=== PATIENT | female | born 1955 | race Caucasian/White ===

== ENCOUNTER 2016-09-30 20:17 | Inpatient (IN) | payer OTHER, MEDICARE ==
[~2016-09-30] VITALS: Ht 160 cm; Wt 59.0 kg
[~2016-09-30 20:17] MED LIST: ACEPHEN650 M1 PR; ACETAMINOPHEN325 M2 PO; ADVAIR 250-501 EACH INH; ADVAIR DISKUS 21 DSK INH; ADVAIR DISKUS1 DS1 INH; ALBUTEROL2.5 MG/3 M INH/SOL; ALPRAZOLAM1 M2 PO; APIX5T PO; AZITHROMYCIN500 M3 PO; BACTRIM DS TAB1 EACH PO; BISACODYL10 M1 RC; CALCIUM 600600 M1 PO; CIPRO500 M1 PO; CLONAZEPAM0.5 MG PO; CYCLOBENZAPRINE10 M2 PO; DELTASONE20 MG PO; DEXILANT60 MG; DEXILANT60 MG PO; ELIQUIS5 M1 PO; FLEET ENEMA133 ML RC; FUROSEMIDE20 M1 PO; FUROSEMIDE40 MG PO; IPRAT-ALBUT 0.5-3 ML; IPRAT-ALBUT 0.5-3 ML INH; KEPPRA500 M1 PO; LASIX 100M100 MG/10 IV; LEVETIRACETAM500 MG PO; LISINOPRIL20 M1 PO; LISINOPRIL40 M1 PO; LOPRESSOR 25MG25 MG PO; LOPRESSOR50 M1 PO; LORAZEPAM1 M1 PO; LYRICA75 M1 PO; MEDROL DOSEPAK1 PAC PO; MEGACE ES625 MG/5 M PO; MEGESTROL PO; METOPROLOL TART50 M1 PO; MILK OF MA400 MG/52 PO; NICODERM C21 MG/24 H TOP; NICOTINE PATCH1 EAC2 TOP; NORVASC5 M1 PO; NOVOLIN R100 UNIT/1 SC; NOVOLOG100 UNIT/2; NYSTATIN100000 UNI PO; ONDANSETRON8 M1 PO; OXYCODONE HCL E40 MG PO; OXYCODONE HCL15 M1 PO; OXYCODONE HCL15 MG PO; OXYCODONE HCL5 M1 PO; OXYCODONE HYDRO15 MG PO; OXYCONTIN (MONO40 MG PO; OXYCONTIN30 M1 PO; PREDNISONE 10MG10 M1 PO; PREDNISONE 20MG20 MG PO; PREDNISONE10 M2 PO; PREDNISONE10 MG PO; PREDNISONE20 M1 PO; PREDNISONE5 MG PO; REGLAN10 M1 PO; SOLU MEDRO IV; SPIRIVA18 MCG PO; SYMBICORT 160/41 PUF INH; SYMBICORT 16010.2 GM INH; TEGRETOL200 M1 PO; VENTOLIN HFA18 GM INH; VITAMIN D31000 UNI2 PO; ZITHROMAX Z-PA250 M1 PO; ZOFRAN ODT8 M1 PO; ZOFRAN ODT8 MG SL; ZOLMITRIPTAN5 MG PO; ZOMIG5 MG PO; [UNRECOGNIZED DRUG - OTHER] PO
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
--- NOTE | 2016-09-30 20:48 | NUR ---
LABS SENT (BLUE,SST,LAV,GREGG, BC #1)
[2016-09-30 20:58] LABS: ABSOLUTE BASOPHIL COUNT 0 /CUMM (0.0-0.2); ABSOLUTE EOSINOPHIL COUNT 0 /CUMM (0.0-0.7); ABSOLUTE GRANULOCYTE CT 4.9 /CUMM (1.4-6.5); ABSOLUTE LYMPH COUNT 1.8 /CUMM (1.2-3.4); ABSOLUTE MONOCYTE COUNT 0.4 /CUMM (0.10-0.60); BASOPHIL % 0.4 % (0.0-2.0); EOSINOPHIL % 0.3 % (0-5); GRANULOCYTE % 68.8 % (42.2-75.2); HEMATOCRIT 30.3 % (37-47); MEAN CORPUSCULAR HGB CONC 31.3 G/DL (33.0-37.0); MEAN CORPUSCULAR VOLUME 79.8 FL (81.0-99.0); MEAN PLATELET VOLUME 6.4 FL (7.4-10.4); PLATELET COUNT 324 /CUMM (130-400); RBC DISTRIBUTION WIDTH 16.7 % (11.5-14.5); WHITE BLOOD CELL COUNT 7.1 /CUMM (4.8-10.8)
--- NOTE | 2016-09-30 21:16 | NUR ---
PT BIBA FOR WORSENING SOB, AMS AND ATTEMPTING TO CUT THROAT WITH KNIFE. ON EMS ARRIVAL, PT HYPOXIC AT 78% AND EMS WITNESSED PT ATTEMPTING TO CUT THROAT WITH KNIFE DUE TO CONFUSION. EMS WAS ABLE TO REMOVE KNIFE AND PT ARRIVES TO ED WITH SUPERFICIAL CUT TO L SIDE OF NECK, BLEEDING CONTROLLED, ALEX TO BEDSIDE TO EVAL IMMEDIATELY UPON ARRIVAL. PT ALERT TO PERSON AND PLACE BUT REFUSING TO ANSWER ANY OTHER QUESTIONS, BREATHING LABORED AT APPROX 26/MIN, ARRIVES RECEIVING 2ND NEB FROM EMS, SATS ON ARRIVAL APPROX 98%, PT WEARS 02 AT HOME AT 2-2.5LPM CHRONICALLY. PT REPORTING SHE HAS BEEN FEELING UNWELL FOR PAST SEVERAL WEEKS AND BEGAN TO FEEL SIG WORSE YESTERDAY AND TODAY. REPORTING INCREASING DIFF BREATHING, PRODUCTIVE COUGH WITH WIHTE/YELLOW SPUTUM AND LOW GRADE FEVER.
--- NOTE | 2016-09-30 21:45 | RADIOLOGY REPORT ---
EXAMINATION: XR PORTABLE CHEST CLINICAL INFORMATION: Dyspnea and hypoxia. COMPARISON: Chest radiograph 06/29/2016. TECHNIQUE: Portable AP view of the chest was obtained. FINDINGS: A cerclage wire surrounding the spinous processes at the cervicothoracic junction is redemonstrated. Cardiac leads overly the chest. The position of the subcutaneous electrodes that traverse the chest are unremarkable. There is a central hilar vascular engorgement. No focal consolidative disease. No pleural effusion or pneumothorax. The cardiac silhouette and upper mediastinal contours are unremarkable. There is chronic erosion of the right distal clavicle which may represent chronic changes related to old trauma. IMPRESSION: There is hilar vascular engorgement. No evidence of overt airspace disease.
--- NOTE | 2016-09-30 21:54 | NUR ---
EMS LINENS REMOVED FROM UNDERNEATH PT, LARGE BRUISE NOTED TO R POSTERIOR RIBS AND SMALLER BRUISE NOTED ABOVE WELL. PT REPORTING SHE HAS BEEN FALLING FREQUENTLY.
--- NOTE | 2016-09-30 22:11 | NUR ---
PT'S NECK WOUND CLEANED AND DRESSED, NO ADDTL BLEEDING, BACITRACIN AND ABD GAUZE APPLIED. PT CONTINUES TO REST.
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
--- NOTE | 2016-09-30 22:59 | NUR ---
PT BED ASSIGNMENT 235-2
--- NOTE | 2016-09-30 23:26 | NUR ---
REPORT GIVEN TO RN BY AG GALEAS PT TO HAVE CTA PRIOR TO TRANSPORT TO FLOOR
--- NOTE | 2016-09-30 23:34 | NUR ---
PT TO CT VIA STRETCHER WITH SITTER
--- NOTE | 2016-09-30 23:54 | Admission Certification ---
Admission Certification Certification Statement - As attending physician, I certify that at the time of - admission, based on clinical presentation, severity of - symptoms, need for further diagnostic testing and - therapeutic interventions, and risk of adverse outcomes - without in-hospital treatment, in my clinical assessment, - this patient requires an acute hospital stay for a minimum - of two nights or longer. I have also considered psychsocial - factors such as support system, advanced age, financial - issues, cognitive issues, and failed out-patient treatments, - past re-admission history, safety of patient, and lack of - compliance as applicable. Specific rationale supporting this admission is: Acute on chronic hypoxic and hypercarbic respiratory failure, COPD exacerbation.
[2016-10-01] VITALS (7 sets, daily range): BP systolic 110–136; BP diastolic 60–70
--- NOTE | 2016-10-01 00:29 | CT SCAN REPORT ---
EXAMINATION: CT CHEST WITHOUT CONTRAST CLINICAL INFORMATION: Cough. Hypoxic. COMPARISON: Chest x-ray 09/30/2016. CT of chest 09/25/2015 TECHNIQUE: Multidetector volumetric CT imaging of the chest was done. Axial MIP volume rendering provided. Sagittal and coronal reformatted images were obtained. DLP: 193.85 mGy-cm FINDINGS: There is breathing motion which limits study. LUNGS: There is centrilobular emphysema of the lungs. No large acute infiltrate. There are lung opacities bilaterally. Left lun. There is a ovoid opacity in the medial region of left upper lobe measuring 1.2 x 0.7 x 1.6 cm, axial image 9 (3), coronal image 46. This has enlarged since the CAT scan 09/25/2015. This previously measured 1 x 0.6 cm. 2. A similar-appearing nodule measuring 1.3 x 0.8 x 0.8 cm in the superior segment of left lower lobe posteriorly axial image 20 (3), coronal image 69. This was smaller and more groundglass in density on the CAT scan of 09/25/2015. This lesion is therefore progressed. 3. Patchy alveolar opacity subpleural lung anterior lingula axial image 35 (3). This is new since prior CAT scan. Right lun. Linear scarring/subsegmental atelectasis at the posterior costophrenic angle the right lung, axial image 52 (3). This is new since CAT scan of 2016. 2. In the right lung there is a vague area of reticular opacity in the right upper lobe mid posterior lung image 21 (3). This is similar to the CAT scan of 09/25/2015. MEDIASTINUM: No bulky lymphadenopathy. Small shotty lymph nodes in the mediastinum. Largest lymph node at the ryanne in the pretracheal retrovascular space with short axis diameter of 7 mm. PLEURA: There is no pleural effusion. No pleural mass or thickening. AXILLA: No lymphadenopathy. UPPER ABDOMEN: Status post cholecystectomy. OSSEOUS STRUCTURES: S-shaped scoliosis of the spine with multilevel endplate spurs. IMPRESSION: 1. Centrilobular emphysematous changes of lung 2. There are bilateral focal lung opacities. There is been interval progression of the lung opacity at the left upper lobe at the apex and also progression of a previously seen density in the superior segment of left lower lobe. Neoplasm not excluded. Consider interventional consult for consideration of percutaneous biopsy.
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
[2016-10-01 08:13] LABS: ABSOLUTE BASOPHIL COUNT 0 /CUMM (0.0-0.2); ABSOLUTE EOSINOPHIL COUNT 0 /CUMM (0.0-0.7); ABSOLUTE GRANULOCYTE CT 2.3 /CUMM (1.4-6.5); ABSOLUTE LYMPH COUNT 0.5 /CUMM (1.2-3.4); ABSOLUTE MONOCYTE COUNT 0 /CUMM (0.10-0.60); BASOPHIL % 0.4 % (0.0-2.0)
[2016-10-01 08:27] LABS: EOSINOPHIL % 0 % (0-5); GRANULOCYTE % 81.1 % (42.2-75.2); HEMATOCRIT 26.5 % (37-47); MEAN CORPUSCULAR HGB 25.3 PG (27.0-31.0); MEAN CORPUSCULAR HGB CONC 32.2 G/DL (33.0-37.0); MEAN CORPUSCULAR VOLUME 78.6 FL (81.0-99.0); MEAN PLATELET VOLUME 6.8 FL (7.4-10.4); PLATELET COUNT 260 /CUMM (130-400); RBC DISTRIBUTION WIDTH 16.2 % (11.5-14.5); RED BLOOD CELL CT 3.37 /CUMM (4.20-5.40)
[2016-10-01 08:35] LABS: WHITE BLOOD CELL COUNT 2.9 /CUMM (4.8-10.8)
--- NOTE | 2016-10-01 10:26 | NUR ---
0812- PT AWOKE FROM SLEEP AND WANTED XANAX DUE TO ANXIETY. PT STATES HER ANXIETY IS SEVERE AND SHE WANTS XANAX NOW. MD WAS PAGED BUT SHE STATED SHE WAS LEAVING NOW IF XANAX NOT GIVEN IMMEDIATELY. PT BEGAN PULLING ON IV AND LEFT ROOM STATING SHE WAS LEAVING. SITTER AND THIS RN FOLLOWED PT. ORDER NUMBER 7 CALLED. ORDER 7 CHANGED TO ORDER 10. DR ARGUELLO CAME TO ELEVATOR ENTRANCE TO SPEAK TO PT. SECURITY WALKED PT BACK TO ROOM. ORDER PLACED BY DR ARGUELLO FOR XANAX 1 MG. PSYCH CONSULT IN PLACE. SAFETY MAINTAINED.
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
--- NOTE | 2016-10-01 19:40 | Event Note ---
See Addendum Event Note Event Note: 1/4 of +GPCs per Dr. Fang
[2016-10-02] VITALS (7 sets, daily range): BP systolic 122–150; BP diastolic 58–74
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
[2016-10-02 08:08] LABS: ABSOLUTE BASOPHIL COUNT 0 /CUMM (0.0-0.2); ABSOLUTE EOSINOPHIL COUNT 0 /CUMM (0.0-0.7); ABSOLUTE MONOCYTE COUNT 0.5 /CUMM (0.10-0.60); BASOPHIL % 0 % (0.0-2.0)
[2016-10-02 08:25] LABS: ABSOLUTE LYMPH COUNT 0.7 /CUMM (1.2-3.4); EOSINOPHIL % 0 % (0-5); GRANULOCYTE % 87.2 % (42.2-75.2); HEMATOCRIT 26.7 % (37-47); MEAN CORPUSCULAR HGB CONC 31.8 G/DL (33.0-37.0); MEAN CORPUSCULAR VOLUME 78.7 FL (81.0-99.0); MEAN PLATELET VOLUME 6.9 FL (7.4-10.4); PLATELET COUNT 298 /CUMM (130-400); RBC DISTRIBUTION WIDTH 16.4 % (11.5-14.5)
[2016-10-02 09:30] LABS: WHITE BLOOD CELL COUNT 9.1 /CUMM (4.8-10.8)
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
--- NOTE | 2016-10-02 20:40 | NUR ---
DR. ROMEO SPOKE TO PT TODAY ABOUT THROAT. PT FELT LIKE SHE WAS HAVING DIFFICULTY WITH HER THROAT. NO RESPIRATORY DISTRESS NOTED AT THIS TIME. PT REMAINS WHEEZY AND ON NEBULIZERS. SAID HE REMEMBERS PT HAD A REACTION, A RASH OR WAS ITCHY WHEN ON ATIVAN. PO BENADRYL WAS GIVEN WITH IV ATIVAN. A ONE TIME ORDER WAS PLACED BY DR ROMEO IN CASE PT DEVELOP ALLERGIC REACTION. PT WAS RESTARTED BACK ON HER PAINS MEDS
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
[2016-10-03] VITALS (7 sets, daily range): BP systolic 125–170; BP diastolic 70–88
--- NOTE | 2016-10-03 05:56 | NUR ---
10/03/16 MST REPORTED TO THIS VERTICAL BORER PATIENT BP 170/88. THIS RN RE-TOOK BP MANUALLY AND WAS 164/82. PATIENT DENIES CHEST PAIN, HEADACHE OR DISCOMFORT. NO DISTRESS WAS NOTED. MD PAOLA Wolfe WAS NOTIFIED AND STATED NO FURTHER ACTION WAS NECESSARY. PATIENT HAS HX OF HTN AND IS CURRENTLY TAKING SCHEDULED BP MEDS.
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
[2016-10-03 07:50] LABS: ABSOLUTE BASOPHIL COUNT 0 /CUMM (0.0-0.2); ABSOLUTE EOSINOPHIL COUNT 0 /CUMM (0.0-0.7); ABSOLUTE GRANULOCYTE CT 7.4 /CUMM (1.4-6.5); ABSOLUTE LYMPH COUNT 0.7 /CUMM (1.2-3.4); ABSOLUTE MONOCYTE COUNT 0.3 /CUMM (0.10-0.60); BASOPHIL % 0 % (0.0-2.0); EOSINOPHIL % 0.1 % (0-5); GRANULOCYTE % 87.9 % (42.2-75.2); HEMATOCRIT 25.5 % (37-47); MEAN CORPUSCULAR HGB 25.3 PG (27.0-31.0); MEAN CORPUSCULAR VOLUME 78.9 FL (81.0-99.0); MEAN PLATELET VOLUME 6.5 FL (7.4-10.4); PLATELET COUNT 280 /CUMM (130-400); RBC DISTRIBUTION WIDTH 16.4 % (11.5-14.5); RED BLOOD CELL CT 3.24 /CUMM (4.20-5.40)
[2016-10-03 09:00] LABS: WHITE BLOOD CELL COUNT 8.4 /CUMM (4.8-10.8)
[2016-10-03] MEDS ORDERED: XANAX1 M1 PO (10:57)
[2016-10-03] MEDS ORDERED: ROZEREM8 M1 PO ×2 (11:09→18:17)
--- NOTE | 2016-10-03 11:14 | Patient Discharge Instructions ---
Discharge Instructions General Discharge Information Special Instructions: Continue to take your Ativan taper as directed by psychiatry services. Continue your Prednisone taper as directed, resume your previous home dose when done. Continue with psychiatry inpatient recommendations. Follow up with your primary care provider and Dr. Cates after discharge. Acute Coronary Syndrome Inclusion Criteria At DC or during hospital stay patient has or had the following: ACS DIAGNOSIS No Discharge Core Measures Meds if any: Prescribed or Continued at Discharge Meds if any: NOT Prescribed or Continued at Discharge Congestive Heart Failure Inclusion Criteria At DC or during hospital stay patient has or had the following: CHF DIAGNOSIS No Discharge Core Measures Meds if any: Prescribed or Continued at Discharge Meds if any: NOT Prescribed or Continued at Discharge Cerebrovascular accident Inclusion Criteria At DC or during hospital stay patient has or had the following: CVA/TIA Diagnosis No Discharge Core Measures Meds if any: Prescribed or Continued at Discharge Meds if any: NOT Prescribed or Continued at Discharge Venous thromboembolism Inclusion Criteria VTE Diagnosis No VTE Type NONE VTE Confirmed by (Test) NONE Discharge Core Measures - Per Current guidelines, there needs to be overlap - treatment for the first 5 days of Warfarin therapy. - If discharged on Warfarin prior to 5 days of - overlap therapy, the patient will need to be - assessed for post discharge needs including - *Post discharge parental anticoagulation - *Warfarin and/or parental anticoagulation education - *Follow up date to check INR post discharge At least 5 days overlap therapy as Inpatient No Meds if any: Prescribed or Continued at Discharge Note: Overlap Therapy is Warfarin and Anticoagulant Meds if any: NOT Prescribed or Continued at Discharge
--- NOTE | 2016-10-03 11:32 | Incdntl Nt Psy ---
Incidental Note Notation: Patient approved for inpatient psychiatric admission by [facility]ona. Authorization #: [id number] Covered for 5 days through 10/07/16. Review date on 10/07/16.
[2016-10-03] MEDS ORDERED: PREDNISONE10 M2 PO ×2 (11:35→18:15)
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
--- NOTE | 2016-10-03 11:59 | Incdntl Nt Psy ---
Incidental Note Notation: This commercial loan underwriter met with client briefly at 11:15am. Attempted to complete diagnostic assessment for admission to [facility] but client was not cooperative with interview. She refused to speak to this commercial loan underwriter. She appeared to be in some distress and was requesting prn anxiety medication. Medication plan reviewed with Dr. Ubaldo Adan. Please see the note under [facility] account number for further information.
[2016-10-03] MEDS ORDERED: LORAZEPAM1 M1 PO (14:00)
--- NOTE | 2016-10-03 15:49 | PN- Pulmonary ---
Subjective HPI/Critical Care Issues: pt seen and examined has a sitter requesting anixiolytics appears comfortable feels respiratory status is improved Objective Current Medications: Current Medications Sig/Halie Start time Last Medication Dose Route Stop Time Status Admin Albuterol Sulfate 3 ML EVERY 4 HRS/AWAKE 10/01 1201 AC 10/03 INH 1305 Albuterol Sulfate 2 PUF Q4-6 PRN PRN 09/30 2245 AC INH Apixaban 5 MG BID 10/01 1000 AC 10/03 PO 0951 Budesonide/ 2 PUF BID 09/30 2243 AC 10/03 Formoterol Fumarate INH 0952 Diphenhydramine HCl 25 MG ONCE ONE 10/02 1630 DC 10/02 PO 10/02 1631 1635 Diphenhydramine HCl 50 MG Q6P PRN 10/02 1630 AC IV Furosemide 20 MG DAILY 10/01 1000 AC 10/03 PO 0951 Guaifenesin 600 MG Q12 09/30 2248 AC 10/03 PO 0952 Levetiracetam 500 MG BID 09/30 2244 AC 10/03 PO 0951 Lisinopril 20 MG DAILY 10/01 1000 AC 10/03 PO 0951 Lorazepam 1.5 MG Q6 10/03 1200 DC 10/03 PO 10/04 0601 1022 Lorazepam 2 MG Q6 10/03 1200 AC PO Lorazepam 2 MG Q6 10/01 1200 DC 10/03 PO 0512 Lorazepam 0 Q1P PRN 10/01 1200 AC 10/03 IV 1201 Melatonin 3 MG AT BEDTIME 10/01 2200 AC 10/02 PO 2113 Methylprednisolone 40 MG Q12 10/01 2200 DC 10/02 IV 10/03 0000 2113 Metoprolol Tartrate 25 MG BID 09/30 2245 AC 10/03 PO 0951 Nicotine 14 MG DAILY 10/01 1000 AC 10/03 TOP 0952 Oxycodone HCl 10 MG Q6P PRN 10/02 1315 AC PO Oxycodone HCl 30 MG Q12 10/02 1309 AC 10/03 PO 0950 Patient Medication 1 ED .STK-MED ONE 10/03 1400 DC Teaching ED 10/03 1401 Prednisone 60 MG DAILY 10/03 1000 AC 10/03 PO 0951 Prochlorperazine 10 MG Q6P PRN 09/30 2245 AC IV Ramelteon 8 MG QPM 10/02 2199 AC 10/02 PO 2113 Tiotropium [place] 1 PUF DAILY 10/01 1000 AC 10/03 INH 0952 Vital Signs & I&O Last 24 Hrs of Vitals and I&O: Vital Signs Date Time Temp Pulse Resp B/P Pulse O2 O2 Flow FiO2 Ox Delivery Rate 10/03 1429 98.2 112 20 125/70 98 10/03 1300 98.4 82 18 138/84 10/03 1116 98.2 80 20 130/80 96 10/03 0951 132/74 10/03 0855 97 Nasal 2.0L Cannula 10/03 0800 96 Nasal 2.0L Cannula 10/03 0706 98.1 76 20 132/74 94 Nasal 2.0L Cannula 10/03 0400 98.2 71 20 164/82 10/03 0245 98.2 71 20 164/82 97 Nasal 2.0L Cannula 10/03 0221 97.8 72 20 170/88 99 Nasal 2.0L Cannula 10/03 0000 98 Nasal 2.0L Cannula 10/02 2230 98.1 91 20 150/74 97 Nasal Cannula 10/02 1645 98 Nasal 2.0L Cannula Intake & Output 10/03 1600 10/03 0800 10/03 0000 Intake Total 600 500 Output Total 375 Balance 225 500 Intake, IV 0 Intake, Oral 600 500 Number 0 Bowel Movements Output, Urine 375 Exam Other Physical Findings: General - awake and alert HEENT - left cut on neck Cardiovascular - S1, S2 Lungs - rhonchi/wheezing bilaterally Abdomen - soft, bowel sounds positive, no tenderness Extremities - trace edema Results Last 24 Hrs of Lab Results: Laboratory Tests 10/03/16 0700: CBC w Diff NO MAN DIFF REQ, RBC 3.24 L, MCV 78.9 L, MCH 25.3 L, RDW 16.4 H, MPV 6.5 L, Gran % 87.9 H, Lymphocytes % 7.9 L, Monocytes % 4.1, Eosinophils % 0.1, Basophils % 0 L, Absolute Granulocytes 7.4 H, Absolute Lymphocytes 0.7 L , Absolute Monocytes 0.3, Absolute Eosinophils 0, Absolute Basophils 0, PUBS MCHC 32.0 L Impression/Plan Impression/Plan Impression/Plan: Impression * Severe oxygen and prednisone dependent COPD * COPD exacerbation/acute hypoxemic respiratory failure * chronic hypercarbic respiratory failure * pulmonary nodules enlarging * pulmonary embolism on Eliquis, (09/2015) * Systolic CHF * spinal stenosis and chronic pain, hx neurostimulator placement. * sacral fracture * tobacco dependence * suicidal ideations, with a possible suicidal attempt Plan * prednisone 60x2, 50x2, 40x2, 30x2, reduce to 20 and will re-evaluate * trc/nebs/inhalers * continue eliquis * anxiolysis * psychiatry follow up DVT prophylaxis at all times (on eliquis)
[2016-10-03] MEDS ORDERED: VITAMIN D1000 UNIT PO (18:19)
[2016-10-03] MEDS ORDERED: OXYCODONE HCL5 M1 PO (18:22)
[2016-10-03] MEDS ORDERED: KEPPRA500 M1 PO (18:24)
[2016-10-03] MEDS ORDERED: METOPROLOL TART25 M1 PO (18:25)
== END 2016-10-03 16:26 | DRG 190 ==
LOC: ENRESERVTM → ENRESERVDT → ERH 20:17 → ERHI 21:56 → 2NA 21:56
PROVIDERS: Internal Medicine Hematology & Oncology; Internal Medicine Interventional Cardiology; Pediatrics; Student in an Organized Health Care Education/Training Program; ADMIT Student in an Organized Health Care Education/Training Program
DX: J44.1 Chronic obstructive pulmonary disease with (acute) exacerbation (principal); J96.22 Acute and chronic respiratory failure with hypercapnia; J96.21 Acute and chronic respiratory failure with hypoxia; E87.2 Acidosis; I50.32 Chronic diastolic (congestive) heart failure; F13.20 Sedative, hypnotic or anxiolytic dependence, uncomplicated; R56.9 Unspecified convulsions; I10 Essential (primary) hypertension; Z86.711 Personal history of pulmonary embolism; Z79.01 Long term (current) use of anticoagulants; T14.91 Suicide attempt; F41.9 Anxiety disorder, unspecified; G89.29 Other chronic pain; S11.91XA Laceration without foreign body of unspecified part of neck, initial encounter; X78.1XXA Intentional self-harm by knife, initial encounter; Y92.009 Unspecified place in unspecified non-institutional (private) residence as the place of occurrence of the external cause; F17.200 Nicotine dependence, unspecified, uncomplicated; I48.91 Unspecified atrial fibrillation
CPT/HCPCS: 2NASP; 80307; 81001; 82436; 87040; 87147; 93005; 93010; 94799; 96374; 96375; 99233; J0456; J0780; J1200; J2920; J2930; J3370; J3490; J7040; J7060

== ENCOUNTER 2016-10-03 10:21 | Inpatient (IN) | payer OTHER, MEDICARE ==
[~2016-10-03] VITALS: Ht 157.5 cm; Wt 55.3 kg
[2016-10-03] MEDS ORDERED: XANAX1 M1 PO (10:57)
[2016-10-03] MEDS ORDERED: ROZEREM8 M1 PO ×2 (11:09→18:17)
[2016-10-03] MEDS ORDERED: PREDNISONE10 M2 PO ×2 (11:35→18:15)
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
[2016-10-03] MEDS ORDERED: LORAZEPAM1 M1 PO (14:00)
--- NOTE | 2016-10-03 17:35 | NUR ---
Patient admitted to [facility] from the floors. Patient tearful during assessment. Patient speech slow and disorganized, however coherent. Patient has a 1:1 sitter for safety. Patient ambulates with the assistance of a walker r/t unsteady gait. Patient on 2L of O2 via nasal cannula for COPD exacerbation. Patient is alert and orient to person, place, time and situation. Patient has nicotine patch on right arm. Patient has no visible signs of LE edema. Patient has extensive medical history and surgeries. Patient currently reports pain 6/10 with 10 being the worse. Patient reports indenpendence with ADL's and requests more pillows to increase head height when sleeping. Looking forward to assisting Rima with mental health.
[2016-10-03] MEDS ORDERED: VITAMIN D1000 UNIT PO (18:19)
[2016-10-03] MEDS ORDERED: OXYCODONE HCL5 M1 PO (18:22)
[2016-10-03] MEDS ORDERED: KEPPRA500 M1 PO (18:24)
[2016-10-03] MEDS ORDERED: METOPROLOL TART25 M1 PO (18:25)
[2016-10-03 19:17] VITALS: BP 123/63
[2016-10-03 22:03] VITALS: BP 136/62
[2016-10-04] VITALS (7 sets, daily range): BP systolic 139–144; BP diastolic 70–87
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
--- NOTE | 2016-10-04 06:19 | NUR ---
PATIENT SLEPT WITH NO ISSUES; O2 VIA NASAL CANNULA RUNNING A 2LITERS/MINUTE; RESPIRATORY STATUS WNL.
--- NOTE | 2016-10-04 12:13 | NUR ---
Rima spent most of the am in her bed. Able to come out for her meds and v/s. Denies any SH/HI/SI. Remains on a 1:1 for her safety. In the afternoon she was more visible on the unit and a lsighlty brighter affect. Respiratory completed her inital eval and prescribed treatments. No issues with her safety.
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
--- NOTE | 2016-10-04 21:09 | NUR ---
PT IS CALM, COOPERATIVE WITH STAFF AND PEERS, AND COMPLIANT WITH UNIT RULES. PT IS IN PT ROOM FOR GREAT LENGTHS OF TIME, SLEEPING, APPEARING LETHRGIC AT TIMES WHILE APPEARING IN MILIEU. WHILE IN MILIEU PT WILL INTERACT TO SOME EXTENT WITH PEERS. MOOD IS STABLE, AFFECT IS EUTHYMIC, COMMUNICATION IS ORGANIZED AND NORMAL IN ALL RSPECTS, AND APPETITE IS NORMAL. PT DENIES SI AT TIMES.
[2016-10-05] VITALS (8 sets, daily range): BP systolic 134–154; BP diastolic 75–84
--- NOTE | 2016-10-05 11:33 | NUR ---
Patient is A&O X 3, compliant with medication and group therapies. Patient report poor night sleep which she relates to anxiety diorder, c/o of difficulty breathing but saturating at 100% at 2 L NC. Pt could be reclusive in her room mostly on bed rest, labile/tearful at times, adjusting well with her walker for ambulation. Denies thought of self-harm and to someone else. Vital sign is stable, mood is labile with Euthymic affect.
--- NOTE | 2016-10-05 20:32 | NUR ---
PT IS CALM. COOPERATIVE WITH STAFF AND PEERS, AND COMPLIANT WITH UNIT RULES. PT IS LETHARGIC, SLEEPING FOR THE MAJORITY OF THE EVENING IN PT ROOM. MOOD IS STABLE, AFFECT IS EUTHYMIC TO FULL RNAGE, COMMUNICATION IS ORGANIZED AND NORMAL IN ALL RESPECTS, AND APPETITE IS NORMAL. PT DENIES SI AT THIS TIME.
--- NOTE | 2016-10-05 21:25 | CP SOUTH PROGRESS NOTE PSYCH ---
Psych (Inpt) Progress Note Progress Note Include the following elements, when applicable: Involvement in the active treatment of the patient with behavioral observations of the patient and the patient's response to the treatment. Review of the ongoing treatment process in the context of the treatment plan. Indication of how multi-disciplinary staff members are carrying out the treatment plan. Plans for future interventions and recommendations for revision of the treatment plan. Liaison with other physicians/providers. Progress Note: PSYCHIATRIST NOTE, 10/05/2016: I discussed this patient's progress thus far, current mental status with nursing staff and met with her again myself in individual session today. Patient is tolerating limitation of benzodiazepine dose (and switchover from Xanax to Ativan) thus far but still requesting more benzos. "for sleep." Patient claimed that after she took the low dose Remeron (7.5mg) HS "my stomach hurt all night!" She has been diagnosed with a UTI and is being started on anti-biotic therapy this evening; however, when I tried to convince her that the infection in her bladder was much more likely the cause of her abdomenal discomfort last evening/night, she still insisted it was the Remeron; I told patient that it was her decision whether or not she took the Remeron but that it is very unlikely it was the cause of her distress overnight. Patient is utilizing the PRN Neurontin with some benefit and will try it for sleep as well as mild anxiety (instead of benzos. which are more likely to negatively affect her breathing effort through respiratory muscle relaxation). Otherwise, patient is positive in affect, able to smile, denying significant depression, identifying her major difficulties ( other than her breathing) being with her anxiety and sleep. Dr. Fang has started patient on a course of tapering prednisone, beginning with 50mg today and tomorrow, 10/06/2016; hopefully this will ease her respiratory distress and related anxiety/apprehension and possibly help her with more restful sleep.
[2016-10-06] VITALS (7 sets, daily range): BP systolic 115–143; BP diastolic 66–79
--- NOTE | 2016-10-06 14:01 | NUR ---
PT HAS BEEN QUIET AND WITHDRAWN. PT SPENDS LESS TIME IN HER ROOM AND HAS MADE A GOAL TO GO TO GROUPS. INTERACTS WITH STAFF, IS ASSERTIVE ABOUT HER NEEDS AND IS VOCAL ABOUT CHANGES IN EMOTIONAL AND PHYSICAL SYMTPOMS.
--- NOTE | 2016-10-06 14:06 | NUR ---
PT DENIES SI AT THIS TIME.
--- NOTE | 2016-10-06 15:29 | CP SOUTH PROGRESS NOTE PSYCH ---
Psych (Inpt) Progress Note Progress Note Include the following elements, when applicable: Involvement in the active treatment of the patient with behavioral observations of the patient and the patient's response to the treatment. Review of the ongoing treatment process in the context of the treatment plan. Indication of how multi-disciplinary staff members are carrying out the treatment plan. Plans for future interventions and recommendations for revision of the treatment plan. Liaison with other physicians/providers. Progress Note: PSYCHIATRIST NOTE, 10/06/2016: I discussed this patient's presentation, progress thus far, current mental status, treatment and discharge planning with staff team today in the daily morning ITTM. Patient is now on her second day of prednisone, 50mg, and due to be reduced to 40mg/day tomorrow, 10/07/2016. She was started on Septra DS, i BID last evening for diagnosed UTI. She did take the low dose Remeron last night after al, experienced no abdomenal discomfort and somewhat better, though still discontinuous, sleep. We spoke again about the benefits of limiting the amount of benzodiazepine drug she uses, the paradox of feeling more anxious when breathing is more difficult/labored, but the negative effects of taking a muscle relaxant such as a benzodiazepine at these times; I will continue attempts at better educating patient with regard to the risks/dangers of chronic use of benzodiazepines given her compromised respiratory function. I will try reducing dose of Ativan at HS tonight from 1.5mg to 1mg (for a daily total of just 1.5mg) . I will also add Neurontin (300mg) at bedtime, in addition to Remeron (7.5mg). We are planning to meet with patient and her tomorrow in a couple's session.
--- NOTE | 2016-10-06 17:14 | SOCIAL WORKER PROG NOTE PSYCH ---
Social Work Progress Note Progress Note Rima's is available for a family meeting tomorrow at 1pm.
--- NOTE | 2016-10-06 17:25 | SOCIAL WORKER PROG NOTE PSYCH ---
Social Work Progress Note Progress Note Met with Rimajessenia, BARREL COOPER request today. Rima ambulates with a walker , and has an oxygen tank. She stated she has "mixed emotions today." She was just visiting with her , and stated she feels as though she has not been a good , has not been caring for her , he has been caring for her mostly. Her was very loving towards her and they seemed to have a loving interactions. She stated how guilty she feels for not taking good care of herself - physically - "I kept smoking." She also, stated she has not been a good mother. Pointed ou to her she seems very depressed, having alot of negative , punishing thougths. She was trearful in session. She denied having SI/HI, no psychosis. She reports being severely depressed since she was 16yrs old. She rates her depression 0/10(worst):8 and anxiety 0/10:4. She stated she did not sleep well last night, was up alot, her appetite was good today, and attended groups. She thinks she is more depressed this afternoon than she was in the morning. She spoke about how her oxygen tank at home isn't as good as the one in the hospital...she said "I had 80% oxygen at home (but I couldn't breathe), that is why she tried to cut a hole in my throat so I could breathe."
--- NOTE | 2016-10-06 20:50 | NUR ---
PT IS CALM, COOPERATIVE WITH STAFF AND PEERS, AND COMPLIANT WITH UNIT RULES. PT IS OFTEN IN [place], INTERACTING WELL WITH OTHERS. MOOD IS STABLE, AFFECT IS FULL RANGE, COMMUNICATION IS ORGANIZED AND APPEARS NORMAL IN ALL RESPECTS, AND APPETITE IS NORMAL. PT DENIES AT THIS TIME.
[2016-10-07] VITALS (7 sets, daily range): BP systolic 122–151; BP diastolic 62–90
--- NOTE | 2016-10-07 12:13 | SOCIAL WORKER PROG NOTE PSYCH ---
Social Work Progress Note Progress Note Rima shared that she had a rough night last night. She said she "threw a fit" because she wasn't understanding why the oxygen level was lowered and she didn't feel staff was explaining things to her. She feels badly about yelling. Dr. Patino and I met with Rima and her this afternoon. Rima stated she didn't sleep last night. She talked again about her behavior last night and described herself as "impulsive" becuase she was demanding to leave. She brought up a few examples of ways in which she felt upset with nursing staff. One staff inparticular she doesn't feel has treated her nicely. As she described the incident's she was very tearful. She talked about wanting to follow rules here and wanting to be a good patient. She doesn't want people to think she is not. She had some difficulty in the beginning of the meeting with feeling like her throat was closing. She felt like she was going to passout. After turning off some lights and putting on a fan, she was able to calm down and work through it. She becomes very panicked. Dr. Patino will be adding some Lexapro to help reduce her anxiety and panic. She does not feel that the Neurontin is helpful and thinks that it increases her depression. Talked about other techniques to help calm her mind such as meditation, imagery, grounding techniques. She will need help to work on practicing those things versus relying on meds for everything. Brought up how therapy with meds is the best combination and that we will have to have some type of therapy set up for when she discharges. Rima has alot of negative assumptions and she is quick to feel things won't work. She could use help in reframing her negative thoughts. Left clinical for ankush [phone]. Authorized for 2 additional days with review on 10/09.
--- NOTE | 2016-10-07 14:22 | CP SOUTH PROGRESS NOTE PSYCH ---
Psych (Inpt) Progress Note Progress Note Include the following elements, when applicable: Involvement in the active treatment of the patient with behavioral observations of the patient and the patient's response to the treatment. Review of the ongoing treatment process in the context of the treatment plan. Indication of how multi-disciplinary staff members are carrying out the treatment plan. Plans for future interventions and recommendations for revision of the treatment plan. Liaison with other physicians/providers. Progress Note: PSYCHIATRIST NOTE (COUPLE'S MEETING), 10/07/2016: I discussed this patient's slow progress to date, current mental and physical status, treatment and discharge planning with staff team today in the daily morning ITTM. Last night patient got very upset over the setting on her supplemental oxygen, yelling/screaming, briefly demanding to be discharged that night; today patient apologized for having "acted out" (as she put it) so badly. Haylie Solorio LCSW, and I met together with patient and latter's , Ed, in a couple's session. We discussed the adverse effects upon her breathing and mood brought on by her dependence on benzodiazepines (on Xanax SCHEDULING SPECIALIST; now on Ativan and tapering off slowly); her spouse understood this though patient continued to cling to use of benzos. for her "panic attacks;" we discussed a better long-term treatment for panic disorder/panic attacks, SSRI anti-depressants; after description of possible risks versus hoped for benefits and potential side effects of such treatment patient (and her spouse) agreed to her starting a low dose of Lexapro (5mg/day) while she is still here in hospital. Patient's was very appropriately supportive and concerned for her welfare, safety and health going forward; he was in favor of her attending IOP. (For additional important details of today's couple's meeting, see Ms. Solorio's progress note of this date.)
--- NOTE | 2016-10-07 14:31 | NUR ---
PT IS COMPLIANT AND COOPERATIVE WITH UNIT RULES. PT IS OUT IN THE COMMUNITY INTERACTING WELL WITH STAFF AND PEERS. PT IS ACTIVE IN GROUPS. PT WAS LOOKING FORWARD TO A FAMILY MEETING THIS AFTERNOON. PT MOOD IS STABLE WTIH A CONSTRICTED AFFECT. PT IS TEARFUL AT TIMES. PT DENIES SI THOGUTHS.
--- NOTE | 2016-10-07 14:43 | SOCIAL WORKER TX PLAN PSYCH ---
Treatment Plan - Please Document: - Evidence that there is ongoing collaboration between - the patient and the interdisciplinary team, - including the patient's active participation and - responsibility for engaging in the treatment regimen, - and that the treatment plan is individualized and - relevant to the patient's conditions. - Treatment plan should reflect documentation indicating - that all active therapeutic efforts are included. Strengths/Capabilities: Family support Physical Limitations (Interventions): COPD, anxiety Patient Identified Trmt Goals: "Help with my breathing and anxiety" Discharge Plan: IOP and return home Problem/Goals #1 Problem #1: anxiety Goal (Short Term): patient will explore medications to help stabilize anxiety/ panic symptoms Goal (Senior Living): patient will identify 2 coping skills to use to reduce anxiety. Interventions: patient will be offered medication management with the psychiatrist, groups on symptom management, coping skills, goals group, relaxation skills, accupuncuture. concrete worker will discuss meditative practices and coping skills to reduce anxiety. Customer Development Manager will hold family meeting and help coordinate aftercare. DSM5/PS Stressors/Medical Prob Diagnosis' (DSM 5, Stressors, Medical): Major Depressive Disorder recurrent severe with anxious distress (F33.2) Rule out: CHRISTI Benzodiazepine use disorder, prescribed Opiate use disorder, prescribed Unspecified eating disorder (by historical report) Current GAF: 21 Treatment Team - Responsibilities of members of the treatment team include: - Medication Management- MD or DOCTOR OF NURSE ANESTHESIA - Medication Administration and Monitoring- Nurse - Group Therapy- Occupational Therapist - 1:1 Therapy,Disch Planning,family involvement-Customer Development Manager
[2016-10-08] VITALS (9 sets, daily range): BP systolic 115–148; BP diastolic 69–78
--- NOTE | 2016-10-08 05:36 | NUR ---
AT 0015, PATIENT WAS INCONTINENT. AT 0045 PT ASKED FOR AND RECEIVED ATARAX 25 FOR ANXIETY AND SLEEPLESSS WITH MINIMAL EFFECT. AT 0145, PT HAD A CIWAS OF 8 AND SHE WAS GIVEN 1MG ATIVAN 1 PRN.
--- NOTE | 2016-10-08 12:04 | NUR ---
PT IS CALM, COOPERATIVE AND PLEASANT, NO ISSUES OR COMPLAINTS REPORTED OR OBSERVED, SOCIAL WITH PEERS AND STAFF, MOOD STABLE WITH FULL RANGE AFFECT, RESPIRATORY ON UNIT FOR SCHEDULED NEB TX, NO DISTRESS NOTED, APPROPRIATE OVERALL.
--- NOTE | 2016-10-08 16:20 | SOCIAL WORKER PROG NOTE PSYCH ---
Social Work Progress Note Progress Note Rima had several medical questions at the beginning of our meeting. She is concerned about going home with her respitory infection due to illness in the family. She also stated that crackling was heard in her lung today, which made her nervous about decreasing the treatment. She asked about seeing Dr. Casper (Sp?). I told her that I didn't know the answer to that right now, but would talk to the team. She is also adamant that she will require the oxygen that she is getting here, stating it is different from the one she has at home and she is hoping she will be able to get it. She reports that she had a terrible night sleep. She was awake most of the night in pain. Complaints of abdominal pain and back pain. She said she couldn't get comfortable. She reports her anxiety to be a 7 (1-10, 10 being worst). She reports 2 panic attacks today. I keep encouraging her to practice coping skills throughout the day when she is not panicking. We talked for awhile about her impulsivity and being able to work on thinking through/ making rational decisions versus reacting emotionally. She would love to attend [facility] at [place] as an aftercare plan. Her only concern is transportation. She is going to talk to family and see if something can be worked out to help her get to [facility].
--- NOTE | 2016-10-08 16:44 | CP SOUTH PROGRESS NOTE PSYCH ---
Psych (Inpt) Progress Note Progress Note Include the following elements, when applicable: Involvement in the active treatment of the patient with behavioral observations of the patient and the patient's response to the treatment. Review of the ongoing treatment process in the context of the treatment plan. Indication of how multi-disciplinary staff members are carrying out the treatment plan. Plans for future interventions and recommendations for revision of the treatment plan. Liaison with other physicians/providers. Progress Note: PSYCHIATRIST NOTE, 10/08/2016: I discussed this patient's slow progress to date, current mental status, treatment and discharge planning with staff team today in the daily morning ITTM and also met with her again myself in individual session. Patient continues to express multiple somatic complaints/symptoms which are difficut to sort out; I am goinng to request consultations with curriculum advisory teacher (Dr. Cates) as well as Infectious Diseases (Dr. Rai); hopefully, they can help us sort out what is purely physical from what is mostly emotionally driven in patient's recent and current behavior. I am attempting to limit patient's use of/reliance on benzodiazepines for the sake of her respiratory function and mood; this itself has likely contributed to her increase in somatization and c/o having "panic attacks;" dose of Lexapro (5mg/day) has just been given for the first time today and is not related to any of patient's somatization up to today.
--- NOTE | 2016-10-08 21:55 | NUR ---
PT IS VISIBLE ON UNIT, VERY SOCIAL WITH PEERS AND STAFF. PLEASANT AND COOPERATIVE. PT ATTENDED WRAP UP MEETING AND PARTICIPATED. NO COMPLAINTS OR SI REPORTED. PT HAS A STABLE MOOD AND FULL RANGE AFFECT.
[2016-10-09] VITALS (8 sets, daily range): BP systolic 121–141; BP diastolic 58–81
--- NOTE | 2016-10-09 05:50 | NUR ---
PATIENT SLEPT MOST OF NIGHT BUT WAS UP TO BATHROOM A COUPLE OF TIMES, AND RECEIVED PRN OXYCONTIN FOR PAIN AND REGLAN FOR NAUSEA AT 0540; RESPIRATORY STATUS WNL.
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
--- NOTE | 2016-10-09 12:19 | NUR ---
DR. FRANCO WAS DOWN ON THE UNIT MEETING WITH THE PT AROUND 1100AM, NO FURTHER ORDERS. DR. KAHN ALSO MET WITH THE PT AROUND 1200PM AND PER MED RN WILL BE TAPERING PREDNISONE. PT IS ANXIOUS AT TIMES TODAY HOWEVER VERBALLY REDIRECTED AND COMFORT PROVIDED WITH PRNS AND MET WITH + EFFECT, PT VERBALIZED APPRECIATION FOR CARE AND SMILES, ENGAGES AND APPROPRIATE WITH STAFF OVERALL AND PEERS.
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
--- NOTE | 2016-10-09 15:17 | SOCIAL WORKER PROG NOTE PSYCH ---
Social Work Progress Note Progress Note Rima continues to present as anxious with panic symptoms. During our meeting today she said she was feeling tension in her neck and felt like her throat was closing. Continue to discuss meditative techniques and distraction as coping skills. She hasn't found much to be effective. She has had periods of incontinence during the day and evening. She said that this has been going on for 3 months. She said she will need to follow up with a urologist when she leaves. Continues to deny any depression and SI. But states that she will need to have the same oxygen she has here when she returns home, or else she won't be able to breathe and that's what caused her to want to cut her throat. She said that Dr. Cates was supposed to look into that for her. I asked if she talked to family about transportation to [facility]? She said she forgot and would talk about it later today.
--- NOTE | 2016-10-09 16:35 | CP SOUTH PROGRESS NOTE PSYCH ---
Psych (Inpt) Progress Note Progress Note Include the following elements, when applicable: Involvement in the active treatment of the patient with behavioral observations of the patient and the patient's response to the treatment. Review of the ongoing treatment process in the context of the treatment plan. Indication of how multi-disciplinary staff members are carrying out the treatment plan. Plans for future interventions and recommendations for revision of the treatment plan. Liaison with other physicians/providers. Progress Note: PSYCHIATRIST NOTE, 10/09/2016: I discussed this patient's progress to date, current mental status, treatment and discharge planning with staff team today in the daily morning ITTM. I spoke in person with infectious diseases pre sales technical consultant, Sebas Rai M.D., who had re-evaluated patient's need for anti-biotic therapy for E. coli bacteremia; despite the fact that patient has experienced pain on urination and in flank and abdomenal areas, foul-smelling urine, urinary incontinence, plus greater than 100,000 colonies of E. coli per ml of urine, Dr. Rai told me that patient does not actually have a UTI and does not require anti-biotic therapy; he has in fact discontinued patient's Septra (which had been started by Halina Zuniga M.D.) Dr. Rai suggested that patient might be seen by a neurologist and we will consider arranging for consultation after discharge. Also, patient was seen today by her neuroscience director na, Ray Cates M.D., who thinks patient is currently doing much better in terms of her respiratory function and has continued the prednisone taper; he will follow up with patient in his office after discharge. Dr. Cates told me he thinks the type of oxygen tank patient is using currently in hospital may not be covered by Medicare; patient told me she has "two different insurances" and will be looking into whether she (or she and her relatives) could afford the difference in cost between the oxygen she has been using at home and the one she is utilizing in hospital. Patient told me she was very happy to have been seen by the above consultants today and much reassured; she appears less anxious despite ongoing slow taper of Ativan (down to 1mg at HS only); we discussed adding low regular doses of Vistaril to the PRN's of same to help with anxiety and sleep induction without reducing her respiratory effort/capability. Patient has started on the low dose Lexapro (5mg/day) to treat her chronic pain anxiety symptoms and is experiencing no side effects to date. I have also started her on a very low dose of Haldol (0.25mg HS) to help reduce her apprehension during the night.
--- NOTE | 2016-10-09 21:37 | NUR ---
PT IS VISIBLE ON UNIT, SOCIAL WITH PEERS AND STAFF. AT TIMES PT WILL ISOLATE IN ROOM BUT IS ACTIVE IN GROUPS AND COOPERATIVE WITH STAFF. VERY PLEASANT AND COOPERATIVE. NO COMPLAINTS OR SI REPORTED. PT HAS A STABLE MOOD AND FULL RANGE AFFECT.
[2016-10-10] VITALS (7 sets, daily range): BP systolic 123–143; BP diastolic 65–88
--- NOTE | 2016-10-10 04:44 | NUR ---
S LEPT WELL OVERNIGHT. O2/2L NC IN USE WITH NO DISTRESS NOTED.
--- NOTE | 2016-10-10 11:21 | SOCIAL WORKER PROG NOTE PSYCH ---
Social Work Progress Note Progress Note Mr. Gottlieb called me today to discuss IOP. He asked is she is able to go 2x's a week? I told him that wasn't possible due to the rules of the program. He thinks that three times a week may be too tiring for her. I said they could always try it and if it's too much they can discuss it with IOP and maybe be referred to outpatient. He said he would discuss it with his and let me know. I told him that typically we schedule intake for the day of discharge. Rima has been in bed all day. Around 3:30pm I asked Rima to come and meet with Dr. Patino and I. She asked what for? I told her it was our daily check in with her to see how she was doing. She asked if we had been doing that? I said yes, I see her daily. She stated she didn't feel like getting up. I asked what was going on? She said she was upset over the UTI that she has and that she has been urinating on herself throughout the day. She is frustrated that nothing is happening to help with that. She feels down today. She refused to get up. I asked if she felt talking to the doctor would be helpful? She said no. Her mood seemed quite irritable.
--- NOTE | 2016-10-10 12:31 | PN- Pulmonary ---
Subjective HPI/Critical Care Issues: pt seen and examined doing much better comfortable feels better Objective Current Medications: Current Medications Sig/Halie Start time Last Medication Dose Route Stop Time Status Admin Acetaminophen 650 MG Q4H PRN 10/03 1845 AC 10/03 PO 1921 Albuterol Sulfate 3 ML TID 10/04 1034 AC 10/09 INH 2220 Albuterol Sulfate 2 PUF Q4-6 PRN PRN 10/03 1845 AC 10/09 INH 1218 Apixaban 5 MG BID 10/03 2200 AC 10/10 PO 0847 Budesonide/ 2 PUF BID 10/03 2200 AC 10/10 Formoterol Fumarate INH 1226 Bupropion HCl 100 MG 10/10 0800 CAN PO Cholecalciferol 1,000 IU DAILY 10/04 1000 AC 10/10 PO 0847 Escitalopram Oxalate 5 MG 10/09 1530 AC 10/10 PO 0848 Furosemide 20 MG DAILY 10/04 1000 AC 10/10 PO 0848 Haloperidol 0.25 MG 10/09 2200 AC 10/09 PO 2155 Haloperidol 0.25 MG Q4H PRN 10/03 1930 AC PO Hydrocortisone See Dose DAILY 10/09 1200 AC 10/10 Insts (1) EXT 1229 Hydroxyzine HCl 25 MG 0800,1400,0 10/09 2200 AC 10/10 PO 0848 Hydroxyzine HCl 25 MG Q4H PRN 10/07 1415 AC 10/09 PO 1549 Levetiracetam 500 MG BID 10/03 2200 AC 10/10 PO 0847 Lisinopril 20 MG DAILY 10/04 1000 AC 10/10 PO 0847 Lorazepam 1 MG 10/08 2200 AC 10/09 PO 2155 Lorazepam 0.5 MG Q4H PRN 10/08 1930 AC PO 10/10 1914 Lorazepam 1 MG Q4H PRN 10/08 1930 AC PO Lorazepam 0.5 MG Q8P PRN 10/07 1415 AC 10/09 PO 10/11 195 0828 Magnesium Hydroxide 30 ML DAILY PRN 10/03 1845 AC PO Melatonin 5 MG AT BEDTIME 10/08 2200 AC 10/09 PO 2156 Metoclopramide HCl 10 MG DAILY NEEDED PRN 10/03 1845 AC 10/09 PO 0540 Metoprolol Tartrate 25 MG BID 10/03 2200 AC 10/10 PO 0848 Mirtazapine 7.5 MG AT BEDTIME 10/04 2200 AC 10/09 PO 2156 Oxycodone HCl 30 MG Q8P PRN 10/04 0015 AC 10/09 PO 0539 Oxycodone HCl 10 MG Q6P PRN 10/03 1845 AC 10/10 PO 1015 Prednisone 10 MG DAILY 10/11 1000 AC PO Prednisone 30 MG DAILY 10/09 1000 DC 10/10 PO 10/10 1001 1015 Sumatriptan Succinate 25 MG DAILY NEEDED PRN 10/04 0015 AC PO Tiotropium [place] 1 PUF DAILY 10/04 1000 AC 10/10 INH 1229 Dose Instructions: (1)Hydrocortisone: APPLY A THIN LAYER TO THE AFFECTED AREA Vital Signs & I&O Last 24 Hrs of Vitals and I&O: Vital Signs Date Time Temp Pulse Resp B/P Pulse O2 O2 Flow FiO2 Ox Delivery Rate 10/10 1225 73 126/65 10/10 0848 99.0 78 99 133/88 10/10 0847 99.0 78 99 133/88 10/10 0804 78 133/88 10/10 0759 99.0 78 133/88 100 10/09 2220 99 Nasal 2.0L Cannula 10/09 2156 78 138/72 10/09 1941 98.6 78 99 138/72 10/09 1934 98.0 78 99 138/72 10/09 1558 79 130/63 10/09 1555 79 130/63 97 10/09 1253 76 141/81 Exam Other Physical Findings: General - awake and alert HEENT - left cut on neck Cardiovascular - S1, S2 Lungs - rhonchi/wheezing bilaterally much improved Abdomen - soft, bowel sounds positive, no tenderness Extremities - no further edema Impression/Plan Impression/Plan Impression/Plan: Impression Impression * Severe oxygen and prednisone dependent COPD IMPROVED * COPD exacerbation/acute hypoxemic respiratory failure * chronic hypercarbic respiratory failure * pulmonary nodules enlarging * pulmonary embolism on Eliquis, (09/2015) * Systolic CHF * spinal stenosis and chronic pain, hx neurostimulator placement. * sacral fracture * tobacco dependence * suicidal ideations, with a possible suicidal attempt Plan - prednisone 10mg daily without a taper until seen in office - continue spiriva once daily - symbicort 2 puffs BID with rinsing of the mouth - TRC/Nebs - Eliquis - patient prefers liquid oxygen and is willing to consider paying for this out of pocket, would recommend case management to inquire regarding cost - discussed with case management
--- NOTE | 2016-10-10 13:55 | NUR ---
PT HAS BEEN IN BED ALL MORNING. PT HAS WET HERSELF MULTIPLE TIMES AND REQUIRED ASSISTANCE IN CLEANING HERSELF UP AFTERWARD. PT IS CURRENTLY STILL IN BED AND IS NOT GOING TO GROUPS AND DID NOT EAT LUNCH. PT REPORTS THAT SHE BELIEVES SHE HAS "A UTI AND THE DOCTOR WON'T PRESCRIBE ME AN ANTIBIOTIC". RN NOTIFIED. VS ARE STABLE AND PT DENIES ANY SI/HI TO THIS MHW.
--- NOTE | 2016-10-10 16:02 | CP SOUTH PROGRESS NOTE PSYCH ---
Psych (Inpt) Progress Note Progress Note Include the following elements, when applicable: Involvement in the active treatment of the patient with behavioral observations of the patient and the patient's response to the treatment. Review of the ongoing treatment process in the context of the treatment plan. Indication of how multi-disciplinary staff members are carrying out the treatment plan. Plans for future interventions and recommendations for revision of the treatment plan. Liaison with other physicians/providers. Progress Note: PSYCHIATRIST NOTE, 10/10/2016: I discussed this patient's slow progress to date, current mental status, treatment and discharge planning with staff team today in the [facility]. I spoke with patient's binding dyer, Dr. Ray Cates, [id number] again this morning; he reiterated how well patient is doing from the respiratory [id number] though she does not appreciate this herself; he has lowered prednisone dose to 10mg/day and plans to maintain patient on that dose following discharge, during aftercare with him. He also brought up once again his opinion that there is no substantial difference between the supplemental low flow oxygen patient has been receiving at home STAFF OCCUPATIONAL THERAPIST and what she is being given/treated with in-hospital and does not believe that any minor difference if there were any would be worth the additional [id number] expense to patient and her spouse/family. During our meeting today patient was rather more downcast and depressed in mood and did not have any clear explanation for this other than that she wanted to go home "on the same oxygen I am being given here now." Patient's breathing did not appear in any way compromised; we spoke again about the vital importance of her refraining from ANY smoking at ANY level upon her return home; she expressed her complete agreement with my recommendation in this regard; patient continues to assert "I have had only two cigarettes a month ago and don't plan to smoke again ;" she was offered nicotine patch and nicotine gum but refuses to utilize either /both. Patient reports sleep not quite as good last night as the one before but still much better than two nights ago. She is tolerating the low dose Lexapro ( 5mg) daily well to date; this has been started primarily to reduce panic anxiety /attacks and secondarily possibly improve mood. Patient continues on very low dose Haldol (0.25mg HS) but has not accepted/utilized any PRN's of same to date. We would very much like to see patient follow up in the [facility].
--- NOTE | 2016-10-10 21:53 | NUR ---
Pt is in bed during change of shift affect is in full range. compliant and cooperative with the staff pt uses a walker and o2 in 2L. Pt vital signs are stable. Pt appetite is good will continue to monitor the pt overnight.
[2016-10-11] VITALS (8 sets, daily range): BP systolic 105–131; BP diastolic 57–78
--- NOTE | 2016-10-11 05:45 | NUR ---
NASAL 02/2LNC . NO RESP DISTRESS, SLEPT WELL
--- NOTE | 2016-10-11 10:26 | NUR ---
Dr. Fox's office contacted re: urology consulted placed and per the answering service Dr. Mcdonald/Dr. Mitchell's office is on-call for this weekend, therefore they were contacted at 1026am for consult .
--- NOTE | 2016-10-11 11:13 | NUR ---
UROLOGIST DR. MONTOYA ON THE UNIT @ ABOUT 1100AM AND MET WITH PT AND AWAITING FURTHER ORDERS.
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
--- NOTE | 2016-10-11 13:08 | CP SOUTH PROGRESS NOTE PSYCH ---
Psych (Inpt) Progress Note Progress Note Include the following elements, when applicable: Involvement in the active treatment of the patient with behavioral observations of the patient and the patient's response to the treatment. Review of the ongoing treatment process in the context of the treatment plan. Indication of how multi-disciplinary staff members are carrying out the treatment plan. Plans for future interventions and recommendations for revision of the treatment plan. Liaison with other physicians/providers. Progress Note: Pt notes that feeling better overall. She was seen by urology today and told that would be started on new abx. She is hopeful that UTI sx will improve. As to mood, feels that new medications started at have been very helpful. Denies SI or HI. Intermittently anxious at time, though taking atarax with good effect. Current Medications Sig/Halie Start time Last Medication Dose Route Stop Time Status Admin Acetaminophen 650 MG Q4H PRN 10/03 1845 AC 10/11 PO 1215 Albuterol Sulfate 3 ML TID 10/04 1034 AC 10/11 INH 1227 Albuterol Sulfate 2 PUF Q4-6 PRN PRN 10/03 1845 AC 10/09 INH 1218 Apixaban 5 MG BID 10/03 2200 AC 10/11 PO 0827 Budesonide/ 2 PUF BID 10/03 2200 AC 10/11 Formoterol Fumarate INH 0829 Cholecalciferol 1,000 IU DAILY 10/04 1000 AC 10/11 PO 0830 Escitalopram Oxalate 5 MG 0810/09 1530 AC 10/11 PO 0827 Furosemide 20 MG DAILY 10/04 1000 AC 10/11 PO 0828 Gentamicin Sulfate 120 MG 1300,0100 10/11 1300 AC IM Gentamicin Sulfate 120 MG Q12 10/11 1118 DC Dextrose/Water 100 ML IV Haloperidol 0.25 MG 10/09 2200 AC 10/10 PO 2209 Haloperidol 0.25 MG Q4H PRN 10/03 1930 AC PO Hydrocortisone See Dose DAILY 10/09 1200 AC 10/11 Insts (1) EXT 0827 Hydroxyzine HCl 25 MG 0800,1400,0 10/09 2200 AC 10/11 PO 1254 Hydroxyzine HCl 25 MG Q4H PRN 10/07 1415 AC 10/11 PO 0007 Levetiracetam 500 MG BID 10/03 2200 AC 10/11 PO 0828 Lisinopril 20 MG DAILY 10/04 1000 AC 10/11 PO 0829 Lorazepam 1 MG 2200 10/080 AC 10/10 PO 2207 Lorazepam 0.5 MG Q4H PRN 10/08 1930 DC PO 10/10 191 Lorazepam 1 MG Q4H PRN 10/08 1930 AC PO Lorazepam 0.5 MG Q8P PRN 10/07 1415 AC 10/11 PO 10/11 1958 1105 Magnesium Hydroxide 30 ML DAILY PRN 10/03 184 AC PO Melatonin 5 MG AT BEDTIME 10/08 220 AC 10/10 PO 220 Metoclopramide HCl 10 MG DAILY NEEDED PRN 10/03 184 AC 10/09 PO 0540 Metoprolol Tartrate 25 MG BID 10/03 2199 AC 10/11 PO 0828 Mirtazapine 7.5 MG AT BEDTIME 10/040 AC 10/10 PO 2206 Nitrofurantoin 50 MG Q6 10/10 1800 AC 10/11 PO 1215 Oxycodone HCl 30 MG Q8P PRN 10/10 2000 AC 10/11 PO 0834 Oxycodone HCl 30 MG Q8P PRN 10/04 0015 DC 10/09 PO 10/10 1958 0539 Oxycodone HCl 10 MG Q6P PRN 10/03 1845 DC 10/10 PO 1015 Prednisone 10 MG DAILY 10/11 1000 AC 10/11 PO 0828 Sumatriptan Succinate 25 MG DAILY NEEDED PRN 10/04 0015 AC PO Tiotropium [place] 1 PUF DAILY 10/04 1000 AC 10/11 INH 0829 Dose Instructions: (1)Hydrocortisone: APPLY A THIN LAYER TO THE AFFECTED AREA Vital Signs Date Time Temp Pulse Resp B/P Pulse O2 O2 Flow FiO2 Ox Delivery Rate 10/11 1244 96 Nasal 2.0L Cannula 10/11 1219 80 105/62 97 10/11 1218 80 105/62 10/11 1011 97 Nasal 2.0L Cannula 10/11 0829 98.5 80 99 131/78 / 0828 98.5 80 99 131/78 10/11 0809 98.5 80 131/78 10/11 0805 98.5 80 131/78 98 10/10 2204 83 123/67 10/10 1954 99.0 83 123/67 10/10 1954 99.0 83 10/10 1600 82 143/77 10/10 1553 88 143 97 MSE Appears much older than stated age. Cooperative behavior, good, appropriate eye contact. Nl speech rate and prosody. No psychomotor retardation or agitation. Mood fine Affect euthymic, full range, appropriate, non-liable. Linear and goal directed thought process. Denies SI or HI. Does not appear to be responding to internal stimuli. Denies AVHs, paranoia, or delusions. I/J: fair A/P: Pt with MDD now improved and complex medical hx now with UTI. - Seen by urology today, eduin LINDSEY, will monitor closely for s/s worsening infection - Continue current medication regimen
--- NOTE | 2016-10-11 14:22 | NUR ---
MADE HER BED PERFECTLY TODAY. OUT IN COMMUNITY GOING TO GROUP, INTERACTING WITH PEERS. BECAME A LITTLE ANXIOUS OVER PERCEPTION THAT HER O2 HAD RUN OUT. IT MAY BE SHE HAD KINKED THE TUBE OR SOMETHING. SHOWED HER THAT HER TANK WAS STILL WORKING AND SHE CALMED DOWN. DENIEED THOUGHTS OF SELF HARM WHEN ASKED.
--- NOTE | 2016-10-11 21:31 | NUR ---
PT IS STABLE WITH BRIGHT, FULL RANGE OF AFFECT. OUT IN THE COMMUNITY AND INTERACTING WITH PEERS/STAFF MEMBERS. PT ATTENDED WRAP UP GROUP AND STATED THAT SHE MAD HER GOAL FOR THE DAY TO GO TO GROUPS AND BE PRESENT IN THE COMMUNITY. VS ARE STABLE AND DENIES ANY SI/HI TO THIS MHW.
[2016-10-12] VITALS (8 sets, daily range): BP systolic 113–142; BP diastolic 70–77
--- NOTE | 2016-10-12 06:17 | NUR ---
PT APPEARED TO SLEEP WELL. IM ANTIBIOTIC GIVEN AT 0100. PT REFUSED HS .025 HALDOL. PT RECEIVED PRN ATIVAN ON EVENINGS.
--- NOTE | 2016-10-12 12:57 | CP SOUTH PROGRESS NOTE PSYCH ---
Psych (Inpt) Progress Note Progress Note Include the following elements, when applicable: Involvement in the active treatment of the patient with behavioral observations of the patient and the patient's response to the treatment. Review of the ongoing treatment process in the context of the treatment plan. Indication of how multi-disciplinary staff members are carrying out the treatment plan. Plans for future interventions and recommendations for revision of the treatment plan. Liaison with other physicians/providers. Progress Note: Pt notes that she is feeling much better. She is less incontinent and feeling less full in the abdomen since abx started. Notes poor sleep with difficulty falling asleep. Intermittently anxious at times as well. Denies SI or HI. Current Medications Sig/Halie Start time Last Medication Dose Route Stop Time Status Admin Acetaminophen 650 MG Q4H PRN 10/03 1845 AC 10/11 PO 1215 Albuterol Sulfate 3 ML TID 10/04 1034 AC 10/12 INH 1005 Albuterol Sulfate 2 PUF Q4-6 PRN PRN 10/03 1845 AC 10/09 INH 1218 Apixaban 5 MG BID 10/03 2200 AC 10/12 PO 0753 Budesonide/ 2 PUF BID 10/03 2200 AC 10/12 Formoterol Fumarate INH 0756 Cholecalciferol 1,000 IU DAILY 10/04 1000 AC 10/12 PO 0754 Escitalopram Oxalate 5 MG AT BEDTIME 10/13 2200 AC PO Escitalopram Oxalate 5 MG 0810/09 1530 DC 10/12 PO 0753 Furosemide 20 MG DAILY 10/04 1000 AC 10/12 PO 0753 Gentamicin Sulfate 120 MG 1300,0100 10/11 1300 AC 10/12 IM 0118 Haloperidol 0.25 MG 10/09 2200 AC 10/10 PO 2209 Haloperidol 0.25 MG Q4H PRN 10/03 1930 AC PO Hydrocortisone See Dose DAILY 10/09 1200 AC 10/12 Insts (1) EXT 0757 Hydroxyzine HCl 25 MG 0800,1400,0 10/09 2200 AC 10/12 PO 0753 Hydroxyzine HCl 25 MG Q4H PRN 10/07 1415 AC 10/11 PO 1701 Levetiracetam 500 MG BID 10/03 2200 AC 10/12 PO 0753 Lisinopril 20 MG DAILY 10/04 1000 AC 10/12 PO 0754 Lorazepam 0.5 MG 10/11 AC 10/11 PO 10/12 Lorazepam 1 MG 10/08 DC 10/10 PO 220 Lorazepam 1 MG Q4H PRN 10/08 193 AC PO Lorazepam 0.5 MG Q8P PRN 10/07 1415 DC 10/11 PO 10/11 1958 194 Magnesium Hydroxide 30 ML DAILY PRN 10/03 184 AC PO Melatonin 9 MG AT BEDTIME 10/12 2199 AC PO Melatonin 5 MG AT BEDTIME 10/08 220 DC 10/11 PO 2125 Metoclopramide HCl 10 MG DAILY NEEDED PRN 10/03 184 AC 10/09 PO 0540 Metoprolol Tartrate 25 MG BID 10/03 2199 AC 10/12 PO 0753 Mirtazapine 7.5 MG AT BEDTIME 10/04 2199 AC 10/11 PO 2125 Nitrofurantoin 50 MG Q6 10/10 1800 DC 10/11 PO 1215 Oxycodone HCl 10 MG Q6P PRN 10/11 1445 DC PO Oxycodone HCl 10 MG Q6P PRN 10/11 1445 AC PO Oxycodone HCl 30 MG Q8P PRN 10/10 2000 AC 10/12 PO 1224 Prednisone 10 MG DAILY 10/11 1000 AC 10/12 PO 0753 Sumatriptan Succinate 25 MG DAILY NEEDED PRN 10/04 0015 AC PO Tiotropium [place] 1 PUF DAILY 10/04 1000 AC 10/12 INH 0756 Dose Instructions: (1)Hydrocortisone: APPLY A THIN LAYER TO THE AFFECTED AREA Vital Signs Date Time Temp Pulse Resp B/P Pulse O2 O2 Flow FiO2 Ox Delivery Rate 10/12 1226 80 127/76 10/12 1225 80 127/76 97 10/12 1004 98 Nasal 2.0L Cannula 10/12 075 99.0 77 142/77 / 0754 82 126/68 10/12 0754 99.0 77 142/77 98 / 075 82 126/68 10/12 2123 98.1 82 99 126/68 10/11 2025 98 Nasal 2.0L Cannula 10/11 1957 82 126/68 10/11 1956 98.1 82 126/68 10/11 1610 87 117/57 10/11 1600 85 117/57 97 MSE Appears much older than stated age. Cooperative behavior, good, appropriate eye contact. Nl speech rate and prosody. No psychomotor retardation or agitation. Mood OK Affect euthymic though slightly sad, slightly flat as well. full range , appropriate, non-liable. Linear and goal directed thought process. Denies SI or HI. Does not appear to be responding to internal stimuli. Denies AVHs, paranoia, or delusions. I/J: fair A/P: Pt with MDD now improved and complex medical hx now with UTI. - Seen by urology shawn LINDSEY started on 10/24, will monitor closely for s/s worsening infection - Melatonin increased for sleep - Continue current medication regimen
--- NOTE | 2016-10-12 22:20 | NUR ---
PT IS ISOLATIVE AND WITHDRAWN TODAY-- SPENDING MOST OF EVENING SHIFT SLEEPING IN PT ROOM. OOB FOR VS, DINNER, MEDICATIONS. PT IS STABLE AND BRIGHT. WHEN OUT IN THE COMMUNITY SHE DOES INTERACT APPROPRIATELY WITH OTHERS. VS ARE STABLE AND DENIES ANY SI/HI TO THIS MHW.
--- NOTE | 2016-10-13 07:31 | NUR ---
PATIENT AWAKE MOST OF THE NIGHT, PRN MEDICATIONS NOT EFFECTIVE, PATIENT ASKED ABOUT ATIVAN ADMINISTRATION.
[2016-10-13 07:36] VITALS: BP 142/77
[2016-10-13 07:38] VITALS: BP 142/77
[2016-10-13 07:50] VITALS: BP 142/77
--- NOTE | 2016-10-13 10:54 | PN- Pulmonary ---
Subjective HPI/Critical Care Issues: pt seen and examined doing well laying flat without o2 comfortable she is upset that she is not home yet she is stable from the respiratory perspective no edema, no cough Objective Current Medications: Current Medications Sig/Halie Start time Last Medication Dose Route Stop Time Status Admin Acetaminophen 650 MG Q4H PRN 10/03 1845 AC 10/11 PO 1215 Albuterol Sulfate 3 ML TID 10/04 1034 AC 10/13 INH 0835 Albuterol Sulfate 2 PUF Q4-6 PRN PRN 10/03 1845 AC 10/12 INH 2213 Apixaban 5 MG BID 10/03 2200 AC 10/13 PO 0745 Budesonide/ 2 PUF BID 10/03 2200 AC 10/13 Formoterol Fumarate INH 1001 Cholecalciferol 1,000 IU DAILY 10/04 1000 AC 10/13 PO 0746 Escitalopram Oxalate 5 MG AT BEDTIME 10/13 2200 AC PO Escitalopram Oxalate 5 MG 0800 10/09 1530 DC 10/12 PO 0753 Furosemide 20 MG DAILY 10/04 1000 AC 10/13 PO 0745 Gentamicin Sulfate 120 MG 1300,0100 10/11 1300 AC 10/13 IM 0041 Haloperidol 0.25 MG 10/090 AC 10/10 PO 2209 Haloperidol 0.25 MG Q4H PRN 10/03 1930 AC PO Hydrocortisone See Dose DAILY 10/09 1200 AC 10/13 Insts (1) EXT 1001 Hydroxyzine HCl 25 MG 0800,1400,0 10/09 2200 AC 10/13 PO 0745 Hydroxyzine HCl 25 MG Q4H PRN 10/07 1415 AC 10/13 PO 0551 Levetiracetam 500 MG BID 10/03 2200 AC 10/13 PO 0745 Lisinopril 20 MG DAILY 10/04 1000 AC 10/13 PO 0746 Lorazepam 0.5 MG .STK-MED ONE 10/12 2209 DC PO 10/12 221 Lorazepam 0.5 MG 10/11 DC 10/12 PO 10/12 2200 221 Lorazepam 1 MG Q4H PRN 10/08 1930 AC PO Magnesium Hydroxide 30 ML DAILY PRN 10/03 1845 AC PO Melatonin 9 MG AT BEDTIME 10/120 AC 10/12 PO 2217 Melatonin 5 MG AT BEDTIME 10/08 220 DC 10/11 PO 2125 Metoclopramide HCl 10 MG DAILY NEEDED PRN 10/03 1845 AC 10/09 PO 0540 Metoprolol Tartrate 25 MG BID 10/03 2199 AC 10/13 PO 0746 Mirtazapine 7.5 MG AT BEDTIME 10/04 2199 AC 10/12 PO 2218 Oxycodone HCl 10 MG Q6P PRN 10/12 2030 AC 10/12 PO 2025 Oxycodone HCl 10 MG Q6P PRN 10/11 1445 DC PO Oxycodone HCl 30 MG Q8P PRN 10/10 2000 AC 10/13 PO 0550 Prednisone 10 MG DAILY 10/11 1000 AC 10/13 PO 0746 Sumatriptan Succinate 25 MG DAILY NEEDED PRN 10/04 0015 AC PO Tiotropium [place] 1 PUF DAILY 10/04 1000 AC 10/13 INH 1001 Dose Instructions: (1)Hydrocortisone: APPLY A THIN LAYER TO THE AFFECTED AREA Vital Signs & I&O Last 24 Hrs of Vitals and I&O: Vital Signs Date Time Temp Pulse Resp B/P Pulse O2 O2 Flow FiO2 Ox Delivery Rate 10/13 0835 99 Nasal 2.0L Cannula 10/13 0750 98.3 81 142/77 04/03 0746 98.3 81 99 142/77 04/ 0746 98.3 81 99 142/77 04/03 0738 98.3 81 142/77 04/03 0736 98.3 81 142/77 / 0033 98 Nasal 2.0L Cannula 10/12 2216 80 113/70 10/12 2016 80 113/70 10/13 2007 80 113/70 10/12 1603 81 123/74 95 10/12 1602 91 123/74 10/12 1226 80 127/76 04 1225 80 127/76 97 Exam Other Physical Findings: General - awake and alert HEENT - left cut on neck Cardiovascular - S1, S2 Lungs - rhonchi/wheezing bilaterally much improved Abdomen - soft, bowel sounds positive, no tenderness Extremities - no further edema Impression/Plan Impression/Plan Impression/Plan: Impression Impression * Severe oxygen and prednisone dependent COPD IMPROVED * COPD exacerbation/acute hypoxemic respiratory failure * chronic hypercarbic respiratory failure * pulmonary nodules enlarging * pulmonary embolism on Eliquis, (09/2015) * Systolic CHF * spinal stenosis and chronic pain, hx neurostimulator placement. * sacral fracture * tobacco dependence * suicidal ideations, with a possible suicidal attempt Plan - prednisone 10mg daily without a taper until seen in office - continue spiriva once daily - symbicort 2 puffs BID with rinsing of the mouth - TRC/Nebs - Eliquis - patient prefers liquid oxygen and is willing to consider paying for this out of pocket, would recommend case management to inquire regarding cost - discussed with case management patient stable for dc from pulmonary perspective
--- NOTE | 2016-10-13 11:47 | SOCIAL WORKER PROG NOTE PSYCH ---
Social Work Progress Note Progress Note Spoke with Rima who was laying in bed looking upset. Asked what was bothering her? She said she wanted to get out of here. I told her that we were planning her discharge for today. She sounded relieved. She was tearful, stating she was anxious about the oxygen at home. She doesn't feel that her oxygen at home works. It sounds like she'll have to make some calls once at home with her around this issue to see what insurance will cover. She also said family could help pay for any out of pocket costs. Talked to her about going to [facility]. She was concerned about the frequency and if she would be too tired. I encouraged her to give a try and see how it works out, because [facility] could always help her with a referral to outpatient if it's too much for her. She said ok. I called [facility] and initially scheduled her intake for tomorrow at 12:45. I called her after and informed him that we are planning discharge for today and told him about the intake for tomorrow. He was not happy with the 12:45 appt. and wanted it changed to a later date. He asked if she could start next week? I explained that it is a step down from the hospital and that we like people to start soon after leaving. Mr. Gottlieb requested to speak with the [facility] directly to set up the intake. I gave him the phone number. I later confirmed her appt. was scheduled for at 2pm. I informed Rima of the appt. and told her that her will come at 3:30p to come and get her.
[2016-10-13 12:23] VITALS: BP 103/61
[2016-10-13 12:43] VITALS: BP 103/61
--- NOTE | 2016-10-13 14:08 | NUR ---
PT IS COMPLIANT AND COOPERATIVE. MOOD IS STABLE WITH A FULL RANGE OF AFFECT. PT BECAME SLIGHTLY AGITATED EARLIER DURING SHIFT REGARDING WANTING DIFFERENT MEDICATION. PT BECAME TEARFUL AND WAS VERBALLY DE-ESCALTED. PT DENIES SI AT THIS TIME, C/O CHRONIC PAIN. PT IS AMBULTING WELL WITH ASSISTANCE FROM WALKER. PT IS WITHDRAWN IN ROOM AT TIMES- IS INTERACTING WITH PEERS AND STAFF WHILE PRESENT ON UNIT. PT IS ATTENDING SOME GROUPS. VITALS ARE STABLE, APPETITE IS GOOD.
[2016-10-13] MEDS ORDERED: HYDROXYZINE HCL25 M2 PO (14:22)
--- NOTE | 2016-10-13 16:07 | CP SOUTH PROGRESS NOTE PSYCH ---
Psych (Inpt) Progress Note Progress Note Include the following elements, when applicable: Involvement in the active treatment of the patient with behavioral observations of the patient and the patient's response to the treatment. Review of the ongoing treatment process in the context of the treatment plan. Indication of how multi-disciplinary staff members are carrying out the treatment plan. Plans for future interventions and recommendations for revision of the treatment plan. Liaison with other physicians/providers. Progress Note: PSYCHIATRIST NOTE (COUPLE'S MEETING/DISCHARGE), 10/13/2016: I discussed this patient's slow progress to date, current mental status, treatment and discharge plans with staff team today in the daily morning ITTM and also met again with the patient and her Ed in a couple's session prior to discharging her to intake at [facility] on 10/16/2016 at 2pm; her spouse will be driving her there. We spoke at length about the risks/benefits ratio of any return to the use of benzodiazepines at any level on her part; patient and are well aware of the respiratory depressant/ respiratory muscle relaxing effect of all benzos. and the risk this represents to patient's already impaired breathing; spouse is supportive of patient staying off benzodiazepines now that she is off regular dosing with them. I had spoken with patient's surg rn, Dr. Cates, again today; he will be following up with patient, for the present maintaining her on daily low dose steroid therapy (prednisone, 10mg daily); his impression is that currently her respiratory function/status is much improved; he will be following her closely in his outpatient office. We have encouraged patient to not utilize PRN oxycodone/ oxycodone CR and knows that these drugs are addictive. Patient is now less anxious, generally calm, especially in the presence of her , able to smile, almost euthymic, future-oriented, coherent; there is no evidence of suicidal or homicidal ideation, plans, intent or impulses and patient is well aware of her safety plan should she ever come to believe herself at risk for self-harm. Patient denies any side effects on current low dose Lexapro/Remeron trials; she understands that the SSRI dose may need upward adjustment and could take up to 2 months to become fully effective in reducing/controlling her panic anxiety/depressive symptoms. Patient asserts benefit from the low dose Vistaril in reducing anxiety and promoting sleep and wishes to continue taking it at home. She did not like the low dose Haldol (0.25mg), does not believe it helpful with anxiety/thinking or sleep and does not wish to continue taking it. Patient's spouse is pleased with her improvement, mentally and physically and very happy to have her returning home with him today. I have called into [facility], [facility], [place], [place] on date of discharge: Lexapro, 5mg: i tab daily in AM (5mg/day); #14 with no refill (for panic anxiety and depression) Remeron, 7.5mg: i tab nightly at HS (7.5mg/night); #14 with no refill (for sleep, reduce anxiety) Vistaril, 25mg: i tab up to 3x/day PRN anxiety/DFA (max. 75mg daily); #42 with no refill patient may also take melatonin up to 9mg HS OTC upon return home, as she found it helpful for sleep induction patient was also offered nicotine patch/gum OTC but declined, asserting again that she had smoked "only two cigarettes two months ago," had no intention of ever smoking in future and refused all smoking cessation aids; however, she was given an appointment card for the [place] [facility] scheduled on 10/15/2016 and 10/29/2016 at 4pm, facilitated by Alexus Bernal LCSW patient was given a prescription for Macrobid (by hospitalists) to complete antibiotic course begun during this admission with I.M. gentamycin (120mg), per urologist, Dr. Arredondo patient is also has supplies at home to take: albuterol sulfate, 3ml inhaled 3x/day (promote better breathing) budesonide/formotero, ii puffs inhaled 2x/day (promote breathing) tiotropium bromide, i puff daily inhaled (for breathing) levetiratcetam, 500mg 2x/day (seizure control) prednisone, 10mg daily (to promote respiration) apixaban (Eliquis), 5mg 2x/day (blood thinner/anti-embolic) lisinopril, 20mg daily (anti-hypertensive) metoprolol, 25mg 2x/day (anti-hypertensive) furosemide, 20mg daily (diuretic) cholecalciferol, 1,000 units daily (for Calcium balance) metoclopramide, 10mg daily (for gastric reflux)
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
[2016-10-13] MEDS ORDERED: LEXAPRO5 M1 PO (16:08)
[2016-10-13] MEDS ORDERED: REMERON15 M2 PO (16:09)
[2016-10-13] MEDS ORDERED: MELATONIN3 M4 PO (16:12)
== END 2016-10-13 16:56 | DRG 880 ==
LOC: CANRESERV → ENRESERVDT → ENRESERVTM → CP SOUTH 10:21
PROVIDERS: ADMIT Psychiatry & Neurology Addiction Medicine
DX: F41.0 Panic disorder [episodic paroxysmal anxiety] (principal); I10 Essential (primary) hypertension; N39.0 Urinary tract infection, site not specified; F32.9 Major depressive disorder, single episode, unspecified; F13.10 Sedative, hypnotic or anxiolytic abuse, uncomplicated; J44.9 Chronic obstructive pulmonary disease, unspecified; Z87.891 Personal history of nicotine dependence
CPT/HCPCS: 36415; 81001; 81003; 82436; 87086; J1580; J3490; J7512

== ENCOUNTER 2017-07-04 15:22 | Inpatient (IN) | payer OTHER, MEDICARE ==
[~2017-07-04] VITALS: Ht 160 cm; Wt 70.8 kg
[~2017-07-04 15:22] MED LIST changes: +AZITHROMYCIN250 M1 PO; +DILTIAZEM ER120 M2 PO; +DOXYCYCLINE HY100 M2 PO; +FERROUS SULFAT325 M2 PO; +FUROSEMIDE40 M1 PO; +GUAIFENESIN ER600 MG PO; +HYDROXYZINE HCL25 M2 PO; +IPRATROPIU0.2 MG/1 M INH/SOL; +LASIX40 M1 PO; +LEXAPRO5 M1 PO; +MELATONIN3 M4 PO; +MEROPENEM1 G1 IV; +METOCLOPRAMIDE H5 MG PO; +METOPROLOL TART25 M1 PO; +MOXIFLOXACIN H400 M2 PO; +ONDANSETRON HCL8 MG PO; +OXYCODONE HCL5 M2 PO; +OXYCONTIN10 M1 PO; +PANTOPRAZOLE SO40 M1 PO; +PRINIVIL20 M1 PO; +REMERON15 M2 PO; +ROZEREM8 M1 PO; +VITAMIN D1000 UNIT PO; +XANAX0.25 M1 PO; +XANAX1 M1 PO; +ZOMIG5 M2 PO
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
--- NOTE | 2017-07-04 15:44 | CT SCAN REPORT ---
EXAMINATION: CT HEAD WITHOUT CONTRAST CLINICAL INFORMATION: Facial droop. Weakness. COMPARISON: CT head 04/20/2017 TECHNIQUE: Contiguous axial imaging was performed from the skull base to vertex without intravenous administration of contrast. DLP: 625.97 mGy-cm FINDINGS: There is no evidence of acute intracranial hemorrhage or territorial infarction. Chronic lacunar infarct versus prominent perivascular space at the left external capsule unchanged since prior study. No abnormal mass effect or midline shift is seen. Carrillo to white matter differentiation is well preserved. No extra-axial fluid collections are identified. The ventricles are normal in size. There is no abnormal attenuation within the brain parenchyma. The osseous structures and soft tissues are normal. Subcutaneous implanted electrode of the occiput. The mastoid air cells and visualized portions of the paranasal sinuses are well aerated. IMPRESSION: No acute intracranial pathology.
[2017-07-04] MEDS ORDERED: METOCLOPRAMIDE H5 MG PO (16:25)
[2017-07-04] MEDS ORDERED: FUROSEMIDE40 M1 PO (16:26)
[2017-07-04] MEDS ORDERED: PANTOPRAZOLE SO40 M1 PO (16:27)
[2017-07-04] MEDS ORDERED: OXYCODONE HCL5 M1 PO (16:28)
[2017-07-04] MEDS ORDERED: OXYCONTIN10 M1 PO (16:28)
[2017-07-04 16:29] LABS: ABSOLUTE BASOPHIL COUNT 0 /CUMM (0.0-0.2); ABSOLUTE EOSINOPHIL COUNT 0 /CUMM (0.0-0.7); ABSOLUTE GRANULOCYTE CT 5.9 /CUMM (1.4-6.5); ABSOLUTE LYMPH COUNT 1.6 /CUMM (1.2-3.4); ABSOLUTE MONOCYTE COUNT 0.4 /CUMM (0.10-0.60); BASOPHIL % 0.3 % (0.0-2.0); EOSINOPHIL % 0 % (0-5); GRANULOCYTE % 74.5 % (42.2-75.2); HEMATOCRIT 24.3 % (37-47); MEAN CORPUSCULAR HGB 28.8 PG (27.0-31.0); MEAN CORPUSCULAR VOLUME 87.3 FL (81.0-99.0); MEAN PLATELET VOLUME 6.9 FL (7.4-10.4); PLATELET COUNT 216 /CUMM (130-400); RBC DISTRIBUTION WIDTH 20.4 % (11.5-14.5); RED BLOOD CELL CT 2.78 /CUMM (4.20-5.40); WHITE BLOOD CELL COUNT 7.9 /CUMM (4.8-10.8)
[2017-07-04] MEDS ORDERED: PREDNISONE20 M1 PO (16:29)
[2017-07-04] MEDS ORDERED: TUMS ULTRA ST1177 MG PO (16:36)
[2017-07-04 16:38] LABS: PT 16.6 SEC (9.4-12.5); PTT 26 SEC (25-37)
--- NOTE | 2017-07-04 17:14 | RADIOLOGY REPORT ---
EXAMINATION: XR PORTABLE CHEST CLINICAL INFORMATION: Altered mental status. Seizure. Evaluate for pneumonia. COMPARISON: 06/01/2017 TECHNIQUE: Portable frontal view of the chest was obtained. FINDINGS: There is been marked interval improvement compared 06/01/2017. There is mild residual patchy opacity in the left upper lobe in the region of prior extensive consolidation. Also, the consolidation of the left lower lobe appears resolved. No pneumothorax or pleural effusion. Cardiac silhouette is normal in size. Atherosclerotic aorta. Dextroscoliosis of the thoracic spine. Surgical absence of distal right clavicle (i.e., Ronda procedure). The occipital stimulator wires overlie the chest. IMPRESSION: 1. No evidence of recurrent pneumonia. 2. The left lower lobe consolidation has resolved, and the left upper lobe consolidation has nearly completely resolved compared to 06/01/2017.
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
[2017-07-04 22:30] VITALS: BP 120/60
--- NOTE | 2017-07-05 05:40 | Admission Certification ---
Admission Certification Certification Statement - As attending physician, I certify that at the time of - admission, based on clinical presentation, severity of - symptoms, need for further diagnostic testing and - therapeutic interventions, and risk of adverse outcomes - without in-hospital treatment, in my clinical assessment, - this patient requires an acute hospital stay for a minimum - of two nights or longer. I have also considered psychsocial - factors such as support system, advanced age, financial - issues, cognitive issues, and failed out-patient treatments, - past re-admission history, safety of patient, and lack of - compliance as applicable. Specific rationale supporting this admission is: Seizure-like activity
[2017-07-05 06:39] VITALS: BP 122/70
[2017-07-05 08:00] LABS: ABSOLUTE BASOPHIL COUNT 0 /CUMM (0.0-0.2); ABSOLUTE EOSINOPHIL COUNT 0 /CUMM (0.0-0.7); ABSOLUTE GRANULOCYTE CT 4.6 /CUMM (1.4-6.5); ABSOLUTE LYMPH COUNT 1.4 /CUMM (1.2-3.4); ABSOLUTE MONOCYTE COUNT 0.3 /CUMM (0.10-0.60); BASOPHIL % 0.3 % (0.0-2.0); EOSINOPHIL % 0.2 % (0-5); GRANULOCYTE % 72.2 % (42.2-75.2); HEMATOCRIT 23.4 % (37-47); MEAN CORPUSCULAR HGB 29.6 PG (27.0-31.0); MEAN CORPUSCULAR HGB CONC 33.9 G/DL (33.0-37.0); MEAN CORPUSCULAR VOLUME 87.5 FL (81.0-99.0); MEAN PLATELET VOLUME 6.7 FL (7.4-10.4); PLATELET COUNT 200 /CUMM (130-400); RBC DISTRIBUTION WIDTH 20.4 % (11.5-14.5); RED BLOOD CELL CT 2.67 /CUMM (4.20-5.40); WHITE BLOOD CELL COUNT 6.4 /CUMM (4.8-10.8)
--- NOTE | 2017-07-05 09:13 | PN- Housestaff ---
Jyoti Guadalupe 07/05/17 0913: Subjective Follow-up For: TIA vs seizure Subjective: Patient was seen and examined. Unable to provide much history. Very lethargic with mild aphasia. Review of Systems Constitutional: Reports: no symptoms. Objective Last 24 Hrs of Vital Signs/I&O Vital Signs Date Time Temp Pulse Resp B/P B/P Pulse O2 O2 Flow FiO2 Mean Ox Delivery Rate 07/05 1434 98.6 90 20 100/62 99 Nasal 1.5L Cannula 07/05 0948 85 122/70 07/05 0900 Nasal 2.0L Cannula 07/05 0818 Nasal 2.0L Cannula 07/05 0808 100 Nasal 2.0L Cannula 07/05 0639 98.2 85 18 122/70 98 Nasal 2.0L Cannula 07/04 2230 Nasal 2.0L Cannula 07/04 223 98.3 79 10 120/60 99 Nasal 2.0L Cannula 07/04 1933 97.5 64 16 122/53 98 Nasal 2.0L Cannula 07/04 1850 97.9 84 16 105/64 98 Nasal 2.0L Cannula 07/04 1734 97.8 94 16 104/62 99 Nasal 2.0L Cannula Intake & Output 07/05 1600 07/05 0800 07/05 0000 Intake Total 150 1000 Output Total 600 700 900 Balance -600 -550 100 Intake, IV 150 1000 Intake, Oral 0 Output, Urine 600 700 900 Patient 156 lb Weight Weight Estimated Measurement Method Physical Exam General Appearance: lethargic, no acute distress, oriented to time and place HEENT: Atraumatic, PERRLA, EOMI Neck: Supple Lymphatic: Cervical nl Cardiovascular: Regular Rate, Normal S1, Normal S2, No Murmurs, Gallops, Rubs Lungs: Clear to Auscultation, Normal Air Movement Abdomen: Normal Bowel Sounds, Soft Neurological: decreased strength in all extremities. Extremities: No Clubbing, No Cyanosis, No Edema, Normal Pulses, No Tenderness/ Swelling Vascular: Normal Pulses, Pulses Symmetrical Current Medications: Current Medications Sig/Halie Start time Last Medication Dose Route Stop Time Status Admin Albuterol Sulfate 3 ML EVERY 4 HRS/AWAKE 07/05 08 AC 07/05 INH 2002 Albuterol Sulfate 2 PUF Q4-6 PRN PRN 07/04 2245 AC 07/05 INH 1001 Alprazolam 0.5 MG TIDPRN PRN 07/04 2245 AC 07/05 PO 07/11 2244 1530 Apixaban 5 MG BID 07/05 0100 AC 07/05 PO 0949 Aspirin 81 MG ONCE ONE 07/04 2300 DC 07/05 PO 07/04 2301 1529 Atorvastatin Calcium 80 MG 1700 07/05 1700 AC 07/05 PO 1532 Budesonide/ 2 PUF BID 07/04 2243 AC 07/05 Formoterol Fumarate INH 1001 Calcium Carbonate 500 MG DAILY 07/05 1000 AC 07/05 PO 0950 Dextrose/Sodium 1,000 ML Q13H 07/05 0945 DC 07/05 Chloride IV 07/05 2244 0950 Ferrous Sulfate 325 MG DAILY 07/05 1000 AC 07/05 PO 0948 Guaifenesin 600 MG Q12 07/05 1000 AC 07/05 PO 0948 Ipratropium [place] 2.5 ML EVERY 4 HRS/AWAKE 07/05 0815 AC 07/05 INH 2003 Levetiracetam 750 MG BID 07/05 2200 AC PO Levetiracetam 500 MG BID 07/05 1000 DC 07/05 PO 0948 Metoprolol Tartrate 50 MG BID 07/05 1000 AC 07/05 PO 0948 Nitrofurantoin 50 MG Q6 07/05 2359 UNVr PO Omeprazole 40 MG DAILY AC 07/05 0700 AC 07/05 PO 0949 Ondansetron HCl 4 MG Q6P PRN 07/04 2245 AC IV Oxycodone HCl 15 MG TID 07/05 1000 AC 07/05 PO 1529 Oxycodone HCl 7.5 MG Q4H PRN 07/05 0600 AC PO Prednisone 20 MG DAILY 07/05 1000 AC 07/05 PO 0948 Sodium Chloride 1,000 ML Q13H 07/04 2130 DC 07/05 IV 0134 Trimethoprim/ 1 TAB BID 07/05 2200 CAN Sulfamethoxazole PO Last 24 Hrs of Lab/Randall Results Last 24 Hrs of Labs/Mics: Laboratory Tests 07/05/17 0610: Anion Gap 7, Estimated GFR 50 L, BUN/Creatinine Ratio 51.8 H, Triglycerides 230 H, Cholesterol 226 H, LDL Cholesterol, Calc 122, HDL Cholesterol 58, Cholesterol/HDL Ratio 3.9, CBC w Diff NO MAN DIFF REQ, RBC 2.67 L, MCV 87.5, MCH 29.6, RDW 20.4 H, MPV 6.7 L, Gran % 72.2, Lymphocytes % 22.2, Monocytes % 5.1, Eosinophils % 0.2, Basophils % 0.3, Absolute Granulocytes 4.6, Absolute Lymphocytes 1.4, Absolute Monocytes 0.3, Absolute Eosinophils 0, Absolute Basophils 0, PUBS MCHC 33.9, Retic Count 3.75 H 07/05/17 0030: Troponin I < 0.01 Assessment/Plan Assessment: 62-year-old female with past medical history significant for seizures, hypertension, spinal stenosis having a neurostimulator in place, PE on Eliquis presented to the hospital with slurred speech and left-sided weakness with a concern for TIA versus Sergio's palsy. Problem list/plan: #TIA/stroke versus Sergio's palsy: * CT negative * Seizure precautions, neuro checks * Swallow evaluation done today, they recommend regular solids with nectar thickened liquid which is patient's baseline * Neurology consult appreciated: Keppra increased to 750 twice a day, consider performing MRI at centers such as [facility] where they can sign off lumbar stimulators, Consider repeat 24-hour EEG as outpatient. #UTI: * Culture positive for gram-negative rods * Unable to assess symptoms given patient medical condition * Will treat with nitrofurantoin as she grew organisms sensitive to this antibiotic in past #AK I: * Improving * continue with IV hydration * Continue to hold lisinopril #Low H&H: * Monitor H&H * Hemoccult * Transfuse if necessary #chronic back pain secondary to spinal stenosis * Continue with current meds #DVT prophylaxis: Being addressed by apixaban #Please confirm patient's medications with her . #Consider psych evaluation. #Patient is full code. Problem List: 1. ELLA (acute kidney injury) 2. Seizure Pain Ratin Pain Location: NA Pain Goal: Remain pain free Pain Plan: NA Tomorrow's Labs & Rationales: CBC to monitor H&H BEP to monitor electrolytes Jhonatan Mcdonald MD 07/05/171948: Attending MD Review Statement Attending Statement Attending Statement: examined this patient, discuss w/resident/PA/REPORTING DEVELOPER, agreed w/resident/PA/REPORTING DEVELOPER, reviewed EMR data (avail), amended to note Attending Assessment/Plan: The patient was seen early this morning and was able to speak, however c/o weakness. Appreciate Neurology and ST consults. OK to advance diet asper ST. Increased Depakote as per Neuro (done). Will need PT/OT consults as well and follow. 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 Need to clarify allergy and may need ID input pending final culture. No fever or urinary symptoms.
[2017-07-05 14:34] VITALS: BP 100/62
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
--- NOTE | 2017-07-05 19:36 | RADIOLOGY REPORT ---
EXAMINATION: XR PORTABLE CHEST CLINICAL INFORMATION: Concern for pneumonia. COMPARISON: Chest radiograph 07/04/2017, 06/01/2017. TECHNIQUE: Portable frontal view of the chest was obtained. FINDINGS: Minimal left basilar airspace opacity which is nonspecific. The lungs are otherwise clear and have markedly improved since chest Dated 06/01/2017. No pleural effusion. Cardiomediastinal silhouette and pulmonary vasculature are within normal limits. Stable surgical absence of the distal right clavicle and occipital stimulator wire overlying the chest. Mild right convex scoliosis of the thoracic spine. IMPRESSION: Minimal left basilar airspace opacity which favors atelectasis over infection.
[2017-07-05 21:30] VITALS: BP 104/64
--- NOTE | 2017-07-06 05:07 | Event Note ---
Event Note Event Note: Situation At 5 Am nursing called that patient is having seizure like acitivity Background 62-year-old female with past medical history significant for seizures, hypertension, spinal stenosis having a neurostimulator in place, PE on Eliquis presented to the hospital with slurred speech and left-sided weakness with a concern for TIA versus Sergio's palsy. During admission patient was being managed for UTI, ELLA. Patient had seizure like activities during previous admission. A and plan: Patient had mild clonic like activities in the all 4 limbs. Vital signs including saturation, BP and DC were unremakable with no change to baseline. Patient was observed at the bedside and activities subsided by itself in 2-3 minutes. No significant change in neurologic exam was observed. Upon review with resident no lab/imaging work up were indicated, yet morning team was informed about the event and regarding following up with specialist regarding the work up.
[2017-07-06 06:00] VITALS: BP 152/90
[2017-07-06 08:01] LABS: ABSOLUTE BASOPHIL COUNT 0 /CUMM (0.0-0.2); ABSOLUTE EOSINOPHIL COUNT 0 /CUMM (0.0-0.7); ABSOLUTE GRANULOCYTE CT 4.2 /CUMM (1.4-6.5); ABSOLUTE LYMPH COUNT 1.6 /CUMM (1.2-3.4); ABSOLUTE MONOCYTE COUNT 0.4 /CUMM (0.10-0.60); BASOPHIL % 0.3 % (0.0-2.0); EOSINOPHIL % 0.4 % (0-5); GRANULOCYTE % 66.9 % (42.2-75.2); HEMATOCRIT 23.1 % (37-47); MEAN CORPUSCULAR HGB 29.4 PG (27.0-31.0); MEAN CORPUSCULAR HGB CONC 33.2 G/DL (33.0-37.0); MEAN CORPUSCULAR VOLUME 88.7 FL (81.0-99.0); MEAN PLATELET VOLUME 6.7 FL (7.4-10.4); PLATELET COUNT 213 /CUMM (130-400); RBC DISTRIBUTION WIDTH 20.5 % (11.5-14.5); RED BLOOD CELL CT 2.61 /CUMM (4.20-5.40); WHITE BLOOD CELL COUNT 6.4 /CUMM (4.8-10.8)
--- NOTE | 2017-07-06 09:01 | PN- Housestaff ---
See Addendum Subjective Follow-up For: TIA vs seizure Subjective: I have seen and examined the patient. The patient was lying comfortably in the bed. She complains of left-sided weakness. Reports shortness of breath which is improved her breathing treatments. Patient states that she wants to know the results of her tests. Patient continues to have decreased strength in lower extremities reflexes are present bilaterally. Sensations intact and cranial nerve examination within normal limits. Complains of pain in left lower extremity and pain/burning on urination. Review of Systems Constitutional: Reports: see HPI. Objective Last 24 Hrs of Vital Signs/I&O Vital Signs Date Time Temp Pulse Resp B/P B/P Pulse O2 O2 Flow FiO2 Mean Ox Delivery Rate 07/06 0823 98 Nasal 2.0L Cannula 07/06 0600 97.6 88 22 152/90 96 Nasal 2.0L Cannula 07/06 0000 Nasal 2.0L Cannula 07/05 2136 107 120/70 07/05 2130 99.4 104 18 104/64 98 07/05 2006 96 Nasal 2.0L Cannula 07/05 1434 98.6 90 20 100/62 99 Nasal 1.5L Cannula 07/05 0948 85 122/70 Intake & Output 07/06 1600 07/06 0800 07/06 0000 Intake Total 240 120 Output Total 200 550 Balance 40 -430 Intake, Oral 240 120 Output, Urine 200 550 Physical Exam General Appearance: Alert, Oriented X3, Cooperative Neurological: Normal Speech, Cranial Nerves 3-12 NL, Reflexes 2+, decreased strength lower extremities, upper extremities 4/5 Extremities: No Clubbing, No Cyanosis Assessment/Plan Assessment: 62-year-old female with past medical history significant for seizures, hypertension, spinal stenosis having a neurostimulator in place, PE on Eliquis presented to the hospital with slurred speech and left-sided weakness with a concern for TIA versus Sergio's palsy. Problem list/plan: #TIA/stroke versus Sergio's palsy: * CT negative * Seizure precautions, neuro checks * Swallow evaluation done yesterday, they recommend regular solids with nectar thickened liquid which is patient's baseline * Neurology consult appreciated: Keppra increased to 750 twice a day * Consider performing MRI at centers such as [place] where they can sign off lumbar stimulators, * Consider repeat 24-hour EEG as outpatient. #UTI: Afebrile without a white count * Culture positive for gram-negative rods * Culture growing Escherichia coli resistant to Bactrim, Augmentin, cefazolin and Cipro, sensitive to ceftriaxone, gentamicin and nitrofurantoin * Of note patient has severe ceftriaxone allergy. Patient was started on nitrofurantoin yesterday we are going to continue every 6h #ELLA: * Improving 1.0 Cr * Continue with IV hydration * We are going to restart her lisinopril today #Low H&H: * Monitor H&H 7.02/01 * Patient states that she is transfused regularly to maintain hemoglobin above 8 * Today will transfuse 1 unit of blood. * Guaiac all stools * Cardiology consult with Dr. mendes tomorrow #chronic back pain secondary to spinal stenosis * Continue with current meds #DVT prophylaxis: Being addressed by apixaban #Please confirm patient's medications with her . #Consider psych evaluation. #Patient is full code. Problem List: 1. Weakness Pain Ratin Pain Location: left leg Pain Goal: Pain 4 or less Pain Plan: prn Tomorrow's Labs & Rationales: cbc bep
--- NOTE | 2017-07-06 11:34 | PN- Neurology ---
Subjective Subjective: No further seizures noted. Patient claims she still has trouble speaking although the nurses that before I came she was speaking fine. Also complains of severe left leg pain and is crying when I touch her leg. Per the nurse who has had this patient before and prior admissions she at times seemed to fake seizures and definitely has a degree of somatization to her condition. Review of Systems: when I touch her leg. Objective Vital Signs and I&Os Vital Signs Date Time Temp Pulse Resp B/P B/P Pulse O2 O2 Flow FiO2 Mean Ox Delivery Rate 07/06 1026 88 152/90 07/06 0823 98 Nasal 2.0L Cannula 07/06 0600 97.6 88 22 152/90 96 Nasal 2.0L Cannula 07/06 0000 Nasal 2.0L Cannula 07/05 2136 107 120/70 07/050 99.4 104 18 104/64 98 07/05 2006 96 Nasal 2.0L Cannula 07/05 1434 98.6 90 20 100/62 99 Nasal 1.5L Cannula Intake & Output 07/06 1600 07/06 0800 07/06 0000 07/05 1600 07/05 0800 07/05 0000 Intake Total 240 710 211 4499 Output Total 200 550 600 700 900 Balance 40 -430 -600 -550 100 Intake, IV 150 1000 Intake, Oral 240 120 0 Output, Urine 200 550 600 700 900 Patient 156 lb Weight Weight Estimated Measurement Method Physical Exam: Alert hypophonic. Oriented to time place. Extra ocular movements intact and face symmetric. Weak in all 4 limbs. Tenderness in the left lower leg elicited by touch. Current Medications: Current Medications Sig/Halie Start time Last Medication Dose Route Stop Time Status Admin Albuterol Sulfate 3 ML EVERY 4 HRS/AWAKE 07/05 0815 AC 07/06 INH 0821 Albuterol Sulfate 2 PUF Q4-6 PRN PRN 07/04 2245 AC 07/05 INH 1002 Alprazolam 0.5 MG TIDPRN PRN 07/04 2245 AC 07/06 PO 07/11 2244 1103 Apixaban 5 MG BID 07/05 0100 AC 07/06 PO 1025 Aspirin 81 MG .STK-MED ONE 07/05 1523 DC PO 07/05 1524 Atorvastatin Calcium 80 MG 1700 07/05 1700 AC 07/05 PO 1532 Budesonide/ 2 PUF BID 07/04 2243 AC 07/06 Formoterol Fumarate INH 1030 Calcium Carbonate 500 MG DAILY 07/05 1000 AC 07/06 PO 1025 Dextrose/Sodium 1,000 ML Q13H 07/05 0945 DC 07/05 Chloride IV 07/05 224 0950 Ferrous Sulfate 325 MG DAILY 07/05 1000 AC 07/06 PO 1025 Guaifenesin 600 MG Q12 07/05 1000 AC 07/06 PO 1025 Ipratropium [place] 2.5 ML EVERY 4 HRS/AWAKE 07/05 0815 AC 07/06 INH 0821 Levetiracetam 750 MG BID 07/05 2200 AC 07/06 PO 1025 Levetiracetam 500 MG BID 07/05 1000 DC 07/05 PO 0948 Lisinopril 40 MG DAILY 07/06 1027 AC PO Metoprolol Tartrate 50 MG BID 07/05 1000 AC 07/06 PO 1026 Nitrofurantoin 50 MG Q6 07/05 2359 AC 07/06 PO 0601 Omeprazole 40 MG DAILY AC 07/05 0700 AC 07/06 PO 0601 Ondansetron HCl 4 MG Q6P PRN 07/04 2245 AC IV Oxycodone HCl 15 MG TID 07/05 1000 AC 07/06 PO 1027 Oxycodone HCl 7.5 MG Q4H PRN 07/05 0600 AC 07/06 PO 0158 Prednisone 20 MG DAILY 07/05 1000 AC 07/06 PO 1025 Trimethoprim/ 1 TAB BID 07/05 2200 CAN Sulfamethoxazole PO Results Last 24 Hours of Lab Results: Laboratory Tests 07/06 0600 Chemistry Sodium (137 - 145 mmol/L) 145 Potassium (3.5 - 5.1 mmol/L) 4.4 Chloride (98 - 107 mmol/L) 108 H Carbon Dioxide (22 - 30 mmol/L) 27 Anion Gap (5 - 16) 10 BUN (7 - 17 mg/dL) 29 H Creatinine (0.5 - 1.0 mg/dL) 1.0 Estimated GFR (>60 ml/min) 56 L BUN/Creatinine Ratio (7 - 25 %) 29.0 H Hematology CBC w Diff NO MAN DIFF REQ WBC (4.8 - 10.8 /CUMM) 6.4 RBC (4.20 - 5.40 /CUMM) 2.61 L Hgb (12.0 - 16.0 G/DL) 7.7 L Hct (37 - 47 %) 23.1 L MCV (81.0 - 99.0 FL) 88.7 MCH (27.0 - 31.0 PG) 29.4 RDW (11.5 - 14.5 %) 20.5 H Plt Count (130 - 400 /CUMM) 213 MPV (7.4 - 10.4 FL) 6.7 L Gran % (42.2 - 75.2 %) 66.9 Lymphocytes % (20.5 - 51.1 %) 25.4 Monocytes % (1.7 - 9.3 %) 7.0 Eosinophils % (0 - 5 %) 0.4 Basophils % (0.0 - 2.0 %) 0.3 Absolute Granulocytes (1.4 - 6.5 /CUMM) 4.2 Absolute Lymphocytes (1.2 - 3.4 /CUMM) 1.6 Absolute Monocytes (0.10 - 0.60 /CUMM) 0.4 Absolute Eosinophils (0.0 - 0.7 /CUMM) 0 Absolute Basophils (0.0 - 0.2 /CUMM) 0 PUBS MCHC (33.0 - 37.0 G/DL) 33.2 Assessment/Plan Assessment: Unclear presentation most likely related to seizure however pseudoseizure cannot be ruled out completely. Unclear if she truly aphasic. Plan: 1. Repeat noncontrast head CT today 2. Complete x-rays of the ankle to rule out fracture. 3. EEG tomorrow [facility]
[2017-07-06 14:57] VITALS: BP 140/62
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
--- NOTE | 2017-07-06 16:43 | RADIOLOGY REPORT ---
EXAMINATION: XR ANKLE, LEFT XR FOOT, LEFT CLINICAL INFORMATION: Left-sided ankle pain. Concern for fracture. COMPARISON: None TECHNIQUE: AP, lateral, and mortise views of the left ankle. Additionally, AP, oblique, lateral radius of the left foot were also provided. FINDINGS: LEFT ANKLE: Moderate soft tissue swelling about the ankle. Evaluation of the lateral radiograph is somewhat limited due to patient positioning. No evidence of malalignment. Talocrural joint spacing appears maintained.. LEFT FOOT: No fracture or malalignment. No significant arthrosis. Joint spacing is preserved. IMPRESSION: Moderate soft tissue swelling about the ankle. No acute osseous findings of the left ankle or left foot.
--- NOTE | 2017-07-06 16:58 | CT SCAN REPORT ---
EXAMINATION: CT HEAD WITHOUT CONTRAST CLINICAL INFORMATION: Seizure/pseudoseizure with left-sided weakness. COMPARISON: CT head 07/04/2017. TECHNIQUE: Contiguous axial imaging was performed from the skull base to vertex without intravenous administration of contrast. DLP: 626.69 mGy-cm FINDINGS: No evidence of acute intracranial pathology. Stable remote-appearing left lacunar infarction versus prominent perivascular space. Artifact from posterior subcutaneous electrodes of the occiput partially limits evaluation of the occipital lobes. There is no evidence of acute intracranial hemorrhage or territorial infarction. No abnormal mass effect or midline shift is seen. [place] to white matter differentiation is well preserved. No extra-axial fluid collections are identified. The ventricles are normal in size. There is no abnormal attenuation within the brain parenchyma. The osseous structures and soft tissues are normal. Minimal nonobstructive mucosal thickening of the right sphenoid sinus and a small mucous retention cyst in the left sphenoid sinus. IMPRESSION: No acute intracranial pathology.
[2017-07-06 22:44] VITALS: BP 158/92
[2017-07-07 07:41] VITALS: BP 148/90
[2017-07-07 07:44] LABS: ABSOLUTE BASOPHIL COUNT 0 /CUMM (0.0-0.2); ABSOLUTE EOSINOPHIL COUNT 0 /CUMM (0.0-0.7); ABSOLUTE GRANULOCYTE CT 5.3 /CUMM (1.4-6.5); ABSOLUTE LYMPH COUNT 1.7 /CUMM (1.2-3.4); ABSOLUTE MONOCYTE COUNT 0.6 /CUMM (0.10-0.60); BASOPHIL % 0.4 % (0.0-2.0); EOSINOPHIL % 0.2 % (0-5); GRANULOCYTE % 69.6 % (42.2-75.2); HEMATOCRIT 27.4 % (37-47); MEAN CORPUSCULAR HGB 30.2 PG (27.0-31.0); MEAN CORPUSCULAR HGB CONC 33.9 G/DL (33.0-37.0); MEAN CORPUSCULAR VOLUME 89.1 FL (81.0-99.0); MEAN PLATELET VOLUME 6.8 FL (7.4-10.4); PLATELET COUNT 193 /CUMM (130-400); RBC DISTRIBUTION WIDTH 18.3 % (11.5-14.5); RED BLOOD CELL CT 3.08 /CUMM (4.20-5.40); WHITE BLOOD CELL COUNT 7.6 /CUMM (4.8-10.8)
--- NOTE | 2017-07-07 08:58 | PN- Housestaff ---
Jaimie Maddox MD 07/07/17 0857: Subjective Follow-up For: TIA vs seizure vs pseudoseizure Complaints: no complaints Subjective: patient seen and examinded. patient complains of less left sided weakness but notes that its still there. she denies any sob. no pain on urination anymore. patient still complains of pain in left lower extremity. Review of Systems Constitutional: Reports: weakness. Musculoskeletal: Reports: muscle pain (leg pain). Neurological/Psychological: Reports: no symptoms. Objective Last 24 Hrs of Vital Signs/I&O nsr Physical Exam General Appearance: Alert, Oriented X3, Cooperative Skin: No Rashes, No Breakdown HEENT: Atraumatic, PERRLA Cardiovascular: Regular Rate, Normal S1, Normal S2, No Murmurs, Gallops, Rubs Lungs: Clear to Auscultation Abdomen: Normal Bowel Sounds, Soft, No Tenderness Neurological: Normal Speech, Normal Tone, Sensation Intact, Cranial Nerves 3-12 NL, Reflexes 2+, decreased strength in lower extremities. Extremities: No Clubbing, No Cyanosis, No Edema Assessment/Plan Assessment: Assessment 62-year-old female with past medical history significant for seizures, hypertension, spinal stenosis with a neurostimulator in place, PE on Eliquis presented to the hospital with slurred speech and left-sided weakness with a concern for TIA versus Sergio's palsy vs pseudoseizure (psychological). CT head was found to be negative. Patient is less weak today. She is continued on Keppra 750mg bid. Problem list/plan: #TIA/stroke versus Sergio's palsy vs pseudoseizure: * Continue increased dose of Keppra * Seizure precautions, neuro checks * Neurology suspects true seizure. Follow up EEG today. * Continue patient on regular solids with nectar thickened liquids. * MRI not able to be done as patient has a neurostimulator not compatible with our MRI. * Dr. Dixon was consulted regarding possbility of pseudoseizure. Patient has prior admission to [facility] in early 2017 for depression. He recommends holding off any psychiatric medicatoins as patient and report poor response in the past. If pseudoseizures are present, there is no specific psychiatric treatment except for supportive psychotherapy to address conflict. #UTI: * Culture positive for gram-negative rods * No symptoms * Will treat with nitrofurantoin as she grew organisms sensitive to this antibiotic in past. #ELLA: * Improving * continue with IV hydration * Continue to hold lisinopril #Low H&H: * Monitor H&H * Hemoccult * Transfuse if necessary #chronic back pain secondary to spinal stenosis * Continue with current meds #left sided lower leg pain * xry ankle and foot show moderate soft tissue swelling about the ankle with no acute osseous findings. * pain control #DVT prophylaxis: Being addressed by apixaban #Please confirm patient's medications with her . #Consider psych evaluation. #Patient is full code. Problem List: 1. Seizure 2. ELLA (acute kidney injury) Pain Ratin Pain Location: left leg Pain Goal: Pain 4 or less Pain Plan: prn Tomorrow's Labs & Rationales: patient to be discharged Hu Mccartney MD 07/07/17 9779: Attending MD Review Statement Attending Statement Attending MD Statement: examined this patient, discuss w/resident/PA/DATA ANALYTICS DEVELOPER, agreed w/resident/PA/DATA ANALYTICS DEVELOPER, reviewed EMR data (avail) Attending Assessment/Plan: No further signs of seizure activity. Pain is well controlled. Patient is refusing EEG and any further imaging for TIA workup. Low suspicion for TIA/CVA at this time. Patient will be discharged on increased Keppra dose, ASA, and statin, and will follow up as outpatient.
[2017-07-07 14:00] VITALS: BP 104/62
[2017-07-07] MEDS ORDERED: MACRODANTIN50 M1 PO (14:12)
[2017-07-07] MEDS ORDERED: KEPPRA500 M1 PO (14:12)
--- NOTE | 2017-07-07 14:15 | Patient Discharge Instructions ---
Discharge Instructions General Discharge Information You were seen/treated for: TIA SEIZURES ELLA LOWER UTI ACUTE ANEMIA You had these procedures: NONE Special Instructions: PLEASE F/U PCP IN ONE WEEK AFTER DISCHARGE. PLEASE F/U SHUTTLE PREPARATION SUPERVISOR IN ONE WEEK AFTER DISCHARGE. PLEASE F/U NEUROLOGIST IN ONE WEEK AFTER DISCHARGE. Diet Continue normal diet: Yes Activity Full Activity/No Limits: Yes Acute Coronary Syndrome Inclusion Criteria At DC or during hospital stay patient has or had the following: ACS DIAGNOSIS No Discharge Core Measures Meds if any: Prescribed or Continued at Discharge Meds if any: NOT Prescribed or Continued at Discharge Congestive Heart Failure Inclusion Criteria At DC or during hospital stay patient has or had the following: CHF DIAGNOSIS No Discharge Core Measures Meds if any: Prescribed or Continued at Discharge Meds if any: NOT Prescribed or Continued at Discharge Cerebrovascular accident Inclusion Criteria At DC or during hospital stay patient has or had the following: CVA/TIA Diagnosis Yes Discharge Core Measures Meds if any: Prescribed or Continued at Discharge Meds if any: NOT Prescribed or Continued at Discharge Venous thromboembolism Inclusion Criteria VTE Diagnosis No VTE Type NONE VTE Confirmed by (Test) NONE Discharge Core Measures - Per Current guidelines, there needs to be overlap - treatment for the first 5 days of Warfarin therapy. - If discharged on Warfarin prior to 5 days of - overlap therapy, the patient will need to be - assessed for post discharge needs including - *Post discharge parental anticoagulation - *Warfarin and/or parental anticoagulation education - *Follow up date to check INR post discharge At least 5 days overlap therapy as Inpatient Yes Meds if any: Prescribed or Continued at Discharge Note: Overlap Therapy is Warfarin and Anticoagulant Meds if any: NOT Prescribed or Continued at Discharge
--- NOTE | 2017-07-07 15:48 | Discharge Summary ---
Visit Information Visit Dates Admission Date: 07/04/17 Discharge Date: 07/07/17 Hospital Course Course Attending Physician: Arthur Cook MD Primary Care Physician: Narinder MCKEON,Cristian Antoine Hospital Course: Ms Gottlieb is a 62-year-old female with past medical history significant for seizures, hypertension, anemia, copd, diastolic chf, htn, spinal stenosis with a neurostimulator in place, PE on Eliquis who presented to the hospital with slurred speech and left-sided weakness with a concern for TIA versus Sergio's palsy vs pseudoseizure (psychological). She has a psychiatric history including an admission to [facility]. On intake patient was found to have left sided weakness. She also had left sided leg pain. Patient was found in the ER to be biting her tongue and had tremulousness and spasticity/hyperreflexia of the legs. She was given Ativan. She was later found to be more communicative, was following commands. She noted at that time that she had dysuria and a productive cough. Patient failed bedside swallow eval. Patient was evaluated and treated for the following: #TIA/stroke versus Sergio's palsy vs pseudoseizure: patient was found to have left sided weakness. Reported symptoms and clinical evaluation supported seizure especially as patient has a history of seizure disorder. * Patient was started on ASA and statin * Prolactin level was normal * We did a repeat swallow eval which she did pass. * CT head negative for hemorrhagic stroke * We increased patient's dose of Keppra to 750mg bid * Seizure precautions, neuro checks * PT/OT cleared patient for discharge. * Neurology suspects true seizure. We attempted EEG but patient refused further workeup. * Continue patient on regular solids with nectar thickened liquids. This was recommended on discharge. * MRI not able to be done as patient has a neurostimulator not compatible with our MRI. * Dr. Dixon was consulted regarding possbility of pseudoseizure. Patient has prior admission to [facility] in early 2017 for depression. He recommends holding off any psychiatric medicatoins as patient and report poor response in the past. If pseudoseizures are present, there is no specific psychiatric treatment except for supportive psychotherapy to address conflict. #UTI: * Culture positive for gram-negative rods and UA with LE and bacteria * Patient reported dysuria on intake and then denied symptoms * Treated with nitrofurantoin as she grew organisms sensitive to this antibiotic in past. #ELLA: patient had poor oral intake and nausea. BUN/CR was 87/2. Evidence of prerenal vs ATN. * continue with IV hydration - gave NS at 75m/hr * Held lisinopril and lasix #Low H&H: Her H&H dropped from 10.4/31 to 8/24. They received a call from PCP saying she needs transfusion. We provided 1 unit of transfusion * IRON AND TIBC NORMAL with retic count high. MCV normal. Likely bleeding. * Patient found to be guaic positive. Will follow up with PCP who is evaluating and treating her for anemia. #chronic back pain secondary to spinal stenosis * We gave oxycontin 15mg bid, oxycodone 7.5mg q4prn #left sided lower leg pain * xry ankle and foot show moderate soft tissue swelling about the ankle with no acute osseous findings. * pain control We continued patient on her eliquis for PE which covered for DVT. Allergies: Coded Allergies: ceftriaxone (Severe, ANAPHYLAXIS 06/29/16) morphine (Severe, TONGUE SWELLING 10/26/16) patient had a significantly positive urine toxicology morphine level at time of presentation to the E.D. 09/30/2016 (was admitted to medical floor from E.D.) Disposition Summary Disposition Principal Diagnosis: seizure Additional Diagnosis: ella uti asymptomatic Discharge Disposition: home or self care Discharge Instructions General Discharge Information Code Status: Full Code Patient's Diet: regular Patient's Activity: as tolerated Follow-Up Instructions/Appts: PLEASE F/U PCP IN ONE WEEK AFTER DISCHARGE. PLEASE F/U CASUAL SHOE INSPECTOR IN ONE WEEK AFTER DISCHARGE. PLEASE F/U NEUROLOGIST IN ONE WEEK AFTER DISCHARGE. Medications at Discharge Discharge Medications: Stop taking the following medications: Levetiracetam (Keppra) 500 MG TABLET ORAL TWICE DAILY Continue taking these medications: Tiotropium [place] (Spiriva) 18 MCG CAP.W.DEV 1 Capsule ORAL DAILY Comments: NOT GIVEN IN HOSPITAL Apixaban (Eliquis) 5 MG TABLET 1 Tablet ORAL TWICE DAILY Comments: NOT GIVEN IN HOSPITAL Ipratropium/Albuterol Sulfate (Iprat-Albut 0.5-3(2.5) MG/3 Ml) 0.5 MG-3 MG (2.5 MG BASE)/3 ML AMPUL.NEB 1 PUFF Inhale through mouth EVERY SIX HOURS as needed for breathing Comments: not given in hospital Albuterol Sulfate (Ventolin Hfa) 90 MCG HFA.AER.AD 2 Puff Inhale through mouth EVERY 4-6 HOURS NEEDED as needed for breathing Comments: NOT GIVEN IN HOSPITAL Cholecalciferol (Vitamin D3) (Vitamin D) 1,000 UNIT TABLET 1 Tablet ORAL DAILY Comments: NOT GIVEN Metoprolol Tartrate (Metoprolol Tartrate) 25 MG TABLET 2 Tablet ORAL TWICE DAILY Comments: Last Taken: 07/07/17 Time: 0945 AM Zolmitriptan (Zomig) 5 MG TABLET 1 Tablet ORAL As Directed as needed for WATTS Qty = 30 Comments: NOT GIVEN IN HOSPITAL Ondansetron HCl (Ondansetron HCl) 8 MG TABLET 1 Tablet ORAL as needed for N/V Qty = 30 Comments: NOT GIVEN IN HOSPITAL Diltiazem Cd (Diltiazem ER) 120 MG CAP.ER.DEG 120 Milligram ORAL DAILY Qty = 30 Comments: NOT GIVEN IN HOSPITAL Ferrous Sulfate (Ferrous Sulfate) 325 MG (65 MG IRON) TABLET.DR 1 Tablet ORAL DAILY Qty = 30 Comments: Last Taken: 07/07/17 Time: 0945 AM Alprazolam (Xanax) 0.25 MG TABLET 2 Tablet ORAL THREE TIMES A DAY NEEDED as needed for ANXIETY Qty = 14 Comments: Last Taken: 07/07/17 Time: 1000 AM Lisinopril (Prinivil) 20 MG TABLET 2 Tablet ORAL DAILY Comments: Last Taken: 07/07/17 Time: 0945 AM Budesonide/Formoterol Fumarate (Symbicort 160-4.5 Mcg Inhaler) 160 MCG-4.5 MCG/ ACTUATION HFA.AER.AD 2 PUFF Inhale through mouth TWICE DAILY Comments: LAST TAKEN: 07/07/17 @ 0945 AM Guaifenesin (Guaifenesin ER) 600 MG TAB.ER.12H 600 Milligram ORAL EVERY 12 HOURS Qty = 30 Comments: Last Taken: 07/07/17 Time: 0945 AM Metoclopramide HCl (Metoclopramide HCl) 5 MG TABLET 1 Tablet ORAL 3 TIMES DAILY BEFORE MEALS Qty = 42 Comments: NOT GIVEN IN HOSPITAL Furosemide (Furosemide) 40 MG TABLET 1 Tablet ORAL As Directed Qty = 14 Comments: NOT GIVEN IN HOSPITAL Pantoprazole Sodium (Pantoprazole Sodium) 40 MG TABLET.DR 1 Tablet ORAL DAILY Comments: NOT GIVEN IN HOSPITAL Oxycodone HCl (Oxycontin) 10 MG TAB.ER.12H 1 Tablet ORAL THREE TIMES DAILY as needed for PAIN Comments: Last Taken: 07/07/17 Time: 0945 AM Oxycodone HCl (Oxycodone HCl) 5 MG TABLET 7.5 Milligram ORAL Q4H as needed for PAIN Comments: Last Taken: 07/07/17 Time: 1:00 PM Prednisone (Prednisone) 20 MG TABLET 1 Tablet ORAL DAILY Comments: Last Taken: 07/07/17 Time: 0945 AM Calcium Carbonate (Tums Ultra Strength) (Unknown Strength) TAB.CHEW Unknown Dose ORAL As Directed as needed for GI Comments: Last Taken: 07/07/17 Time: 0945 AM Start taking the following new medications: Levetiracetam (Keppra) 500 MG TABLET 750 Milligram ORAL TWICE DAILY Qty = 60 No Refills Comments: Last Taken: 07/07/17 Time: 0945 AM Copies To: Narinder MCKEON,Cristian Antoine Attending Review Statement Documenting Attending: Arthur Cook MD Other Findings: I was not involved in care of this patient during hospital course other than the day of admission. This summary is assigned to me by mistake.
== END 2017-07-07 16:07 | disposition home health service (06) | DRG 683 ==
LOC: ERH 15:22 → 1NO 18:50 → ERHI 18:50 → ENRESERV 20:07 → ENTRNSPT 21:35 → EDTRNSPTSTS 21:38 → 1NO 21:49 → CMPTRNSPT 21:58 → ENPENDDIS 07-07 14:43 → ENTRNSPT 07-07 16:00 → 1NO 07-07 16:07 → CMPTRNSPT 07-07 16:20
PROVIDERS: Emergency Medicine; Internal Medicine; Student in an Organized Health Care Education/Training Program
PROC: 30233N1 Transfusion of Nonautologous Red Blood Cells into Peripheral Vein, Percutaneous Approach (ICD-10-PCS; principal; 2017-07-06)
DX: N17.9 Acute kidney failure, unspecified (principal); J96.12 Chronic respiratory failure with hypercapnia; I27.29 Other secondary pulmonary hypertension; I11.0 Hypertensive heart disease with heart failure; F11.20 Opioid dependence, uncomplicated; G81.94 Hemiplegia, unspecified affecting left nondominant side; G83.84 Todd's paralysis (postepileptic); I50.42 Chronic combined systolic (congestive) and diastolic (congestive) heart failure; N39.0 Urinary tract infection, site not specified; R56.9 Unspecified convulsions; I44.7 Left bundle-branch block, unspecified; Z99.81 Dependence on supplemental oxygen; Z79.01 Long term (current) use of anticoagulants; J44.9 Chronic obstructive pulmonary disease, unspecified; G89.29 Other chronic pain; I25.2 Old myocardial infarction; Z86.711 Personal history of pulmonary embolism; F41.9 Anxiety disorder, unspecified; F32.9 Major depressive disorder, single episode, unspecified; G47.00 Insomnia, unspecified; M54.9 Dorsalgia, unspecified; M48.00 Spinal stenosis, site unspecified; R47.81 Slurred speech; R53.1 Weakness; E04.1 Nontoxic single thyroid nodule; D64.9 Anemia, unspecified; M25.572 Pain in left ankle and joints of left foot; Z87.820 Personal history of traumatic brain injury; Z87.891 Personal history of nicotine dependence; F19.10 Other psychoactive substance abuse, uncomplicated; E86.0 Dehydration
CPT/HCPCS: 1NP; 36415; 73610-LT; 73630-LT; 80307; 81001; 82436; 86920; 87086; 93005; 93010; 97116-GO; 97161-GP; 97530-GO; G0480; J3490; J7042; P9016

== ENCOUNTER 2017-07-14 01:35 | Emergency (ER) | payer OTHER, MEDICARE ==
[~2017-07-14 01:35] MED LIST changes: +MACRODANTIN50 M1 PO; +TUMS ULTRA ST1177 MG PO
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
[2017-07-14 04:13] LABS: ABSOLUTE BASOPHIL COUNT 0 /CUMM (0.0-0.2); ABSOLUTE EOSINOPHIL COUNT 0 /CUMM (0.0-0.7); ABSOLUTE GRANULOCYTE CT 8.3 /CUMM (1.4-6.5); ABSOLUTE LYMPH COUNT 0.4 /CUMM (1.2-3.4); ABSOLUTE MONOCYTE COUNT 0.1 /CUMM (0.10-0.60); BASOPHIL % 0.2 % (0.0-2.0); EOSINOPHIL % 0 % (0-5); GRANULOCYTE % 93.5 % (42.2-75.2); HEMATOCRIT 26.7 % (37-47); MEAN CORPUSCULAR HGB 29.4 PG (27.0-31.0); MEAN CORPUSCULAR HGB CONC 32.8 G/DL (33.0-37.0); MEAN CORPUSCULAR VOLUME 89.8 FL (81.0-99.0); MEAN PLATELET VOLUME 6.8 FL (7.4-10.4); PLATELET COUNT 185 /CUMM (130-400); RBC DISTRIBUTION WIDTH 17.8 % (11.5-14.5); RED BLOOD CELL CT 2.98 /CUMM (4.20-5.40); WHITE BLOOD CELL COUNT 8.8 /CUMM (4.8-10.8)
--- NOTE | 2017-07-14 04:40 | CT SCAN REPORT ---
EXAMINATION: CT HEAD WITHOUT CONTRAST CLINICAL INFORMATION: Altered mental status. History of cerebrovascular accident. COMPARISON: CT head dated 07/06/2017. TECHNIQUE: Contiguous axial imaging was performed from the skull base to vertex without intravenous administration of contrast. DLP: 634 mGy-cm FINDINGS: There is no evidence of acute intracranial hemorrhage. No abnormal mass effect or midline shift is seen. Redemonstrated chronic lacunar infarct in the right caudate head. A focus of hypoattenuation the left sublenticular region likely reflects a prominent perivascular space. No extra-axial fluid collections are identified. The ventricles are normal in size. There is no abnormal attenuation within the brain parenchyma. A implanted biomedical equipment support specialist is redemonstrated in the posterior occipital soft tissues, with a lead tracking inferiorly into the soft tissues of the posterior neck. The mastoid air cells and visualized portions of the paranasal sinuses are well aerated. IMPRESSION: No acute intracranial pathology. Redemonstrated chronic lacunar infarct in the right caudate head.
--- NOTE | 2017-07-14 04:42 | RADIOLOGY REPORT ---
EXAMINATION: XR PORTABLE CHEST CLINICAL INFORMATION: Dyspnea, chest pain. COMPARISON: Chest radiograph dated 07/05/2017. TECHNIQUE: Portable frontal view of the chest was obtained. FINDINGS: Cerclage wire projects over the cervicothoracic junction. A wire once again is noted which projects in a craniocaudal orientation over the right paramidline thorax. No focal consolidation or pleural effusion. Cardiac mediastinal silhouette is stable. No pneumothorax. No acute osseous abnormalities. IMPRESSION: No focal consolidative airspace process or effusion.
[2017-07-14 07:11] VITALS: BP 148/80
[2017-07-14] MEDS ORDERED: DELTASONE20 MG PO (07:29)
== END 2017-07-14 07:30 ==
LOC: ERH 01:35
PROVIDERS: Emergency Medicine
DX: J44.1 Chronic obstructive pulmonary disease with (acute) exacerbation (principal); I10 Essential (primary) hypertension; I50.9 Heart failure, unspecified
CPT/HCPCS: 1263; 1288; 1387; 71045; 93005; 93010; 94799; 99291; J2930

== ENCOUNTER 2017-08-16 04:09 | Inpatient (IN) | payer OTHER, MEDICARE ==
[~2017-08-16] VITALS: Ht 162.6 cm; Wt 68.0 kg
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
[2017-08-16 05:00] LABS: ABSOLUTE BASOPHIL COUNT 0 /CUMM (0.0-0.2); ABSOLUTE EOSINOPHIL COUNT 0 /CUMM (0.0-0.7); ABSOLUTE GRANULOCYTE CT 11.3 /CUMM (1.4-6.5); ABSOLUTE LYMPH COUNT 1.8 /CUMM (1.2-3.4); ABSOLUTE MONOCYTE COUNT 0.2 /CUMM (0.10-0.60); BASOPHIL % 0.2 % (0.0-2.0); EOSINOPHIL % 0.2 % (0-5); GRANULOCYTE % 84.8 % (42.2-75.2); HEMATOCRIT 29.4 % (37-47); MEAN CORPUSCULAR HGB 30.6 PG (27.0-31.0); MEAN CORPUSCULAR VOLUME 95.6 FL (81.0-99.0); MEAN PLATELET VOLUME 6.5 FL (7.4-10.4); PLATELET COUNT 269 /CUMM (130-400); RBC DISTRIBUTION WIDTH 17.3 % (11.5-14.5); RED BLOOD CELL CT 3.07 /CUMM (4.20-5.40); WHITE BLOOD CELL COUNT 13.4 /CUMM (4.8-10.8)
[2017-08-16 05:05] LABS: PT 18.6 SEC (9.4-12.5); PTT 27 SEC (25-37)
--- NOTE | 2017-08-16 05:39 | RADIOLOGY REPORT ---
EXAMINATION: XR PORTABLE CHEST CLINICAL INFORMATION: Altered mental status COMPARISON: Chest x-ray July 14, 2017 TECHNIQUE: Portable frontal view of the chest was obtained. 5:10 AM FINDINGS: There is patchy hazy airspace opacity both lung bases with mild central hilar vascular congestion. There is peribronchial cuffing central hilar areas as well. No pleural effusion. Cardiomediastinal contours normal. Heart size normal. There are vascular wall calcifications of aorta. Cerclage wire over lower cervical spine. Overlies the medial upper right chest again unchanged since prior study. IMPRESSION: Patchy bibasilar airspace disease with mild central hilar vascular congestion peribronchial cuffing. Cardiogenic versus infectious etiology. Follow-up chest x-ray will be helpful.
--- NOTE | 2017-08-16 06:58 | CT SCAN REPORT ---
EXAMINATION: CT CHEST WITHOUT CONTRAST CLINICAL INFORMATION: Respiratory depression COMPARISON: Chest x-ray August 16, 2017 TECHNIQUE: Multidetector volumetric CT imaging of the chest was done. Axial MIP volume rendering provided. Sagittal and coronal reformatted images were obtained. DLP: 375.77 mGy-cm FINDINGS: LUNGS: There is patchy alveolar and interstitial opacities primarily the dependent lung but involving all lobes. The dependent upper and lower lobes are most affected somewhat confluent opacities in these regions. The nondependent lung is more patchy. Severity involvement is similar to the right and left lung. Though a cardiogenic etiology is not excluded a multifocal infectious process would be favored. Clinically correlate. MEDIASTINUM: There are small shotty lymph nodes in the mediastinum. Largest measuring about 1 cm in short axis diameter at the level the ryanne at the pretracheal retrovascular space. These may be reactive. PLEURA: There is no pleural effusion. No pleural mass or thickening. AXILLA: No lymphadenopathy. UPPER ABDOMEN: Visualized portions of liver and spleen are unremarkable. Degenerative glands are normal. Partially visualized kidneys and pancreas unremarkable. Patient has had prior cholecystectomy. Neural stimulator probe in the subcutaneous tissue at the left lower chest about the level the diaphragm posteriorly. OSSEOUS STRUCTURES: Unremarkable. IMPRESSION: Patchy bilateral airspace disease mostly affecting the dependent lung.
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
--- NOTE | 2017-08-16 17:34 | Admission Certification ---
Admission Certification Certification Statement - As attending physician, I certify that at the time of - admission, based on clinical presentation, severity of - symptoms, need for further diagnostic testing and - therapeutic interventions, and risk of adverse outcomes - without in-hospital treatment, in my clinical assessment, - this patient requires an acute hospital stay for a minimum - of two nights or longer. I have also considered psychsocial - factors such as support system, advanced age, financial - issues, cognitive issues, and failed out-patient treatments, - past re-admission history, safety of patient, and lack of - compliance as applicable. Specific rationale supporting this admission is: Patient requires hospitalization for management of her acute on chronic hypoxic respiratory failure presumed to be secondary to pneumonia
[2017-08-16 19:23] VITALS: BP 126/68
[2017-08-17 07:15] VITALS: BP 116/64
--- NOTE | 2017-08-17 07:58 | PN- Housestaff ---
Shaun Hilton 08/17/17 0758: Subjective Follow-up For: lactic acidosis most likely due to sepsis due to pneumonia Acute hypercapnic respiratory failure 2/2 PNA and COPD exacerbation hx of CHF History of hypertension History of seizures History of PE on eliquis history of anxiety Chronic pain on narcotics Pleuritic CP ELLA Subjective: Patient reports she feels sick and mild pleuritic chest discomfort. She also reports 1 episode of diarrhea overnight after she was given a suppository Review of Systems Constitutional: Reports: see HPI. Objective Last 24 Hrs of Vital Signs/I&O Vital Signs Date Time Temp Pulse Resp B/P B/P Pulse O2 O2 Flow FiO2 Mean Ox Delivery Rate 08/17 0813 96 Nasal 2.0L Cannula 08/17 0715 98.1 80 20 116/64 100 Nasal 4.0L Cannula 08/17 0307 96 Nasal 2.0L Cannula 08/16 2219 Nasal 2.0L Cannula 08/16 1923 98.1 80 20 126/68 96 Nasal Cannula 08/16 1910 Nasal 2.5L Cannula / 1840 96.7 70 18 105/61 98 Nasal 2.5L Cannula 08/16 1630 97.6 79 18 103/59 100 Nasal 3.0L Cannula 08/16 1451 98.0 83 20 114/62 02/04 1402 98.0 83 20 114/62 100 Nasal 3.0L Cannula 08/16 1249 98.0 90 20 111/59 97 Nasal 4.0L Cannula 08/16 0950 97.9 96 20 118/58 94 Nasal 4.0L Cannula Intake & Output 08/17 1600 / 0800 02 0000 Intake Total 500 Output Total 400 850 Balance -400 -350 Intake, IV 300 Intake, Oral 200 Output, Urine 400 850 Patient 150 lb Weight Weight Reported by Patient Measurement Method Physical Exam General Appearance: Alert, Oriented X3, Cooperative, No Acute Distress Cardiovascular: Regular Rate, Normal S1, Normal S2 Lungs: BL wheezing Abdomen: Normal Bowel Sounds, Soft, No Tenderness Extremities: 1+ BLE pitting edema Current Medications: Current Medications Sig/Halie Start time Last Medication Dose Route Stop Time Status Admin Acetaminophen 0 .STK-MED ONE 08/16 1153 DC PO Acetaminophen 650 MG Q6P PRN 08/16 0945 AC 08/16 PO 2144 Albuterol Sulfate 3 ML EVERY 4 HRS/AWAKE 08/17 0800 AC 08/17 INH 0757 Alprazolam 0.25 MG DAILY PRN 08/16 1345 AC PO 08/23 1344 Apixaban 5 MG BID 08/16 1000 AC 08/16 PO 2144 Budesonide/ 2 PUF BID 08/16 1205 AC 08/16 Formoterol Fumarate INH 2145 Diltiazem HCl 60 MG DAILY 08/17 1800 DC PO Diltiazem HCl 60 MG DAILY 08/16 1433 AC 08/16 PO 1451 Guaifenesin 600 MG Q12 08/16 1000 AC / PO 2144 Levetiracetam 750 MG BID 08/16 1000 AC 08/16 PO 2144 Meropenem 1 GM Q8H 08/17 1500 AC IV Methylprednisolone 40 MG Q12 08/17 1000 AC IV Methylprednisolone 0 .STK-MED ONE 08/16 1034 DC .ROUTE Methylprednisolone 125 MG ONCE ONE 08/16 1000 DC /04 IV 08/16 1001 1039 Omeprazole 0 .STK-MED ONE 08/16 1450 DC PO Omeprazole 40 MG DAILY AC 08/16 1445 AC 08/17 PO 0622 Sodium Chloride 1,000 ML BOLUS ONE 08/16 0945 DC 08/16 IV 08/16 1044 1039 Sodium Chloride 1,000 ML Q13H 08/16 0930 AC 08/17 IV 0400 Tiotropium [place] 1 PUF DAILY 08/16 1315 AC 08/16 INH 1342 Last 24 Hrs of Lab/Randall Results Last 24 Hrs of Labs/Mics: Laboratory Tests 08/17/17 0755: Sodium Pending, Potassium Pending, Chloride Pending, Carbon Dioxide Pending, Anion Gap Pending, BUN Pending, Creatinine Pending, BUN/Creatinine Ratio Pending , CBC w Diff Pending, WBC Pending, RBC Pending, Hgb Pending, Hct Pending, MCV Pending, MCH Pending, MCHC Pending, RDW Pending, Plt Count Pending, MPV Pending 08/16/17 1825: pH 7.49 H, pCO2 49 H, pO2 78 L, HCO3 36 H, ABG O2 Sat (Measured) 94.0 L, Carboxyhemoglobin 0.2 L, O2 Concentration % 2.5L, O2 Delivery Method N/C, Phlebotomy Draw Site LEFT RADIAL 08/16/17 1615: pH 7.50 H, pCO2 47 H, pO2 92, HCO3 36 H, ABG O2 Sat (Measured) 96.0, Carboxyhemoglobin 0.6 L, O2 Concentration % 3L, O2 Delivery Method N/C, Phlebotomy Draw Site RIGHT RADIAL 08/16/17 1433: Lactic Acid 1.3 08/16/17 1047: Lactic Acid 2.4 H, Troponin I 0.02 Microbiology 08/16 1154 STOOL: Clostridium difficile Toxin A & B - COLB 08/16 1050 NASOPHARYN: Influenza Virus A & B Rapid Smear - COMP 08/16 945 LOWER RESP: Respiratory Culture - COLB 08/16 945 LOWER RESP: Gram Stain - COLB 08/16 945 BLOOD: Blood Culture - CAN Cancelled: SPECIMEN NOT RECEIVED IN LABORATORY Lines/Diet/Fluids Fu[place] Still Needed? Yes Assessment/Plan Assessment: 62-year-old lady with past medical history of seizures, hypertension, anemia, COPD on 2 L, diastolic CHF, history of multiple pneumonias treated with meropenem due to allergy to ceftriaxone, spinal stenosis with neural stimulators came to the hospital with chief complaint of lethargy, feeling weak productive cough and fever for couple of days Problem list: lactic acidosis most likely due to sepsis due to pneumonia Acute hypercapnic respiratory failure 2/2 PNA and COPD exacerbation hx of CHF History of hypertension History of seizures History of PE on eliquis history of anxiety Chronic pain on narcotics Pleuritic CP ELLA Plan: Continue TRC/oxygenation PRN Continue Meropenem due to cephalosporin/PCN allergy Continue Eliquis for hx of PE Continue IV Methyprednisolone 40 mg q 12 Continue home meds: Keppra, Cardizem, Alprazolam Hold Metoprolol due to hypotension Discontinue NS IVF LA wnl Monitor and replete potassium, give 40 meq now Follow up pancultures Problem List: 1. Acute exacerbation of chronic obstructive pulmonary disease (COPD) 2. ELLA (acute kidney injury) 3. Hypokalemia Pain Ratin Pain Location: NA Pain Goal: Remain pain free Pain Plan: NA Tomorrow's Labs & Rationales: CBC, BEP Hu Mccartney MD 08/17/17 1321: Attending MD Review Statement Attending Statement Attending MD Statement: examined this patient, discuss w/resident/PA/PATROLLER, agreed w/resident/PA/PATROLLER, reviewed EMR data (avail) Attending Assessment/Plan: Patient is sleepy and comfortable today. She answers questions appropriately and has no complaints. Remains afebrile, WBC improved, cultures negative. Plan - Continue on general medicine - Continue Solumedrol - Favor discontinuing Meropenem, but will defer to ID given that they have been consulted - Follow cultures - Continue home medications - Avoid sedatives - DVT PPx
[2017-08-17 10:45] LABS: ABSOLUTE BASOPHIL COUNT 0 /CUMM (0.0-0.2); ABSOLUTE EOSINOPHIL COUNT 0 /CUMM (0.0-0.7); ABSOLUTE GRANULOCYTE CT 7.4 /CUMM (1.4-6.5); ABSOLUTE LYMPH COUNT 0.4 /CUMM (1.2-3.4); ABSOLUTE MONOCYTE COUNT 0.1 /CUMM (0.10-0.60); BASOPHIL % 0 % (0.0-2.0); MEAN PLATELET VOLUME 6.4 FL (7.4-10.4)
[2017-08-17 10:54] LABS: EOSINOPHIL % 0.1 % (0-5); GRANULOCYTE % 92.5 % (42.2-75.2); MEAN CORPUSCULAR HGB 30.5 PG (27.0-31.0); MEAN CORPUSCULAR HGB CONC 32.9 G/DL (33.0-37.0); MEAN CORPUSCULAR VOLUME 92.9 FL (81.0-99.0); PLATELET COUNT 230 /CUMM (130-400); RBC DISTRIBUTION WIDTH 16.1 % (11.5-14.5)
[2017-08-17 10:58] LABS: HEMATOCRIT 23.3 % (37-47)
--- NOTE | 2017-08-17 11:03 | PN- Pulmonary ---
Subjective HPI/Critical Care Issues: Patient seen and examined this morning. Her breathing has been stable and there are no overnight events. Objective Current Medications: Current Medications Sig/Halie Start time Last Medication Dose Route Stop Time Status Admin Acetaminophen 0 .STK-MED ONE 08/16 1153 DC PO Acetaminophen 650 MG Q6P PRN 08/16 0945 AC 08/16 PO 2144 Albuterol Sulfate 3 ML EVERY 4 HRS/AWAKE 08/17 0800 AC 08/17 INH 0757 Alprazolam 0.25 MG DAILY PRN 08/16 1345 AC PO 08/23 1344 Apixaban 5 MG BID 08/16 1000 AC 08/17 PO 0943 Budesonide/ 2 PUF BID 08/16 1205 AC 08/17 Formoterol Fumarate INH 0945 Diltiazem HCl 60 MG DAILY 08/17 1800 DC PO Diltiazem HCl 60 MG DAILY 08/16 1433 AC 08/17 PO 0943 Guaifenesin 600 MG Q12 08/16 1000 AC 08/17 PO 0943 Levetiracetam 750 MG BID 08/16 1000 AC 08/17 PO 0943 Meropenem 1 GM Q8H 08/17 1500 AC IV Methylprednisolone 40 MG Q12 08/17 1000 AC 08/17 IV 0944 Omeprazole 0 .STK-MED ONE 08/16 1450 DC PO Omeprazole 40 MG DAILY AC 08/16 1445 AC 08/17 PO 0622 Potassium Chloride 40 MEQ ONCE ONE 08/17 1000 DC 02/05 PO 08/17 1001 1043 Sodium Chloride 1,000 ML Q13H 08/16 0930 DC / IV 0400 Tiotropium [place] 1 PUF DAILY 08/16 1315 AC 08/17 INH 0944 Vital Signs & I&O Last 24 Hrs of Vitals and I&O: Vital Signs Date Time Temp Pulse Resp B/P B/P Pulse O2 O2 Flow FiO2 Mean Ox Delivery Rate 08/17 0943 98.1 80 20 116/64 08/17 0813 96 Nasal 2.0L Cannula 08/17 0715 98.1 80 20 116/64 100 Nasal 4.0L Cannula 08/17 0307 96 Nasal 2.0L Cannula 08/17 0000 96 Nasal 2.0L Cannula 08/16 2219 Nasal 2.0L Cannula 08/16 1922 98.1 80 20 126/68 96 Nasal Cannula 08/16 1910 Nasal 2.5L Cannula 08/16 1840 96.7 70 18 105/61 98 Nasal 2.5L Cannula 08/16 1630 97.6 79 18 103/59 100 Nasal 3.0L Cannula 08/16 1451 98.0 83 20 114/62 02/ 1402 98.0 83 20 114/62 100 Nasal 3.0L Cannula 08/16 1249 98.0 90 20 111/59 97 Nasal 4.0L Cannula Intake & Output 08/17 1600 08/17 0800 02 0000 Intake Total 550 500 Output Total 400 850 Balance 150 -350 Intake, IV 500 300 Intake, Oral 50 200 Number 1 Bowel Movements Output, Urine 400 850 Patient 150 lb Weight Weight Reported by Patient Measurement Method Exam Other Physical Findings: General - awake and alert HEENT - left cut on neck Cardiovascular - S1, S2 Lungs - rhonchi/wheezing bilaterally Abdomen - soft, bowel sounds positive, no tenderness Extremities - trace edema Results Last 24 Hrs of Lab Results: Laboratory Tests 08/17/17 1010: WBC Pending, RBC Pending, Hgb Pending, Hct Pending, MCV Pending, MCH Pending, MCHC Pending, RDW Pending, Plt Count Pending, MPV Pending, Gran % Pending, Lymphocytes % Pending, Monocytes % Pending, Eosinophils % Pending, Basophils % Pending, Absolute Granulocytes Pending, Absolute Lymphocytes Pending, Absolute Monocytes Pending, Absolute Eosinophils Pending, Absolute Basophils Pending 08/17/17 0755: Anion Gap 10, Estimated GFR > 60, BUN/Creatinine Ratio 32.9 H 08/16/17 1825: pH 7.49 H, pCO2 49 H, pO2 78 L, HCO3 36 H, ABG O2 Sat (Measured) 94.0 L, Carboxyhemoglobin 0.2 L, O2 Concentration % 2.5L, O2 Delivery Method N/C, Phlebotomy Draw Site LEFT RADIAL 08/16/17 1615: pH 7.50 H, pCO2 47 H, pO2 92, HCO3 36 H, ABG O2 Sat (Measured) 96.0, Carboxyhemoglobin 0.6 L, O2 Concentration % 3L, O2 Delivery Method N/C, Phlebotomy Draw Site RIGHT RADIAL 08/16/17 1433: Lactic Acid 1.3 Impression/Plan Impression/Plan Impression/Plan: Impression 62-year-old woman. Impression * Severe oxygen and prednisone dependent COPD * COPD exacerbation/acute hypoxemic respiratory failure * pneumonia - hx of various organisms including E.Coli sensitive to Meropenem * chronic hypercarbic respiratory failure * pulmonary nodules * pulmonary embolism on Eliquis, (09/2015) * CHF * spinal stenosis and chronic pain, hx neurostimulator placement. * sacral fracture history * tobacco dependence * psychiatric history Plan - continue Meropenem - f/u all cultures including sputum culture - solumedrol 40mg iv q12h, if doing well will consider to reduce tomorrow to prednisone 60mg - continue spiriva once daily - symbicort 2 puffs BID with rinsing of the mouth - TRC/Nebs - Eliquis continue to discuss code status - its fluctuant - currently she is full code
[2017-08-17 15:09] VITALS: BP 130/70
[2017-08-17 22:30] VITALS: BP 130/60
[2017-08-18 06:15] VITALS: BP 140/80
--- NOTE | 2017-08-18 06:19 | Event Note ---
Event Note Event Note: S: MD called for SOB and code status change B: Pt admitted for copd and pneumonia A/R: Pt states that she ate food this afternoon without her teeth and has been vomiting. States she feels anxious and has SOB from this. Her vomit appears to have partially digested food. Stat CXR portable was ordered in concerns for aspiration pna. The patient told the nursing staff that she did not want any heroic measures. I went and talked to the patient. She was aox3. She stated that she did not want chest compressions. I then asked her about intubation to which she said yes. I then explained to her that chest compressions are usually done with intubation in emergency situations. She then stated that she no longer wanted intubation. I asked her 2x more times to confirm about her code status for which she stated she did not want compressions or intubations. The patient wanted Dr. Cates to come to talk to her about morphine and a painless . I texted Dr. Cates regarding her wanting to change her code status to DNR/DNI and her wanting morphine. He suggested to alert her , get a cxr (which was already done as stated above), meropnem (which patient is already on). Dr. Cates stated that psych should see the patient and that the patient's needs to be involved in these situations. I informed Dr. Cates that I would keep the patient full code until the talks with the patient and for psychiatry to see her before changing the code status as her depression is probably playing a role in her decision
--- NOTE | 2017-08-18 06:31 | RADIOLOGY REPORT ---
EXAMINATION: XR PORTABLE CHEST CLINICAL INFORMATION: Shortness of breath. Aspiration. COMPARISON: Chest x-ray August 16, 2017 TECHNIQUE: Portable frontal view of the chest was obtained. 6:00 AM FINDINGS: Persistent patchy bilateral airspace disease with mild central pulmonary vascular congestion and peribronchial cuffing similar to prior chest x-ray. Cerclage wire over the lower cervical spine. IMPRESSION: Persistent bilateral airspace disease with mild central pulmonary vascular congestion.
--- NOTE | 2017-08-18 08:17 | PN- Housestaff ---
Keenan MCKEON,[facility] 08/18/17 0817: Subjective Follow-up For: Pneumonia, COPD exacerbation, Subjective: Patient seen and examined. Resting comfortably in the bed. Patient developed nausea and had several episode of vomiting. Also complaining of pain and burning with urination. Continues to report shortness of breath unchanged from baseline. States that she will feel better with morphine. Considering changing her CODE STATUS to DNR/DNI. Will discuss with today Review of Systems Constitutional: Reports: see HPI. Objective Last 24 Hrs of Vital Signs/I&O Vital Signs Date Time Temp Pulse Resp B/P B/P Pulse O2 O2 Flow FiO2 Mean Ox Delivery Rate 08/18 0615 98.4 83 20 140/80 96 Nasal 2.0L Cannula 08/18 0414 Nasal 2.0L Cannula 08/17 2230 98.1 91 19 130/60 97 Nasal Cannula 08/17 1626 97 Nasal 2.0L Cannula 08/17 1600 Nasal 2.0L Cannula 08/17 1509 98.4 102 18 130/70 95 Intake & Output 08/18 1600 08/18 0800 08/18 0000 Intake Total 100 350 Output Total 375 500 Balance -275 -150 Intake, IV 0 Intake, Oral 100 350 Number 1 1 Bowel Movements Output, Urine 375 500 Physical Exam General Appearance: Alert, Oriented X3, Cooperative, No Acute Distress HEENT: Atraumatic Neck: No JVD Cardiovascular: Normal S1, Normal S2 Lungs: decreased breath sounds no wheezing Abdomen: Normal Bowel Sounds, mildly distended, lower abd tenderness Neurological: Normal Speech Current Medications: Current Medications Sig/Halie Start time Last Medication Dose Route Stop Time Status Admin Acetaminophen 650 MG .STK-MED ONE 08/17 2348 DC PO 08/17 2349 Acetaminophen 650 MG .STK-MED ONE 08/17 1550 DC PO 08/17 1551 Acetaminophen 650 MG Q6P PRN 08/16 0945 AC 08/17 PO 2351 Albuterol Sulfate 3 ML EVERY 4 HRS/AWAKE 08/18 1200 AC INH Albuterol Sulfate 3 ML Q2 08/18 0800 DC 08/18 INH 0934 Albuterol Sulfate 3 ML EVERY 4 HRS/AWAKE 08/17 0800 DC 08/18 INH 0405 Alprazolam 0.25 MG DAILY PRN 08/16 1345 AC 08/18 PO 08/23 1344 0848 Apixaban 5 MG BID 08/16 1000 AC 08/17 PO 2050 Budesonide/ 2 PUF BID 08/16 1205 AC 08/17 Formoterol Fumarate INH 205 Dextrose/Sodium 1,000 ML Q20H 08/18 1000 AC 08/18 Chloride IV 1114 Diltiazem HCl 60 MG DAILY 08/16 1433 AC 08/17 PO 0943 Diphenhydramine HCl 25 MG ONCE ONE 08/17 2029 DC 08/17 IV 08/17 2030 215 Guaifenesin 600 MG Q12 08/16 1000 AC 08/17 PO 205 Levetiracetam 750 MG BID 08/16 1000 AC 08/18 PO 1133 Meropenem 1 GM Q8H 08/17 1500 AC 08/18 IV 0627 Methylprednisolone 40 MG Q12 08/17 1000 AC 08/18 IV 0626 Omeprazole 40 MG DAILY AC 08/16 1445 AC 08/17 PO 0622 Tiotropium [place] 1 PUF DAILY 08/16 1315 AC 08/17 INH 0944 Trimethobenzamide HCl 200 MG TID PRN 08/17 1715 AC 08/18 IM 0415 Last 24 Hrs of Lab/Randall Results Last 24 Hrs of Labs/Mics: Laboratory Tests 08/18/17 0805: Anion Gap 10, Estimated GFR > 60, BUN/Creatinine Ratio 26.3 H, CBC w Diff NO MAN DIFF REQ, RBC 2.58 L, MCV 93.2, MCH 30.3, MCHC 32.5 L, RDW 15.8 H, MPV 6.5 L, Gran % 94.7 H, Lymphocytes % 2.6 L, Monocytes % 2.1, Eosinophils % 0, Basophils % 0.6, Absolute Granulocytes 8.6 H, Absolute Lymphocytes 0.2 L, Absolute Monocytes 0.2, Absolute Eosinophils 0, Absolute Basophils 0.1 Microbiology 08/18 918 URINE ROUT: Urine Culture - COLB 08/18 629 STOOL: Clostridium difficile Toxin A & B - RECD 08/17 1608 URINE ROUT: Urine Culture - CAN Cancelled: Cancelled via OE: F/C RENEWED NOT PLACED. Assessment/Plan Assessment: 62-year-old lady with past medical history of seizures, hypertension, anemia, COPD on 2 L, diastolic CHF, history of multiple pneumonias treated with meropenem due to allergy to ceftriaxone, spinal stenosis with neural stimulators came to the hospital with chief complaint of lethargy, feeling weak productive cough and fever for couple of days She is being treated and evaluated for following conditions. #Sepsis secondary to pneumonia (hx of various organisms including E.Coli sensitive to Meropenem) -Monitor fever and WBC curve -Continue Meropenem, consider ID consult -Continue TRC/oxygenation PRN -Follow up panculture -Patient had multiple episodes of vomiting yesterday CXR to rule out aspiration currently does not show any new consolidation, will follow up with repeat chest x-ray if patient becomes febrile, WBC count or increased o2 requirements -NPO for now, pending swallow eval #Acute hypercapnic respiratory failure 2/2 PNA and COPD exacerbation Patient has history of Severe oxygen and prednisone dependent COPD -Solumedrol 40mg iv once daily, patient currently nothing by mouth we will transition to oral prednisone with nausea and vomiting subsides -Continue spiriva once daily -Symbicort 2 puffs BID with rinsing of the mouth #Lactic acidosis most likely due to sepsis due to pneumonia-resolved #History of PE on eliquis -Continue Eliquis #Gastritis Complaing of nausea, vomiting and diarrhea. -NPO pending swallow evaluation and improvement in symptoms -Tigan for nausea QTC 495 -F/U C. difficile #Suspected UTI Complaing of pain and burning on micturition -F/U UA nad urine culture -Follow off antibiotics for now. Patient is afebrile on steroids without white count #Hypokalemia K 3.4 K 3.7, repleted yesterday -Continue to monitor BEP and replete accordingly -Potassium supplementation today #Continue home meds: Keppra, Cardizem, Alprazolam -Consider restarting Metoprolol, initially held because of hypotension. Problem List: 1. PNEUMONIA 2. Acute exacerbation of chronic obstructive pulmonary disease (COPD) Pain Ratin Pain Location: diffuse Pain Goal: Pain 4 or less Pain Plan: prn Tomorrow's Labs & Rationales: as ordered Hu Mccartney MD 08/18/17 1206: Attending MD Review Statement Attending Statement Attending Statement: examined this patient, discuss w/resident/PA/SOAPSTONER, agreed w/resident/PA/SOAPSTONER, reviewed EMR data (avail) Attending Assessment/Plan: Patient is sleepy and comfortable today. She answers questions appropriately and has no complaints. Remains afebrile, WBC improved, cultures negative. Plan - Continue on general medicine - Continue Solumedrol - Favor discontinuing Meropenem, but will defer to ID given that they have been consulted - Follow cultures - Continue home medications - Avoid sedatives - DVT PPx - Family discussion later on today regarding patient wishing to be DNR/DNI
[2017-08-18 08:47] LABS: ABSOLUTE BASOPHIL COUNT 0.1 /CUMM (0.0-0.2); ABSOLUTE EOSINOPHIL COUNT 0 /CUMM (0.0-0.7); ABSOLUTE GRANULOCYTE CT 8.6 /CUMM (1.4-6.5); ABSOLUTE LYMPH COUNT 0.2 /CUMM (1.2-3.4); ABSOLUTE MONOCYTE COUNT 0.2 /CUMM (0.10-0.60); BASOPHIL % 0.6 % (0.0-2.0); EOSINOPHIL % 0 % (0-5); MEAN CORPUSCULAR HGB 30.3 PG (27.0-31.0); MEAN CORPUSCULAR HGB CONC 32.5 G/DL (33.0-37.0); MEAN CORPUSCULAR VOLUME 93.2 FL (81.0-99.0); MEAN PLATELET VOLUME 6.5 FL (7.4-10.4); PLATELET COUNT 255 /CUMM (130-400); RBC DISTRIBUTION WIDTH 15.8 % (11.5-14.5); RED BLOOD CELL CT 2.58 /CUMM (4.20-5.40)
[2017-08-18 09:28] LABS: GRANULOCYTE % 94.7 % (42.2-75.2)
--- NOTE | 2017-08-18 13:22 | PN- Pulmonary ---
Subjective HPI/Critical Care Issues: Patient seen and examined this morning. She has wishes to become DNR however she would like to discuss this with her . Objective Current Medications: Current Medications Sig/Halie Start time Last Medication Dose Route Stop Time Status Admin Acetaminophen 650 MG .STK-MED ONE 08/17 2348 DC PO 08/17 2349 Acetaminophen 650 MG .STK-MED ONE 08/17 1550 DC PO 08/17 1551 Acetaminophen 650 MG Q6P PRN 08/16 0945 AC 08/17 PO 2351 Albuterol Sulfate 3 ML EVERY 4 HRS/AWAKE 08/18 1200 AC INH Albuterol Sulfate 3 ML Q2 08/18 0800 DC 08/18 INH 0934 Albuterol Sulfate 3 ML EVERY 4 HRS/AWAKE 08/17 0800 DC 08/18 INH 0405 Alprazolam 0.25 MG DAILY PRN 08/16 1345 AC 08/18 PO 08/23 1344 0848 Apixaban 5 MG BID / 1000 AC 08/17 PO 2051 Budesonide/ 2 PUF BID 08/16 1205 AC 08/17 Formoterol Fumarate INH 2053 Dextrose/Sodium 1,000 ML Q20H 08/18 1000 AC 08/18 Chloride IV 1114 Diltiazem HCl 60 MG DAILY 08/16 1433 AC 08/17 PO 0943 Diphenhydramine HCl 25 MG ONCE ONE 08/17 2030 DC 08/17 IV 08/17 2031 2157 Guaifenesin 600 MG Q12 08/16 1000 AC / PO 2051 Levetiracetam 750 MG BID / 1000 AC 08/18 PO 1133 Meropenem 1 GM Q8H 08/17 1500 AC 08/18 IV 0627 Methylprednisolone 40 MG Q12 / 1000 AC / IV 0626 Omeprazole 40 MG DAILY AC 08/16 1445 AC 08/17 PO 0622 Tiotropium [place] 1 PUF DAILY 08/16 1315 AC 08/17 INH 0944 Trimethobenzamide HCl 200 MG TID PRN 08/17 1715 AC 08/18 IM 0415 Vital Signs & I&O Last 24 Hrs of Vitals and I&O: Vital Signs Date Time Temp Pulse Resp B/P B/P Pulse O2 O2 Flow FiO2 Mean Ox Delivery Rate 08/18 614 98.4 83 20 140/80 96 Nasal 2.0L Cannula 08/18 0414 Nasal 2.0L Cannula 08/18 0000 97 Nasal 2.0L Cannula 08/17 2230 98.1 91 19 130/60 97 Nasal Cannula 08/17 1626 97 Nasal 2.0L Cannula 08/17 1600 Nasal 2.0L Cannula 08/17 1509 98.4 102 18 130/70 95 Intake & Output 08/18 1600 08/18 0800 02 0000 Intake Total 100 350 Output Total 375 500 Balance -275 -150 Intake, IV 0 Intake, Oral 100 350 Number 2 1 Bowel Movements Output, Urine 375 500 Exam Other Physical Findings: General - awake and alert HEENT - left cut on neck Cardiovascular - S1, S2 Lungs - rhonchi/wheezing bilaterally Abdomen - soft, bowel sounds positive, no tenderness Extremities - trace edema Results Last 24 Hrs of Lab Results: Laboratory Tests 08/18/17 1127: Urine Color Pending, Urine Clarity Pending, Urine pH Pending, Ur Specific [place] Pending, Urine Protein Pending, Urine Ketones Pending, Urine Nitrite Pending, Urine Bilirubin Pending, Urine Urobilinogen Pending, Ur Leukocyte Esterase Pending, Ur Microscopic Pending, Urine Hemoglobin Pending, Urine Glucose Pending 08/18/17 0805: Anion Gap 10, Estimated GFR > 60, BUN/Creatinine Ratio 26.3 H, CBC w Diff NO MAN DIFF REQ, RBC 2.58 L, MCV 93.2, MCH 30.3, MCHC 32.5 L, RDW 15.8 H, MPV 6.5 L, Gran % 94.7 H, Lymphocytes % 2.6 L, Monocytes % 2.1, Eosinophils % 0, Basophils % 0.6, Absolute Granulocytes 8.6 H, Absolute Lymphocytes 0.2 L, Absolute Monocytes 0.2, Absolute Eosinophils 0, Absolute Basophils 0.1 Impression/Plan Impression/Plan Impression/Plan: Impression 62-year-old woman. Impression * Severe oxygen and prednisone dependent COPD * COPD exacerbation/acute hypoxemic respiratory failure * pneumonia - hx of various organisms including E.Coli sensitive to Meropenem * chronic hypercarbic respiratory failure * pulmonary nodules * pulmonary embolism on Eliquis, (09/2015) * CHF * spinal stenosis and chronic pain, hx neurostimulator placement. * sacral fracture history * tobacco dependence * psychiatric history Plan - continue Meropenem - f/u all cultures including sputum culture - dc solumedrol, begin prednisone 60mgx2, 50x2, 40x2, 30x2, 20x2, 10x2 - continue spiriva once daily - symbicort 2 puffs BID with rinsing of the mouth - TRC/Nebs - Yasmine pt wishes to become DNR/DNI she however wants to discuss this with her if this is a wish she wants to pursue I would highly support that decision
[2017-08-18 14:32] VITALS: BP 130/70
[2017-08-18 14:59] VITALS: BP 130/82
[2017-08-18 22:13] VITALS: BP 156/98
[2017-08-19 00:30] VITALS: BP 140/90
--- NOTE | 2017-08-19 04:35 | Event Note ---
Event Note Event Note: S: MD called for SOB B: Pt admitted for Pna, COPD A/R: Patient received 1 albuterol treatement by respiratory but continued to have SOB. Pt was sleeping comfortably but then medical team was paged as patient continued to be wheezy on exam and have SOB. Patient tachy to 130s IV solumdrol 40 x1 was given. We review the xray which revealed increased pulmonary congestion and possible R lung pleural effusion. 20mg IV lasix was given and she urinated 800cc. Patient then slept comfotably but then had SOB and worsening tachy to 150HR. Overnight attending was made aware. She suggested EKG, trops, ABG, repeat cxr. Repeat cxr showed improved vascular congestion. ABG revealed continued alkalosis. EKG revealed tachycardia with LBBB seen on prior ekg. Trops were elevated .28. Patient was transfferred to tele.
--- NOTE | 2017-08-19 05:54 | Event Note ---
Event Note Event Note: S: Patient was transferred to telemetry from general medicine for increased work of breathing and sinus tachycardia, was informed by nursing the patient was very anxious, tachypnic, with a heart rate in the 150s to 160s. B: Patient was admitted for sepsis secondary to pneumonia and COPD exacerbation. She also has acute hypercapnic respiratory failure. She missed a dose of Cardizem ER yesterday due to nausea and vomiting. AR: Patient was seen and examined at bedside mild respiratory distress appears anxious. Vital signs HR 150-160s, RR 32, BP 142/90, saturating 94% on 2 L O2 nasal Patient is responding appropriately to commands and cranial nerves normal as tested. On exam she is tachypneic, wheezing and has a prolonged inspiratory phase. Tachycardic to the 150s. Today's dose of PO cardizem was given along with PO ativan. her HR continued to trend up into the 170s. 5 mg of IV cardizem was pused x2 and 1 mg IV ativan. Stat trop was done and was elevated at 0.28, ekg showed sinus tachy with old LBBB. weight caller safemaker, Dr. Barger was called by the resident and he recommended starting a cardizem drip. The noctournist, Dr. Cook was made aware and agreed with the above plan. Pt also expressed desire to change her code status to DNR/DNI. I discussed the ramifications of this decision and she agreed to allow me to call the to consult with him. Ed, her said to not change the code and he would be in to discuss this matter at about noon today. He was also updated about the situation. Will continue to monitor. Will sign out to AM team.
--- NOTE | 2017-08-19 05:57 | RADIOLOGY REPORT ---
EXAMINATION: XR PORTABLE CHEST CLINICAL INFORMATION: Worsening shortness of breath. COMPARISON: Chest x-ray August 18, 2017 TECHNIQUE: Portable frontal view of the chest was obtained. 5:25 AM FINDINGS: The mild central hilar pulmonary vascular prominence of interstitial opacities have improved since the exam of August 18, 2017. No large pleural effusion. IMPRESSION: Improving aeration of lungs with diminishing airspace opacities and decreasing pulmonary vascular congestion.
[2017-08-19 06:28] LABS: ABSOLUTE BASOPHIL COUNT 0 /CUMM (0.0-0.2); ABSOLUTE EOSINOPHIL COUNT 0 /CUMM (0.0-0.7); ABSOLUTE GRANULOCYTE CT 10.9 /CUMM (1.4-6.5); ABSOLUTE LYMPH COUNT 0.3 /CUMM (1.2-3.4); ABSOLUTE MONOCYTE COUNT 0.6 /CUMM (0.10-0.60); BASOPHIL % 0 % (0.0-2.0); EOSINOPHIL % 0 % (0-5); HEMATOCRIT 28.8 % (37-47); MEAN CORPUSCULAR HGB 30.3 PG (27.0-31.0); MEAN CORPUSCULAR HGB CONC 32.6 G/DL (33.0-37.0); MEAN CORPUSCULAR VOLUME 92.9 FL (81.0-99.0); MEAN PLATELET VOLUME 6.5 FL (7.4-10.4); PLATELET COUNT 378 /CUMM (130-400); RBC DISTRIBUTION WIDTH 16.1 % (11.5-14.5); RED BLOOD CELL CT 3.11 /CUMM (4.20-5.40); WHITE BLOOD CELL COUNT 11.7 /CUMM (4.8-10.8)
[2017-08-19 06:50] LABS: GRANULOCYTE % 92.6 % (42.2-75.2)
[2017-08-19 07:08] VITALS: BP 142/92
--- NOTE | 2017-08-19 07:42 | PN- Housestaff ---
Ana MCKEON,Joyce 08/19/17 0741: Subjective Follow-up For: CAP,COPD EXACERBATION Complaints: no complaints Tele-Events Since Last Visit: SINUS TACHY HR 140 Subjective: Patient was seen and examined at bedside today. She is sitting with head elevated on 2 L of nasal oxygen. She is very anxious. She is tachypneic. She requested ice chips. She says she has some bone stuck in her throat. She denies chest pain or chest pressure, palpitation, nausea, vomiting. Review of Systems Constitutional: Reports: no symptoms. Cardiovascular: Reports: no symptoms. Respiratory: Reports: no symptoms. Gastrointestinal: Reports: no symptoms. Genitourinary: Reports: no symptoms. Musculoskeletal: Reports: no symptoms. Skin: Reports: no symptoms. Objective Last 24 Hrs of Vital Signs/I&O Vital Signs Date Time Temp Pulse Resp B/P B/P Pulse O2 O2 Flow FiO2 Mean Ox Delivery Rate 08/19 1059 134/84 08/19 0856 96 Nasal 2.5L Cannula 08/19 0758 155 136/88 08/19 0755 99 Nasal 2.0L Cannula 08/19 0708 98.6 151 32 142/92 95 Nasal 2.0L Cannula 08/19 0652 158 164/98 08/19 0641 178 142/90 08/19 0614 158 142/90 08/19 0030 135 24 140/90 97 Nasal 2.0L Cannula 08/19 0020 94 Nasal 2.0L Cannula 08/19 0000 Nasal 2.0L Cannula 08/18 2213 98.9 102 20 156/98 100 08/18 2029 95 Nasal 2.0L Cannula 08/18 1600 Nasal 2.0L Cannula 08/18 1459 99.9 92 20 130/82 96 Intake & Output 08/19 1600 08/19 0800 08/19 0000 Intake Total 320 540 Output Total 850 540 Balance -530 0 Intake, IV 200 400 Intake, Oral 120 140 Number 2 3 Bowel Movements Output, 0 Emesis Output, Urine 850 540 Physical Exam General Appearance: Alert, Oriented X3, Cooperative, No Acute Distress Skin: No Breakdown Skin Temp/Moisture Exam: Warm/Dry Cardiovascular: Regular Rate, Normal S1, Normal S2, TACHYCARDIA Lungs: RHONCHI,DYSPNEIC AND TACHYPNEIC Abdomen: Soft, No Tenderness, No Hepatospenomegaly Neurological: Normal Speech, Strength at 5/5 X4 Ext, Normal Tone, Sensation Intact Extremities: No Edema Vascular: Normal Pulses, Pulses Symmetrical Current Medications: Current Medications Sig/Halie Start time Last Medication Dose Route Stop Time Status Admin Acetaminophen 650 MG .STK-MED ONE 08/180 DC PO 08/18 212 Acetaminophen 650 MG .STK-MED ONE 08/18 1355 DC PO 08/18 1356 Acetaminophen 650 MG Q6P PRN 08/16 0945 AC 08/18 PO 2127 Albuterol Sulfate 3 ML EVERY 4 HRS/AWAKE 08/18 1200 AC 08/19 INH 0748 Alprazolam 0.5 MG ONCE ONE 08/19 0315 DC 08/19 PO 08/19 0316 0315 Alprazolam 0.25 MG DAILY PRN 08/16 1345 AC / PO 08/23 1344 1810 Apixaban 5 MG BID / 1000 AC 08/19 PO 1058 Budesonide/ 2 PUF BID 08/16 1205 AC 08/19 Formoterol Fumarate INH 1059 Dextrose/Sodium 1,000 ML Q20H 08/18 1000 DC 08/18 Chloride IV 1114 Diltiazem HCl 125 MG Q12H 08/19 1900 AC Sodium Chloride 100 ML IV Diltiazem HCl 5 MG ONCE ONE 08/19 07 DC 08/19 IV PUSH 08/19 0701 0652 Diltiazem HCl 125 MG Q24H 08/19 0700 AC / Sodium Chloride 100 ML IV 08/19 2259 0712 Diltiazem HCl 5 MG ONCE ONE 08/19 0645 DC 08/19 IV PUSH 08/19 0646 0641 Diltiazem HCl 5 MG ONCE ONE 08/19 0600 CAN IV PUSH 08/19 0601 Diltiazem HCl 60 MG DAILY / 1433 AC 08/19 PO 0614 Furosemide 20 MG ONCE ONE 08/19 0615 DC 08/19 IV 08/19 0616 0612 Furosemide 40 MG ONCE ONE 08/19 0115 DC / IV 08/19 0116 0200 Guaifenesin 600 MG Q12 / 1000 AC 08/19 PO 1057 Levetiracetam 750 MG BID / 1000 AC 08/19 PO 1058 Lorazepam 1 MG ONCE ONE 08/19 07 DC 08/19 IV 08/19 0701 0652 Lorazepam 0.5 MG ONE ONE 08/19 0615 DC 08/19 PO 08/19 0616 0613 Meropenem 1 GM Q8H 08/17 1500 AC 08/19 IV 0612 Methylprednisolone 40 MG ONCE ONE 08/19 0100 DC 08/19 IV 08/19 0101 0100 Methylprednisolone 40 MG Q12 08/17 1000 DC 08/18 IV 08/19 0600 2127 Metoprolol Tartrate 50 MG BID 08/19 1000 AC 08/19 PO 1059 Metoprolol Tartrate 5 MG ONCE ONE 08/19 0645 CAN IV 08/19 0646 Omeprazole 40 MG DAILY AC 08/16 1445 AC 08/19 PO 1057 Potassium Chloride 40 MEQ ONCE ONE 08/18 1415 DC 08/18 PO 08/18 1416 1637 Prednisone 10 MG DAILY 08/29 1000 AC PO 08/30 1001 Prednisone 20 MG DAILY 08/27 1000 AC PO 08/28 1001 Prednisone 30 MG DAILY 08/25 1000 AC PO 08/26 1001 Prednisone 40 MG DAILY 08/23 1000 AC PO 08/24 1001 Prednisone 50 MG DAILY 08/21 1000 AC PO 08/22 1001 Prednisone 60 MG DAILY 08/19 1000 AC 08/19 PO 08/20 1001 1057 Tiotropium [place] 1 PUF DAILY 08/16 1315 AC 08/19 INH 1057 Trimethobenzamide HCl 200 MG TID PRN 08/17 1715 AC 08/18 IM 1835 Zolpidem Tartrate 5 MG AT BEDTIME 08/18 2200 AC 08/18 PO 2127 Last 24 Hrs of Lab/Randall Results Last 24 Hrs of Labs/Mics: Laboratory Tests 08/19/17 0545: Troponin I Cancelled 08/19/17 0545: Anion Gap 13, Estimated GFR > 60, BUN/Creatinine Ratio 23.3, Troponin I 0.28 *H, CBC w Diff NO MAN DIFF REQ, RBC 3.11 L, MCV 92.9, MCH 30.3, MCHC 32.6 L, RDW 16.1 H, MPV 6.5 L, Gran % 92.6 H, Lymphocytes % 2.5 L, Monocytes % 4.9, Eosinophils % 0, Basophils % 0, Absolute Granulocytes 10.9 H, Absolute Lymphocytes 0.3 L, Absolute Monocytes 0.6, Absolute Eosinophils 0, Absolute Basophils 0 08/19/17 0500: pH 7.49 H, pCO2 32 L, pO2 76 L, HCO3 24, ABG O2 Sat (Measured) 94.0 L, P-50 (Temp Corrected) N, Carboxyhemoglobin 0.8 L, O2 Concentration % 2L, Temperature 98.9, O2 Delivery Method N/C, Phlebotomy Draw Site RIGHT RADIAL Microbiology 08/18 1403 LOWER RESP: Respiratory Culture - COLB 08/18 1403 LOWER RESP: Gram Stain - COLB Assessment/Plan Assessment: 62-year-old lady with past medical history of seizures, hypertension, anemia, COPD on 2 L, diastolic CHF, history of multiple pneumonias treated with meropenem due to allergy to ceftriaxone, spinal stenosis with neural stimulators came to the hospital with chief complaint of lethargy, feeling weak productive cough and fever for couple of days She is being treated and evaluated for following conditions. #Sepsis secondary to pneumonia (hx of various organisms including E.Coli sensitive to Meropenem) -Monitor fever and WBC curve. Seen by marine service operator who suggested to continue meropenem. -consider ID consult -Continue TRC/oxygenation PRN -Follow up panculture -Patient had multiple episodes of vomiting yesterday CXR to rule out aspiration currently does not show any new consolidation. Overnight patient self-induced vomiting and didn't take her medication Cardizem. She became tachycardic R date and got very anxious and was transferred to telemetry for monitoring. She is on Cardizem drip 10 mg. Heart rate is 1:30-150. We have restarted her home medication metoprolol. We will slowly wean off Cardizem and put her on long acting Cardizem. #Acute hypercapnic respiratory failure 2/2 PNA and COPD exacerbation Patient has history of Severe oxygen and prednisone dependent COPD -Patient is on tapering dose of prednisone. -Continue spiriva once daily -Symbicort 2 puffs BID with rinsing of the mouth #Lactic acidosis most likely due to sepsis due to pneumonia-resolved #History of PE on eliquis -Continue Eliquis #Gastritis -Patient is on heart healthy diet [pure]. She was followed by a swallow eval yesterday who suggested a modified. Swallow to advance her diet. We will do a barium swallow eval tomorrow -Tigan for nausea QTC 495 -F/U C. difficile #Suspected UTI -She has dysuria yesterday. Complaing of pain and burning on micturition -F/U UA nad urine culture - Patient is afebrile on steroids without white count #Hypokalemia Old. Potassium 4.2. -Continue to monitor BEP and replete accordingly -Potassium supplementation today #Continue home meds: Keppra, Cardizem, Alprazolam Patient has wished to change the CODE STATUS from full code to DNR/DNI. She wants to 100 as mentioned in the goals of care. We will get a psychiatric consult to know her capacity. Goals of care will be discussed along with the medical team today. Plan-We will get a portable chest x-ray. Problem List: 1. Acute exacerbation of chronic obstructive pulmonary disease (COPD) 2. COPD exacerbation 3. PNEUMONIA Pain Ratin Pain Location: NONE Pain Goal: Remain pain free Pain Plan: TYLENOL Tomorrow's Labs & Rationales: CBC,BEP Javad MCKEON,Isaias 08/19/17 1357: Attending MD Review Statement Attending Statement Attending MD Statement: examined this patient, discuss w/resident/PA/IMMIGRATION CASE WORKER, agreed w/resident/PA/IMMIGRATION CASE WORKER, reviewed EMR data (avail), discussed with nursing, discussed with case mgmt, amended to note Attending Assessment/Plan: Patient seen and examined earlier this morning. At that time she was lying in bed, complaining of shortness of breath with minimal exertion. She denies any chest discomfort. She had been transferred down from the general medical service to the telemetry unit overnight after developing rapid ventricular response. Apparently just prior to that she had a choking episode with her meal. Patient reports difficulty swallowing. She reports a sensation of food being stuck in her throat. She was afebrile hemodynamically stable. On examination this morning she had fair entry bilaterally with mild expiratory rhonchi. She had no jugular venous distention. Abdomen was soft and nontender. She has trace peripheral edema bilaterally. Later on in the day she became tachycardic with heart rate went as high as 150s. She received metoprolol earlier on today. She became more tachycardic she received a push of Cardizem in addition to the Cardizem drip that was infusing. Despite this she remained tachycardic. She was visibly labored with her breathing and was thus transferred to the intensive care unit for further monitoring. Problems: 1. Atrial fibrillation with rapid ventricular response. 2. Chronic hypoxic respiratory failure. 3. Advanced COPD with exacerbation. 4. Dysphasia 5. Anxiety disorder. Plan: -Patient has been transferred to the intensive care unit for further monitoring. -Continue bronchodilator therapy. Continue systemic steroid therapy. May need to transition back to IV steroids if she is unable to safely take oral medications. -Continue Cardizem infusion. Titrate to achieve heart rate less than 110 systolic. -Continue anxiolytic medications PRN. -Patient had stated repeatedly that she does not want to be intubated however she wants her involved in the decision-making process. has stated that he wants her to remain a full code.
[2017-08-19 07:58] VITALS: BP 136/88
--- NOTE | 2017-08-19 10:54 | PN- Pulmonary ---
Subjective HPI/Critical Care Issues: Patient seen and examined this morning. She has been transferred from [facility] to telemetry given tachycardia. Dyspnea along with tachycardia. Objective Current Medications: Current Medications Sig/Halie Start time Last Medication Dose Route Stop Time Status Admin Acetaminophen 650 MG .STK-MED ONE 08/18 2120 DC PO 08/18 2121 Acetaminophen 650 MG .STK-MED ONE 08/18 1355 DC PO 08/18 1356 Acetaminophen 650 MG Q6P PRN 08/16 0945 AC 08/18 PO 2127 Albuterol Sulfate 3 ML EVERY 4 HRS/AWAKE / 1200 AC 08/19 INH 0748 Alprazolam 0.5 MG ONCE ONE 08/19 0315 DC 08/19 PO 08/19 0316 0315 Alprazolam 0.25 MG DAILY PRN 08/16 1345 AC / PO 08/23 1344 1810 Apixaban 5 MG BID / 1000 AC / PO 2126 Budesonide/ 2 PUF BID 08/16 1205 AC 08/18 Formoterol Fumarate INH 2129 Dextrose/Sodium 1,000 ML Q20H 08/18 1000 DC 08/18 Chloride IV 1114 Diltiazem HCl 125 MG Q12H 08/19 1900 AC Sodium Chloride 100 ML IV Diltiazem HCl 5 MG ONCE ONE 08/19 07 DC 08/19 IV PUSH 08/19 0701 0652 Diltiazem HCl 125 MG Q24H 08/19 0700 AC / Sodium Chloride 100 ML IV 08/19 2259 0712 Diltiazem HCl 5 MG ONCE ONE 08/19 0645 DC 08/19 IV PUSH 08/19 0646 0641 Diltiazem HCl 5 MG ONCE ONE 08/19 0600 CAN IV PUSH 08/19 0601 Diltiazem HCl 60 MG DAILY / 1433 AC 08/19 PO 0614 Furosemide 20 MG ONCE ONE 08/19 0615 DC 08/19 IV 08/19 0616 0612 Furosemide 40 MG ONCE ONE 08/19 0115 DC 08/19 IV 08/19 0116 0200 Guaifenesin 600 MG Q12 / 1000 AC 02/06 PO 2126 Levetiracetam 750 MG BID / 1000 AC 08/18 PO 2127 Lorazepam 1 MG ONCE ONE 08/19 0700 DC 08/19 IV 08/19 0701 0652 Lorazepam 0.5 MG ONE ONE 08/19 0615 DC 08/19 PO 08/19 0616 0613 Meropenem 1 GM Q8H 08/17 1500 AC 08/19 IV 0612 Methylprednisolone 40 MG ONCE ONE 08/19 0100 DC 08/19 IV 08/19 0101 0100 Methylprednisolone 40 MG Q12 08/17 1000 DC 08/18 IV 08/19 0600 2127 Metoprolol Tartrate 50 MG BID 08/19 1000 AC PO Metoprolol Tartrate 5 MG ONCE ONE 08/19 0645 CAN IV 08/19 0646 Omeprazole 40 MG DAILY AC 08/16 1445 AC 08/17 PO 0622 Potassium Chloride 40 MEQ ONCE ONE 08/18 1415 DC 08/18 PO 08/18 1416 1637 Prednisone 10 MG DAILY 08/29 1000 AC PO 08/30 1001 Prednisone 20 MG DAILY 08/27 1000 AC PO 08/28 1001 Prednisone 30 MG DAILY 08/25 1000 AC PO 08/26 1001 Prednisone 40 MG DAILY 08/23 1000 AC PO 08/24 1001 Prednisone 50 MG DAILY 08/21 1000 AC PO 08/22 1001 Prednisone 60 MG DAILY 08/19 1000 AC PO 08/20 1001 Tiotropium [place] 1 PUF DAILY 08/16 1315 AC 08/17 INH 0944 Trimethobenzamide HCl 200 MG TID PRN 08/17 1715 AC 08/18 IM 1835 Zolpidem Tartrate 5 MG AT BEDTIME 08/18 2200 AC 08/18 PO 2127 Vital Signs & I&O Last 24 Hrs of Vitals and I&O: Vital Signs Date Time Temp Pulse Resp B/P B/P Pulse O2 O2 Flow FiO2 Mean Ox Delivery Rate 08/19 0856 96 Nasal 2.5L Cannula 08/19 0758 155 136/88 08/19 0755 99 Nasal 2.0L Cannula 08/19 0708 98.6 151 32 142/92 95 Nasal 2.0L Cannula 08/19 0652 158 164/98 08/19 0641 178 142/90 08/19 0614 158 142/90 08/19 0030 135 24 140/90 97 Nasal 2.0L Cannula 08/19 0020 94 Nasal 2.0L Cannula 08/19 0000 Nasal 2.0L Cannula 08/18 2212 98.9 102 20 156/98 100 08/18 2028 95 Nasal 2.0L Cannula 08/18 1599 Nasal 2.0L Cannula 08/18 1459 99.9 92 20 130/82 96 Intake & Output 08/19 1600 08/19 0800 08/19 0000 Intake Total 320 540 Output Total 850 540 Balance -530 0 Intake, IV 200 400 Intake, Oral 120 140 Number 2 3 Bowel Movements Output, 0 Emesis Output, Urine 850 540 Exam Other Physical Findings: General - somewhat lethargic HEENT - left cut on neck Cardiovascular - S1, S2, tachycardic Lungs - rhonchi/wheezing bilaterally Abdomen - soft, bowel sounds positive, no tenderness Extremities - trace edema Results Last 24 Hrs of Lab Results: Laboratory Tests 08/19/17 0545: Troponin I Cancelled 08/19/17 0545: Anion Gap 13, Estimated GFR > 60, BUN/Creatinine Ratio 23.3, Troponin I 0.28 *H, CBC w Diff NO MAN DIFF REQ, RBC 3.11 L, MCV 92.9, MCH 30.3, MCHC 32.6 L, RDW 16.1 H, MPV 6.5 L, Gran % 92.6 H, Lymphocytes % 2.5 L, Monocytes % 4.9, Eosinophils % 0, Basophils % 0, Absolute Granulocytes 10.9 H, Absolute Lymphocytes 0.3 L, Absolute Monocytes 0.6, Absolute Eosinophils 0, Absolute Basophils 0 08/19/17 0500: pH 7.49 H, pCO2 32 L, pO2 76 L, HCO3 24, ABG O2 Sat (Measured) 94.0 L, P-50 (Temp Corrected) N, Carboxyhemoglobin 0.8 L, O2 Concentration % 2L, Temperature 98.9, O2 Delivery Method N/C, Phlebotomy Draw Site RIGHT RADIAL 08/18/17 1127: Urine Color YEL, Urine Clarity CLEAR, Urine pH 7.5, Ur Specific [place] 1.020, Urine Protein 30 H, Urine Ketones 40 H, Urine Nitrite NEG, Urine Bilirubin NEG , Urine Urobilinogen 0.2, Ur Leukocyte Esterase NEG, Ur Microscopic SEDIMENT EXAMINED, Urine RBC 1-3, Urine WBC RARE, Ur Epithelial Cells RARE, Urine Bacteria RARE H, Granular Casts RARE H, Urine Hemoglobin TRACE-INTACT, Urine Glucose NEG Impression/Plan Impression/Plan Impression/Plan: Impression 62-year-old woman. Impression * Severe oxygen and prednisone dependent COPD * COPD exacerbation/acute hypoxemic respiratory failure * pneumonia - hx of various organisms including E.Coli sensitive to Meropenem * chronic hypercarbic respiratory failure * pulmonary nodules * pulmonary embolism on Eliquis, (09/2015) * CHF * spinal stenosis and chronic pain, hx neurostimulator placement. * sacral fracture history * tobacco dependence * psychiatric history * tachycardia Plan - continue Meropenem - cardiology evaluation - prednisone taper as ordered - continue spiriva once daily - symbicort 2 puffs BID with rinsing of the mouth - TRC/Nebs - Eliquis pt wishes to become DNR/DNI she however wants to discuss this with her if this is a wish she wants to pursue I would highly support that decision
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
--- NOTE | 2017-08-19 13:46 | Transfer of Care Summary ---
Hospital Course Course Hospital Course: 62-year-old lady with past medical history of seizures, hypertension, anemia, COPD on 2 L, diastolic CHF, history of multiple pneumonias treated with meropenem due to allergy to ceftriaxone, spinal stenosis with neural stimulators , when necessary eliquis came to the hospital with chief complaint of lethargy, feeling weak productive cough and fever for couple of days. Patient reports lethargic during the interview however she reported she had couple of episodes of fever, cough, couple of days and couple of episodes of loose stool and bloody 40 yesterday before coming to the hospital without any significant abdominal pain. Patient also reports of chest pain while coughing without any severe headache, blurry vision sweating. she also reports of chills. Soft RS is limited due to patient's drowsiness. Vital signs in ED were notable for blood pressure 91/60 which increased to 118 or 58 after 2 L of normal saline bolus, No fever in ED, good O2 saturation on 2 L Notable labs in ED CL 87,HCO3 43,creatinine 1.6, lactic acid 4.2 to be stranded down to 2.4, mag 3, BNP 3100, troponin 0.02, wbc 13.4. Bandemia 29%, Urine clear, am cortisol 7.[address] : Patchy bilateral airspace disease mostly affecting the dependent lung. cxr: Patchy bibasilar airspace disease with mild central hilar vascular congestion peribronchial cuffing. Cardiogenic versus infectious etiology. Follow-up chest x-ray will be helpful. EKG showed Sinus tach 101, LBBB, nonspecific ST-T changes in precordial leads Patient admitted to general medicine in view of sepsis and acute hypoxic respiratory failure secondary due to pneumonia/COPD exacerbation. Complications: none Assessment/Plan: 62-year-old lady with past medical history of seizures, hypertension, anemia, COPD on 2 L, diastolic CHF, history of multiple pneumonias treated with meropenem due to allergy to ceftriaxone, spinal stenosis with neural stimulators , pulmonary embolism on anticoagulation with eliquis came to the hospital with chief complaint of lethargy, feeling weak productive cough and fever admitted to general med floor acute hypoxic respiratory failure secondary to pneumonia/COPD exacerbation. Patient chest x-ray and CAT scan showed bilateral airspace disease. Patient was being treated with meropenem and steroids. On 08/19/2017 4.30 am -patient complained of shortness of breath. Patient had dinner last night and since then she feels that something was choking down in her throat. She tried to self induce vomiting and missed her Cardizem dose overnight. At baseline she is very anxious and takes Xanax at home. Due to the missed dose of Cardizem and her anxiety she was tachycardic during the same time with a heart rate of 150-180. Patient was seen by the overnight team who gave her 40 Solu-Medrol and 20 of IV Lasix. She had a heart rate of 150. Stat EKG, trops, ABG, repeat cxr was taken. She was transferred to telemetry for continuous monitoring and heart rate control. Cardizem push 5 mg IV was given twice. Her heart rate was still at 150 -180s. Eventually patient was started on IV Cardizem drip and Ativan 1 mg IV was given for anxiety. Patient Cardizem drip was initiated at 5 mg and increased further to 12.5 mg. She was seen by nitroglycerin nitrator operator batch Dr. Kyle Barger who suggested to give 5 mg IV Cardizem push whenever the drip rate was increased. She continued having respiratory distress secondary to the pneumonia/pulmonary vascular congestion despite on IV Cardizem and Lasix. Hence for close monitoring she is being transferred to critical care unit per Cardiology. Goals of care-yesterday patient expressed her wish to Dr. Cates and wanted of code status to be changed to DNR/DNI. However patient's is actively involved in her care And feels that, this decision of is secondary due to depression. Psychiatry was called in to evaluate her capacity. Patient was seen by psychiatry who felt that she doesn't have capacity to make medical decisions. Henceforth her will be the next person to take medical decision for her. Our team had a discussion with the who wanted her to be a full code. However if there is any change in her status please discuss goals of care with the .
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
--- NOTE | 2017-08-19 15:35 | Event Note ---
Event Note Event Note: She was moved to the ICU for worsening respiratory status- increasing distress, and also had tachycardia upto HR 120-130s. Etiology of respiratory distress was throught to be multifactorial- tachycardia, decreased CO, pulmonary edema, and pneumonia. She was placed on BiPAP, and plan was to monitor the pt closely. Abnormal result - elevated cardiac enzyme was called in. Discussed the abnormal result with Dr. Barger-cardiac enzyme trop I - 0.28--> 1.03, with no new EKG changes ( consistent t wave changes in lateral leads, and LBBB ). She is currently on anti-coagulation. She was more comfortable, when I assessed her. O2 sats > 95%. Plan to repeat the cxr, and ABG once she is on BiPAP for atleast an hour and assess the respiratory status. Plan to intubate, if she has increased work of breathing, or hypoxia. Relayed the information our colleagues of our [facility] team.
[2017-08-19 16:00] VITALS: BP 98/68
--- NOTE | 2017-08-19 21:10 | Event Note ---
Event Note Event Note: Situation: Patient was expressing her wish to be made DNR/DNI earlier today and then she was seen by psychiatry later today and found not have capacity to make CODE STATUS decisions. Background: Patient is being treated for acute hypercapnic respiratory failure 2 /2 PNA and COPD exacerbation. She also has a history of seizures, hypertension, anemia, COPD on 2 L, diastolic CHF, history of multiple pneumonias treated with meropenem due to allergy to ceftriaxone, spinal stenosis with neural stimulators Assessment: I discussed with patient's Zachariah Gottlieb over the phone explaining the implications of patient's current code status including intubation and cardiac resuscitation and the option or changing code status to DNR/DNI. After discussions, patient's 's decision was to keep the patient as Full code. Recommendation: Patient will remain Full Code Status as per Zachariah Gottlieb wishes.
[2017-08-19 23:00] VITALS: BP 110/70
[2017-08-20 06:05] LABS: ABSOLUTE BASOPHIL COUNT 0 /CUMM (0.0-0.2); ABSOLUTE EOSINOPHIL COUNT 0 /CUMM (0.0-0.7); ABSOLUTE GRANULOCYTE CT 4.8 /CUMM (1.4-6.5); ABSOLUTE LYMPH COUNT 0.5 /CUMM (1.2-3.4); ABSOLUTE MONOCYTE COUNT 0.2 /CUMM (0.10-0.60); BASOPHIL % 0 % (0.0-2.0); EOSINOPHIL % 0 % (0-5); GRANULOCYTE % 86.9 % (42.2-75.2); HEMATOCRIT 25.8 % (37-47); MEAN CORPUSCULAR HGB CONC 32.3 G/DL (33.0-37.0); MEAN CORPUSCULAR VOLUME 92.8 FL (81.0-99.0); MEAN PLATELET VOLUME 6.6 FL (7.4-10.4); PLATELET COUNT 224 /CUMM (130-400); RBC DISTRIBUTION WIDTH 16.2 % (11.5-14.5); RED BLOOD CELL CT 2.78 /CUMM (4.20-5.40)
[2017-08-20 06:42] LABS: WHITE BLOOD CELL COUNT 5.5 /CUMM (4.8-10.8)
[2017-08-20 08:00] VITALS: BP 128/80
--- NOTE | 2017-08-20 08:53 | PN- Resident CRCU ---
[facility]KEON[facility] 0852: Subjective HPI/CRCU Issues: Respiratiory Distress 24 Hour Events: No acute events overnight. Patient has been done well in the past 24 hours. She is off the BiPAP and now on NC. Objective Vital Signs & I&O Last 8 Hrs of Vitals and I&O: Intake & Output 08/20 1600 Intake Total 804 Output Total 175 Balance 629 Intake, IV 84 Intake, Oral 720 Number 0 Bowel Movements Output, Urine 175 Exam General Appearance: alert, awake, anxious, mild distress Head: atraumatic, normal appearance Respiratory: chest non-tender, rhonchi, wheezing Cardiovascular: regular rate/rhythm Gastrointestinal: soft, non-tender Extremities: no edema Cranial Nerves: normal hearing, normal speech Skin: intact Skin Temp/Moisture Exam: Warm/Dry Sepsis Skin Exam (color): Normal for Ethnicity Current Medications: Current Medications Sig/Halie Start time Last Medication Dose Route Stop Time Status Admin Acetaminophen 650 MG Q6P PRN 08/16 0945 AC 08/19 PO 1235 Albuterol Sulfate 3 ML EVERY 4 HRS/AWAKE 08/18 1200 AC 08/20 INH 1240 Alprazolam 0.25 MG DAILY PRN 08/16 1345 AC 08/19 PO 08/23 1344 1241 Apixaban 5 MG BID 08/16 1000 AC 08/20 PO 0908 Budesonide/ 2 PUF BID 08/16 1205 AC 08/20 Formoterol Fumarate INH 0908 Diltiazem HCl 125 MG Q12H 08/19 1900 AC 08/20 Sodium Chloride 100 ML IV 0613 Diltiazem HCl 125 MG Q24H 08/19 0700 DC 08/19 Sodium Chloride 100 ML IV 08/19 2259 0712 Diltiazem HCl 60 MG DAILY 08/16 1433 DC 08/19 PO 0614 Furosemide 20 MG ONCE ONE 08/20 1315 DC 08/20 IV 08/20 1316 1445 Guaifenesin 600 MG Q12 08/16 1000 AC 08/20 PO 0908 Levetiracetam 750 MG BID 08/19 2200 AC 08/20 PO 0908 Meropenem 1 GM Q8H / 1500 AC 08/20 IV 1445 Methylprednisolone 40 MG Q12 08/20 2200 AC IV Methylprednisolone 40 MG Q8 08/19 2200 DC IV Methylprednisolone 40 MG Q8 08/19 1439 DC 08/19 IV 1456 Metoclopramide HCl 10 MG ONCE ONE 08/20 0800 DC IV 08/20 0801 Omeprazole 40 MG DAILY AC 08/16 1445 AC 08/20 PO 0613 Tiotropium [place] 1 PUF DAILY 08/16 1315 AC 08/20 INH 0908 Trimethobenzamide HCl 200 MG TID PRN 08/17 1715 AC 08/18 IM 1835 Zolpidem Tartrate 5 MG AT BEDTIME 08/18 2200 AC 08/19 PO 2155 Impression/Plan Impression/Problem List Impression: 62-year-old lady with past medical history of seizures, hypertension, anemia, COPD on 2 L, diastolic CHF, history of multiple pneumonias treated with meropenem due to allergy to ceftriaxone, spinal stenosis with neural stimulators came to the hospital with chief complaint of lethargy, feeling weak productive cough and fever for couple of days. She was initially on telemetry but was transferred to ICU for further monitoring of respiratory distress. Assessment: 1. Pneumonia 2. Chronic Hypoxic Respiratory Failure 3. Tachycardia 4. COPD Exacerbation 5. History of Chronic PE on Eliquis 6. Chronic Left Bundle Branch Block 7. Lactic Acidosis - resolved 8. History of CHF Plan: * Continue Meropenem. She has a history of adverse reactions to cephalosporins * Continue oxygen supplementation to maintain target O2 sats >92% * On Solu-Medrol 40mg q12. Will taper as tolerated * Symbicort 2 puffs * TRC/nebs as needed * Continue IV Cardizem for rate control. Currently at 7.5ml/hr. Will need to be transitioned to oral Cardizem. * One time dose of IV Lasix 20mg given. * Stable to be downgraded to telemetry * Blood cultures have showed no growth so far. * Continue Eliquis for chronic PE * Continue home meds: Keppra, Alprazolam * Diet:heart healthy diet [pure]. Will have an MBS tomorrow. * DVT Prophylaxis: Eliquis * Code: Full Code Problem List: 1. Chest pain Pain Ratin Tomorrow's Labs & Rationales: CBC, BEP Plan DVT/Prophylaxis: pharmacological Ray Cates MD 08/20/17 1129: Attending MD Review Statement Attending Sign Off Attending Cosign Statement: I have: examined this patient, reviewed avalbl EMR data, personally reviewd images, discussd w/resident/PA/OFFICE MACHINE SERVICE SUPERVISOR, discussed mgmt plan w/jillian, discussed mgmt plan w/CM, discussed mgmt plan w/pt, agreed w/resident/PA/OFFICE MACHINE SERVICE SUPERVISOR, amended to note. Other Findings: Impression 62-year-old woman. * Severe oxygen and prednisone dependent COPD * COPD exacerbation/acute hypoxemic respiratory failure * pneumonia - hx of various organisms including E.Coli sensitive to Meropenem * chronic hypercarbic respiratory failure * pulmonary nodules * pulmonary embolism on Eliquis, (09/2015) * CHF * spinal stenosis and chronic pain, hx neurostimulator placement. * sacral fracture history * tobacco dependence * psychiatric history * tachycardia - a.fib Plan - continue Meropenem - cardiology evaluation appreciated, rate control - change solumedrol to 40mg iv q12h - continue spiriva once daily - symbicort 2 puffs BID with rinsing of the mouth - TRC/Nebs - Eliquis TTS 35 min Full code * tachycardia - a.fib Plan - continue Meropenem - cardiology evaluation appreciated, rate control - change solumedrol to 40mg iv q12h - continue spiriva once daily - symbicort 2 puffs BID with rinsing of the mouth - TRC/Nebs - Eliquis TTS 35 min Full code
--- NOTE | 2017-08-20 09:53 | PN- Cardiology ---
Subjective Subjective: The patient is more alert this morning. She indicates that she feels better. She still has wheezing. Her heart rate has improved. She appears to be in sinus rhythm with PACs on the monitor. She still has chronic left bundle-branch block pattern. Her echocardiogram appears to show decreased left ventricular systolic function compared to previous, possibly due to Takotsubo cardiomyopathy. Her troponins did increase to a peak of 1.15 which is compatible with this. She is still on IV Cardizem now at 7.5 mg per hour. Beta blockers have been discontinued because of the wheezing. Objective Vital Signs and I&Os Vital Signs Date Time Temp Pulse Resp B/P B/P Pulse O2 O2 Flow FiO2 Mean Ox Delivery Rate 08/20 837 99 Nasal 2.0L Cannula 08/20 799 99 Nasal 2.0L Cannula 08/20 799 97.7 82 20 128/80 99 Nasal 2.0L Cannula 08/20 0400 99 BIPAP 30% 08/20 0301 74 99 08/20 0038 75 98 08/20 0000 98 BIPAP 30% 08/19 2300 96.6 74 22 110/70 98 BIPAP 30% 08/19 2241 78 98 08/19 2014 98 Nasal 2.0L Cannula 08/19 2000 98 BIPAP 30% 08/19 1938 80 98 08/19 1658 88 99 08/19 1650 99 BIPAP 30% 08/19 1600 99 BIPAP 30% 08/19 1600 98.1 92 28 98/68 99 BIPAP 30% 08/19 1407 107 95 08/19 1059 134/84 Intake & Output 08/20 1600 08/20 0808/20 0000 08/19 1600 08/19 0808/19 0000 Intake Total 322 415 320 540 Output Total 230 180 900 850 540 Balance 92 235 -900 -530 0 Intake, IV 82 55 200 400 Intake, Oral 240 360 120 140 Number 0 0 2 3 Bowel Movements Output, 0 Emesis Output, Urine 230 180 900 850 540 Patient 150 lb Weight Physical Exam: She is coughing but in no great distress. HEENT exam is normal Chest reveals moderate expiratory wheezing and some rhonchi Heart reveals regular rhythm with extrasystoles and no murmurs Extremities no edema Current Medications: Current Medications Sig/Halie Start time Last Medication Dose Route Stop Time Status Admin Acetaminophen 650 MG .STK-MED ONE 08/19 1235 DC PO 08/19 1236 Acetaminophen 650 MG Q6P PRN 08/16 0945 AC 08/19 PO 1235 Albuterol Sulfate 3 ML EVERY 4 HRS/AWAKE 08/18 1200 AC 08/20 INH 0836 Alprazolam 0.25 MG DAILY PRN 08/16 1345 AC 08/19 PO 08/23 1344 1241 Apixaban 5 MG BID 08/16 1000 AC 08/20 PO 0908 Budesonide/ 2 PUF BID 08/16 1205 AC 08/20 Formoterol Fumarate INH 0908 Diltiazem HCl 125 MG Q12H 08/19 1900 AC 08/20 Sodium Chloride 100 ML IV 0613 Diltiazem HCl 125 MG Q24H 08/19 0700 DC 08/19 Sodium Chloride 100 ML IV 08/19 2259 0712 Diltiazem HCl 60 MG DAILY 08/16 1433 DC 08/19 PO 0614 Guaifenesin 600 MG Q12 08/16 1000 AC 08/20 PO 0908 Levetiracetam 750 MG BID 08/19 2200 AC 08/20 PO 0908 Levetiracetam 750 MG BID 08/16 1000 DC 08/19 PO 1058 Meropenem 1 GM Q8H 08/17 1500 AC 08/20 IV 0613 Methylprednisolone 40 MG Q8 08/19 2200 AC IV Methylprednisolone 40 MG Q8 08/19 1439 DC 08/19 IV 1456 Metoclopramide HCl 10 MG ONCE ONE 08/20 0800 DC IV 08/20 0801 Metoprolol Tartrate 50 MG BID 08/19 1000 DC 08/19 PO 1059 Omeprazole 40 MG DAILY AC 08/16 1445 AC 08/20 PO 0613 Prednisone 10 MG DAILY 08/29 1000 CAN PO 08/30 1001 Prednisone 20 MG DAILY 08/27 1000 CAN PO 08/28 1001 Prednisone 30 MG DAILY 08/25 1000 CAN PO 08/26 1001 Prednisone 40 MG DAILY 08/23 1000 CAN PO 08/24 1001 Prednisone 50 MG DAILY 08/21 1000 CAN PO 08/22 1001 Prednisone 60 MG DAILY 08/19 1000 DC 08/19 PO 08/20 1001 1057 Tiotropium [place] 1 PUF DAILY 08/16 1315 AC 08/20 INH 0908 Trimethobenzamide HCl 200 MG TID PRN 08/17 1715 AC 08/18 IM 1835 Zolpidem Tartrate 5 MG AT BEDTIME 08/18 2199 AC 08/19 PO 2155 Results Last 48 Hrs of Labs/Mics: Laboratory Tests 08/20/17 0545: Anion Gap 11, Estimated GFR > 60, Glucose 131 H, Calcium 9.1, Phosphorus 3.4, Magnesium 2.3, Total Bilirubin 0.2, AST 1201 H, ALT 897 H, Troponin I 0.59 *H, Albumin 3.1 L, CBC w Diff NO MAN DIFF REQ, RBC 2.78 L, MCV 92.8, MCH 30.0, MCHC 32.3 L, RDW 16.2 H, MPV 6.6 L, Gran % 86.9 H, Lymphocytes % 8.8 L, Monocytes % 4.3, Eosinophils % 0, Basophils % 0, Absolute Granulocytes 4.8, Absolute Lymphocytes 0.5 L, Absolute Monocytes 0.2, Absolute Eosinophils 0, Absolute Basophils 0 08/19/17 2122: Troponin I 1.15 *H 08/19/17 1320: Troponin I 1.03 *H 08/19/17 0545: Troponin I Cancelled 08/19/17 0545: Anion Gap 13, Estimated GFR > 60, BUN/Creatinine Ratio 23.3, Troponin I 0.28 *H, Vitamin B12 > 1000 H, TSH 0.069 L, Free T4 1.56, CBC w Diff NO MAN DIFF REQ, RBC 3.11 L, MCV 92.9, MCH 30.3, MCHC 32.6 L, RDW 16.1 H, MPV 6.5 L, Gran % 92.6 H, Lymphocytes % 2.5 L, Monocytes % 4.9, Eosinophils % 0, Basophils % 0, Absolute Granulocytes 10.9 H, Absolute Lymphocytes 0.3 L, Absolute Monocytes 0.6, Absolute Eosinophils 0, Absolute Basophils 0, RPR Titer/FTA NONREACTIVE 08/19/17 0500: pH 7.49 H, pCO2 32 L, pO2 76 L, HCO3 24, ABG O2 Sat (Measured) 94.0 L, P-50 (Temp Corrected) N, Carboxyhemoglobin 0.8 L, O2 Concentration % 2L, Temperature 98.9, O2 Delivery Method N/C, Phlebotomy Draw Site RIGHT RADIAL 08/18/17 1127: Urine Color YEL, Urine Clarity CLEAR, Urine pH 7.5, Ur Specific [place] 1.020, Urine Protein 30 H, Urine Ketones 40 H, Urine Nitrite NEG, Urine Bilirubin NEG , Urine Urobilinogen 0.2, Ur Leukocyte Esterase NEG, Ur Microscopic SEDIMENT EXAMINED, Urine RBC 1-3, Urine WBC RARE, Ur Epithelial Cells RARE, Urine Bacteria RARE H, Granular Casts RARE H, Urine Hemoglobin TRACE-INTACT, Urine Glucose NEG Assessment/Plan Assessment/Plan The patient is clinically improved but still has significant wheezing. Her chest x-ray is pending. Her echocardiogram appears to show significantly reduced LV systolic function which may be consistent with Takotsubo cardiomyopathy with mildly elevated troponin with a peak of 1.15. She has acute systolic CHF due to reduced EF. I recommend continuing her with IV diuretic therapy. I will review her chest x- ray when it is done. I recommend serial EKGs although it is not likely to show significant changes with chronic left bundle branch block pattern. Takotsubo cardiomyopathy tends to improve over time but the course can be variable. We will have to watch her closely for clearing of congestive heart failure and pulmonary findings. Continue telemetry? Yes
--- NOTE | 2017-08-20 12:32 | RADIOLOGY REPORT ---
EXAMINATION: XR PORTABLE CHEST CLINICAL INFORMATION: Worsening shortness of breath. COMPARISON: 08/19/2017 TECHNIQUE: Portable frontal view of the chest was obtained. FINDINGS: Worsening infrahilar bilateral basilar consolidations, predominantly on the left in the retrocardiac space. Central pulmonary vasculature remains prominent. Possible trace left pleural effusion. No pneumothorax bilaterally. Heart size is normal. Atherosclerosis thoracic aorta. No acute osseous abnormality. Distal tapering of the right clavicle is unchanged. Cerclage wire projects over the lower neck. The patient's chin obscures the superiormost aspect of the apices. EKG leads project over the chest. IMPRESSION: Interval increase in the bibasilar lung opacities, left greater than right, with possible trace left pleural effusion. Central pulmonary vascular prominence remains.
--- NOTE | 2017-08-20 12:47 | ECHOCARDIOGRAM REPORT ---
CHASE ABREU Age: 62 : 1955 Gender: F Exam Date: 08/19/2017 16:21 Exam Location: [facility] Ht (in): 64 Wt (lb): 150 BSA: 1.77 BP: 99 / 72 Ordering Physician: Mich Simpson MD Referring Physician: Kyle Barger MD Chief, SoC Technologist: Tina Fox [facility] Room Number: 108 Indications: ARRHYTHMIAS Rhythm: Sinus Technical Quality: Good FINDINGS Left Ventricle The left ventricle is borderline dilated in the midportion. Wall thickness is normal. There is moderate global hypokinesis of the left ventricle with akinetic distal septum and apex. There is also paradoxical motion of the interventricular septum. The very proximal the very proximal LV farrell contract fairly well. Estimated ejection fraction is moderately to markedly reduced at 25-30%. The pattern is somewhat atypical but could represent a Takotsubo cardiomyopathy. "pseudonormal" filling pattern of the left ventricle for age (stage 2 diastolic dysfunction). Right Ventricle The right ventricle is normal in size and function. Right Atrium The right atrium is normal in size. Left Atrium The left atrium is normal in size. The interatrial septum is intact. Mitral Valve Mild thickening/calcification of the mitral valve leaflets. Mild-to- moderate mitral regurgitation. Aortic Valve Focal thickening of the aortic valve cusps. No aortic stenosis. Trace aortic regurgitation. Tricuspid Valve Structurally normal tricuspid valve. Moderate tricuspid regurgitation. Right ventricular systolic pressure estimated to be elevated at 45-50 mmHg. Pulmonic Valve Structurally normal pulmonic valve. Trace pulmonic regurgitation. Pericardium Normal pericardium without effusion. No pleural effusion. Great Vessels Normal aortic root dimension. The aortic arch and great vessels are not well seen.. CONCLUSIONS The left ventricle is borderline dilated in the midportion. Wall thickness is normal. There is moderate global hypokinesis of the left ventricle with akinetic distal septum and apex. There is also paradoxical motion of the interventricular septum. The very proximal the very proximal LV farrell contract fairly well. Estimated ejection fraction is moderately to markedly reduced at 25-30%. The pattern is somewhat atypical but could represent a Takotsubo cardiomyopathy. The left atrium is normal in size. Mild thickening/calcification of the mitral valve leaflets. [id number] mitral regurgitation. Focal thickening of the aortic valve cusps. No aortic stenosis. Trace aortic regurgitation. Moderate tricuspid regurgitation. Right ventricular systolic pressure estimated to be elevated at 45- 50 mmHg. The aortic arch and great vessels are not well seen. "pseudonormal" filling pattern of the left ventricle for age (stage 2 diastolic dysfunction). Kyle Barger M.D. (Electronically Signed) Final Date: 20 August 2017 12:47 MEASUREMENTS (Male / Female) Normal Values 2D ECHO LV Diastolic Diameter PLAX 4.3 cm 4.2 - 5.9 / 3.9 - 5.3 cm LV Systolic Diameter PLAX 3.4 cm 2.1 - 4.0 cm LV Fractional Shortening PLAX 20.9 % 25 - 46 % LV Ejection Fraction 2D Teich 42.9 % IVS Diastolic Thickness 1.0 cm LVPW Diastolic Thickness 1.0 cm LV Relative Wall Thickness 0.5 RV Internal Dim ED PLAX 2.4 cm 1.9 - 3.8 cm LVOT Diameter 1.9 cm Aortic Root Diameter 2.6 cm LA Systolic Diameter LX 3.3 cm 3.0 - 4.0 / 2.7 - 3.8 cm LA Volume 30.0 cm 18 - 58 / 22 - 52 cm Ascending Aorta Diameter 2.6 cm DOPPLER AV Peak Velocity 93.4 cm/s AV Peak Gradient 3.5 mmHg AV Mean Velocity 70.9 cm/s AV Mean Gradient 2.0 mmHg AV Velocity Time Integral 15.6 cm LVOT Peak Velocity 51.5 cm/s LVOT Peak Gradient 1.1 mmHg LVOT Mean Velocity 35.5 cm/s LVOT Mean Gradient 1.0 mmHg LVOT Velocity Time Integral 7.7 cm LVOT Stroke Volume 21.8 cm AV Area Cont Eq vti 1.4 cm AV Area Cont Eq pk 1.6 cm MV Peak Velocity 123.0 cm/s MV Peak Gradient 6.1 mmHg MV Mean Velocity 68.9 cm/s MV Mean Gradient 2.0 mmHg Mitral E Point Velocity 83.9 cm/s Mitral A Point Velocity 77.0 cm/s Mitral E to A Ratio 1.1 MV PHT Velocity 131.0 cm/s MV Deceleration [place] 1014.0 cm/s MV Pressure Half Time 38.8 ms MV Area PHT 5.7 cm MV Deceleration Time 158.0 ms TR Peak Velocity 316.0 cm/s TR Peak Gradient 39.9 mmHg Right Atrial Pressure 10.0 mmHg Pulmonary Artery Systolic Pressu 49.9 mmHg Right Ventricular Systolic Press 49.9 mmHg PV Peak Velocity 85.5 cm/s PV Peak Gradient 2.9 mmHg PV Mean Velocity 56.1 cm/s PV Mean Gradient 1.0 mmHg PV Velocity Time Integral 12.6 cm LV E' Lateral Velocity 5.5 cm/s Mitral E to LV E' Lateral Ratio 15.2 LV E' Septal Velocity 13.9 cm/s Mitral E to LV E' Septal Ratio 6.0
[2017-08-20 15:59] VITALS: BP 110/50
[2017-08-21 06:30] VITALS: BP 148/78
--- NOTE | 2017-08-21 07:08 | PN- Housestaff ---
Ana MCKEON,Joyce 08/21/17 0707: Subjective Follow-up For: Pneumonia, COPD exacerbation Complaints: no complaints Tele-Events Since Last Visit: Sinus rhythm heart rate 100-110 Subjective: Patient was seen and examined at bedside. Patient was sitting in her bed with head end elevated on 2 L of oxygen. No acute distress. No overnight events. She feels that she might have something stuck in her throat which might be due to" metoprolol/prednisone". She denies chest pain, chest pressure, shortness of breath, palpitation, anxiety. Review of Systems Constitutional: Reports: no symptoms. Cardiovascular: Reports: no symptoms. Respiratory: Reports: no symptoms. Gastrointestinal: Reports: no symptoms. Genitourinary: Reports: no symptoms. Musculoskeletal: Reports: no symptoms. Skin: Reports: no symptoms. Objective Last 24 Hrs of Vital Signs/I&O Vital Signs Date Time Temp Pulse Resp B/P B/P Pulse O2 O2 Flow FiO2 Mean Ox Delivery Rate 08/21 851 94 Nasal 2.0L Cannula 08/21 822 99 Nasal 2.0L Cannula 08/21 0630 99.8 81 18 148/78 97 08/21 0000 95 Nasal 2.0L Cannula 08/20 2330 98.8 99 20 97 08/20 1722 98.6 08/20 1650 98 Nasal 2.0L Cannula 08/20 1623 99.9 08/20 1600 99 Nasal 2.0L Cannula 08/20 1559 99.9 112 21 110/50 99 Intake & Output 08/21 1600 08/21 0800 08/21 0000 Intake Total 260 260 Output Total 425 750 Balance -165 -490 Intake, IV 60 60 Intake, Oral 200 200 Number 1 Bowel Movements Output, Urine 425 750 Physical Exam General Appearance: Alert, Oriented X3, Cooperative, No Acute Distress HEENT: PERRLA, EOMI Cardiovascular: Normal S1, Normal S2, No Murmurs Lungs: Clear to Auscultation Abdomen: Soft, No Tenderness, No Hepatospenomegaly Neurological: Strength at 5/5 X4 Ext, Normal Tone, Sensation Intact Extremities: No Cyanosis, No Edema, Normal Pulses Current Medications: Current Medications Sig/Halie Start time Last Medication Dose Route Stop Time Status Admin Acetaminophen 650 MG .STK-MED ONE 08/20 162 DC PO 08/20 1622 Acetaminophen 650 MG Q6P PRN 08/16 0945 AC 08/20 PO 1623 Albuterol Sulfate 3 ML EVERY 4 HRS/AWAKE 08/18 1200 AC 08/20 INH 2055 Alprazolam 0.25 MG DAILY PRN 08/16 1345 AC 08/19 PO 08/23 1344 1241 Apixaban 5 MG BID 08/16 1000 AC 08/21 PO 0948 Budesonide/ 2 PUF BID 08/16 1205 AC 08/21 Formoterol Fumarate INH 0948 Diltiazem HCl 125 MG Q24H 08/21 1900 AC Sodium Chloride 100 ML IV Diltiazem HCl 125 MG Q12H 08/19 1900 AC 08/20 Sodium Chloride 100 ML IV 08/21 1859 2235 Furosemide 20 MG ONCE ONE 08/20 1315 DC 08/20 IV 08/20 1316 1445 Guaifenesin 600 MG Q12 08/16 1000 AC 08/21 PO 0947 Levetiracetam 750 MG BID 08/19 2200 AC 08/21 PO 0948 Meropenem 1 GM Q8H 08/17 1500 AC 08/21 IV 0715 Methylprednisolone 40 MG Q12 08/20 2200 DC 08/20 IV 2232 Omeprazole 40 MG DAILY AC 08/16 1445 AC 08/21 PO 0715 Ondansetron HCl 4 MG ONCE ONE 08/20 1800 DC 08/20 IV 08/20 1801 1800 Ondansetron HCl 4 MG ONCE ONE 08/20 1545 DC 08/20 IV 08/20 1546 1645 Prednisone 40 MG DAILY 08/22 1000 AC PO Tiotropium [place] 1 PUF DAILY 08/16 1315 AC 08/21 INH 0948 Trimethobenzamide HCl 200 MG TID PRN 08/17 1715 AC 08/18 IM 1835 Zolpidem Tartrate 5 MG AT BEDTIME 08/18 2200 AC 08/20 PO 2232 Last 24 Hrs of Lab/Randall Results Last 24 Hrs of Labs/Mics: Laboratory Tests 08/21/17 0619: Anion Gap 9, Estimated GFR > 60, BUN/Creatinine Ratio 35.7 H, CBC w Diff NO MAN DIFF REQ, RBC 2.65 L, MCV 92.7, MCH 30.3, MCHC 32.7 L, RDW 16.1 H, MPV 7.1 L , Gran % 80.0 H, Lymphocytes % 13.6 L, Monocytes % 6.1, Eosinophils % 0.1, Basophils % 0.2, Absolute Granulocytes 6.6 H, Absolute Lymphocytes 1.1 L, Absolute Monocytes 0.5, Absolute Eosinophils 0, Absolute Basophils 0 Assessment/Plan Assessment: 62-year-old lady with past medical history of seizures, hypertension, anemia, COPD on 2 L, diastolic CHF, history of multiple pneumonias treated with meropenem due to allergy to ceftriaxone, spinal stenosis with neural stimulators came to the hospital with chief complaint of lethargy, feeling weak productive cough and fever for couple of days She is being treated and evaluated for following conditions. #Sepsis secondary to pneumonia -resolved (hx of various organisms including E.Coli sensitive to Meropenem) -Afebrile since admission. We will continue meropenem 7 days. Pulmonology follow-up appreciated. -Continue TRC/oxygenation PRN -Follow up panculture-negative thus far. -Patient had multiple episodes of vomiting 2 days ago, stat CXR was done to rule out aspiration. Chest x-ray does not show any new consolidation. The same day, patient self-induced vomiting and didn't take her medication Cardizem. She became tachycardic and got very anxious and was transferred to telemetry for monitoring. Her EKG showed sinus tachycardia heart rate 180. She was started on Cardizem drip 10 mg. her metoprolol home dose was restarted on however it was stopped given her COPD history and clinically she was wheezing. We will slowly wean off Cardizem and put her on long acting Cardizem. We will continue her IV Lasix. #Acute hypercapnic respiratory failure 2/2 PNA and COPD exacerbation Patient has history of Severe oxygen and prednisone dependent COPD -Patient is on tapering dose of prednisone. -Continue spiriva once daily -Symbicort 2 puffs BID with rinsing of the mouth #History of PE on eliquis -Continue Eliquis #Gastritis -Resolved. Patient is on heart healthy diet [pure]. She was followed by a swallow eval who suggested a modified barium swallow to advance her diet. We will do a barium swallow eval today. -Tigan for nausea QTC 495 -F/U C. difficile #Hypokalemia -Potassium 3.4. We will replete potassium today. -Continue to monitor BEP and replete accordingly -Potassium supplementation today #Continue home meds: Moody, Cardizem, Alprazolam Patient has wished to change the CODE STATUS from full code to DNR/DNI. Her feels that she doesn't have capacity to make medical decisions. Hence psychiatry was involved. She was seen by psychiatry who suggested that she doesn't have capacity to take medical decision. Henceforth, her we will make medical decisions for her. Plan-modified barium Swallow, IV diuretics, taper Cardizem and start oral Cardizem. We will advance her diet prior swallow. Problem List: 1. Acute exacerbation of chronic obstructive pulmonary disease (COPD) 2. PNEUMONIA Pain Ratin Pain Location: none Pain Goal: Remain pain free Pain Plan: tylenol Tomorrow's Labs & Rationales: cbc,bep Javad MCKEON,Isaias 08/21/17 1052: Attending MD Review Statement Attending Statement Attending MD Statement: examined this patient, discuss w/resident/PA/DRAWING TRACER, agreed w/resident/PA/DRAWING TRACER, reviewed EMR data (avail), discussed with nursing, discussed with case mgmt, amended to note Attending Assessment/Plan: Patient seen and examined. Transferred out of the AC overnight. She is doing much better from a respiratory standpoint. She appears calm and denies any complaints of shortness of breath or cough. Heart rate has also improved although she remains on Cardizem infusion. On examination she has adequate entry bilaterally with mild expiratory rhonchi. Heart sounds remain irregular. She has no peripheral edema. Continue to wean off Cardizem infusion and follow up with the cardiology service regarding long-term rate control medications. It will probably be prudent to avoid beta-rose therapy in the future due to her underlying COPD. She is scheduled to undergo a modified barium swallow today to further evaluate choking sensation which patient reports occcurs occasionally when she is eating.
[2017-08-21 08:15] LABS: ABSOLUTE BASOPHIL COUNT 0 /CUMM (0.0-0.2); ABSOLUTE EOSINOPHIL COUNT 0 /CUMM (0.0-0.7); ABSOLUTE GRANULOCYTE CT 6.6 /CUMM (1.4-6.5); ABSOLUTE LYMPH COUNT 1.1 /CUMM (1.2-3.4); ABSOLUTE MONOCYTE COUNT 0.5 /CUMM (0.10-0.60); BASOPHIL % 0.2 % (0.0-2.0); EOSINOPHIL % 0.1 % (0-5); HEMATOCRIT 24.6 % (37-47); MEAN CORPUSCULAR HGB 30.3 PG (27.0-31.0); MEAN CORPUSCULAR HGB CONC 32.7 G/DL (33.0-37.0); MEAN CORPUSCULAR VOLUME 92.7 FL (81.0-99.0); MEAN PLATELET VOLUME 7.1 FL (7.4-10.4); PLATELET COUNT 217 /CUMM (130-400); RBC DISTRIBUTION WIDTH 16.1 % (11.5-14.5); RED BLOOD CELL CT 2.65 /CUMM (4.20-5.40); WHITE BLOOD CELL COUNT 8.2 /CUMM (4.8-10.8)
--- NOTE | 2017-08-21 10:24 | PN- Cardiology ---
Subjective Subjective: She denies any chest pain or shortness of breath. She remains in sinus rhythm with PACs on the monitor with a rate around 100. She is still on IV Cardizem. She is not receiving IV Lasix at this time. Her chest x-ray yesterday still showed pulmonary vascular congestion. Objective Vital Signs and I&Os Vital Signs Date Time Temp Pulse Resp B/P B/P Pulse O2 O2 Flow FiO2 Mean Ox Delivery Rate 08/21 851 94 Nasal 2.0L Cannula 08/21 822 99 Nasal 2.0L Cannula 08/21 629 99.8 81 18 148/78 97 08/21 0000 95 Nasal 2.0L Cannula 08/20 2330 98.8 99 20 97 08/20 1722 98.6 08/20 1650 98 Nasal 2.0L Cannula 08/20 1623 99.9 08/20 1600 99 Nasal 2.0L Cannula 08/20 1559 99.9 112 21 110/50 99 Intake & Output 08/21 1600 08/21 0808/21 0000 08/20 1600 08/20 0000 Intake Total 260 260 804 322 415 Output Total 425 750 184 957 5426 Balance -165 -490 629 92 -665 Intake, IV 60 60 84 82 55 Intake, Oral 200 200 720 240 360 Number 1 0 0 0 Bowel Movements Output, Urine 425 [phone] [id number] Physical Exam: She is in no distress HEENT exam is normal Neck veins not distended Carotids normal Chest mild expiratory wheezing noted Heart regular rhythm, no murmurs Extremities no edema Current Medications: Current Medications Sig/Halie Start time Last Medication Dose Route Stop Time Status Admin Acetaminophen 650 MG .STK-MED ONE 08/20 1622 DC PO 08/20 1623 Acetaminophen 650 MG Q6P PRN 08/16 0945 AC 08/20 PO 1623 Albuterol Sulfate 3 ML EVERY 4 HRS/AWAKE 08/18 1200 AC 08/20 INH 2055 Alprazolam 0.25 MG DAILY PRN 08/16 1345 AC 08/19 PO 08/23 1344 1241 Apixaban 5 MG BID 08/16 1000 AC 08/21 PO 0948 Budesonide/ 2 PUF BID 08/16 1205 AC 08/21 Formoterol Fumarate INH 0948 Diltiazem HCl 125 MG Q24H 08/21 1900 AC Sodium Chloride 100 ML IV Diltiazem HCl 125 MG Q12H 08/19 1900 AC 08/20 Sodium Chloride 100 ML IV 08/21 1859 2235 Furosemide 20 MG ONCE ONE 08/20 1315 DC 08/20 IV 08/20 1316 1445 Guaifenesin 600 MG Q12 08/16 1000 AC 08/21 PO 0947 Levetiracetam 750 MG BID 08/19 2200 AC 08/21 PO 0948 Meropenem 1 GM Q8H 08/17 1500 AC 08/21 IV 0715 Methylprednisolone 40 MG Q12 08/20 2200 DC 08/20 IV 2232 Methylprednisolone 40 MG Q8 08/19 2200 DC IV Omeprazole 40 MG DAILY AC 08/16 1445 AC 08/21 PO 0715 Ondansetron HCl 4 MG ONCE ONE 08/20 1800 DC 08/20 IV 08/20 1801 1800 Ondansetron HCl 4 MG ONCE ONE 08/20 1545 DC 08/20 IV 08/20 1546 1645 Prednisone 40 MG DAILY 08/22 1000 AC PO Tiotropium [place] 1 PUF DAILY 08/16 1315 AC 08/21 INH 0948 Trimethobenzamide HCl 200 MG TID PRN 08/17 1715 AC 08/18 IM 1835 Zolpidem Tartrate 5 MG AT BEDTIME 08/18 2200 AC 08/20 PO 2232 Results Last 48 Hrs of Labs/Mics: Laboratory Tests 08/21/17 0619: Anion Gap 9, Estimated GFR > 60, BUN/Creatinine Ratio 35.7 H, CBC w Diff NO MAN DIFF REQ, RBC 2.65 L, MCV 92.7, MCH 30.3, MCHC 32.7 L, RDW 16.1 H, MPV 7.1 L , Gran % 80.0 H, Lymphocytes % 13.6 L, Monocytes % 6.1, Eosinophils % 0.1, Basophils % 0.2, Absolute Granulocytes 6.6 H, Absolute Lymphocytes 1.1 L, Absolute Monocytes 0.5, Absolute Eosinophils 0, Absolute Basophils 0 08/20/17 0545: Anion Gap 11, Estimated GFR > 60, Glucose 131 H, Calcium 9.1, Phosphorus 3.4, Magnesium 2.3, Total Bilirubin 0.2, AST 1201 H, ALT 897 H, Troponin I 0.59 *H, Albumin 3.1 L, CBC w Diff NO MAN DIFF REQ, RBC 2.78 L, MCV 92.8, MCH 30.0, MCHC 32.3 L, RDW 16.2 H, MPV 6.6 L, Gran % 86.9 H, Lymphocytes % 8.8 L, Monocytes % 4.3, Eosinophils % 0, Basophils % 0, Absolute Granulocytes 4.8, Absolute Lymphocytes 0.5 L, Absolute Monocytes 0.2, Absolute Eosinophils 0, Absolute Basophils 0 08/19/17 2122: Troponin I 1.15 *H 08/19/17 1320: Troponin I 1.03 *H Microbiology 08/19 1500 STOOL: Clostridium difficile Toxin A & B - COMP 08/19 1355 GI: Surveillance Culture - COMP VANC RESIST ENTEROCOCCUS 08/19 1325 UPPER RESP: Surveillance Culture - COMP Recent Imaging Studies: PATIENT: CHASE ABREU PRESENT AGE: 62 PATIENT ACCOUNT NO: [id number] : 55 LOCATION: [facility] ORDERING PHYSICIAN: Edgar Alarcon MD SERVICE DATE: 08/20/17 EXAM TYPE: RAD - XRY-PORTABLE CHEST XRAY EXAMINATION: XR PORTABLE CHEST CLINICAL INFORMATION: Worsening shortness of breath. COMPARISON: 08/19/2017 TECHNIQUE: Portable frontal view of the chest was obtained. FINDINGS: Worsening infrahilar bilateral basilar consolidations, predominantly on the left in the retrocardiac space. Central pulmonary vasculature remains prominent. Possible trace left pleural effusion. No pneumothorax bilaterally. Heart size is normal. Atherosclerosis thoracic aorta. No acute osseous abnormality. Distal tapering of the right clavicle is unchanged. Cerclage wire projects over the lower neck. The patient's chin obscures the superiormost aspect of the apices. EKG leads project over the chest. IMPRESSION: Interval increase in the bibasilar lung opacities, left greater than right, with possible trace left pleural effusion. Central pulmonary vascular prominence remains. DICTATED BY: Traci Comer MD DATE/TIME DICTATED:08/20/171216 OPERATIONS ENGINEER:ARUN DATE/TIME TRANSCRIBED:08/20/171216 CONFIDENTIAL, DO NOT COPY WITHOUT APPROPRIATE AUTHORIZATION. <Electronically signed in Other Vendor System> SIGNED BY: Traci Comer MD 08/20/17 1232 Assessment/Plan Assessment/Plan This patient probably has Takotsubo cardiomyopathy with acute systolic congestive heart failure. She also has significant bronchospasm. I recommend restarting her on IV diuretics and continuing them until her pulmonary vascular congestion has improved. I recommend transitioning her to oral Cardizem and tapering off the IV Cardizem. I recommend a follow-up limited echocardiogram looking at LV function in a couple of days to see if there is any improvement. Continue telemetry? Yes
--- NOTE | 2017-08-21 12:10 | PN- Pulmonary ---
Subjective HPI/Critical Care Issues: pt seen and examined transferred out of icu feels better today repsiratory status stable feels difficulty swallowing which has been a chronic complaint Objective Current Medications: Current Medications Sig/Halie Start time Last Medication Dose Route Stop Time Status Admin Acetaminophen 650 MG .STK-MED ONE 08/20 1622 DC PO 08/20 1623 Acetaminophen 650 MG Q6P PRN 08/16 0945 AC 08/20 PO 1623 Albuterol Sulfate 3 ML EVERY 4 HRS/AWAKE 08/18 1200 AC 08/20 INH 2055 Alprazolam 0.25 MG DAILY PRN 08/16 1345 AC 08/19 PO 08/23 1344 1241 Apixaban 5 MG BID 08/16 1000 AC 08/21 PO 0948 Budesonide/ 2 PUF BID 08/16 1205 AC 08/21 Formoterol Fumarate INH 0948 Diltiazem HCl 125 MG Q24H 08/21 1900 AC Sodium Chloride 100 ML IV Diltiazem HCl 125 MG Q12H 08/19 1900 AC 08/20 Sodium Chloride 100 ML IV 08/21 1859 2235 Furosemide 20 MG ONCE ONE 08/20 1315 DC / IV / 1316 1445 Guaifenesin 600 MG Q12 08/16 1000 AC 08/21 PO 0947 Levetiracetam 750 MG BID 08/19 2200 AC 08/21 PO 0948 Meropenem 1 GM Q8H / 1500 AC 08/21 IV 0715 Methylprednisolone 40 MG Q12 08/20 2200 DC 02/ IV 2232 Omeprazole 40 MG DAILY AC 08/16 1445 AC 08/21 PO 0715 Ondansetron HCl 4 MG ONCE ONE 08/20 1800 DC 08/20 IV /08 1801 1800 Ondansetron HCl 4 MG ONCE ONE 08/20 1545 DC / IV /08 1546 1645 Prednisone 40 MG DAILY 08/22 1000 AC PO Tiotropium [place] 1 PUF DAILY 08/16 1315 AC 08/21 INH 0948 Trimethobenzamide HCl 200 MG TID PRN 08/17 1715 AC 08/18 IM 1835 Zolpidem Tartrate 5 MG AT BEDTIME 08/18 2200 AC 08/20 PO 2232 Vital Signs & I&O Last 24 Hrs of Vitals and I&O: Vital Signs Date Time Temp Pulse Resp B/P B/P Pulse O2 O2 Flow FiO2 Mean Ox Delivery Rate 08/21 851 94 Nasal 2.0L Cannula 08/21 822 99 Nasal 2.0L Cannula 08/21 06 99.8 81 18 148/78 97 08/21 0000 95 Nasal 2.0L Cannula 08/20 2330 98.8 99 20 97 08/20 1722 98.6 08/20 1650 98 Nasal 2.0L Cannula 08/20 1623 99.9 08/20 1600 99 Nasal 2.0L Cannula 08/20 1559 99.9 112 21 110/50 99 Intake & Output 08/21 1600 08/21 0800 08/21 0000 Intake Total 260 260 Output Total 425 750 Balance -165 -490 Intake, IV 60 60 Intake, Oral 200 200 Number 1 Bowel Movements Output, Urine 425 750 Exam Other Physical Findings: General - somewhat lethargic HEENT - left cut on neck Cardiovascular - S1, S2, tachycardic Lungs - rhonchi/wheezing bilaterally Abdomen - soft, bowel sounds positive, no tenderness Extremities - trace edema Results Last 24 Hrs of Lab Results: Laboratory Tests 08/21/17 0619: Anion Gap 9, Estimated GFR > 60, BUN/Creatinine Ratio 35.7 H, CBC w Diff NO MAN DIFF REQ, RBC 2.65 L, MCV 92.7, MCH 30.3, MCHC 32.7 L, RDW 16.1 H, MPV 7.1 L , Gran % 80.0 H, Lymphocytes % 13.6 L, Monocytes % 6.1, Eosinophils % 0.1, Basophils % 0.2, Absolute Granulocytes 6.6 H, Absolute Lymphocytes 1.1 L, Absolute Monocytes 0.5, Absolute Eosinophils 0, Absolute Basophils 0 Impression/Plan Impression/Plan Impression/Plan: Impression 62-year-old woman. Impression * Severe oxygen and prednisone dependent COPD * COPD exacerbation/acute hypoxemic respiratory failure * pneumonia - hx of various organisms including E.Coli sensitive to Meropenem * chronic hypercarbic respiratory failure * pulmonary nodules * pulmonary embolism on Eliquis, (09/2015) * CHF * spinal stenosis and chronic pain, hx neurostimulator placement. * sacral fracture history * tobacco dependence * psychiatric history * tachycardia improved, ?takatsubos Plan - continue Meropenem 7 days - swallow evaluation - cardiology evaluation - prednisone taper as ordered - continue spiriva once daily - symbicort 2 puffs BID with rinsing of the mouth - TRC/Nebs - Eliquis
[2017-08-21 15:28] VITALS: BP 136/90
--- NOTE | 2017-08-21 16:03 | RADIOLOGY REPORT ---
EXAMINATION: XR MODIFIED BARIUM SWALLOW CLINICAL INFORMATION: COPD exacerbation. Failed swallowing evaluation. COMPARISON: Modified barium swallow dated 01/06/2017. TECHNIQUE: A modified barium swallow was performed with speech pathologist in attendance. Pur?e, honey thick, nectar thick, thin, bread, and cracker consistencies were given to the patient and the swallowing mechanism was observed fluoroscopically with several spot films taken using the last image hold feature. FLUOROSCOPY TIME: 2 minutes 7 seconds. FINDINGS: With all consistencies, premature spillage of contrast into the valleculae is seen. With nectar consistency, there was also premature spillage into the piriform sinuses. With nectar consistency, silent transient penetration of contrast is seen. With thin liquid contrast, repeated silent penetration is noted and on one occasion skye aspiration into the upper trachea was seen, eliciting of cough reflex. IMPRESSION: 1. Skye aspiration seen with thin liquid contrast, eliciting a cough reflex. 2. Repeated silent penetration is noted with thin liquid contrast then on one occasion with nectar consistency. 3. Premature spillage of contrast into the valleculae and piriform sinuses. 4. Speech pathologist assessment issued separately.
[2017-08-21 23:34] VITALS: BP 148/76
[2017-08-22 07:05] VITALS: BP 142/84
[2017-08-22 08:30] LABS: ABSOLUTE BASOPHIL COUNT 0 /CUMM (0.0-0.2); ABSOLUTE EOSINOPHIL COUNT 0 /CUMM (0.0-0.7); MEAN CORPUSCULAR HGB 30.5 PG (27.0-31.0)
[2017-08-22 09:06] LABS: ABSOLUTE GRANULOCYTE CT 5.2 /CUMM (1.4-6.5); ABSOLUTE LYMPH COUNT 1.1 /CUMM (1.2-3.4); ABSOLUTE MONOCYTE COUNT 0.4 /CUMM (0.10-0.60); BASOPHIL % 0.3 % (0.0-2.0); EOSINOPHIL % 0.7 % (0-5); MEAN CORPUSCULAR HGB CONC 32.7 G/DL (33.0-37.0); MEAN CORPUSCULAR VOLUME 93.2 FL (81.0-99.0); MEAN PLATELET VOLUME 7.6 FL (7.4-10.4); PLATELET COUNT 253 /CUMM (130-400); RBC DISTRIBUTION WIDTH 16.6 % (11.5-14.5); RED BLOOD CELL CT 3.22 /CUMM (4.20-5.40); WHITE BLOOD CELL COUNT 6.8 /CUMM (4.8-10.8)
--- NOTE | 2017-08-22 09:57 | PN- Housestaff ---
Jyoti Guadalupe 08/22/17 0957: Subjective Follow-up For: COPD exacerbation Tele-Events Since Last Visit: Normal sinus rhythm, sinus tachycardia, BBB Subjective: Patient was seen and examined. she seems confused stating that she does not want to be in the ICU. Patient refused physical exam. Later on, she had an episode of staring and not answering questions, but would turn to voice direction. Review of Systems Constitutional: Reports: no symptoms. Objective Last 24 Hrs of Vital Signs/I&O Vital Signs Date Time Temp Pulse Resp B/P B/P Pulse O2 O2 Flow FiO2 Mean Ox Delivery Rate 08/22 1650 98 Nasal 2.0L Cannula 08/22 1521 99.6 106 20 156/86 97 Nasal 2.0L Cannula 08/22 1141 95 Nasal 2.0L Cannula 08/22 0800 94 Nasal 2.0L Cannula 08/22 0705 98.7 112 20 142/84 94 Nasal Cannula 08/22 0000 Nasal 2.0L Cannula 08/21 2334 98.8 81 18 148/76 97 Intake & Output 08/22 1600 08/22 0800 08/22 0000 Intake Total 400 120 120 Output Total 650 459 300 Balance -250 -339 -180 Intake, Oral 400 120 120 Number 1 1 Bowel Movements Output, Urine 650 459 300 Physical Exam General Appearance: No Acute Distress Skin: No Rashes Other Physical Findings: Refused other examination Current Medications: Current Medications Sig/Halie Start time Last Medication Dose Route Stop Time Status Admin Acetaminophen 650 MG .STK-MED ONE 08/22 0537 DC PO 08/22 0538 Acetaminophen 650 MG Q6P PRN 08/16 0945 AC 08/22 PO 0537 Albuterol Sulfate 3 ML EVERY 4 HRS/AWAKE 08/18 1200 AC 08/22 INH 1650 Alprazolam 0.25 MG DAILY PRN 08/16 1345 AC 08/22 PO 08/23 1344 1958 Apixaban 5 MG BID 08/16 1000 AC 08/22 PO 1002 Budesonide/ 2 PUF BID 08/16 1205 AC 08/21 Formoterol Fumarate INH 2139 Diltiazem HCl 120 MG DAILY 08/21 1445 AC 08/22 PO 1002 Furosemide 20 MG DAILY 08/21 1345 AC 08/22 IV 1006 Guaifenesin 600 MG Q12 08/16 1000 AC 08/22 PO 1003 Levetiracetam 750 MG BID 08/19 2200 AC 08/22 PO 1003 Meropenem 1 GM Q8H 08/17 1500 AC 08/22 IV 08/23 0600 1411 Omeprazole 40 MG DAILY AC 08/16 1445 AC 08/22 PO 0538 Prednisone 40 MG DAILY 08/22 1000 AC 08/22 PO 1003 Tiotropium [place] 1 PUF DAILY 08/16 1315 AC 08/21 INH 0948 Trimethobenzamide HCl 200 MG TID PRN 08/17 1715 AC 08/21 IM 2159 Zolpidem Tartrate 5 MG AT BEDTIME 08/18 2200 AC 08/21 PO 2138 Last 24 Hrs of Lab/Randall Results Last 24 Hrs of Labs/Mics: Laboratory Tests 08/22/17626: Anion Gap 9, Estimated GFR > 60, BUN/Creatinine Ratio 25.7 H, CBC w Diff NO MAN DIFF REQ, RBC 3.22 L, MCV 93.2, MCH 30.5, MCHC 32.7 L, RDW 16.6 H, MPV 7.6, Gran % 77.0 H, Lymphocytes % 16.4 L, Monocytes % 5.6, Eosinophils % 0.7, Basophils % 0.3, Absolute Granulocytes 5.2, Absolute Lymphocytes 1.1 L, Absolute Monocytes 0.4, Absolute Eosinophils 0, Absolute Basophils 0 Assessment/Plan Assessment: This is a 62-year-old lady with past medical history of seizures, hypertension, anemia, COPD on 2 L, diastolic CHF, history of multiple pneumonias treated with meropenem due to allergy to ceftriaxone, spinal stenosis with neural stimulators came to the hospital with chief complaint of lethargy, feeling weak productive cough and fever for couple of days She is being treated and evaluated for following conditions. #Sepsis secondary to pneumonia -resolved (hx of various organisms including E.Coli sensitive to Meropenem) * Afebrile since admission. * We will continue meropenem * Pulmonology recommendations appreciated * Continue TRC/oxygenation PRN * N.p.o. pending speech therapy given aspiration was * Has episodes of "zoning out". Talked to via phone, #Acute hypercapnic respiratory failure 2/2 PNA and COPD exacerbation * Patient has history of Severe oxygen and prednisone dependent COPD * Continue with prednisone taper * Continue spiriva once daily * Symbicort 2 puffs BID with rinsing of the mouth #History of PE on eliquis * Continue Eliquis #Gastritis * Resolved. * F/U C. difficile #Hypokalemia * Resolved * Monitor potassium level closely #Continue home meds: Keppra, Cardizem, Alprazolam Problem List: 1. PNEUMONIA 2. Acute exacerbation of chronic obstructive pulmonary disease (COPD) Pain Ratin Pain Location: NA Pain Goal: Remain pain free Pain Plan: NA Tomorrow's Labs & Rationales: BEP to monitor electrolytes CBC to monitor H&H Jhonatan Mcdonald MD 08/22/17 2216: Attending MD Review Statement Attending Statement Attending MD Statement: examined this patient, discuss w/resident/PA/AUTO MACHINIST, agreed w/resident/PA/AUTO MACHINIST, reviewed EMR data (avail), discussed with nursing, amended to note Attending Assessment/Plan: The patient was seen and discussed with house staff. Concern regarding some mental status changes- patient refused to allow resident to examine, however allowed me. She was mostly non-verbal. Appeared comfortable. Await ABG's. Resident spoke with family. Evaluate for hypercarbia as cause of mental status changes.
--- NOTE | 2017-08-22 10:24 | PN- Pulmonary ---
Subjective HPI/Critical Care Issues: Patient feels well without respiratory complaints. Barium swallow shows evidence of aspiration Objective Current Medications: Current Medications Sig/Halie Start time Last Medication Dose Route Stop Time Status Admin Acetaminophen 650 MG .STK-MED ONE 08/21 1803 DC PO 08/21 1804 Acetaminophen 650 MG Q6P PRN 08/16 0945 AC 08/22 PO 0537 Albuterol Sulfate 3 ML EVERY 4 HRS/AWAKE 08/18 1200 AC 08/21 INH 1644 Alprazolam 0.25 MG DAILY PRN 08/16 1345 AC 08/21 PO 08/23 1344 2339 Apixaban 5 MG BID 08/16 1000 AC 08/22 PO 1002 Budesonide/ 2 PUF BID 08/16 1205 AC 08/21 Formoterol Fumarate INH 2139 Diltiazem HCl 125 MG Q24H 08/21 1900 CAN Sodium Chloride 100 ML IV Diltiazem HCl 120 MG DAILY 08/21 1445 AC 08/22 PO 1002 Diltiazem HCl 60 MG DAILY 08/21 1330 DC PO Diltiazem HCl 125 MG Q12H 08/19 1900 DC 08/20 Sodium Chloride 100 ML IV 08/21 1859 2235 Furosemide 20 MG DAILY 08/21 1345 AC 08/22 IV 1006 Guaifenesin 600 MG Q12 08/16 1000 AC 08/22 PO 1003 Levetiracetam 750 MG BID 08/19 2200 AC 08/22 PO 1003 Meropenem 1 GM Q8H 08/17 1500 AC 08/22 IV 08/23 0600 0554 Omeprazole 40 MG DAILY AC 08/16 1445 AC 08/22 PO 0538 Potassium Chloride 40 MEQ ONCE ONE 08/21 1330 DC 08/21 PO 08/21 1331 1525 Prednisone 40 MG DAILY 08/22 1000 AC 08/22 PO 1003 Tiotropium [place] 1 PUF DAILY 08/16 1315 AC 08/21 INH 0948 Trimethobenzamide HCl 200 MG TID PRN 08/17 1715 AC 08/21 IM 2159 Zolpidem Tartrate 5 MG AT BEDTIME 08/18 2200 AC 08/21 PO 2138 Vital Signs & I&O Last 24 Hrs of Vitals and I&O: Vital Signs Date Time Temp Pulse Resp B/P B/P Pulse O2 O2 Flow FiO2 Mean Ox Delivery Rate 08/22 0705 98.7 112 20 142/84 94 Nasal Cannula 08/22 0000 Nasal 2.0L Cannula 08/21 2334 98.8 81 18 148/76 97 08/21 1720 94 Nasal 2.0L Cannula 08/21 1648 95 Nasal 2.0L Cannula 08/21 1528 98.8 63 20 136/90 97 Intake & Output 08/22 1600 08/22 0800 08/22 0000 Intake Total 120 120 Output Total 459 300 Balance -339 -180 Intake, Oral 120 120 Number 1 Bowel Movements Output, Urine 459 300 Since saturation 2 L 94% exam for chest shows rare expiratory wheezing cardiac exam shows regular S1 and S2 without murmurs Impression/Plan Impression/Plan Impression/Plan: Patient admitted with exacerbation of COPD aspiration pneumonia based on abnormal barium swallow. Recommendations: Nothing by mouth until evaluated by speech therapy for recommendations to minimize aspiration risk. Complete course of antibiotics. Follow-up cardiology recommendation. Taper FiO2 his saturations allow.
[2017-08-22 15:21] VITALS: BP 156/86
--- NOTE | 2017-08-22 20:11 | Event Note ---
Event Note Event Note: Patient's wanted to talk to medical staff with some concerns. Apparently patient called her stating that she was told she has frontal lobe problem. She also mentioned to her that she fell while tried to answer her phone earlier. Explained to patient's that we never reported the patient that she has problem in frontal lobe, also confirmed with nursing staff patient never fell. Explained to patient's about the patient having episode of' zoning out' and that we are checking ABG for this change in altered mental status.
--- NOTE | 2017-08-22 20:30 | PN- Cardiology ---
Subjective Subjective: Breathing improved, but not to her baseline. Objective Vital Signs and I&Os Vital Signs Date Time Temp Pulse Resp B/P B/P Pulse O2 O2 Flow FiO2 Mean Ox Delivery Rate 08/22 1650 98 Nasal 2.0L Cannula 08/22 1521 99.6 106 20 156/86 97 Nasal 2.0L Cannula 08/22 1141 95 Nasal 2.0L Cannula 08/22 0800 94 Nasal 2.0L Cannula 08/22 0705 98.7 112 20 142/84 94 Nasal Cannula 08/22 0000 Nasal 2.0L Cannula 08/21 2334 98.8 81 18 148/76 97 Intake & Output 08/22 1600 08/22 0800 08/22 0000 08/21 1600 08/21 0800 08/21 0000 Intake Total 400 120 120 460 260 260 Output Total 650 149 955 1313 425 750 Balance -250 -339 -180 -840 -165 -490 Intake, IV 60 60 60 Intake, Oral 400 120 120 400 200 200 Number 1 1 1 Bowel Movements Output, Urine 650 017 329 8781 425 750 Physical Exam: Well-developed, overweight middle-aged female in no acute distress with nasal oxygen in place. Vital signs: See above. Neck: No JVD, no bruits. Lungs: Occasional rhonchi/wheezing bilaterally. Heart: S1, S2 with no murmur, gallop, or rub. Abdomen: Soft, nontender, positive bowel sounds. Extremities: Trace edema. Current Medications: Current Medications Sig/Halie Start time Last Medication Dose Route Stop Time Status Admin Acetaminophen 650 MG .STK-MED ONE 08/22 0537 DC PO 08/22 0538 Acetaminophen 650 MG Q6P PRN 08/16 0945 AC 08/22 PO 0537 Albuterol Sulfate 3 ML EVERY 4 HRS/AWAKE 08/18 1200 AC 08/22 INH 1650 Alprazolam 0.25 MG DAILY PRN 08/16 1345 AC 08/22 PO 08/23 1344 1958 Apixaban 5 MG BID 08/16 1000 AC 08/22 PO 1002 Budesonide/ 2 PUF BID 08/16 1205 AC 08/21 Formoterol Fumarate INH 2139 Diltiazem HCl 120 MG DAILY 08/21 1445 AC 08/22 PO 1002 Furosemide 20 MG DAILY 08/21 1345 AC 08/22 IV 1006 Guaifenesin 600 MG Q12 08/16 1000 AC 08/22 PO 1003 Levetiracetam 750 MG BID 08/19 2200 AC 08/22 PO 1003 Meropenem 1 GM Q8H 08/17 1500 AC 08/22 IV 08/23 0600 1411 Omeprazole 40 MG DAILY AC 08/16 1445 AC 08/22 PO 0538 Prednisone 40 MG DAILY 08/22 1000 AC 08/22 PO 1003 Tiotropium [place] 1 PUF DAILY 08/16 1315 AC 08/21 INH 0948 Trimethobenzamide HCl 200 MG TID PRN 08/17 1715 AC 08/21 IM 2159 Zolpidem Tartrate 5 MG AT BEDTIME 08/18 2200 AC 08/21 PO 2138 Results Last 48 Hrs of Labs/Mics: Laboratory Tests 08/22/1727: Anion Gap 9, Estimated GFR > 60, BUN/Creatinine Ratio 25.7 H, CBC w Diff NO MAN DIFF REQ, RBC 3.22 L, MCV 93.2, MCH 30.5, MCHC 32.7 L, RDW 16.6 H, MPV 7.6, Gran % 77.0 H, Lymphocytes % 16.4 L, Monocytes % 5.6, Eosinophils % 0.7, Basophils % 0.3, Absolute Granulocytes 5.2, Absolute Lymphocytes 1.1 L, Absolute Monocytes 0.4, Absolute Eosinophils 0, Absolute Basophils 0 08/21/17 0619: Anion Gap 9, Estimated GFR > 60, BUN/Creatinine Ratio 35.7 H, CBC w Diff NO MAN DIFF REQ, RBC 2.65 L, MCV 92.7, MCH 30.3, MCHC 32.7 L, RDW 16.1 H, MPV 7.1 L , Gran % 80.0 H, Lymphocytes % 13.6 L, Monocytes % 6.1, Eosinophils % 0.1, Basophils % 0.2, Absolute Granulocytes 6.6 H, Absolute Lymphocytes 1.1 L, Absolute Monocytes 0.5, Absolute Eosinophils 0, Absolute Basophils 0 Recent Imaging Studies: Modified barium swallow 08/21/2017: 1. Saqib aspiration seen with thin liquid contrast, eliciting a cough reflex. 2. Repeated silent penetration is noted with thin liquid contrast then on one occasion with nectar consistency. 3. Premature spillage of contrast into the valleculae and piriform sinuses. 4. Speech pathologist assessment issued separately. Assessment/Plan Assessment/Plan AECOPD/aspiration pneumonia improving with standard therapy. Continue nothing by mouth until speech therapy evaluation to minimize aspiration risk. Continue present regimen. DVT prophylaxis. Continue telemetry? Yes
[2017-08-22 22:05] VITALS: BP 130/70
[2017-08-23 07:03] VITALS: BP 124/78
[2017-08-23 07:41] LABS: ABSOLUTE BASOPHIL COUNT 0 /CUMM (0.0-0.2); ABSOLUTE EOSINOPHIL COUNT 0 /CUMM (0.0-0.7); ABSOLUTE GRANULOCYTE CT 6.1 /CUMM (1.4-6.5); ABSOLUTE LYMPH COUNT 1.2 /CUMM (1.2-3.4); ABSOLUTE MONOCYTE COUNT 0.5 /CUMM (0.10-0.60); BASOPHIL % 0.2 % (0.0-2.0); EOSINOPHIL % 0.1 % (0-5); GRANULOCYTE % 77.9 % (42.2-75.2); HEMATOCRIT 29.3 % (37-47); MEAN CORPUSCULAR HGB 31.2 PG (27.0-31.0); MEAN CORPUSCULAR HGB CONC 33.7 G/DL (33.0-37.0); MEAN CORPUSCULAR VOLUME 92.6 FL (81.0-99.0); MEAN PLATELET VOLUME 7.4 FL (7.4-10.4); PLATELET COUNT 296 /CUMM (130-400); RBC DISTRIBUTION WIDTH 15.7 % (11.5-14.5); RED BLOOD CELL CT 3.16 /CUMM (4.20-5.40); WHITE BLOOD CELL COUNT 7.8 /CUMM (4.8-10.8)
--- NOTE | 2017-08-23 09:44 | PN- Housestaff ---
Tatiana MCKEON,[place] 08/23/17 0944: Subjective Follow-up For: COPD exacerbation, tachycardia Complaints: no complaints Tele-Events Since Last Visit: sinus rhythm, HR in high 90s-106. Subjective: Patient followed up and examined by me today. She is more alert, oriented and participating in conversation than yesterday. No abnormal overnight event reported to me. Appearantly, ABG was not done yesterday after her mentation improved. Review of Systems Constitutional: Reports: no symptoms. Objective Last 24 Hrs of Vital Signs/I&O Vital Signs Date Time Temp Pulse Resp B/P B/P Pulse O2 O2 Flow FiO2 Mean Ox Delivery Rate 08/23 2020 98 Nasal 2.0L Cannula 08/23 1600 Nasal 2.0L Cannula 08/23 1430 97.9 88 20 144/78 96 Nasal 2.0L Cannula 08/23 1307 98 Nasal 2.0L Cannula 08/23 0800 94 Nasal 2.0L Cannula 08/23 0703 98.4 92 20 124/78 96 Nasal Cannula 08/23 0000 Nasal 2.0L Cannula 08/22 2205 98.7 103 20 130/70 97 Nasal Cannula Intake & Output 08/23 1600 08/23 0800 08/23 0000 Intake Total 300 120 480 Output Total 550 450 Balance -250 -330 480 Intake, Oral 300 120 480 Output, Urine 550 450 Physical Exam General Appearance: Alert, Oriented X3, Cooperative, No Acute Distress Other Physical Findings: HEENT: PERRLA, EOMI Cardiovascular: Normal S1, Normal S2, No Murmurs Lungs: Clear to Auscultation, no wheeze heard today. Abdomen: Soft, No Tenderness, No Hepatospenomegaly Neurological: Strength at 5/5 X4 Ext, Normal Tone, Sensation Intact Extremities: No Cyanosis, No Edema, Normal Pulses Current Medications: Current Medications Sig/Halie Start time Last Medication Dose Route Stop Time Status Admin Acetaminophen 650 MG Q6P PRN 08/16 0945 AC 08/22 PO 0537 Albuterol Sulfate 3 ML EVERY 4 HRS/AWAKE 08/18 1200 AC 08/23 INH 2020 Alprazolam 0.25 MG DAILY PRN 08/16 1345 DC 08/22 PO 08/23 1344 1958 Apixaban 5 MG BID 08/16 1000 AC 08/23 PO 2136 Budesonide/ 2 PUF BID 08/16 1205 AC 08/23 Formoterol Fumarate INH 2137 Diltiazem HCl 120 MG DAILY 08/21 1445 AC 08/23 PO 0921 Furosemide 20 MG DAILY 08/21 1345 AC 08/23 IV 1445 Guaifenesin 600 MG Q12 08/16 1000 AC 08/23 PO 2136 Levetiracetam 750 MG BID 08/19 2200 AC 08/23 PO 2136 Meropenem 1 GM Q8H 08/17 1500 DC 08/22 IV 08/23 0600 2206 Omeprazole 40 MG DAILY AC 08/16 1445 AC 08/23 PO 0537 Prednisone 40 MG DAILY 08/22 1000 AC 08/23 PO 0921 Tiotropium [place] 1 PUF DAILY 08/16 1315 AC 08/21 INH 0948 Trimethobenzamide HCl 200 MG TID PRN 08/17 1715 AC 08/21 IM 2159 Zolpidem Tartrate 5 MG AT BEDTIME 08/18 2200 AC 08/23 PO 2144 Last 24 Hrs of Lab/[place] Results Last 24 Hrs of Labs/Mics: Laboratory Tests 08/23/17 0647: Anion Gap 8, Estimated GFR > 60, BUN/Creatinine Ratio 35.0 H, CBC w Diff NO MAN DIFF REQ, RBC 3.16 L, MCV 92.6, MCH 31.2 H, MCHC 33.7, RDW 15.7 H, MPV 7.4, Gran % 77.9 H, Lymphocytes % 15.8 L, Monocytes % 6.0, Eosinophils % 0.1, Basophils % 0.2, Absolute Granulocytes 6.1, Absolute Lymphocytes 1.2, Absolute Monocytes 0.5, Absolute Eosinophils 0, Absolute Basophils 0 Assessment/Plan Assessment: This is a 62-year-old lady with past medical history of seizures, hypertension, anemia, COPD on 2 L, diastolic CHF, history of multiple pneumonias treated with meropenem due to allergy to ceftriaxone, spinal stenosis with neural stimulators came to the hospital with chief complaint of lethargy, feeling weak productive cough and fever for couple of days She is being treated and evaluated for following conditions. #Sepsis secondary to pneumonia -resolved (hx of various organisms including E.Coli sensitive to Meropenem) * Afebrile since admission. * We will continue meropenem * Pulmonology recommendations appreciated * Continue TRC/oxygenation PRN * Speech therapy reval done and diet advanced to thickened level. She was NPO for risk of aspiration given her mentation on Thursday otherwise. * She appearantly had confusion yesterday and the [id number] spoke to her and updated the status via phone. #Acute hypercapnic respiratory failure 2/2 PNA and COPD exacerbation * Patient has history of Severe oxygen and prednisone dependent COPD * Continue with prednisone taper * Continue spiriva once daily * Symbicort 2 puffs BID with rinsing of the mouth #History of PE on eliquis * Continue Eliquis #Gastritis * Resolved. * C. difficile negative (Thursday) #Hypokalemia * Resolved * Monitor potassium level closely #Continue home meds: Keppra, Cardizem, Alprazolam Diet: Puree/[place] thick consistency in Heart healthy diet DVT ppx: Eliquis Code status: Full code Problem List: 1. Acute exacerbation of chronic obstructive pulmonary disease (COPD) Pain Ratin Pain Location: - Pain Goal: Pain 4 or less Pain Plan: prn Tomorrow's Labs & Rationales: BEP, CBC Tamara MCKEON,Jhonatan 08/23/172116: Attending MD Review Statement Attending Statement Attending MD Statement: examined this patient, discuss w/resident/PA/P[employer]CH PR[employer] SETTER, agreed w/resident/PA/P[employer]CH PR[employer] SETTER, reviewed EMR data (avail), discussed with nursing, amended to note Attending Assessment/Plan: The patient was seen and discussed with house staff. The patient is much more alert today- suggesting behavior yesterday when patient refused to speak may have been psychiatric. The patient was very conversant today and felt she is improving slowly. Appreciate Cardiology and Pulmonary follow-up.
--- NOTE | 2017-08-23 09:48 | PN- Pulmonary ---
Subjective HPI/Critical Care Issues: Patient is comfortable without shortness of breath Objective Current Medications: Current Medications Sig/Halie Start time Last Medication Dose Route Stop Time Status Admin Acetaminophen 650 MG Q6P PRN 08/16 0945 AC 08/22 PO 0537 Albuterol Sulfate 3 ML EVERY 4 HRS/AWAKE / 1200 AC 0210 INH 2035 Alprazolam 0.25 MG DAILY PRN 08/16 1345 AC 08/22 PO 08/23 1344 1958 Apixaban 5 MG BID 08/16 1000 AC 08/23 PO 0921 Budesonide/ 2 PUF BID 08/16 1205 AC 08/22 Formoterol Fumarate INH 2150 Diltiazem HCl 120 MG DAILY 08/21 1445 AC 08/23 PO 0921 Furosemide 20 MG DAILY 08/21 1345 AC 08/22 IV 1006 Guaifenesin 600 MG Q12 08/16 1000 AC 08/23 PO 0921 Levetiracetam 750 MG BID 08/19 2200 AC 08/23 PO 0922 Meropenem 1 GM Q8H 08/17 1500 DC 08/22 IV 08/23 0600 2206 Omeprazole 40 MG DAILY AC 08/16 1445 AC 08/23 PO 0537 Prednisone 40 MG DAILY 08/22 1000 AC 08/23 PO 0921 Tiotropium [place] 1 PUF DAILY 08/16 1315 AC 08/21 INH 0948 Trimethobenzamide HCl 200 MG TID PRN 08/17 1715 AC 08/21 IM 2159 Zolpidem Tartrate 5 MG AT BEDTIME 08/18 2200 AC 08/22 PO 2150 Vital Signs & I&O Last 24 Hrs of Vitals and I&O: Vital Signs Date Time Temp Pulse Resp B/P B/P Pulse O2 O2 Flow FiO2 Mean Ox Delivery Rate 08/23 702 98.4 92 20 124/78 96 Nasal Cannula 08/23 0000 Nasal 2.0L Cannula 08/22 2204 98.7 103 20 130/70 97 Nasal Cannula 08/22 1650 98 Nasal 2.0L Cannula 08/22 1600 Nasal 2.0L Cannula 08/22 152 99.6 106 20 156/86 97 Nasal 2.0L Cannula 08/22 1141 95 Nasal 2.0L Cannula Intake & Output 08/23 1600 08/23 0800 08/23 0000 Intake Total 120 480 Output Total 450 Balance -330 480 Intake, Oral 120 480 Output, Urine 450 Since saturation 2 L 96% exam for chest shows diminished breath sounds are no wheezes cardiac exam shows regular S1 and S2 without murmurs Impression/Plan Impression/Plan Impression/Plan: Patient admitted with exacerbation of COPD aspiration pneumonia based on abnormal barium swallow. If patient is to remain nothing by mouth will need IV fluids to prevent dehydration Recommendations: Nothing by mouth until evaluated by speech therapy for recommendations to minimize aspiration risk. Complete course of antibiotics. Follow-up cardiology recommendation. Taper FiO2 his saturations allow. The patient is to remain nothing by mouth we will need IV fluids to avoid dehydration
[2017-08-23 14:30] VITALS: BP 144/78
--- NOTE | 2017-08-23 19:50 | PN- Cardiology ---
Subjective Subjective: Feels improved today. Denies any chest discomfort, palpitations, shortness of breath, etc. Objective Vital Signs and I&Os Vital Signs Date Time Temp Pulse Resp B/P B/P Pulse O2 O2 Flow FiO2 Mean Ox Delivery Rate 08/23 1600 Nasal 2.0L Cannula 08/23 1430 97.9 88 20 144/78 96 Nasal 2.0L Cannula 08/23 1307 98 Nasal 2.0L Cannula 08/23 0800 94 Nasal 2.0L Cannula 08/23 0703 98.4 92 20 124/78 96 Nasal Cannula 08/23 0000 Nasal 2.0L Cannula 08/22 2205 98.7 103 20 130/70 97 Nasal Cannula Intake & Output 08/23 1600 08/23 0800 08/23 0000 08/22 1600 08/22 0800 08/22 0000 Intake Total 300 120 480 400 120 120 Output Total 550 450 650 459 300 Balance -250 -330 480 -250 -339 -180 Intake, Oral 300 120 480 400 120 120 Number 1 1 Bowel Movements Output, Urine 550 450 650 459 300 Physical Exam: Well-developed, overweight middle-aged female in no acute distress with nasal oxygen in place. Vital signs: See above. Neck: No JVD, no bruits. Lungs: Occasional rhonchi/wheezing bilaterally. Heart: S1, S2 with no murmur, gallop, or rub. Abdomen: Soft, nontender, positive bowel sounds. Extremities: Trace edema. Multiple areas of ecchymosis. Current Medications: Current Medications Sig/Halie Start time Last Medication Dose Route Stop Time Status Admin Acetaminophen 650 MG Q6P PRN 08/16 0945 AC 08/22 PO 0537 Albuterol Sulfate 3 ML EVERY 4 HRS/AWAKE 08/18 1200 AC 08/23 INH 1625 Alprazolam 0.25 MG DAILY PRN 08/16 1345 DC 08/22 PO 08/23 1344 1958 Apixaban 5 MG BID 08/16 1000 AC 08/23 PO 0921 Budesonide/ 2 PUF BID 08/16 1205 AC 08/22 Formoterol Fumarate INH 2150 Diltiazem HCl 120 MG DAILY 08/21 1445 AC 08/23 PO 0921 Furosemide 20 MG DAILY 08/21 1345 AC 08/23 IV 1445 Guaifenesin 600 MG Q12 08/16 1000 AC 02/11 PO 0921 Levetiracetam 750 MG BID 08/19 2200 AC 08/23 PO 0922 Meropenem 1 GM Q8H 08/17 1500 DC 08/22 IV 08/23 0600 2206 Omeprazole 40 MG DAILY AC 08/16 1445 AC 08/23 PO 0537 Prednisone 40 MG DAILY 08/22 1000 AC 08/23 PO 0921 Tiotropium [place] 1 PUF DAILY 08/16 1315 AC 08/21 INH 0948 Trimethobenzamide HCl 200 MG TID PRN 08/17 1715 AC 08/21 IM 2159 Zolpidem Tartrate 5 MG AT BEDTIME 08/18 2200 AC 08/22 PO 2150 Results Last 48 Hrs of Labs/Mics: Laboratory Tests 08/23/17 0647: Anion Gap 8, Estimated GFR > 60, BUN/Creatinine Ratio 35.0 H, CBC w Diff NO MAN DIFF REQ, RBC 3.16 L, MCV 92.6, MCH 31.2 H, MCHC 33.7, RDW 15.7 H, MPV 7.4, Gran % 77.9 H, Lymphocytes % 15.8 L, Monocytes % 6.0, Eosinophils % 0.1, Basophils % 0.2, Absolute Granulocytes 6.1, Absolute Lymphocytes 1.2, Absolute Monocytes 0.5, Absolute Eosinophils 0, Absolute Basophils 0 08/22/17 0627: Anion Gap 9, Estimated GFR > 60, BUN/Creatinine Ratio 25.7 H, CBC w Diff NO MAN DIFF REQ, RBC 3.22 L, MCV 93.2, MCH 30.5, MCHC 32.7 L, RDW 16.6 H, MPV 7.6, Gran % 77.0 H, Lymphocytes % 16.4 L, Monocytes % 5.6, Eosinophils % 0.7, Basophils % 0.3, Absolute Granulocytes 5.2, Absolute Lymphocytes 1.1 L, Absolute Monocytes 0.4, Absolute Eosinophils 0, Absolute Basophils 0 Assessment/Plan Assessment/Plan AECOPD/aspiration pneumonia improving with standard therapy. Continue nothing by mouth until speech therapy evaluation to minimize aspiration risk. Continue present regimen. DVT prophylaxis. Continue telemetry? Yes
[2017-08-23 22:03] VITALS: BP 138/70
--- NOTE | 2017-08-24 07:01 | PN- Housestaff ---
Ana MCKEON,Joyce 08/24/17 0701: Subjective Follow-up For: COPD exacerbation, aspiration pneumonia Complaints: cough on and off Tele-Events Since Last Visit: Normal sinus rhythm with a heart rate of 80. Nonsustained VT Subjective: Patient is seen and examined at bedside. No overnight events. Complaints of cough on and off without sputum production. She says she slept well overnight. She denies chest pain, chest pressure, shortness of breath, palpitation, nausea, vomiting. Review of Systems Constitutional: Reports: no symptoms. Cardiovascular: Reports: no symptoms. Respiratory: Reports: cough. Gastrointestinal: Reports: no symptoms. Genitourinary: Reports: no symptoms. Musculoskeletal: Reports: no symptoms. Objective Last 24 Hrs of Vital Signs/I&O Vital Signs Date Time Temp Pulse Resp B/P B/P Pulse O2 O2 Flow FiO2 Mean Ox Delivery Rate 08/24 0850 94 Nasal 2.0L Cannula 08/24 0842 96 Nasal 2.0L Cannula 08/24 0719 98.1 69 20 152/84 97 08/24 0000 95 Nasal 2.0L Cannula 08/23 2203 98.9 87 20 138/70 95 08/23 2020 98 Nasal 2.0L Cannula 08/23 1600 Nasal 2.0L Cannula 08/23 1430 97.9 88 20 144/78 96 Nasal 2.0L Cannula 08/23 1307 98 Nasal 2.0L Cannula Intake & Output 08/24 1600 08/24 0800 08/24 0000 Intake Total 100 480 Output Total 400 Balance -300 480 Intake, Oral 100 480 Output, Urine 400 Physical Exam General Appearance: Alert, Oriented X3, Cooperative, No Acute Distress Skin: No Rashes, No Breakdown HEENT: PERRLA Neck: Supple, No JVD, No thryomegaly Cardiovascular: Normal S1, Normal S2, No Murmurs Lungs: bilateral wheeze Abdomen: Soft, No Tenderness, No Hepatospenomegaly Neurological: Strength at 5/5 X4 Ext, Normal Tone, Sensation Intact, Cranial Nerves 3-12 NL Extremities: No Edema Current Medications: Current Medications Sig/Halie Start time Last Medication Dose Route Stop Time Status Admin Acetaminophen 650 MG Q6P PRN 08/16 0945 AC 08/22 PO 0537 Albuterol Sulfate 3 ML EVERY 4 HRS/AWAKE 08/18 1200 AC 02/12 INH 0828 Alprazolam 0.5 MG TIDPRN PRN 08/24 0830 AC PO 08/31 0829 Alprazolam 0.25 MG ONCE ONE 08/24 0600 DC 08/24 PO 08/24 0601 0615 Alprazolam 0.25 MG DAILY PRN 08/16 1345 DC 08/22 PO 08/23 1344 1958 Apixaban 5 MG BID 08/16 1000 AC 08/24 PO 0936 Budesonide/ 2 PUF BID 08/16 1205 AC 08/24 Formoterol Fumarate INH 0938 Diltiazem HCl 120 MG DAILY 08/21 1445 AC 08/24 PO 0937 Furosemide 40 MG DAILY 08/24 1000 AC 08/24 PO 0937 Furosemide 20 MG DAILY 08/21 1345 DC 08/23 IV 1445 Guaifenesin 600 MG Q12 08/16 1000 AC 08/24 PO 0937 Levetiracetam 750 MG BID 08/19 2200 AC 08/24 PO 0937 Omeprazole 40 MG DAILY AC 08/16 1445 AC 08/24 PO 0614 Prednisone 40 MG DAILY 08/22 1000 AC 08/24 PO 0936 Tiotropium [place] 1 PUF DAILY 08/16 1315 AC 08/24 INH 0937 Trimethobenzamide HCl 200 MG TID PRN 08/17 1715 AC 08/21 IM 2159 Zolpidem Tartrate 5 MG AT BEDTIME 08/18 2200 AC 08/23 PO 2144 Last 24 Hrs of Lab/Randall Results Last 24 Hrs of Labs/Mics: Laboratory Tests 08/24/17 0845: Sodium Pending, Potassium Pending, Chloride Pending, Carbon Dioxide Pending, Anion Gap Pending, BUN Pending, Creatinine Pending, BUN/Creatinine Ratio Pending , Phosphorus Pending, Magnesium Pending, CBC w Diff Pending, WBC Pending, RBC Pending, Hgb Pending, Hct Pending, MCV Pending, MCH Pending, MCHC Pending, RDW Pending, Plt Count Pending, MPV Pending Assessment/Plan Assessment: This is a 62-year-old lady with past medical history of seizures, hypertension, anemia, COPD on 2 L, diastolic CHF, history of multiple pneumonias treated with meropenem due to allergy to ceftriaxone, spinal stenosis with neural stimulators came to the hospital with chief complaint of lethargy, feeling weak productive cough and fever for couple of days She is being treated and evaluated for following conditions. #Sepsis secondary to pneumonia -resolved (hx of various organisms including E.Coli sensitive to Meropenem) * Afebrile since admission. * Meropenem course completed. * Patient is on prednisone 40 daily [day 3] .Pulmonology recommendations appreciated * Continue TRC/oxygenation PRN * Speech therapy reval to be done today. Patient is on nothing by mouth for risk of aspiration. * I spoke to the and updated her current medical status via phone. #Acute hypercapnic respiratory failure 2/2 PNA and COPD exacerbation * Patient has history of Severe oxygen and prednisone dependent COPD * Continue with prednisone taper * Continue spiriva once daily * Symbicort 2 puffs BID with rinsing of the mouth #History of PE on eliquis * Continue Eliquis #Gastritis * Resolved. * C. difficile negative (Thursday) #Hypokalemia * Resolved * Monitor potassium level closely #Sinus tachycardia * Patient had sinus tachycardia [heart rate 140s] and was transferred to telemetry. She was initially started on Cardizem drip which was eventually stopped. Patient is now on Cardizem 120 CD. Her heart rate is in 80s. #Continue home meds: Keppra, Cardizem, Alprazolam Diet: Puree/[place] thick consistency in Heart healthy diet DVT ppx: Eliquis Code status: Full code Patient lisinopril and metoprolol was stopped in view of hypotension and worsening of COPD respectively. we will discuss with cardiology today regarding resuming her lisinopril and metoprolol. Off note patient had 5 beat run of nonsustained VT overnight. We will check magnesium and phosphorus. Plan-swallow evaluation cardiology follow-up, pulmonology follow-up Problem List: 1. Acute exacerbation of chronic obstructive pulmonary disease (COPD) 2. Seizure Pain Ratin Pain Location: none Pain Goal: Remain pain free Pain Plan: tylenol Tomorrow's Labs & Rationales: cbc,emilyp Marilee Lopez MD 08/24/17 1336: Attending MD Review Statement Attending Statement Attending MD Statement: examined this patient, discuss w/resident/PA/SUPERVISOR REMELT, agreed w/resident/PA/SUPERVISOR REMELT, reviewed EMR data (avail), discussed with nursing, discussed with case mgmt, reviewed images Attending Assessment/Plan: 62-year-old with multiple medical problems here with pneumonia suspected gram- negative and aspiration pneumonia completed antibiotic course with meropenem. Has had multiple speech therapy evaluations over this hospital course and most recently from today- speech has cleared her for a modified diet. There is a worry about silent aspiration and the speech therapist has given them clear-cut instructions and the need for ongoing speech therapy. She seen by cardiology today and we started the beta rose and low-dose AARON inhibitor. In view of all her medical problems I think the patient would be better served in a rehabilitation facility and case management is working with the patient and for the same.
[2017-08-24 07:19] VITALS: BP 152/84
--- NOTE | 2017-08-24 07:41 | PN- Pulmonary ---
Subjective HPI/Critical Care Issues: Patient is comfortable shortness of breath improved Objective Current Medications: Current Medications Sig/Halie Start time Last Medication Dose Route Stop Time Status Admin Acetaminophen 650 MG Q6P PRN 08/16 0945 AC 08/22 PO 0537 Albuterol Sulfate 3 ML EVERY 4 HRS/AWAKE 08/18 1200 AC 08/23 INH 2020 Alprazolam 0.25 MG ONCE ONE 08/24 0600 DC 08/24 PO 08/24 0601 0615 Alprazolam 0.25 MG DAILY PRN 08/16 1345 DC 02 PO 08/23 1344 1958 Apixaban 5 MG BID / 1000 AC 08/23 PO 2136 Budesonide/ 2 PUF BID 08/16 1205 AC 08/23 Formoterol Fumarate INH 2137 Diltiazem HCl 120 MG DAILY 08/21 1445 AC 08/23 PO 0921 Furosemide 20 MG DAILY 08/21 1345 AC 08/23 IV 1445 Guaifenesin 600 MG Q12 08/16 1000 AC 08/23 PO 2136 Levetiracetam 750 MG BID 08/19 2200 AC 08/23 PO 2136 Omeprazole 40 MG DAILY AC 08/16 1445 AC 08/24 PO 0614 Prednisone 40 MG DAILY 08/22 1000 AC 08/23 PO 0921 Tiotropium [place] 1 PUF DAILY 08/16 1315 AC 08/21 INH 0948 Trimethobenzamide HCl 200 MG TID PRN 08/17 1715 AC 08/21 IM 2159 Zolpidem Tartrate 5 MG AT BEDTIME 08/18 2200 AC 08/23 PO 2144 Vital Signs & I&O Last 24 Hrs of Vitals and I&O: Vital Signs Date Time Temp Pulse Resp B/P B/P Pulse O2 O2 Flow FiO2 Mean Ox Delivery Rate 08/24 718 98.1 69 20 152/84 97 08/24 0000 95 Nasal 2.0L Cannula 08/23 2202 98.9 87 20 138/70 95 08/23 2019 98 Nasal 2.0L Cannula 08/23 1600 Nasal 2.0L Cannula 08/23 1430 97.9 88 20 144/78 96 Nasal 2.0L Cannula 08/23 1307 98 Nasal 2.0L Cannula 08/23 08 94 Nasal 2.0L Cannula Intake & Output 08/24 0800 08/24 0000 08/23 1600 Intake Total 100 480 300 Output Total 400 550 Balance -300 480 -250 Intake, Oral 100 480 300 Output, Urine 400 550 Oxygen saturation 2 L 97% exam for chest shows diminished breath sounds are no wheezes cardiac exam shows normal S1 and S2 without murmurs Impression/Plan Impression/Plan Impression/Plan: Patient admitted with exacerbation of COPD aspiration pneumonia based on abnormal barium swallow. Diet advanced to prevent aspiration. Taper FiO2 and prednisone. No further pulmonary suggestions Recommendations: Nothing by mouth until evaluated by speech therapy for recommendations to minimize aspiration risk. Complete course of antibiotics. Follow-up cardiology recommendation. Taper FiO2 his saturations allow. The patient is to remain nothing by mouth we will need IV fluids to avoid dehydration
--- NOTE | 2017-08-24 08:05 | Patient Discharge Instructions ---
Discharge Instructions General Discharge Information You were seen/treated for: Aspiration pneumonia, COPD exacerbation, anxiety Watch for these problems: In case of chest pain, chest pressure, shortness of breath, palpitation, anxiety , cough, fevers please go to the nearest emergency room Special Instructions: Please follow-up with your primary care provider within 1-2 weeks of discharge and let them know about your recent admission at [facility]. Please follow-up with your support services tech within 1-2 weeks of discharge and let them know about your recent admission at [facility]. Please follow-up with the briquette machine operator as outpatient within 1-2 weeks of discharge and let them know about your recent admission at [facility]. Diet Continue normal diet: No Recommended Diet: Puree/[place] thick consistency with heart healthy diet. Activity Full Activity/No Limits: No Activity Self Limited: No Acute Coronary Syndrome Inclusion Criteria At DC or during hospital stay patient has or had the following: ACS DIAGNOSIS No Discharge Core Measures Meds if any: Prescribed or Continued at Discharge Meds if any: NOT Prescribed or Continued at Discharge Congestive Heart Failure Inclusion Criteria At DC or during hospital stay patient has or had the following: CHF DIAGNOSIS No Discharge Core Measures Meds if any: Prescribed or Continued at Discharge Meds if any: NOT Prescribed or Continued at Discharge Cerebrovascular accident Inclusion Criteria At DC or during hospital stay patient has or had the following: CVA/TIA Diagnosis No Discharge Core Measures Meds if any: Prescribed or Continued at Discharge Meds if any: NOT Prescribed or Continued at Discharge Venous thromboembolism Inclusion Criteria VTE Diagnosis No VTE Type NONE VTE Confirmed by (Test) NONE Discharge Core Measures - Per Current guidelines, there needs to be overlap - treatment for the first 5 days of Warfarin therapy. - If discharged on Warfarin prior to 5 days of - overlap therapy, the patient will need to be - assessed for post discharge needs including - *Post discharge parental anticoagulation - *Warfarin and/or parental anticoagulation education - *Follow up date to check INR post discharge At least 5 days overlap therapy as Inpatient No Meds if any: Prescribed or Continued at Discharge Note: Overlap Therapy is Warfarin and Anticoagulant Meds if any: NOT Prescribed or Continued at Discharge
[2017-08-24] MEDS ORDERED: PREDNISONE10 M2 PO ×3 (09:17→13:50)
[2017-08-24 10:14] LABS: ABSOLUTE BASOPHIL COUNT 0 /CUMM (0.0-0.2); ABSOLUTE EOSINOPHIL COUNT 0 /CUMM (0.0-0.7); ABSOLUTE GRANULOCYTE CT 8.1 /CUMM (1.4-6.5); ABSOLUTE LYMPH COUNT 1.7 /CUMM (1.2-3.4); ABSOLUTE MONOCYTE COUNT 0.5 /CUMM (0.10-0.60); BASOPHIL % 0.3 % (0.0-2.0); EOSINOPHIL % 0.1 % (0-5); GRANULOCYTE % 78.4 % (42.2-75.2); HEMATOCRIT 29.5 % (37-47); MEAN CORPUSCULAR HGB 30.5 PG (27.0-31.0); MEAN CORPUSCULAR HGB CONC 32.9 G/DL (33.0-37.0); MEAN CORPUSCULAR VOLUME 92.5 FL (81.0-99.0); MEAN PLATELET VOLUME 7.2 FL (7.4-10.4); PLATELET COUNT 300 /CUMM (130-400); RBC DISTRIBUTION WIDTH 16.2 % (11.5-14.5); RED BLOOD CELL CT 3.19 /CUMM (4.20-5.40); WHITE BLOOD CELL COUNT 10.3 /CUMM (4.8-10.8)
--- NOTE | 2017-08-24 11:34 | PN- Cardiology ---
Subjective Subjective: The patient is feeling okay. However she is still aspirating. She is requiring thick liquids and probably will need to go to rehabilitation. Her blood pressure is in the normal range for the most part although occasional systolics are above 150. Her current blood pressure medication includes diltiazem and Lasix. She previously was on beta rose and lisinopril which have been on hold for now. Objective Vital Signs and I&Os Vital Signs Date Time Temp Pulse Resp B/P B/P Pulse O2 O2 Flow FiO2 Mean Ox Delivery Rate 08/24 0850 94 Nasal 2.0L Cannula 08/24 0842 96 Nasal 2.0L Cannula 08/24 0719 98.1 69 20 152/84 97 08/24 0000 95 Nasal 2.0L Cannula 08/23 2203 98.9 87 20 138/70 95 08/23 2020 98 Nasal 2.0L Cannula 08/23 1600 Nasal 2.0L Cannula 08/23 1430 97.9 88 20 144/78 96 Nasal 2.0L Cannula 08/23 1307 98 Nasal 2.0L Cannula Intake & Output 08/24 1600 08/24 0800 08/24 0000 08/23 1600 08/23 0800 08/23 0000 Intake Total 100 480 300 120 480 Output Total 400 550 450 Balance -300 480 -250 -330 480 Intake, Oral 100 480 300 120 480 Output, Urine 400 550 450 Physical Exam: She is in no distress HEENT exam is normal Chest a few scattered rhonchi and coarse rales Heart regular rhythm no murmurs No edema Current Medications: Current Medications Sig/Halie Start time Last Medication Dose Route Stop Time Status Admin Acetaminophen 650 MG Q6P PRN 08/16 0945 AC 08/22 PO 0537 Albuterol Sulfate 3 ML EVERY 4 HRS/AWAKE 08/18 1200 AC 08/24 INH 0828 Alprazolam 0.5 MG TIDPRN PRN 08/24 0830 AC PO 08/31 0829 Alprazolam 0.25 MG ONCE ONE 08/24 0600 DC 08/24 PO 08/24 0601 0615 Alprazolam 0.25 MG DAILY PRN 08/16 1345 DC 08/22 PO 08/23 1344 1958 Apixaban 5 MG BID 08/16 1000 AC 08/24 PO 0936 Budesonide/ 2 PUF BID 08/16 1205 AC 08/24 Formoterol Fumarate INH 0938 Diltiazem HCl 120 MG DAILY 08/21 1445 AC 08/24 PO 0937 Furosemide 40 MG DAILY 08/24 1000 AC 08/24 PO 0937 Furosemide 20 MG DAILY 08/21 1345 DC 08/23 IV 1445 Guaifenesin 600 MG Q12 08/16 1000 AC 08/24 PO 0937 Levetiracetam 750 MG BID 08/19 2200 AC 08/24 PO 0937 Omeprazole 40 MG DAILY AC 08/16 1445 AC 08/24 PO 0614 Prednisone 40 MG DAILY 08/22 1000 AC 08/24 PO 0936 Tiotropium [place] 1 PUF DAILY 08/16 1315 AC 08/24 INH 0937 Trimethobenzamide HCl 200 MG TID PRN 08/17 1715 AC 08/21 IM 2159 Zolpidem Tartrate 5 MG AT BEDTIME 08/18 2200 AC 08/23 PO 2144 Results Last 48 Hrs of Labs/Mics: Laboratory Tests 08/24/17 0845: Anion Gap 9, Estimated GFR > 60, BUN/Creatinine Ratio 27.1 H, Phosphorus 2.9, Magnesium 2.2, CBC w Diff NO MAN DIFF REQ, RBC 3.19 L, MCV 92.5, MCH 30.5, MCHC 32.9 L, RDW 16.2 H, MPV 7.2 L, Gran % 78.4 H, Lymphocytes % 16.3 L, Monocytes % 4.9, Eosinophils % 0.1, Basophils % 0.3, Absolute Granulocytes 8.1 H, Absolute Lymphocytes 1.7, Absolute Monocytes 0.5, Absolute Eosinophils 0, Absolute Basophils 0 08/23/17 0647: Anion Gap 8, Estimated GFR > 60, BUN/Creatinine Ratio 35.0 H, CBC w Diff NO MAN DIFF REQ, RBC 3.16 L, MCV 92.6, MCH 31.2 H, MCHC 33.7, RDW 15.7 H, MPV 7.4, Gran % 77.9 H, Lymphocytes % 15.8 L, Monocytes % 6.0, Eosinophils % 0.1, Basophils % 0.2, Absolute Granulocytes 6.1, Absolute Lymphocytes 1.2, Absolute Monocytes 0.5, Absolute Eosinophils 0, Absolute Basophils 0 Assessment/Plan Assessment/Plan This patient probably has Takotsubo cardiomyopathy with acute systolic congestive heart failure. She also has significant bronchospasm. The patient should have her limited echo done today. I would recommend restarting her on low-dose lisinopril and low-dose beta blockers. I would choose Coreg 3.125 mg twice daily for her and lisinopril 2.5 mg daily. This will help with her LV function and blood pressure. Depending on the results of her echo and pulmonary status she may be able to go to rehabilitation soon. Continue telemetry? Yes
[2017-08-24] MEDS ORDERED: CARVEDILOL3.125 M1 PO (13:48)
[2017-08-24] MEDS ORDERED: LISINOPRIL2.5 M1 PO (13:48)
[2017-08-24 14:14] VITALS: BP 142/84
--- NOTE | 2017-08-24 15:04 | Discharge Summary ---
Visit Information Visit Dates Admission Date: 08/16/17 Discharge Date: 08/25/17 Hospital Course Course Attending Physician: Isaias Farnsworth MD Primary Care Physician: Narinder MCKEON,Cristian Antoine Consulting Request: Consulting Specialty: Cardiology Hospital Course: This is a 62-year-old lady with past medical history of seizures, hypertension, anemia, COPD on 2 L, diastolic CHF, history of multiple pneumonias treated with meropenem due to allergy to ceftriaxone, spinal stenosis with neural stimulators came to the hospital with chief complaint of lethargy, feeling weak productive cough and fever for couple of days She is being treated and evaluated for following conditions. #Sepsis secondary to pneumonia -resolved (hx of various organisms including E.Coli sensitive to Meropenem) * Afebrile since admission. * Meropenem course completed. * Patient is on prednisone 40 daily [day 3] .Pulmonology recommendations appreciated * Continue TRC/oxygenation PRN * Speech therapy reval to be done today. Patient was on nothing by mouth for risk of aspiration. Over the hospital course she had multiple swallow evaluations and swallows general feeling was independent of the MBS and independent at the bedside assessment she could still be silently aspirating. At this point she is on a modified diet with the plan for home health services with ongoing speech and swallow therapy and I've spoken to her and her at length about the need to follow the modified diet. * I spoke to the and updated her current medical status via phone. #Acute hypercapnic respiratory failure 2/2 PNA and COPD exacerbation * Patient has history of Severe oxygen and prednisone dependent COPD * Continue with prednisone taper till she reaches her usual dose of prednisone * Continue spiriva once daily * Symbicort 2 puffs BID with rinsing of the mouth #History of PE on eliquis * Continue Eliquis #Gastritis * Resolved. * C. difficile negative (Thursday) #Hypokalemia * Resolved * Monitor potassium level closely #Sinus tachycardia and suspected Takatsubo's cardiomyopathy * Patient had sinus tachycardia [heart rate 140s] and was transferred to telemetry. She was initially started on Cardizem drip which was eventually stopped. Patient is now on Cardizem 120 CD. Her heart rate is in 80s. #Continue home meds: Keppra, Cardizem, Alprazolam Diet: Puree/Shubuta thick consistency in Heart healthy diet DVT ppx: Eliquis Code status: Full code Initially the thought was that patient would go to rehabilitation. Primarily for her multiple medical issues. The patient changed her mind and refused rehabilitation. This is despite explaining to her at length the need for close supervision given her complex hospital course. I also worry that once she goes home she will not follow the thickened diet as recommended. She has advanced COPD, she is chronically O2 and prednisone-dependent. We also treated her intermittently for diastolic heart failure and systolic heart failure. Hospital course was complicated by gram-negative and aspiration pneumonia for which she completed a course with IV meropenem. Ongoing dysphagia with multiple speech therapy recommendations and being discharged on a nectar thickened diet. We confirmed the medications with Dev Ramires she is leaving on a low-dose beta rose and AARON inhibitor with half dose of Lasix. No narcotics at all because of the ongoing issue of lethargy and she'll complete her prednisone taper to her usual 20 mg a day. She is also leaving on Eliquis for A. fib with close outpatient follow-up. Total time spent coordinating discharge talking to patient and patient's and multiple subspecialists and W 10 was 38 minutes. Allergies: Coded Allergies: ceftriaxone (Severe, ANAPHYLAXIS 06/29/16) morphine (Severe, TONGUE SWELLING 10/26/16) patient had a significantly positive urine toxicology morphine level at time of presentation to the E.D. 09/30/2016 (was admitted to medical floor from E.D.) Significant Procedures: Echocardiogram done on 08/20/2017: FINDINGS Left Ventricle The left ventricle is borderline dilated in the midportion. Wall thickness is normal. There is moderate global hypokinesis of the left ventricle with akinetic distal septum and apex. There is also paradoxical motion of the interventricular septum. The very proximal the very proximal LV farrell contract fairly well. Estimated ejection fraction is moderately to markedly reduced at 25-30%. The pattern is somewhat atypical but could represent a Takotsubo cardiomyopathy. "pseudonormal" filling pattern of the left ventricle for age (stage 2 diastolic dysfunction). Right Ventricle The right ventricle is normal in size and function. Right Atrium The right atrium is normal in size. Left Atrium The left atrium is normal in size. The interatrial septum is intact. Mitral Valve Mild thickening/calcification of the mitral valve leaflets. Mild-to- moderate mitral regurgitation. Aortic Valve Focal thickening of the aortic valve cusps. No aortic stenosis. Trace aortic regurgitation. Tricuspid Valve Structurally normal tricuspid valve. Moderate tricuspid regurgitation. Right ventricular systolic pressure estimated to be elevated at 45-50 mmHg. Pulmonic Valve Structurally normal pulmonic valve. Trace pulmonic regurgitation. Pericardium Normal pericardium without effusion. No pleural effusion. Great Vessels Normal aortic root dimension. The aortic arch and great vessels are not well seen.. CONCLUSIONS The left ventricle is borderline dilated in the midportion. Wall thickness is normal. There is moderate global hypokinesis of the left ventricle with akinetic distal septum and apex. There is also paradoxical motion of the interventricular septum. The very proximal the very proximal LV farrell contract fairly well. Estimated ejection fraction is moderately to markedly reduced at 25-30%. The pattern is somewhat atypical but could represent a Takotsubo cardiomyopathy. The left atrium is normal in size. Mild thickening/calcification of the mitral valve leaflets. Czah-[id number] mitral regurgitation. Focal thickening of the aortic valve cusps. No aortic stenosis. Trace aortic regurgitation. Moderate tricuspid regurgitation. Right ventricular systolic pressure estimated to be elevated at 45- 50 mmHg. The aortic arch and great vessels are not well seen. "pseudonormal" filling pattern of the left ventricle for age (stage 2 diastolic dysfunction). Kyle Barger M.D. (Electronically Signed) Final Date: 20 August 2017 12:47 MEASUREMENTS (Male / Female) Normal Values 2D ECHO LV Diastolic Diameter PLAX 4.3 cm 4.2 - 5.9 / 3.9 - 5.3 cm LV Systolic Diameter PLAX 3.4 cm 2.1 - 4.0 cm LV Fractional Shortening PLAX 20.9 % 25 - 46 % LV Ejection Fraction 2D Teich 42.9 % IVS Diastolic Thickness 1.0 cm LVPW Diastolic Thickness 1.0 cm LV Relative Wall Thickness 0.5 RV Internal Dim ED PLAX 2.4 cm 1.9 - 3.8 cm LVOT Diameter 1.9 cm Aortic Root Diameter 2.6 cm LA Systolic Diameter LX 3.3 cm 3.0 - 4.0 / 2.7 - 3.8 cm LA Volume 30.0 cm 18 - 58 / 22 - 52 cm Ascending Aorta Diameter 2.6 cm DOPPLER AV Peak Velocity 93.4 cm/s AV Peak Gradient 3.5 mmHg AV Mean Velocity 70.9 cm/s AV Mean Gradient 2.0 mmHg AV Velocity Time Integral 15.6 cm LVOT Peak Velocity 51.5 cm/s LVOT Peak Gradient 1.1 mmHg LVOT Mean Velocity 35.5 cm/s LVOT Mean Gradient 1.0 mmHg LVOT Velocity Time Integral 7.7 cm LVOT Stroke Volume 21.8 cm AV Area Cont Eq vti 1.4 cm AV Area Cont Eq pk 1.6 cm MV Peak Velocity 123.0 cm/s MV Peak Gradient 6.1 mmHg MV Mean Velocity 68.9 cm/s MV Mean Gradient 2.0 mmHg Mitral E Point Velocity 83.9 cm/s Mitral A Point Velocity 77.0 cm/s Mitral E to A Ratio 1.1 MV PHT Velocity 131.0 cm/s MV Deceleration [place] 1014.0 cm/s MV Pressure Half Time 38.8 ms MV Area PHT 5.7 cm MV Deceleration Time 158.0 ms TR Peak Velocity 316.0 cm/s TR Peak Gradient 39.9 mmHg Right Atrial Pressure 10.0 mmHg Pulmonary Artery Systolic Pressu 49.9 mmHg Right Ventricular Systolic Press 49.9 mmHg PV Peak Velocity 85.5 cm/s PV Peak Gradient 2.9 mmHg PV Mean Velocity 56.1 cm/s PV Mean Gradient 1.0 mmHg PV Velocity Time Integral 12.6 cm LV E' Lateral Velocity 5.5 cm/s Mitral E to LV E' Lateral Ratio 15.2 LV E' Septal Velocity 13.9 cm/s Mitral E to LV E' Septal Ratio 6.0 DICTATED BY: Charbel MCKEON,Kyle Frias DATE/TIME DICTATED:08/20/171246 DOWEL STICKER OPERATOR:ARUN DATE/TIME TRANSCRIBED:08/20/171246 Chest x-ray done on 08/20/2017: FINDINGS: Worsening infrahilar bilateral basilar consolidations, predominantly on the left in the retrocardiac space. Central pulmonary vasculature remains prominent. Possible trace left pleural effusion. No pneumothorax bilaterally. Heart size is normal. Atherosclerosis thoracic aorta. No acute osseous abnormality. Distal tapering of the right clavicle is unchanged. Cerclage wire projects over the lower neck. The patient's chin obscures the superiormost aspect of the apices. EKG leads project over the chest. IMPRESSION: Interval increase in the bibasilar lung opacities, left greater than right, with possible trace left pleural effusion. Central pulmonary vascular prominence remains. DICTATED BY: Traci Comer MD DATE/TIME DICTATED:08/20/171216 DOWEL STICKER OPERATOR:ARUN DATE/TIME TRANSCRIBED:08/20/171216 Modified barium swallow done on 08/21/2017: FINDINGS: With all consistencies, premature spillage of contrast into the valleculae is seen. With nectar consistency, there was also premature spillage into the piriform sinuses. With nectar consistency, silent transient penetration of contrast is seen. With thin liquid contrast, repeated silent penetration is noted and on one occasion skye aspiration into the upper trachea was seen, eliciting of cough reflex. IMPRESSION: 1. Skye aspiration seen with thin liquid contrast, eliciting a cough reflex. 2. Repeated silent penetration is noted with thin liquid contrast then on one occasion with nectar consistency. 3. Premature spillage of contrast into the valleculae and piriform sinuses. 4. Speech pathologist assessment issued separately. DICTATED BY: Ale MCKEON,Yoon Meade DATE/TIME DICTATED:08/21/171554 DOWEL STICKER OPERATOR:ARUN DATE/TIME TRANSCRIBED:08/21/171554 Disposition Summary Disposition Principal Diagnosis: Sepsis, acute hypercapnic respiratory failure, secondary to pneumonia and COPD exacerbation; hypokalemia; Sinus tachycardia Aspiration and gram-negative pneumonia. Suspected Takatsubo's cardiomyopathy. Aspiration and dysphagia. Additional Diagnosis: seizures, hypertension, anemia, COPD on 2 L, diastolic CHF, history of multiple pneumonias treated with meropenem due to allergy to ceftriaxone, spinal stenosis with neural stimulators Discharge Disposition: home health services Discharge Instructions General Discharge Information Code Status: Full Code Patient's Diet: Shubuta thickened diet with strict aspiration precautions Patient's Activity: As tolerated Follow-Up Instructions/Appts: Please follow-up with your primary care provider within 1-2 weeks of discharge and let them know about your recent admission at [facility]. Please follow-up with your chain dyer within 1-2 weeks of discharge and let them know about your recent admission at [facility]. Please follow-up with the [facility] as outpatient within 1-2 weeks of discharge and let them know about your recent admission at [facility]. Medications at Discharge Discharge Medications: Stop taking the following medications: Metoprolol Tartrate (Metoprolol Tartrate) 25 MG TABLET ORAL TWICE DAILY Lisinopril (Prinivil) 20 MG TABLET ORAL DAILY Furosemide (Furosemide) 40 MG TABLET ORAL As Directed Qty = 14 Oxycodone HCl (Oxycontin) 10 MG TAB.ER.12H ORAL THREE TIMES DAILY as needed for PAIN Oxycodone HCl (Oxycodone HCl) 5 MG TABLET ORAL Q4H as needed for PAIN Continue taking these medications: Tiotropium [place] (Spiriva) 18 MCG CAP.W.DEV 1 Capsule ORAL DAILY Comments: Last Taken:08/25/17 Time: 1000 Apixaban (Eliquis) 5 MG TABLET 1 Tablet ORAL TWICE DAILY Comments: Last Taken:08/25/17 Time:1000 Ipratropium/Albuterol Sulfate (Iprat-Albut 0.5-3(2.5) MG/3 Ml) 0.5 MG-3 MG (2.5 MG BASE)/3 ML AMPUL.NEB 1 PUFF Inhale through mouth EVERY SIX HOURS as needed for breathing Comments: not given in hospital Albuterol Sulfate (Ventolin Hfa) 90 MCG HFA.AER.AD 2 Puff Inhale through mouth EVERY 4-6 HOURS NEEDED as needed for breathing Comments: NOT GIVEN IN HOSPITAL Cholecalciferol (Vitamin D3) (Vitamin D) 1,000 UNIT TABLET 1 Tablet ORAL DAILY Comments: Last Taken:08/25/17 Time:1000 Zolmitriptan (Zomig) 5 MG TABLET 1 Tablet ORAL As Directed as needed for WATTS Qty = 30 Comments: NOT GIVEN IN HOSPITAL Ondansetron HCl (Ondansetron HCl) 8 MG TABLET 1 Tablet ORAL as needed for N/V Qty = 30 Comments: NOT GIVEN IN HOSPITAL Diltiazem Cd (Diltiazem ER) 120 MG CAP.ER.DEG 120 Milligram ORAL DAILY Qty = 30 Comments: Last Taken:08/25/17 Time: 1000 Ferrous Sulfate (Ferrous Sulfate) 325 MG (65 MG IRON) TABLET.DR 1 Tablet ORAL DAILY Qty = 30 Comments: Last Taken: 07/07/17 Time: 0945 AM Alprazolam (Xanax) 0.25 MG TABLET 2 Tablet ORAL THREE TIMES A DAY NEEDED as needed for ANXIETY Qty = 14 Comments: Last Taken: 08/23/17 Time: 1000 9M Budesonide/Formoterol Fumarate (Symbicort 160-4.5 Mcg Inhaler) 160 MCG-4.5 MCG/ ACTUATION HFA.AER.AD 2 PUFF Inhale through mouth TWICE DAILY Comments: LAST TAKEN: 08/25/17 @ 0945 AM Guaifenesin (Guaifenesin ER) 600 MG TAB.ER.12H 600 Milligram ORAL EVERY 12 HOURS Qty = 30 Comments: Last Taken: 08/25/17 Time: 0945 AM Metoclopramide HCl (Metoclopramide HCl) 5 MG TABLET 1 Tablet ORAL 3 TIMES DAILY BEFORE MEALS Qty = 42 Comments: NOT GIVEN IN HOSPITAL Pantoprazole Sodium (Pantoprazole Sodium) 40 MG TABLET.DR 1 Tablet ORAL DAILY Comments: Last Taken:08/25/17 Time:0700 Prednisone (Prednisone) 20 MG TABLET 1 Tablet ORAL DAILY Comments: Last Taken: 08/25/17 Time: 0945 AM Calcium Carbonate (Tums Ultra Strength) (Unknown Strength) TAB.CHEW Unknown Dose ORAL As Directed as needed for GI Comments: Last Taken: 07/07/17 Time: 0945 AM Levetiracetam (Keppra) 500 MG TABLET 750 Milligram ORAL TWICE DAILY Qty = 60 Comments: Last Taken: 08/25/17 Time: 0945 AM Start taking the following new medications: Prednisone (Prednisone) 10 MG TABLET 0 ORAL SEE INSTRUCTIONS Qty = 10 No Refills Instructions: please take 3 tablets DAILY FROM 08/26/17 TILL 08/28/17 please take 2 tablets DAILY FROM 08/29/17 ONWARDS Comments: TIME: 1000 DATE: 08/25/17 please take 3 tablets DAILY FROM 08/26/17 TILL 08/28/17 please take 2 tablets DAILY FROM 08/29/17 ONWARDS Carvedilol (Carvedilol) 3.125 MG TABLET 3.125 Milligram ORAL TWICE DAILY Qty = 60 No Refills Instructions: . Comments: Last Taken:08/25/17 Time:1000 Lisinopril (Lisinopril) 2.5 MG TABLET 1 Tablet ORAL DAILY Qty = 60 Refills = 1 Instructions: . Comments: Last Taken:08/25/17 Time:1000 Furosemide (Furosemide) 20 MG TABLET 1 Tablet ORAL DAILY Qty = 30 No Refills Comments: Last Taken:08/24/17 Time:1000 Copies To: Jarad MCKEON,Kyle Collins; Narinder MCKEON,Cristian Antoine; Charbel MCKEON,Kyle Frias
--- NOTE | 2017-08-24 17:11 | PN- Psychiatry ---
Assessment/Plan Impression: The patient is in much better mood than when we saw her on 08/19/17 for a capacity evaluation for changing her code status to DNR/DNI, which she did not have at that time. We would like very much for her to come to [facility] for treatment for her anxiety and depression. Please continue to encourage her to do this, as her medical condition allows. To that end, please request a psychiatric evaluation at the [facility], and ask them to make an appointment for her at [facility] when [place] [id number] Suggestion: 1. Please ask the spouse to secure the patient's medications at home, including opiates and benzodiazepines. Although she currently denies suicidal ideation, the patient does have a history of ingesting medicines in a suicide attempt. 2. Please request a psychiatric evaluation at the [facility], and ask them to make an appointment for her at [facility] when [place] [address] 3. Minimize the use of benzodiazepines, as they can increase the risk for falls and respiratory depression. Subjective Subjective: The patient is sitting up in bed watching TV, and is alert and oriented. She has her nasal cannula on, and is breathing without any apparent distress. She denies visual of auditory hallucinations and presents not skye delusions. She endorses hopelessness ("sometimes"), helplessness, worthlessness ("My whole life") and guilty feelings. She denies suicidal ideation. Review of Systems Neurological/Psychological: Reports: anxiety, depressed. Objective Last 24 Hrs of Vital Signs/I&O Vital Signs Date Time Temp Pulse Resp B/P B/P Pulse O2 O2 Flow FiO2 Mean Ox Delivery Rate 08/24 1654 94 Nasal 2.0L Cannula 08/24 1555 140/74 08/24 1555 140/74 08/24 1414 98.7 100 20 142/84 95 Nasal 2.0L Cannula 08/24 1124 Nasal 2.0L Cannula 08/24 0850 94 Nasal 2.0L Cannula 08/24 0842 96 Nasal 2.0L Cannula 08/24 0719 98.1 69 20 152/84 97 08/24 0000 95 Nasal 2.0L Cannula 08/23 2202 98.9 87 20 138/70 95 08/23 2020 98 Nasal 2.0L Cannula Intake & Output 08/24 1600 02 0800 08/24 0000 Intake Total 400 100 480 Output Total 350 400 Balance 50 -300 480 Intake, Oral 400 100 480 Output, Urine 350 400 Physical Exam: Not performed. Physical Exam General Appearance: alert, awake, anxious, comfortable Neurologic/Psychiatric: awake, alert, oriented x 3 Current Medications: Current Medications Sig/Halie Start time Last Medication Dose Route Stop Time Status Admin Acetaminophen 650 MG Q6P PRN 08/16 0945 AC 08/22 PO 0537 Albuterol Sulfate 3 ML EVERY 4 HRS/AWAKE 08/18 1200 AC 08/24 INH 1625 Alprazolam 0.5 MG TIDPRN PRN 08/24 0830 AC PO 08/31 0829 Alprazolam 0.25 MG ONCE ONE 08/24 0600 DC 08/24 PO 08/24 0601 0615 Apixaban 5 MG BID 08/16 1000 AC 08/24 PO 0936 Budesonide/ 2 PUF BID 08/16 1205 AC 08/24 Formoterol Fumarate INH 0938 Carvedilol 3.125 MG BID 08/24 1311 AC 08/24 PO 1555 Diltiazem HCl 120 MG DAILY 08/21 1445 AC 08/24 PO 0937 Furosemide 40 MG DAILY 08/24 1000 DC 08/24 PO 0937 Furosemide 20 MG DAILY 08/21 1345 DC 08/23 IV 1445 Guaifenesin 600 MG Q12 08/16 1000 AC 08/24 PO 0937 Levetiracetam 750 MG BID 08/19 2200 AC 08/24 PO 0937 Lisinopril 2.5 MG DAILY 08/24 1310 AC 08/24 PO 1555 Omeprazole 40 MG DAILY AC 08/16 1445 AC 08/24 PO 0614 Prednisone 30 MG DAILY 08/25 1000 AC PO Prednisone 40 MG DAILY 08/22 1000 DC 08/24 PO 0936 Tiotropium [place] 1 PUF DAILY 08/16 1315 AC 08/24 INH 0937 Trimethobenzamide HCl 200 MG TID PRN 08/17 1715 AC 08/21 IM 2159 Zolpidem Tartrate 5 MG AT BEDTIME 08/18 2200 AC 08/23 PO 2144 Results Last 24 Hrs of Labs/Mics: Laboratory Tests 08/24 0845 Chemistry Sodium (137 - 145 mmol/L) 137 Potassium (3.5 - 5.1 mmol/L) 3.5 Chloride (98 - 107 mmol/L) 98 Carbon Dioxide (22 - 30 mmol/L) 30 Anion Gap (5 - 16) 9 BUN (7 - 17 mg/dL) 19 H Creatinine (0.5 - 1.0 mg/dL) 0.7 Estimated GFR (>60 ml/min) > 60 BUN/Creatinine Ratio (7 - 25 %) 27.1 H Phosphorus (2.5 - 4.5 mg/dL) 2.9 Magnesium (1.6 - 2.3 mg/dL) 2.2 Total Bilirubin (0.2 - 1.3 mg/dL) 0.4 Direct Bilirubin (< 0.4 mg/dL) 0.2 AST (14 - 36 U/L) 34 ALT (9 - 52 U/L) 219 H Alkaline Phosphatase (<127 U/L) 90 Total Protein (6.3 - 8.2 g/dL) 5.4 L Albumin (3.5 - 5.0 g/dL) 3.3 L Hematology CBC w Diff NO MAN DIFF REQ WBC (4.8 - 10.8 /CUMM) 10.3 RBC (4.20 - 5.40 /CUMM) 3.19 L Hgb (12.0 - 16.0 G/DL) 9.7 L Hct (37 - 47 %) 29.5 L MCV (81.0 - 99.0 FL) 92.5 MCH (27.0 - 31.0 PG) 30.5 MCHC (33.0 - 37.0 G/DL) 32.9 L RDW (11.5 - 14.5 %) 16.2 H Plt Count (130 - 400 /CUMM) 300 MPV (7.4 - 10.4 FL) 7.2 L Gran % (42.2 - 75.2 %) 78.4 H Lymphocytes % (20.5 - 51.1 %) 16.3 L Monocytes % (1.7 - 9.3 %) 4.9 Eosinophils % (0 - 5 %) 0.1 Basophils % (0.0 - 2.0 %) 0.3 Absolute Granulocytes (1.4 - 6.5 /CUMM) 8.1 H Absolute Lymphocytes (1.2 - 3.4 /CUMM) 1.7 Absolute Monocytes (0.10 - 0.60 /CUMM) 0.5 Absolute Eosinophils (0.0 - 0.7 /CUMM) 0 Absolute Basophils (0.0 - 0.2 /CUMM) 0
[2017-08-24 22:23] VITALS: BP 118/80
[2017-08-25 06:48] VITALS: BP 120/70
--- NOTE | 2017-08-25 07:48 | PN- Pulmonary ---
Subjective HPI/Critical Care Issues: Patient is comfortable without shortness of breath Objective Current Medications: Current Medications Sig/Halie Start time Last Medication Dose Route Stop Time Status Admin Acetaminophen 650 MG Q6P PRN 08/16 0945 AC 08/22 PO 0537 Albuterol Sulfate 3 ML EVERY 4 HRS/AWAKE 08/18 1200 AC 08/24 INH 1625 Alprazolam 0.5 MG TIDPRN PRN 08/24 0830 AC PO 08/31 0829 Apixaban 5 MG BID 08/16 1000 AC 08/24 PO 2208 Budesonide/ 2 PUF BID 08/16 1205 AC 08/24 Formoterol Fumarate INH 2210 Carvedilol 3.125 MG BID 08/24 1311 AC 08/24 PO 2210 Diltiazem HCl 120 MG DAILY 08/21 1445 AC 08/24 PO 0937 Furosemide 40 MG DAILY 08/24 1000 DC 08/24 PO 0937 Furosemide 20 MG DAILY 08/21 1345 DC 08/23 IV 1445 Guaifenesin 600 MG Q12 08/16 1000 AC 08/24 PO 2208 Levetiracetam 750 MG BID 08/19 2200 AC 08/24 PO 2208 Lisinopril 2.5 MG DAILY 08/24 1310 AC 08/24 PO 1555 Omeprazole 40 MG DAILY AC 08/16 1445 AC 08/25 PO 0600 Prednisone 30 MG DAILY 08/25 1000 AC PO Prednisone 40 MG DAILY 08/22 1000 DC 08/24 PO 0936 Tiotropium [place] 1 PUF DAILY 08/16 1315 AC 08/24 INH 0937 Trimethobenzamide HCl 200 MG TID PRN 08/17 1715 AC 08/25 IM 0619 Zolpidem Tartrate 5 MG AT BEDTIME 08/18 2200 AC 08/24 PO 2208 Vital Signs & I&O Last 24 Hrs of Vitals and I&O: Vital Signs Date Time Temp Pulse Resp B/P B/P Pulse O2 O2 Flow FiO2 Mean Ox Delivery Rate 08/25 0648 98.7 80 20 120/70 98 Nasal 2.5L Cannula 08/24 225 Nasal 2.0L Cannula 08/24 2222 98.7 82 18 118/80 97 08/24 2210 77 124/80 08/24 1654 94 Nasal 2.0L Cannula 08/24 1555 140/74 08/24 1555 140/74 08/24 1414 98.7 100 20 142/84 95 Nasal 2.0L Cannula 08/24 1124 Nasal 2.0L Cannula 08/24 0850 94 Nasal 2.0L Cannula 08/24 0842 96 Nasal 2.0L Cannula Intake & Output 08/25 0800 08/25 0000 08/24 1600 Intake Total 120 200 400 Output Total 425 500 350 Balance -305 -300 50 Intake, Oral 120 200 400 Number 1 Bowel Movements Output, Urine 425 500 350 Oxygen saturation 2.5 L 98% exam for chest shows clear lung farris are no wheezes or crackles cardiac exam shows regular S1 and S2 without murmurs Impression/Plan Impression/Plan Impression/Plan: Patient admitted with exacerbation of COPD aspiration pneumonia based on abnormal barium swallow. Diet advanced to prevent aspiration. Taper FiO2 with improved saturations complete prednisone taper patient appears stable for discharge from pulmonary standpoint to rehabilitation Recommendations: Nothing by mouth until evaluated by speech therapy for recommendations to minimize aspiration risk. Complete course of antibiotics. Follow-up cardiology recommendation. Taper FiO2 his saturations allow. The patient is to remain nothing by mouth we will need IV fluids to avoid dehydration
[2017-08-25 09:31] VITALS: BP 122/70
--- NOTE | 2017-08-25 09:47 | PN- Housestaff ---
Gogo MCKEON,[facility] 08/25/17 0947: Subjective Follow-up For: Sepsis and Acute hypercapnic respiratory failure secondary to pneumonia and COPD exacerbation Subjective: Patient is lying comfortably in bed, denies any active complaints except for dry cough occasionally. Review of Systems Constitutional: Reports: no symptoms. EENTM: Reports: no symptoms. Cardiovascular: Reports: no symptoms. Respiratory: Reports: cough. Gastrointestinal: Reports: no symptoms. Genitourinary: Reports: no symptoms. Musculoskeletal: Reports: no symptoms. Skin: Reports: no symptoms. Neurological/Psychological: Reports: no symptoms. Hematologic/Endocrine: Reports: no symptoms. Immunologic/Allergic: Reports: no symptoms. Objective Last 24 Hrs of Vital Signs/I&O Vital Signs Date Time Temp Pulse Resp B/P B/P Pulse O2 O2 Flow FiO2 Mean Ox Delivery Rate 08/25 0931 122/70 08/25 0931 122/70 08/25 0848 98 Nasal 2.0L Cannula 08/25 0828 94 Nasal 2.0L Cannula 08/25 0648 98.7 80 20 120/70 98 Nasal 2.5L Cannula 08/24 2256 Nasal 2.0L Cannula 08/24 2223 98.7 82 18 118/80 97 08/24 2210 77 124/80 08/24 1654 94 Nasal 2.0L Cannula 08/24 1555 140/74 08/24 1555 140/74 08/24 1414 98.7 100 20 142/84 95 Nasal 2.0L Cannula Intake & Output 08/25 1600 08/25 0800 08/25 0000 Intake Total 120 200 Output Total 425 500 Balance -305 -300 Intake, Oral 120 200 Number 1 Bowel Movements Output, Urine 425 500 Physical Exam General Appearance: Alert, Oriented X3, Cooperative Skin: No Rashes, No Breakdown HEENT: Atraumatic, EOMI Neck: Supple, No JVD, No thryomegaly Cardiovascular: Regular Rate, Normal S1, Normal S2 Lungs: bilateral wheezing Abdomen: Normal Bowel Sounds, Soft, No Tenderness Extremities: No Clubbing, No Cyanosis, No Edema Current Medications: Current Medications Sig/Halie Start time Last Medication Dose Route Stop Time Status Admin Acetaminophen 650 MG Q6P PRN 08/16 0945 DCD 08/22 PO 0537 Albuterol Sulfate 3 ML EVERY 4 HRS/AWAKE 08/18 1200 DCD 08/24 INH 1625 Alprazolam 0.5 MG TIDPRN PRN 08/24 0830 DCD PO 08/31 0829 Apixaban 5 MG BID 08/16 1000 DCD 08/25 PO 0931 Budesonide/ 2 PUF BID 08/16 1205 DCD 08/25 Formoterol Fumarate INH 0932 Carvedilol 3.125 MG BID 08/24 1311 DCD 08/25 PO 0931 Diltiazem HCl 120 MG DAILY 08/21 1445 DCD 08/25 PO 0931 Guaifenesin 600 MG Q12 08/16 1000 DCD 08/25 PO 0931 Levetiracetam 750 MG BID 08/19 2200 DCD 08/25 PO 0931 Lisinopril 2.5 MG DAILY 08/24 1310 DCD 08/25 PO 0931 Omeprazole 40 MG DAILY AC 08/16 1445 DCD 08/25 PO 0600 Prednisone 30 MG DAILY 08/25 1000 DCD 08/25 PO 0931 Tiotropium [place] 1 PUF DAILY 08/16 1315 DCD 08/25 INH 0932 Trimethobenzamide HCl 200 MG TID PRN 02 1715 DCD 08/25 IM 0619 Zolpidem Tartrate 5 MG AT BEDTIME 08/18 2200 DCD 08/24 PO 2208 Assessment/Plan Assessment: This is a 62-year-old lady with past medical history of seizures, hypertension, anemia, COPD on 2 L, diastolic CHF, history of multiple pneumonias treated with meropenem due to allergy to ceftriaxone, spinal stenosis with neural stimulators came to the hospital with chief complaint of lethargy, feeling weak productive cough and fever for couple of days She is being treated and evaluated for following conditions. #Sepsis secondary to pneumonia -resolved (hx of various organisms including E.Coli sensitive to Meropenem) * Afebrile since admission. * Meropenem course completed. * Patient is on prednisone 40 daily [day 3] .Pulmonology recommendations appreciated * Continue TRC/oxygenation PRN * Patient was started on heart healthy diet after cleared by Speech therapy. #Acute hypercapnic respiratory failure 2/2 PNA and COPD exacerbation * Patient has history of Severe oxygen and prednisone dependent COPD * Continue with prednisone taper * Continue spiriva once daily * Symbicort 2 puffs BID with rinsing of the mouth # Hypertension; * Metoprolol was held and patient sent home on lisinopril 2.5 mg daily per cardiology. * Follow up echocardiogram in a month to reassess left ventricle function. #History of PE on eliquis * Continue Eliquis #Gastritis * Resolved. * C. difficile negative (Thursday) #Hypokalemia * Resolved * Monitor potassium level closely #Sinus tachycardia * Continue Cardizem 120 CD. #Continue home meds: Keppra, Cardizem, Alprazolam Diet: Puree/[place] thick consistency in Heart healthy diet DVT ppx: Eliquis Code status: Full code Problem List: 1. PNEUMONIA Pain Ratin Pain Location: None Pain Goal: Remain pain free Pain Plan: Pain pathway Tomorrow's Labs & Rationales: None Jessica MCKEON,Marilee 08/25/17 1406: Attending MD Review Statement Attending Statement Attending MD Statement: examined this patient, discuss w/resident/PA/NAPKIN MACHINE OPERATOR, agreed w/resident/PA/NAPKIN MACHINE OPERATOR, reviewed EMR data (avail), discussed with nursing, reviewed images Attending Assessment/Plan: Patient seen and examined. Agree with internal control analyst's note. Patient is now adamant that she won't go to rehabilitation. This is despite explaining to her at length the need for close supervision given her complex hospital course. I also worry that once she goes home she will not follow the thickened diet as recommended. She has advanced COPD, she is chronically O2 and prednisone- dependent. We also treated her intermittently for diastolic heart failure and systolic heart failure. Hospital course was complicated by gram-negative and aspiration pneumonia for which she completed a course with IV meropenem. Ongoing dysphagia with multiple speech therapy recommendations and being discharged on a nectar thickened diet. We confirmed the medications with Dev Ramires she is leaving on a low-dose beta rsoe and AARON inhibitor with half dose of Lasix. No narcotics at all because of the ongoing issue of lethargy and she'll complete her prednisone taper to her usual 20 mg a day. She is also leaving on Eliquis for A. fib with close outpatient follow-up. Total time spent coordinating discharge talking to patient and patient's and multiple subspecialists and [address] was 38 minutes.
--- NOTE | 2017-08-25 09:59 | ECHOCARDIOGRAM REPORT ---
CHASE ABREU Age: 62 : 1955 Gender: F Exam Date: 08/24/2017 19:02 Exam Location: [place] Ht (in): 64 Wt (lb): 150 BSA: 1.77 BP: 142 / 84 Ordering Physician: Joyce Perez MD Referring Physician: Kyle Barger MD Chief, SoC Technologist: Tina Fox [facility] Room Number: 177 Indications: PALPITATIONS Rhythm: Sinus Technical Quality: Good FINDINGS Left Ventricle Left ventricular cavity is normal size. The proximal two thirds of the left ventricle contract fairly well. The distal one third and apex are somewhat akinetic although not dilated. Overall left ventricular systolic function is fair. Estimated ejection fraction is 40-45% visually. Right Ventricle Right Atrium Left Atrium Mitral Valve Aortic Valve Tricuspid Valve Pulmonic Valve Pericardium Great Vessels CONCLUSIONS This is a limited study for the purpose of reassessing LV function in a patient with possible Takotsubo cardiomyopathy. Left ventricular cavity is normal size. The proximal two thirds of the left ventricle contract fairly well. The distal one third and apex are hypo to akinetic although not dilated. Overall left ventricular systolic function is fair. Estimated ejection fraction is 40-45% visually. Compared to the previous echocardiogram of 08/19/2017, LV function appears somewhat improved on the current study. Kyle Barger M.D. (Electronically Signed) Final Date: 25 August 2017 09:58 MEASUREMENTS (Male / Female) Normal Values 2D ECHO LV Diastolic Diameter PLAX 4.4 cm 4.2 - 5.9 / 3.9 - 5.3 cm LV Systolic Diameter PLAX 3.9 cm 2.1 - 4.0 cm LV Fractional Shortening PLAX 11.4 % 25 - 46 % LV Ejection Fraction 2D Teich 24.8 % IVS Diastolic Thickness 1.2 cm LVPW Diastolic Thickness 1.2 cm LV Relative Wall Thickness 0.5 DOPPLER TR Peak Velocity 242.0 cm/s TR Peak Gradient 23.4 mmHg Right Atrial Pressure 10.0 mmHg Pulmonary Artery Systolic Pressu 33.4 mmHg Right Ventricular Systolic Press 33.4 mmHg
[2017-08-25] MEDS ORDERED: PREDNISONE10 M2 PO (10:08)
[2017-08-25] MEDS ORDERED: CARVEDILOL3.125 M1 PO (10:09)
[2017-08-25] MEDS ORDERED: LISINOPRIL2.5 M1 PO ×2 (10:09→17:17)
--- NOTE | 2017-08-25 11:21 | PN- Cardiology ---
Subjective Subjective: The patient is eager to be discharged. A repeat echocardiogram shows improved LV function although it is not back to normal. This is consistent with a diagnosis of Takotsubo cardiomyopathy. She has been started on beta rose and AARON inhibitor. She is on Lasix 40 mg daily and diltiazem as well. Objective Vital Signs and I&Os Vital Signs Date Time Temp Pulse Resp B/P B/P Pulse O2 O2 Flow FiO2 Mean Ox Delivery Rate 08/25 0931 122/70 08/25 0931 122/70 08/25 0848 98 Nasal 2.0L Cannula 08/25 0828 94 Nasal 2.0L Cannula 08/25 0648 98.7 80 20 120/70 98 Nasal 2.5L Cannula 08/24 2256 Nasal 2.0L Cannula 08/24 2223 98.7 82 18 118/80 97 08/24 2210 77 124/80 08/24 1654 94 Nasal 2.0L Cannula 08/24 1555 140/74 08/24 1555 140/74 08/24 1414 98.7 100 20 142/84 95 Nasal 2.0L Cannula 08/24 1124 Nasal 2.0L Cannula Intake & Output 08/25 1600 08/25 0800 08/25 0000 08/24 1600 08/24 0800 08/24 0000 Intake Total 120 200 400 100 480 Output Total 425 500 350 400 Balance -305 -300 50 -300 480 Intake, Oral 120 200 400 100 480 Number 1 Bowel Movements Output, Urine 425 500 350 400 Physical Exam: HEENT exam normal Chest minimal wheezing Heart regular rhythm no murmurs No edema Current Medications: Current Medications Sig/Halie Start time Last Medication Dose Route Stop Time Status Admin Acetaminophen 650 MG Q6P PRN 08/16 0945 AC 08/22 PO 0537 Albuterol Sulfate 3 ML EVERY 4 HRS/AWAKE 08/18 1200 AC 08/24 INH 1625 Alprazolam 0.5 MG TIDPRN PRN 08/24 0830 AC PO 08/31 0829 Apixaban 5 MG BID 08/16 1000 AC 08/25 PO 0931 Budesonide/ 2 PUF BID 08/16 1205 AC 08/25 Formoterol Fumarate INH 0932 Carvedilol 3.125 MG BID 08/24 1311 AC 08/25 PO 0931 Diltiazem HCl 120 MG DAILY 08/21 1445 AC 08/25 PO 0931 Furosemide 40 MG DAILY 08/24 1000 DC 08/24 PO 0937 Guaifenesin 600 MG Q12 08/16 1000 AC 08/25 PO 0931 Levetiracetam 750 MG BID 08/19 2200 AC 08/25 PO 0931 Lisinopril 2.5 MG DAILY 08/24 1310 AC 08/25 PO 0931 Omeprazole 40 MG DAILY AC 08/16 1445 AC 08/25 PO 0600 Prednisone 30 MG DAILY 08/25 1000 AC 08/25 PO 0931 Prednisone 40 MG DAILY 08/22 1000 DC 08/24 PO 0936 Tiotropium [place] 1 PUF DAILY 08/16 1315 AC 08/25 INH 0932 Trimethobenzamide HCl 200 MG TID PRN 08/17 1715 AC 08/25 IM 0619 Zolpidem Tartrate 5 MG AT BEDTIME 08/18 2200 AC 08/24 PO 2208 Results Last 48 Hrs of Labs/Mics: Laboratory Tests 08/24/17 0845: Anion Gap 9, Estimated GFR > 60, BUN/Creatinine Ratio 27.1 H, Phosphorus 2.9, Magnesium 2.2, Total Bilirubin 0.4, Direct Bilirubin 0.2, AST 34, ALT 219 H, Alkaline Phosphatase 90, Total Protein 5.4 L, Albumin 3.3 L, CBC w Diff NO MAN DIFF REQ, RBC 3.19 L, MCV 92.5, MCH 30.5, MCHC 32.9 L, RDW 16.2 H, MPV 7.2 L , Gran % 78.4 H, Lymphocytes % 16.3 L, Monocytes % 4.9, Eosinophils % 0.1, Basophils % 0.3, Absolute Granulocytes 8.1 H, Absolute Lymphocytes 1.7, Absolute Monocytes 0.5, Absolute Eosinophils 0, Absolute Basophils 0 Recent Imaging Studies: CONCLUSIONS This is a limited study for the purpose of reassessing LV function in a patient with possible Takotsubo cardiomyopathy. Left ventricular cavity is normal size. The proximal two thirds of the left ventricle contract fairly well. The distal one third and apex are hypo to akinetic although not dilated. Overall left ventricular systolic function is fair. Estimated ejection fraction is 40-45% visually. Compared to the previous echocardiogram of 08/19/2017, LV function appears somewhat improved on the current study. Kyle Barger M.D. (Electronically Signed) Final Date: 25 August 2017 09:58 Assessment/Plan Assessment/Plan This patient probably has Takotsubo cardiomyopathy with acute systolic congestive heart failure. Her LV function is somewhat improved but not back to normal. Her lungs are improved with only minimal wheezing today. The patient is tolerating her medication well. I think she can be discharged on her current regimen. This was discussed with Dr. Velasquez the attending. The patient is apparently refusing rehabilitation and will be going home. She should have a follow-up echo in a month or so to reassess her LV function which hopefully will continue to improve. Continue telemetry? No
[2017-08-25] MEDS ORDERED: FUROSEMIDE20 M1 PO (11:33)
--- NOTE | 2017-08-26 07:12 | PN- Housestaff ---
Assessment/Plan Assessment: This is a 62-year-old lady with past medical history of seizures, hypertension, anemia, COPD on 2 L, diastolic CHF, history of multiple pneumonias treated with meropenem due to allergy to ceftriaxone, spinal stenosis with neural stimulators came to the hospital with chief complaint of lethargy, feeling weak productive cough and fever for couple of days She is being treated and evaluated for following conditions. #Sepsis secondary to pneumonia -resolved (hx of various organisms including E.Coli sensitive to Meropenem) * Afebrile since admission. * Meropenem course completed. * Patient is on prednisone 40 daily [day 3] .Pulmonology recommendations appreciated * Continue TRC/oxygenation PRN * Patient was started on heart healthy diet after cleared by Speech therapy. #Acute hypercapnic respiratory failure 2/2 PNA and COPD exacerbation * Patient has history of Severe oxygen and prednisone dependent COPD * Continue with prednisone taper * Continue spiriva once daily * Symbicort 2 puffs BID with rinsing of the mouth # Hypertension; * Metoprolol was held and patient sent home on lisinopril 2.5 mg daily per cardiology. * Follow up echocardiogram in a month to reassess left ventricle function. #History of PE on eliquis * Continue Eliquis #Gastritis * Resolved. * C. difficile negative (Thursday) #Hypokalemia * Resolved * Monitor potassium level closely #Sinus tachycardia * Continue Cardizem 120 CD. #Continue home meds: Keppra, Cardizem, Alprazolam Diet: Puree/[place] thick consistency in Heart healthy diet DVT ppx: Eliquis Code status: Full code
== END 2017-08-25 12:45 | disposition home health service (06) | DRG 871 ==
LOC: ERH 04:09 → ERHI 07:46 → 2NA 07:46 → EDBEDREQ 18:00 → ENRESERV 18:08 → ENTRNSPT 18:39 → EDTRNSPT 18:51 → EDTRNSPTSTS 18:51 → 2NA 19:04 → CMPTRNSPT 19:15 → 2NA 08-18 09:57 → 1NO 08-19 05:37 → CRI 08-19 14:15 → ENTRNSPT 08-20 14:32 → EDTRNSPT 08-20 15:13 → EDTRNSPTSTS 08-20 15:13 → CMPTRNSPT 08-20 15:33 → 1NO 08-20 15:35 → ENPENDDIS 08-25 11:36 → 1NO 08-25 12:45 → ENTRNSPT 08-25 12:58 → EDTRNSPTSTS 08-25 12:59 → EDTRNSPT 08-25 12:59 → CMPTRNSPT 08-25 13:06
PROVIDERS: Emergency Medicine; Internal Medicine; Radiology Vascular & Interventional Radiology; Student in an Organized Health Care Education/Training Program
DX: A41.9 Sepsis, unspecified organism (principal); J18.9 Pneumonia, unspecified organism; J96.21 Acute and chronic respiratory failure with hypoxia; I50.23 Acute on chronic systolic (congestive) heart failure; E87.2 Acidosis; I27.29 Other secondary pulmonary hypertension; I50.32 Chronic diastolic (congestive) heart failure; F11.20 Opioid dependence, uncomplicated; I27.82 Chronic pulmonary embolism; J44.1 Chronic obstructive pulmonary disease with (acute) exacerbation; I51.81 Takotsubo syndrome; J44.0 Chronic obstructive pulmonary disease with (acute) lower respiratory infection; Z99.81 Dependence on supplemental oxygen; Z79.01 Long term (current) use of anticoagulants; K29.70 Gastritis, unspecified, without bleeding; E87.6 Hypokalemia; R00.0 Tachycardia, unspecified; G40.909 Epilepsy, unspecified, not intractable, without status epilepticus; D64.9 Anemia, unspecified; Z66 Do not resuscitate; I44.7 Left bundle-branch block, unspecified; I48.91 Unspecified atrial fibrillation; M48.00 Spinal stenosis, site unspecified; G89.29 Other chronic pain
CPT/HCPCS: 1NP; 2NAP; CCU; 36415; 71045; 74230; 80307; 81001; 81003; 82436; 87040; 87070; 87086; 87449; 87450; 87804; 87804-59; 93005; 93010; 93306; 93308; 93321; 96374; 96375; 97116-GO; 97161-GP; 97530-GO; 99233; 99291; G0480; J1200; J1940; J1953; J2060; J2185; J2310; J2405; J2765; J2920; J2930; J3250; J3370; J3490; J7042; J7060; J7512

== ENCOUNTER 2018-01-06 12:58 | Inpatient (IN) | payer OTHER, MEDICARE ==
[~2018-01-06] VITALS: Ht 160 cm; Wt 67.3 kg
[~2018-01-06 12:58] MED LIST changes: +CARVEDILOL3.125 M1 PO; +LISINOPRIL2.5 M1 PO
[2018-01-06 13:25] LABS: ABSOLUTE BASOPHIL COUNT 0 /CUMM (0.0-0.2); ABSOLUTE EOSINOPHIL COUNT 0 /CUMM (0.0-0.7); ABSOLUTE GRANULOCYTE CT 7.5 /CUMM (1.4-6.5); ABSOLUTE LYMPH COUNT 1.9 /CUMM (1.2-3.4); ABSOLUTE MONOCYTE COUNT 0.7 /CUMM (0.10-0.60); BASOPHIL % 0.3 % (0.0-2.0); EOSINOPHIL % 0.1 % (0-5); GRANULOCYTE % 74.2 % (42.2-75.2); HEMATOCRIT 33.5 % (37-47); MEAN CORPUSCULAR HGB 29.8 PG (27.0-31.0); MEAN CORPUSCULAR HGB CONC 33.3 G/DL (33.0-37.0); MEAN CORPUSCULAR VOLUME 89.6 FL (81.0-99.0); PLATELET COUNT 240 /CUMM (130-400); RBC DISTRIBUTION WIDTH 14.8 % (11.5-14.5); RED BLOOD CELL CT 3.74 /CUMM (4.20-5.40); WHITE BLOOD CELL COUNT 10.2 /CUMM (4.8-10.8)
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
--- NOTE | 2018-01-06 14:44 | RADIOLOGY REPORT ---
EXAMINATION: XR CHEST CLINICAL INFORMATION: Shortness of breath. Leg swelling COMPARISON: Frontal view 08/28/17 TECHNIQUE: 2 views of the chest were obtained. FINDINGS: Metallic wire projects over the lower cervical region. A series of leads or electrodes superimposed over the epigastric region and medial right chest extending over the cervical region. Calcified aortic arch. The cardiac size, amado, vasculature are within normal limits. There is no consolidation. There are a few minor reticular opacities. No pleural fluid or pneumothorax. Minor blunting posteriorly. In the lateral projection the presumed electrodes are in the dorsal soft tissues. There are surgical clips in the upper abdomen. Chronic appearing abnormality distal right clavicle. IMPRESSION: No pneumonia or edema. In comparison with 08/28/17 no suspicious interval change
--- NOTE | 2018-01-06 17:32 | CT SCAN REPORT ---
EXAMINATION: CT ANGIOGRAM OF THE CHEST WITH AND WITHOUT CONTRAST (CT PULMONARY ANGIOGRAM FOR PE) CLINICAL INFORMATION: Reason for Study: Presumptive Dx: PE, PNA, EDEMA, COMPRESSION FRACTURE. Signs Symptoms: SOB, HYPOXIA THORACIC BACK PAIN COMPARISON: Portions of a chest CT performed without IV contrast 12/23/17 TECHNIQUE: Prior to contrast administration, noncontrast localization images were obtained. Subsequently, multidetector volumetric imaging was performed from the thoracic inlet to below the diaphragms following the administration of 95 mL Optiray 320 intravenous contrast. No contrast reaction reported. Sagittal, coronal, and MIP oblique sagittal reformatted images were obtained on the CT workstation, uploaded to PACS, and reviewed. Total exam dose-length product 267 mGy-cm. FINDINGS: QUALITY OF STUDY/CONTRAST BOLUS: Satisfactory PULMONARY ARTERIES: There is no pulmonary embolus demonstrated. The main pulmonary artery is normal caliber. THORACIC AORTA: There is atherosclerosis of the aorta. There is no thoracic aortic aneurysm or dissection. There is coronary artery calcification. LUNG: The lungs have been recently evaluated. No suspicious abnormality of the trachea. The mainstem bronchi are patent. There is an irregular spiculated mass in the superior segment of the left lower lobe which measures 2.0 cm. There are some additional nonspecific opacities in the left lung base. There is a juxtapleural 1.1 cm abnormality associated with the margin of the major fissure on the left. There is a 1.0 cm solid nodule in the left lower lobe posteriorly. There is an irregular 0.9 cm mass abutting the mediastinal pleura in the medial left apex. There are a few scattered reticular opacities. There is at least mild emphysema. PLEURA: There is a small amount of left pleural fluid. There is no pneumothorax. MEDIASTINUM: There is approximately 1.8 cm aorticopulmonary window lymph node. There is a 1.8 cm precarinal lymph node. There are additional mediastinal lymph nodes. There are mildly prominent left hilar lymph nodes. No evidence of septal bowing or right heart strain. CHEST WALL/AXILLA: No axillary or internal mammary lymphadenopathy. There is a partially included several electrodes in the dorsal soft tissues with leads extending into the dorsal soft tissues towards the cervical region. OSSEOUS STRUCTURES: Metallic wires associated with the posterior elements in the cervical spine. There is callus formation associated with multiple anterior left rib fractures. There may be fusion of the lower cervical spine. There are compression deformities involving the superior endplate of T12 and T10. There is scoliosis. UPPER ABDOMEN: There are surgical clips in the expected region of the gallbladder. The visualized common duct is dilated. No reflux of contrast into the hepatic veins to suggest elevated right heart pressures. IMPRESSION: No pulmonary embolus demonstrated. There are concerning pulmonary masses. Malignancy should be excluded. Superior compression deformities in the lower thoracic spine. Mediastinal and left hilar adenopathy. VTE: negative
[2018-01-06] MEDS ORDERED: OXYCODONE HCL15 M1 PO (19:16)
[2018-01-06] MEDS ORDERED: OXYCONTIN20 M1 PO (19:16)
[2018-01-06] MEDS ORDERED: XANAX0.5 M1 PO (19:17)
[2018-01-06] MEDS ORDERED: KEPPRA750 M1 PO (19:17)
[2018-01-06] MEDS ORDERED: LISINOPRIL5 M1 PO (19:18)
[2018-01-06] MEDS ORDERED: PREDNISONE10 M2 PO (19:18)
[2018-01-06] MEDS ORDERED: VITAMIN B-121000 MC3 PO (19:21)
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
[2018-01-06 22:51] VITALS: BP 130/80
--- NOTE | 2018-01-07 05:24 | Admission Certification ---
Admission Certification Certification Statement - As attending physician, I certify that at the time of - admission, based on clinical presentation, severity of - symptoms, need for further diagnostic testing and - therapeutic interventions, and risk of adverse outcomes - without in-hospital treatment, in my clinical assessment, - this patient requires an acute hospital stay for a minimum - of two nights or longer. I have also considered psychsocial - factors such as support system, advanced age, financial - issues, cognitive issues, and failed out-patient treatments, - past re-admission history, safety of patient, and lack of - compliance as applicable. Specific rationale supporting this admission is: COPD exacerbation
[2018-01-07 06:11] VITALS: BP 152/90
--- NOTE | 2018-01-07 07:32 | PN- Housestaff ---
Gogo MCKEON,[facility] 01/07/18 0731: Subjective Follow-up For: COPD Exacerbation Subjective: Patient says she does feel weel, has pain all over her body, oxycodone does not work and would like to try Dilaudid. Seems sacha anxious. Still have some difficulty breathing. Review of Systems Constitutional: Reports: malaise. EENTM: Reports: no symptoms. Cardiovascular: Reports: no symptoms. Respiratory: Reports: cough, short of breath. Gastrointestinal: Reports: no symptoms. Genitourinary: Reports: no symptoms. Musculoskeletal: Reports: muscle pain. Skin: Reports: no symptoms. Neurological/Psychological: Reports: anxiety, headache. Objective Last 24 Hrs of Vital Signs/I&O Vital Signs Date Time Temp Pulse Resp B/P B/P Pulse O2 O2 Flow FiO2 Mean Ox Delivery Rate 01/07 1217 Nasal 1.5L Cannula 01/07 0836 78 152/90 01/07 0800 96 Nasal 1.5L Cannula 01/07 0611 97.6 78 20 152/90 97 01/07 0000 100 Nasal 1.5L Cannula 01/06 2251 98.3 78 18 130/80 93 Nasal 1.5L Cannula 01/06 2206 Nasal 1.5L Cannula 01/06 2011 75 22 135/75 100 Nasal 1.5L Cannula 01/06 1910 97 Nasal 2.5L Cannula 01/06 1454 96 Nasal 2.0L Cannula Intake & Output 01/07 1600 01/07 0800 01/07 0000 Intake Total 480 480 Output Total 400 200 Balance 80 280 Intake, Oral 480 480 Number 1 Bowel Movements Output, Urine 400 200 Patient 143 lb 154 lb Weight Weight Bed scale Bed scale Measurement Method Physical Exam General Appearance: Alert, Cooperative, No Acute Distress Skin: No Rashes, No Breakdown, Bruises on bilateral upper extremity Cardiovascular: Regular Rate, Normal S1, Normal S2 Lungs: Decreased breath sounds, wheezing Abdomen: Normal Bowel Sounds, Soft, Mild epigastric tenderness Current Medications: Current Medications Sig/Halie Start time Last Medication Dose Route Stop Time Status Admin Albuterol Sulfate 3 ML EVERY 4 HRS/AWAKE 01/07 1200 AC 01/07 INH 1214 Albuterol Sulfate 2 PUF Q4-6 PRN PRN 01/06 2130 AC 01/07 INH 0604 Albuterol Sulfate 3 ML ONCE ONE 01/06 1845 DC 06/27 INH 01/06 1846 1859 Albuterol Sulfate 3 ML ONCE ONE 01/06 1445 DC 01/06 INH 01/06 1446 1454 Alprazolam 0.5 MG TID 01/07 0900 AC 01/07 PO 07 0859 0834 Apixaban 5 MG BID 01/07 0900 AC 01/07 PO 0836 Azithromycin 500 MG DAILY 01/07 0900 AC 01/07 Sodium Chloride 250 ML IV 0835 Azithromycin 500 MG ONCE ONE 01/06 1900 DC 01/06 Sodium Chloride 250 ML IV 01/06 1959 1955 Budesonide/ 2 PUF BID 01/07 0900 AC 01/07 Formoterol Fumarate INH 0837 Ferrous Sulfate 325 MG DAILY 01/07 0900 AC 01/07 PO 0836 Furosemide 20 MG DAILY 01/07 0900 AC 01/07 PO 0836 Guaifenesin 600 MG Q12 01/07 0900 AC 01/07 PO 0836 Guaifenesin 600 MG Q12 01/07 0900 AC PO Hydromorphone HCl 0.5 MG ONCE ONE 01/07 1100 DC 01/07 IV 01/07 1101 1055 Hydromorphone HCl 0.4 MG Q6P PRN 01/06 2145 AC 01/07 IV 0603 Hydromorphone HCl 1 MG ONCE ONE 01/06 1900 DC 01/06 IV 01/06 1901 1900 Hydromorphone HCl 0 .STK-MED ONE 01/06 1852 DC .ROUTE Ipratropium [place] 2.5 ML EVERY 4 HRS/AWAKE 01/07 1200 AC 01/07 INH 1214 Ipratropium [place] 2.5 ML ONCE ONE 01/06 1445 DC 01/06 INH 01/06 1446 1454 Levetiracetam 750 MG BID 01/06 2123 AC 01/07 PO 0836 Lisinopril 5 MG DAILY 01/07 0900 AC 01/07 PO 0836 Methylprednisolone 40 MG Q8 01/06 2200 AC 01/07 IV 0505 Methylprednisolone 0 .STK-MED ONE 01/06 1852 DC .ROUTE Methylprednisolone 125 MG ONCE ONE 01/06 1845 DC 01/06 IV 01/06 1846 1900 Omeprazole 40 MG DAILY AC 01/07 0700 AC 01/07 PO 0505 Oxycodone HCl 15 MG TID 01/06 2124 AC 01/07 PO 0835 Oxycodone HCl 20 MG BID 01/06 2123 AC 01/07 PO 0834 Oxycodone HCl 20 MG ONCE ONE 01/06 1445 DC 01/06 PO 01/06 144 1447 Oxycodone HCl 0 .STK-MED ONE 01/06 1445 DC PO Last 24 Hrs of Lab/Randall Results Last 24 Hrs of Labs/Mics: Laboratory Tests 01/07/18 0726: Anion Gap 8, Estimated GFR 56 L, BUN/Creatinine Ratio 19.0, CBC w Diff NO MAN DIFF REQ, RBC 3.52 L, MCV 88.2, MCH 29.6, MCHC 33.6, RDW 14.6 H, MPV 6.9 L, Gran % 87.4 H, Lymphocytes % 11.1 L, Monocytes % 1.2 L, Eosinophils % 0, Basophils % 0.3, Absolute Granulocytes 4.3, Absolute Lymphocytes 0.5 L, Absolute Monocytes 0.1, Absolute Eosinophils 0, Absolute Basophils 0 01/06/18 1315: Anion Gap 10, Estimated GFR 42 L, BUN/Creatinine Ratio 20.8, Glucose 87, Hemoglobin A1c 5.3, Calcium 9.4, Total Bilirubin 0.5, AST 26, ALT 25, Alkaline Phosphatase 166 H, Troponin I < 0.01, Bwf-V-Bycffbkxaxt Pept 281 H, Total Protein 6.6, Albumin 4.0, Globulin 2.6, Albumin/Globulin Ratio 1.5, CBC w Diff NO MAN DIFF REQ, RBC 3.74 L, MCV 89.6, MCH 29.8, MCHC 33.3, RDW 14.8 H, MPV 7.0 L, Gran % 74.2, Lymphocytes % 18.8 L, Monocytes % 6.6, Eosinophils % 0.1, Basophils % 0.3, Absolute Granulocytes 7.5 H, Absolute Lymphocytes 1.9, Absolute Monocytes 0.7 H, Absolute Eosinophils 0, Absolute Basophils 0 Microbiology 01/07 0950 LOWER RESP: Respiratory Culture - RECD 01/07 0950 LOWER RESP: Gram Stain - RECD 01/07 2136 BLOOD: Blood Culture - CAN Cancelled: Cancelled via OE: Per MD Decision 01/07 2136 BLOOD: Blood Culture - CAN Cancelled: Cancelled via OE: Per MD Decision Assessment/Plan Assessment: Assessment -Dyspnea and productive cough secondary to COPD exacerbation -Lung masses on CTA -History of seizures/pseudoseizures -History of PE on Eliquis Plan - Continue IV Solu-Medrol 40 mg IV every 8, change to Q 12 tomorrow. - Continue Azithromycin - Continue Supplemental oxygen. - TRC nebs with Mucinex - Follow up gram stain and sputum cultures - Appreciate Pulm recommendations. - Continue Home medications. Patient is full code Regular diet pured and nectar thick DVT prophylaxis with Alps and Eliquis Problem List: 1. COPD exacerbation Pain Ratin Pain Location: Generalized Body pain Pain Goal: Remain pain free Pain Plan: Pain Pathway Tomorrow's Labs & Rationales: None Brant MCKEON,[facility] 01/07/18 1439: Attending MD Review Statement Attending Statement Attending MD Statement: examined this patient, discuss w/resident/PA/MANAGER PRODUCT, agreed w/resident/PA/MANAGER PRODUCT, reviewed EMR data (avail), discussed with nursing, discussed with case mgmt, reviewed images, amended to note Attending Assessment/Plan: patient seen and examined, still having shortness of breath and B's. Patient is completing of pain in her back and wants her Dilaudid. Vital Signs Date Time Temp Pulse Resp B/P B/P Pulse O2 O2 Flow FiO2 Mean Ox Delivery Rate 01/07 1217 Nasal 1.5L Cannula 01/07 0836 78 152/90 01/07 0800 96 Nasal 1.5L Cannula 01/07 0611 97.6 78 20 152/90 97 01/07 0000 100 Nasal 1.5L Cannula 01/06 2251 98.3 78 18 130/80 93 Nasal 1.5L Cannula 01/06 2206 Nasal 1.5L Cannula 01/06 2011 75 22 135/75 100 Nasal 1.5L Cannula 01/06 1910 97 Nasal 2.5L Cannula 01/06 1454 96 Nasal 2.0L Cannula on exam; aox3, nad. cv; s1,s2 rrr resp; b/l exp wheeze. abd; soft, nt, bs+ ext; no edema Laboratory Tests 01/07 0726 Chemistry Sodium (137 - 145 mmol/L) 137 Potassium (3.5 - 5.1 mmol/L) 4.4 Chloride (98 - 107 mmol/L) 96 L Carbon Dioxide (22 - 30 mmol/L) 33 H Anion Gap (5 - 16) 8 BUN (7 - 17 mg/dL) 19 H Creatinine (0.5 - 1.0 mg/dL) 1.0 Estimated GFR (>60 ml/min) 56 L BUN/Creatinine Ratio (7 - 25 %) 19.0 Hematology CBC w Diff NO MAN DIFF REQ WBC (4.8 - 10.8 /CUMM) 5.0 RBC (4.20 - 5.40 /CUMM) 3.52 L Hgb (12.0 - 16.0 G/DL) 10.4 L Hct (37 - 47 %) 31.1 L MCV (81.0 - 99.0 FL) 88.2 MCH (27.0 - 31.0 PG) 29.6 MCHC (33.0 - 37.0 G/DL) 33.6 RDW (11.5 - 14.5 %) 14.6 H Plt Count (130 - 400 /CUMM) 197 MPV (7.4 - 10.4 FL) 6.9 L Gran % (42.2 - 75.2 %) 87.4 H Lymphocytes % (20.5 - 51.1 %) 11.1 L Monocytes % (1.7 - 9.3 %) 1.2 L Eosinophils % (0 - 5 %) 0 Basophils % (0.0 - 2.0 %) 0.3 Absolute Granulocytes (1.4 - 6.5 /CUMM) 4.3 Absolute Lymphocytes (1.2 - 3.4 /CUMM) 0.5 L Absolute Monocytes (0.10 - 0.60 /CUMM) 0.1 Absolute Eosinophils (0.0 - 0.7 /CUMM) 0 Absolute Basophils (0.0 - 0.2 /CUMM) 0 A/P; 62 y/o F with pmh sig for chronic resp failure, COPD, HTN, seizures on Keppra and pseudoseizures, lung CA, chronic neck pain sp implanted nerve stimulator, anxiety, PE on eliquis, GERD, admitted with acute COPD exacerbation. Objective pulmonology input. Continue steroids, TRC nebs and his throat. Follow been sputum culture. Patient on Dilaudid, OxyContin and oxycodone for pain management. Mild hyperkalemia and increased creatinine on admission have resolved. Patient on Eliquis for DVT prophylaxis.
[2018-01-07 08:00] LABS: ABSOLUTE BASOPHIL COUNT 0 /CUMM (0.0-0.2); ABSOLUTE EOSINOPHIL COUNT 0 /CUMM (0.0-0.7); ABSOLUTE GRANULOCYTE CT 4.3 /CUMM (1.4-6.5); ABSOLUTE LYMPH COUNT 0.5 /CUMM (1.2-3.4); ABSOLUTE MONOCYTE COUNT 0.1 /CUMM (0.10-0.60); BASOPHIL % 0.3 % (0.0-2.0); EOSINOPHIL % 0 % (0-5); HEMATOCRIT 31.1 % (37-47); MEAN CORPUSCULAR HGB 29.6 PG (27.0-31.0); MEAN CORPUSCULAR HGB CONC 33.6 G/DL (33.0-37.0); MEAN CORPUSCULAR VOLUME 88.2 FL (81.0-99.0); MEAN PLATELET VOLUME 6.9 FL (7.4-10.4); PLATELET COUNT 197 /CUMM (130-400); RBC DISTRIBUTION WIDTH 14.6 % (11.5-14.5); RED BLOOD CELL CT 3.52 /CUMM (4.20-5.40)
[2018-01-07 08:54] LABS: GRANULOCYTE % 87.4 % (42.2-75.2)
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
[2018-01-07 14:39] VITALS: BP 108/64
[2018-01-07 21:22] VITALS: BP 128/68
[2018-01-08 06:40] VITALS: BP 136/74
--- NOTE | 2018-01-08 07:30 | PN- Housestaff ---
Gogo MCKEON,[facility] 01/08/18 0729: Subjective Follow-up For: COPD Exacerbation Subjective: Patient states she felt better yesterday compared to today. Reports worsening lower extremity edema. Wants to know about the result of her sputum culture which is still pending. Also concerned if she is safe to go home with he rib fractures. Review of Systems Constitutional: Reports: no symptoms. EENTM: Reports: no symptoms. Cardiovascular: Reports: peripheral edema. Respiratory: Reports: cough, short of breath, wheezing. Gastrointestinal: Reports: no symptoms. Genitourinary: Reports: no symptoms. Musculoskeletal: Reports: no symptoms. Skin: Reports: no symptoms. Neurological/Psychological: Reports: no symptoms. Hematologic/Endocrine: Reports: no symptoms. Immunologic/Allergic: Reports: no symptoms. Objective Last 24 Hrs of Vital Signs/I&O Vital Signs Date Time Temp Pulse Resp B/P B/P Pulse O2 O2 Flow FiO2 Mean Ox Delivery Rate 01/08 0844 98 Nasal 1.0L Cannula 01/08 0800 96 Nasal 1.0L Cannula 01/08 0756 94 136/74 01/08 0640 98.1 94 18 136/74 93 01/08 0416 98 Nasal 1.0L Cannula 01/08 0000 Nasal 1.5L Cannula 01/07 2122 98.4 110 19 128/68 96 Nasal 1.5L Cannula 01/07 1605 98 Nasal 1.0L Cannula 01/07 1600 Nasal 1.5L Cannula 01/07 1439 97.9 85 20 108/64 99 Nasal Cannula 01/07 1217 Nasal 1.5L Cannula Intake & Output 01/08 1600 01/08 0800 01/08 0000 Intake Total 480 1700 Output Total 800 Balance -320 1700 Intake, Oral 480 1700 Number 1 Bowel Movements Output, Urine 800 Patient 148 lb Weight Physical Exam General Appearance: Alert, Oriented X3, Cooperative, No Acute Distress Skin: No Rashes, No Breakdown, bruises all oer the body Cardiovascular: Regular Rate, Normal S1, Normal S2 Lungs: Wheezing bilaterally Abdomen: Normal Bowel Sounds, Soft, No Tenderness Extremities: No Clubbing, No Cyanosis, +1 pitting edema bilaterally Current Medications: Current Medications Sig/Halie Start time Last Medication Dose Route Stop Time Status Admin Albuterol Sulfate 3 ML EVERY 4 HRS/AWAKE 01/07 1200 AC 01/08 INH 0844 Albuterol Sulfate 2 PUF Q4-6 PRN PRN 01/06 2130 AC 01/08 INH 0337 Alprazolam 0.5 MG TID 01/07 0900 AC 01/08 PO 01/14 0859 0754 Apixaban 5 MG BID 01/07 0900 AC 01/08 PO 0755 Azithromycin 250 MG DAILY 01/08 0900 AC 01/08 PO 0800 Azithromycin 500 MG DAILY 01/07 0900 DC 01/07 Sodium Chloride 250 ML IV 0835 Budesonide/ 2 PUF BID 01/07 0900 AC 01/08 Formoterol Fumarate INH 0758 Ferrous Sulfate 325 MG DAILY 01/07 0900 AC 01/08 PO 0755 Furosemide 20 MG DAILY 01/07 0900 AC 01/08 PO 0755 Guaifenesin 600 MG Q12 01/07 0900 AC 01/08 PO 0755 Guaifenesin 600 MG Q12 01/07 0900 DC 01/07 PO 2123 Hydromorphone HCl 0.5 MG ONCE ONE 01/07 1100 DC 01/07 IV 01/07 1101 1055 Hydromorphone HCl 0.4 MG Q6P PRN 01/06 214 AC 01/08 IV 0337 Ipratropium [place] 2.5 ML EVERY 4 HRS/AWAKE 01/07 1200 AC 01/08 INH 0843 Levetiracetam 750 MG BID 01/06 2123 AC 01/08 PO 0755 Lisinopril 5 MG DAILY 01/07 0900 AC 01/08 PO 0756 Methylprednisolone 40 MG Q12H 01/08 1800 AC IV Methylprednisolone 40 MG Q12 01/08 0900 DC IV Methylprednisolone 40 MG Q8 01/06 2200 DC 01/08 IV 0605 Omeprazole 40 MG DAILY AC 01/07 0700 AC 01/08 PO 0605 Oxycodone HCl 20 MG .STK-MED ONE 01/07 2114 DC PO 01/07 211 Oxycodone HCl 15 MG TID 01/07 2100 AC 01/08 PO 0755 Oxycodone HCl 15 MG TID 01/07 2124 DC 01/07 PO 1336 Oxycodone HCl 20 MG BID 01/06 2123 AC 01/08 PO 0755 Patient Medication 1 ED ONE ONE 01/07 1645 [place] 01/07 Teaching ED 01/07 1646 2122 Last 24 Hrs of Lab/Randall Results Last 24 Hrs of Labs/Mics: Microbiology 01/07 0950 LOWER RESP: Respiratory Culture - RES 01/07 0950 LOWER RESP: Gram Stain - RES Assessment/Plan Assessment: This is a 62 year old female with a PMH of COPD, HTN, seizures on Keppra and pseudoseizures, lung CA, chronic neck pain sp implanted nerve stimulator, anxiety, PE on eliquis, GERD, that comes to see us after being recently discharged from the ED for complaints of continued and worsening back pain and shortness of breath with lower extremity edema. Problem List; -Dyspnea and productive cough secondary to COPD exacerbation -Lung masses on CTA -History of seizures/pseudoseizures -History of PE on Eliquis Plan - Change IV Solu-Medrol 40 mg IV from every 8 hrs, to Q 12. - Continue Supplemental oxygen. - TRC nebs with Mucinex - Follow Sputum cultures -growing yeast and gram-negative rods. - Will obtain ID consult to see if patient needs antibiotics. - Will give an extra dose of Lasix 20 mg 1 - Appreciate Pulm recommendations. - Continue Home medications. Patient is full code Regular diet pured and nectar thick DVT prophylaxis with Alps and Eliquis Problem List: 1. COPD exacerbation Pain Ratin Pain Location: Neck, back and lower extremity Pain Goal: Remain pain free Pain Plan: Pain Pathway Tomorrow's Labs & Rationales: None Brant MCKEON,[facility] 01/08/18 1402: Attending MD Review Statement Attending Statement Attending MD Statement: examined this patient, discuss w/resident/PA/WAGE ANALYST, agreed w/resident/PA/WAGE ANALYST, reviewed EMR data (avail), discussed with nursing, discussed with case mgmt, reviewed images, amended to note Attending Assessment/Plan: Patient seen and examined, c/o feeling nauseous. Also c/o headache, back pain. Vital Signs Date Time Temp Pulse Resp B/P B/P Pulse O2 O2 Flow FiO2 Mean Ox Delivery Rate 01/08 0844 98 Nasal 1.0L Cannula 01/08 0800 96 Nasal 1.0L Cannula 01/08 0756 94 136/74 01/08 0640 98.1 94 18 136/74 93 01/08 0416 98 Nasal 1.0L Cannula 01/08 0000 Nasal 1.5L Cannula 01/072 98.4 110 19 128/68 96 Nasal 1.5L Cannula 01/07 1605 98 Nasal 1.0L Cannula 01/07 1600 Nasal 1.5L Cannula 01/07 1439 97.9 85 20 108/64 99 Nasal Cannula On exam; aox3, nad. cv; s1,s2 rrr resp; decreased bs overall. abd; soft, nt, bs+ ext; no edema No labs. Sputum Cx GNR, yeast. A/P: 62 y/o F with pmh sig for chronic resp failure, COPD, HTN, seizures on Keppra and pseudoseizures, lung CA, chronic neck pain sp implanted nerve stimulator, anxiety, PE on eliquis, GERD, admitted with acute COPD exacerbation. Sputum Cx GNR, yeast. Will get ID consult. Pt was started on azithro on admission but will follow further ID recommendations. IV steroids per pulm. Continue current pain mx. Continue other currents meds, TRC nebs. DVT px; Eliquis.
--- NOTE | 2018-01-08 07:32 | Discharge Summary ---
Visit Information Visit Dates Admission Date: 01/06/18 Hospital Course Course Attending Physician: Arthur Cook MD Primary Care Physician: Narinder MCKEON,Cristian Antoine Hospital Course: This is a 62 year old female with a PMH of COPD, HTN, seizures on Keppra and pseudoseizures, lung CA, chronic neck pain sp implanted nerve stimulator, anxiety, PE on eliquis, GERD, that comes to see us after being recently discharged from the ED for complaints of continued and worsening back pain and shortness of breath with lower extremity edema. Patient was admitted to [facility] floor and following issues were adressed; 1. COPD exacerbation 2. Lung masses on CTA 3. History of seizures/pseudoseizures 4. History of PE on Eliquis Admission Data: Vitals: Temperature 98.5, pulse 87, RR 18, blood pressure 131/84, saturating 96% on 1.5 L nasal cannula. On exam: A O 3, cooperative, no acute distress, neck supple, JVD normal, no lymphadenopathy, mucosa moist, no focal neurological deficit, no dependent edema , no obvious skin rashes or inflammation, multiple bruises on the skin CVS: S1- S2, RRR. RS: Diffuse wheezing bilaterally with rhonchi. Abdomen: Soft, NT, ND, bowel sounds present. CXR: No pneumonia or edema. CTA chest: No pulmonary embolus demonstrated. There are concerning pulmonary masses. Malignancy should be excluded. Superior compression deformities in the lower thoracic spine. Mediastinal and left hilar adenopathy. She received care from the following specialist during her stay: Laborer/Key Man: Dr. Zapata Infectious Disease: Dr. Rai Patient was started on azithromycin and IV Solu-Medrol tapered gradually. Supplemental oxygen was continued. CT chest was obtained to rule out PE and showed pulmonary masses, patient advised to follow-up with her sales service promoter as an outpatient for further workup to exclude any malignancy. Sputum cultures were obtained which grew yeast and gram-negative rods. ID consult was obtained and patient was taken off antibiotics as her sputum cultures were suggestive of colonization over infection. During the course of her hospital stay, her chronic pain was difficult to manage. Her pain specialist was consulted and his recommendations were followed to increase both her long and short acting opioid medications. This seemed to improve her symptoms. On 01/13/18 she was deemed clear for discharge home with home health care services. She will follow up with her sales service promoter and PCP as an outpatient. She will resume all her home medications upon discharge. Allergies: Coded Allergies: ceftriaxone (Severe, ANAPHYLAXIS 06/29/16) morphine (Severe, TONGUE SWELLING 10/26/16) patient had a significantly positive urine toxicology morphine level at time of presentation to the E.D. 09/30/2016 (was admitted to medical floor from E.D.) Significant Procedures: CTA CHEST-PULMONARY EMBOLISM FINDINGS: PULMONARY ARTERIES: There is no pulmonary embolus demonstrated. The main pulmonary artery is normal caliber. THORACIC AORTA: There is atherosclerosis of the aorta. There is no thoracic aortic aneurysm or dissection. There is coronary artery calcification. LUNG: The lungs have been recently evaluated. No suspicious abnormality of the trachea. The mainstem bronchi are patent. There is an irregular spiculated mass in the superior segment of the left lower lobe which measures 2.0 cm. There are some additional nonspecific opacities in the left lung base. There is a juxtapleural 1.1 cm abnormality associated with the margin of the major fissure on the left. There is a 1.0 cm solid nodule in the left lower lobe posteriorly. There is an irregular 0.9 cm mass abutting the mediastinal pleura in the medial left apex. There are a few scattered reticular opacities. There is at least mild emphysema. PLEURA: There is a small amount of left pleural fluid. There is no pneumothorax. MEDIASTINUM: There is approximately 1.8 cm aorticopulmonary window lymph node. There is a 1.8 cm precarinal lymph node. There are additional mediastinal lymph nodes. There are mildly prominent left hilar lymph nodes. No evidence of septal bowing or right heart strain. CHEST WALL/AXILLA: No axillary or internal mammary lymphadenopathy. There is a partially included several electrodes in the dorsal soft tissues with leads extending into the dorsal soft tissues towards the cervical region. OSSEOUS STRUCTURES: Metallic wires associated with the posterior elements in the cervical spine. There is callus formation associated with multiple anterior left rib fractures. There may be fusion of the lower cervical spine. There are compression deformities involving the superior endplate of T12 and T10. There is scoliosis. UPPER ABDOMEN: There are surgical clips in the expected region of the gallbladder. The visualized common duct is dilated. No reflux of contrast into the hepatic veins to suggest elevated right heart pressures. IMPRESSION: No pulmonary embolus demonstrated. There are concerning pulmonary masses. Malignancy should be excluded. Superior compression deformities in the lower thoracic spine. Mediastinal and left hilar adenopathy. VTE: negative XRY-CHEST XRAY, TWO VIEWS FINDINGS: Metallic wire projects over the lower cervical region. A series of leads or electrodes superimposed over the epigastric region and medial right chest extending over the cervical region. Calcified aortic arch. The cardiac size, amado, vasculature are within normal limits. There is no consolidation. There are a few minor reticular opacities. No pleural fluid or pneumothorax. Minor blunting posteriorly. In the lateral projection the presumed electrodes are in the dorsal soft tissues. There are surgical clips in the upper abdomen. Chronic appearing abnormality distal right clavicle. IMPRESSION: No pneumonia or edema. In comparison with 08/28/17 no suspicious interval change Disposition Summary Disposition Principal Diagnosis: COPD exacerbation Additional Diagnosis: # Lung masses on CTA # History of seizures/pseudoseizures # History of PE on Eliquis Discharge Disposition: home or self care Discharge Instructions General Discharge Information Code Status: Full Code Patient's Diet: Chopped and Kila Patient's Activity: As tolerated Follow-Up Instructions/Appts: Please follow up with your PCP within a week after discharge. Review of further workup as an outpatient to further evaluate the lung masses found on CTA, please follow-up with your sales service promoter after discharge. Medications at Discharge Discharge Medications: Continue taking these medications: Tiotropium [place] (Spiriva) 18 MCG CAP.W.DEV 1 Capsule ORAL DAILY Comments: NOT GIVEN IN THE HOSPITAL Apixaban (Eliquis) 5 MG TABLET 1 Tablet ORAL TWICE DAILY Comments: Last Taken: 01/13/18 Time: 09:21 Ipratropium/Albuterol Sulfate (Iprat-Albut 0.5-3(2.5) MG/3 Ml) 0.5 MG-3 MG (2.5 MG BASE)/3 ML AMPUL.NEB 1 PUFF Inhale through mouth EVERY SIX HOURS as needed for breathing Comments: Last Taken: 01/13/18 Time: 12:20 Albuterol Sulfate (Ventolin Hfa) 90 MCG HFA.AER.AD 2 Puff Inhale through mouth EVERY 4-6 HOURS NEEDED as needed for breathing Comments: Last Taken: 01/13/18 Time: 18:15 Cholecalciferol (Vitamin D3) (Vitamin D) 1,000 UNIT TABLET 1 Tablet ORAL DAILY Comments: NOT GIVEN IN THE HOSPITAL Ferrous Sulfate (Ferrous Sulfate) 325 MG (65 MG IRON) TABLET.DR 1 Tablet ORAL DAILY Qty = 30 Comments: Last Taken: 01/13/18 Time: 09:21 Budesonide/Formoterol Fumarate (Symbicort 160-4.5 Mcg Inhaler) 160 MCG-4.5 MCG/ ACTUATION HFA.AER.AD 2 PUFF Inhale through mouth TWICE DAILY Comments: Last Taken: 01/13/18 Time: 09:21 Guaifenesin (Guaifenesin ER) 600 MG TAB.ER.12H 600 Milligram ORAL EVERY 12 HOURS Qty = 30 Comments: Last Taken: 01/13/18 Time: 09:21 Pantoprazole Sodium (Pantoprazole Sodium) 40 MG TABLET.DR 1 Tablet ORAL TWICE DAILY Comments: NOT GIVEN IN THE HOSPITAL Calcium Carbonate (Tums Ultra Strength) (Unknown Strength) TAB.CHEW Unknown Dose ORAL As Directed as needed for GI Comments: NOT GIVEN IN THE HOSPITAL Carvedilol (Carvedilol) 3.125 MG TABLET 3.125 Milligram ORAL TWICE DAILY Qty = 60 Instructions: . Comments: NOT GIVEN IN THE HOSPITAL Furosemide (Furosemide) 20 MG TABLET 1 Tablet ORAL DAILY Qty = 30 Comments: Last Taken: 01/13/18 Time: 09:21 Oxycodone HCl (Oxycontin) 20 MG TAB.ER.12H 1.5 Tablet ORAL TWICE DAILY Qty = 60 Comments: Last Taken: 01/13/18 Time: 09:18 Oxycodone HCl (Oxycodone HCl) 15 MG TABLET 1 Tablet ORAL 4 TIMES A DAY as needed for PAIN Qty = 90 Comments: Last Taken: 01/13/18 Time: 13:49 Alprazolam (Xanax) 0.5 MG TABLET 1 Tablet ORAL THREE TIMES DAILY Comments: Last Taken: 01/13/18 Time: 13:49 Levetiracetam (Keppra) 750 MG TABLET 1 Tablet ORAL TWICE DAILY Qty = 180 Comments: Last Taken: 01/13/18 Time: 09:21 Lisinopril (Lisinopril) 5 MG TABLET 1 Tablet ORAL DAILY Qty = 30 Comments: Last Taken: 01/13/18 Time: 09:21 Prednisone (Prednisone) 10 MG TABLET 1 Tablet ORAL DAILY Comments: PT RECEIVED 60MG IN HOSPITAL Cyanocobalamin (Vitamin B-12) 1,000 MCG TABLET 1 Tablet ORAL DAILY Comments: NOT GIVEN IN THE HOSPITAL Start taking the following new medications: Prednisone (Prednisone) 10 MG TABLET 1 Tablet ORAL See Instructions Qty = 10 No Refills Instructions: . Comments: Jan 14 5tab Jan 17 4tab Jan 20 3tab Jan 23 2tab Then resume 1tab/day Mirtazapine (Mirtazapine) 7.5 MG TABLET 7.5 Milligram ORAL AT BEDTIME Qty = 30 No Refills Instructions: . Comments: Last Taken: 01/13/18 Time: 21:37 Copies To: Narinder MCKEON,Cristian Antoine; Darryn MCKEON,Ray
--- NOTE | 2018-01-08 11:08 | PN- Pulmonary ---
Subjective HPI/Critical Care Issues: pt seen and examined GNR in sputum cx feeling better rhonchi persist Objective Current Medications: Current Medications Sig/Halie Start time Last Medication Dose Route Stop Time Status Admin Albuterol Sulfate 3 ML EVERY 4 HRS/AWAKE 01/07 1200 AC 01/08 INH 1320 Albuterol Sulfate 2 PUF Q4-6 PRN PRN 01/06 2130 AC 01/08 INH 0337 Alprazolam 0.5 MG TID 01/07 0900 AC 01/08 PO 07 0859 1304 Apixaban 5 MG BID 01/07 0900 AC 01/08 PO 0755 Azithromycin 250 MG DAILY 01/08 0900 AC 01/08 PO 0800 Azithromycin 500 MG DAILY 01/07 0900 DC 01/07 Sodium Chloride 250 ML IV 0835 Budesonide/ 2 PUF BID 01/07 0900 AC 01/08 Formoterol Fumarate INH 0758 Ferrous Sulfate 325 MG DAILY 01/07 0900 AC 01/08 PO 0755 Furosemide 20 MG ONCE ONE 01/08 1030 DC 01/08 PO 01/08 1031 1217 Furosemide 20 MG DAILY 01/07 0900 AC 01/08 PO 0755 Guaifenesin 600 MG Q12 01/07 0900 AC 01/08 PO 0755 Guaifenesin 600 MG Q12 01/07 0900 DC 01/07 PO 2123 Hydromorphone HCl 0.4 MG Q6P PRN 01/06 2145 AC 01/08 IV [address] 2.5 ML EVERY 4 HRS/AWAKE 01/07 1200 AC 01/08 INH 1320 Levetiracetam 750 MG BID 01/06 2123 AC 01/08 PO 0755 Lisinopril 5 MG DAILY 01/07 0900 AC 01/08 PO 0756 Methylprednisolone 40 MG Q12H 01/08 1800 AC IV Methylprednisolone 40 MG Q12 01/08 0900 DC IV Methylprednisolone 40 MG Q8 01/06 2200 DC 01/08 IV 0605 Omeprazole 40 MG DAILY AC 01/07 0700 AC 01/08 PO 0605 Ondansetron HCl 4 MG ONCE ONE 01/08 1015 DC 01/08 PO 01/08 1016 1011 Oxycodone HCl 20 MG .STK-MED ONE 01/074 DC PO 01/07 211 Oxycodone HCl 15 MG TID 01/07 2100 AC 01/08 PO 1304 Oxycodone HCl 15 MG TID 01/07 2124 DC 01/07 PO 1336 Oxycodone HCl 20 MG BID 01/06 2123 AC 01/08 PO 0755 Patient Medication 1 ED ONE ONE 01/07 1645 DC 01/07 Teaching ED 01/07 Vital Signs & I&O Last 24 Hrs of Vitals and I&O: Vital Signs Date Time Temp Pulse Resp B/P B/P Pulse O2 O2 Flow FiO2 Mean Ox Delivery Rate 01/08 0844 98 Nasal 1.0L Cannula 01/08 0800 96 Nasal 1.0L Cannula 01/08 0756 94 136/74 01/08 0640 98.1 94 18 136/74 93 01/08 0416 98 Nasal 1.0L Cannula 01/08 0000 Nasal 1.5L Cannula 01/07 2122 98.4 110 19 128/68 96 Nasal 1.5L Cannula 01/07 1605 98 Nasal 1.0L Cannula 01/07 1600 Nasal 1.5L Cannula 01/07 1439 97.9 85 20 108/64 99 Nasal Cannula Intake & Output 01/08 1600 01/08 0800 01/08 0000 Intake Total 480 1700 Output Total 800 Balance -320 1700 Intake, Oral 480 1700 Number 1 Bowel Movements Output, Urine 800 Patient 148 lb Weight Exam Other Physical Findings: General - alert and oriented HEENT - nasal cannula Cardiovascular - S1, S2 Lungs - rhonchi bilaterally Abdomen - soft, bowel sounds positive, no tenderness Extremities - skin bruising Impression/Plan Impression/Plan Impression/Plan: Impression * GNR in sputum - hx of drug resistant E.Coli * Severe oxygen and prednisone dependent COPD * COPD exacerbation/acute hypoxemic respiratory failure * chronic hypercarbic respiratory failure * pulmonary nodules concerning for malignancy * pulmonary embolism on Eliquis, (09/2015) * CHF * spinal stenosis and chronic pain, hx neurostimulator placement. * sacral fracture history * tobacco dependence history * psychiatric history Plan - f/u sputum culture - GNR currently in sputum, pt has no leukocytosis and no documented fevers, she may be colonized, she historically has had E.Coli that was drug resistant. At this point there is no evidence of pneumonia and would not pursue therapy at this point and re-evaluate based on clinical course - reduce solumedrol 40mg iv q12h - TRC/Nebs - inhalers continue - Eliquis - will require outpatient PET scan DVT prophylaxis at all times (Eliquis)
--- NOTE | 2018-01-08 12:20 | Patient Discharge Instructions ---
Discharge Instructions General Discharge Information You were seen/treated for: COPD Exacerbation Special Instructions: Please follow up with your PCP and Horse Shoer within a week after discharge. Diet Continue normal diet: Yes Activity Full Activity/No Limits: Yes Acute Coronary Syndrome Inclusion Criteria At DC or during hospital stay patient has or had the following: ACS DIAGNOSIS No Discharge Core Measures Meds if any: Prescribed or Continued at Discharge Meds if any: NOT Prescribed or Continued at Discharge Congestive Heart Failure Inclusion Criteria At DC or during hospital stay patient has or had the following: CHF DIAGNOSIS No Discharge Core Measures Meds if any: Prescribed or Continued at Discharge Meds if any: NOT Prescribed or Continued at Discharge Cerebrovascular accident Inclusion Criteria At DC or during hospital stay patient has or had the following: CVA/TIA Diagnosis No Discharge Core Measures Meds if any: Prescribed or Continued at Discharge Meds if any: NOT Prescribed or Continued at Discharge Venous thromboembolism Inclusion Criteria VTE Diagnosis No VTE Type NONE VTE Confirmed by (Test) CT CHEST ANGIOGRAM Discharge Core Measures - Per Current guidelines, there needs to be overlap - treatment for the first 5 days of Warfarin therapy. - If discharged on Warfarin prior to 5 days of - overlap therapy, the patient will need to be - assessed for post discharge needs including - *Post discharge parental anticoagulation - *Warfarin and/or parental anticoagulation education - *Follow up date to check INR post discharge At least 5 days overlap therapy as Inpatient No Meds if any: Prescribed or Continued at Discharge Note: Overlap Therapy is Warfarin and Anticoagulant Meds if any: NOT Prescribed or Continued at Discharge
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
[2018-01-08 14:51] VITALS: BP 128/62
[2018-01-08 21:28] VITALS: BP 144/72
[2018-01-09 06:24] VITALS: BP 143/73
--- NOTE | 2018-01-09 11:06 | PN- Pulmonary ---
Subjective HPI/Critical Care Issues: Patient continues to feel short of breath with productive cough now growing Escherichia coli Objective Current Medications: Current Medications Sig/Halie Start time Last Medication Dose Route Stop Time Status Admin Albuterol Sulfate 3 ML EVERY 4 HRS/AWAKE 01/07 1200 AC 01/09 INH 1042 Albuterol Sulfate 2 PUF Q4-6 PRN PRN 01/06 2130 AC 01/09 INH 0820 Alprazolam 0.5 MG TID 01/07 0900 AC 01/09 PO 01/14 0859 0817 Apixaban 5 MG BID 01/07 0900 AC 01/09 PO 0817 Azithromycin 250 MG DAILY 01/08 0900 DC 01/09 PO 0817 Budesonide/ 2 PUF BID 01/07 0900 AC 01/09 Formoterol Fumarate INH 0820 Ferrous Sulfate 325 MG DAILY 01/07 0900 AC 01/09 PO 0817 Furosemide 20 MG DAILY 01/07 0900 AC 01/09 PO 0817 Guaifenesin 600 MG Q12 01/07 0900 AC 01/09 PO 0817 Hydromorphone HCl 0.4 MG Q6P PRN 01/06 2145 AC 01/09 IV 1001 Ipratropium [place] 2.5 ML EVERY 4 HRS/AWAKE 01/07 1200 AC 01/09 INH 1042 Levetiracetam 750 MG BID 01/06 2123 AC 01/09 PO 0818 Lisinopril 5 MG DAILY 01/07 0900 AC 01/09 PO 0817 Methylprednisolone 40 MG Q12H 01/08 1800 AC 01/09 IV 0550 Omeprazole 40 MG DAILY AC 01/07 0700 AC 01/09 PO 0550 Oxycodone HCl 5 MG ONCE ONE 01/08 1830 DC 01/08 PO 01/08 1831 1846 Oxycodone HCl 15 MG TID 01/07 2100 AC 01/09 PO 0818 Oxycodone HCl 20 MG BID 01/06 2123 AC 01/09 PO 0818 Vital Signs & I&O Last 24 Hrs of Vitals and I&O: Vital Signs Date Time Temp Pulse Resp B/P B/P Pulse O2 O2 Flow FiO2 Mean Ox Delivery Rate 01/09 1049 98 Nasal 2.0L Cannula 01/09 0800 Nasal 2.0L Cannula 01/09 0645 100 Nasal 2.0L Cannula 01/09 0624 98.6 91 22 143/73 99 Nasal 2.0L Cannula 01/09 0000 97 Nasal 2.0L Cannula 01/088 98.3 86 18 144/72 99 01/08 1702 Nasal 2.0L Cannula 01/08 1600 98 Nasal 2.0L Cannula 01/08 1451 98.4 88 20 128/62 92 Room Air Intake & Output 01/09 1600 01/09 0800 01/09 0000 Intake Total 110 270 Output Total 300 Balance -190 270 Intake, IV 50 30 Intake, Oral 60 240 Output, Urine 300 Patient 144 lb Weight Since saturation 2 L 98% exam of her chest shows occasional rhonchi cardiac exam shows a regular S1 and S2 without murmurs Impression/Plan Impression/Plan Impression/Plan: 62-year-old with COPD exacerbation and probable acute bronchitis due to Escherichia coli Recommendations: ID input regarding antibiotic selection in view of antibiotic allergies. Taper FiO2. Continue IV steroids
--- NOTE | 2018-01-09 12:50 | PN- Att Addend ---
Attending Addendum Attending Brief Note Patient seen and examined, says that she's feeling worse than before. She's feeling more congested and says that she feels something in her throat. Vital Signs Date Time Temp Pulse Resp B/P B/P Pulse O2 O2 Flow FiO2 Mean Ox Delivery Rate 01/09 1049 98 Nasal 2.0L Cannula 01/09 0800 Nasal 2.0L Cannula 01/09 0645 100 Nasal 2.0L Cannula 01/09 0624 98.6 91 22 143/73 99 Nasal 2.0L Cannula 01/09 0000 97 Nasal 2.0L Cannula 01/08 2128 98.3 86 18 144/72 99 01/08 1702 Nasal 2.0L Cannula 01/08 1600 98 Nasal 2.0L Cannula 01/08 1451 98.4 88 20 128/62 92 Room Air on exam; aox3, nad. cv; s1, s2, rrr resp; scttered b/l wheeze. abd; soft, nt, bs+ ext; trace edema no labs today. A/P; 62 y/o F with pmh sig for chronic resp failure, COPD, HTN, seizures on Keppra and pseudoseizures, lung CA, chronic neck pain sp implanted nerve stimulator, anxiety, PE on eliquis, GERD, admitted with acute COPD exacerbation. Sputum Cx Ecoli, yeast. Discuss with pulmonology and infectious disease yesterday. Also discussed with Dr. Zamora from infectious disease today. Patient does have Escherichia coli in her sputum but this is thought to be secondary to colonization. Currently patient has been watched off antibiotics. Will defer further decisions for antibiotics to infectious disease. Patient currently on IV steroids. Continue TRC nebs. Continue the rest of the management. Patient on Xanax for anxiety and currently on OxyContin, oxycodone and Dilaudid for pain management. She is on Eliquis for PE and this will also serve the purpose for DVT px.
--- NOTE | 2018-01-09 13:17 | PN- Infect Dx ---
Subjective Subjective: This patient is a 62-year-old woman with multiple medical problems. She has remained afebrile with a normal white blood cell count since admission. Chest x -ray was negative. CT of the chest revealed an irregular spiculated mass in the superior segment of the left lower lobe, an irregular 0.9 cm mass abutting the mediastinal pleura in the medial left apex, scattered opacities and nodules elsewhere, with a small amount of left pleural fluid, and compression deformities involving the superior endplates of T10 and T12. She is off antibiotics but complains of a headache, nausea, hoarseness, shortness of breath, though she is only on 1 L of oxygen, and a cough, productive of white sputum. She is very tearful upon my visit. She is very confused about why we are not treating her with antibiotics. I had a long discussion with the patient addressing colonization versus infection. Patient is very tearful and obviously anxious. She is afebrile and has a normal white blood cell count. Review of Systems Comments: 12 point review of systems as positive findings documented above Objective Last 24 Hrs of Vital Signs/I&O Vital Signs Date Time Temp Pulse Resp B/P B/P Pulse O2 O2 Flow FiO2 Mean Ox Delivery Rate 01/09 1049 98 Nasal 2.0L Cannula 01/09 0800 Nasal 2.0L Cannula 01/09 0645 100 Nasal 2.0L Cannula 01/09 0624 98.6 91 22 143/73 99 Nasal 2.0L Cannula 01/09 0000 97 Nasal 2.0L Cannula 01/08 2128 98.3 86 18 144/72 99 01/08 1702 Nasal 2.0L Cannula 01/08 1600 98 Nasal 2.0L Cannula 01/08 1451 98.4 88 20 128/62 92 Room Air Intake & Output 01/09 1600 01/09 0800 01/09 0000 Intake Total 110 270 Output Total 300 Balance -190 270 Intake, IV 50 30 Intake, Oral 60 240 Output, Urine 300 Patient 144 lb Weight Physical Exam Other Physical Findings: Cushingoid appearance Awake alert oriented and tearful Neck supple no JVD Lungs with decreased breath sounds some scattered wheezing Heart regular rate and rhythm S1-S2 Abdomen soft nontender nondistended Extremities findings consistent with long-term steroid use Results Last 24 Hours of Lab Results: Reviewed Last 24 Hours of [place] Results: Microbiology Date/Time Procedure - Status Source Growth 06/28 0950 Respiratory Culture - COMP LOWER RESP ESCHERICHIA COLI YEAST 01/07 950 Gram Stain - COMP LOWER RESP 01/07 2136 Blood Culture - CAN BLOOD Cancelled: Cancelled via OE: Per Decision 01/07 2136 Blood Culture - CAN BLOOD Cancelled: Cancelled via OE: Per MD Decision Recent Imaging Studies: Reviewed Assessment/Plan ID Impression: This patient is a 62-year-old woman with a significant history of COPD, maintained on 2 L of oxygen and 10 mg of prednisone, found to be afebrile with a normal white blood cell count, a negative chest x-ray and a CT of the chest revealing several pulmonary masses but no consolidation and with her sputum culture positive for gram-negative rods. She remains afebrile, though she is on steroids, and her white blood cell count is normal, making an infection less likely, though it may be difficult to rule out a bronchitis. The positive culture may represent colonization, in which case treatment would not be necessary. Of note she was treated for an E. coli pneumonia and bacteremia 7 months ago prior to admission, but her blood cultures are so far negative and her respiratory status is stable, making pneumonia unlikely. Given her allergy to Ceftriaxone treatment of the gram-negative rods may be complicated, as her previous E. coli was resistant to Bactrim and Ciprofloxacin, requiring treatment with IV antibiotics. She is currently off antibiotics. Patient has significant anxiety and is under the impression that antibiotics are going to resolve her current illnesses. Suggestion: 1. There is no indication that she has an underlying infection and would follow her off antibiotics 2. She has significant anxiety likely related to her underlying illness and steroid therapy. Would recommend longer term antianxiety medication besides Xanax and a psychiatry consult 3. Discussed extensively with patient 4. Discussed extensively with
[2018-01-09 13:36] VITALS: BP 100/60
[2018-01-09 22:51] VITALS: BP 148/86
[2018-01-10 05:38] VITALS: BP 152/102
--- NOTE | 2018-01-10 10:28 | PN- Pulmonary ---
Subjective HPI/Critical Care Issues: Patient is complaining of vomiting and constipation. Respiratory status appears improved and she is now on 1 L supplemental oxygen Objective Current Medications: Current Medications Sig/Halie Start time Last Medication Dose Route Stop Time Status Admin Acetaminophen 650 MG ONCE PRN 01/10 0115 AC PO Albuterol Sulfate 3 ML EVERY 4 HRS/AWAKE 01/07 1200 AC 01/10 INH 0820 Albuterol Sulfate 2 PUF Q4-6 PRN PRN 01/06 2130 AC 01/09 INH 0820 Alprazolam 0.5 MG TID 01/07 0900 AC 01/10 PO 01/14 0859 0808 Apixaban 5 MG BID 01/07 0900 AC 01/10 PO 0807 Azithromycin 250 MG DAILY 01/08 09 DC 01/09 PO 0817 Budesonide/ 2 PUF BID 01/07 0900 AC 01/10 Formoterol Fumarate INH 0809 Ferrous Sulfate 325 MG DAILY 01/07 0900 AC 01/10 PO 0807 Furosemide 20 MG DAILY 01/07 0900 AC 01/10 PO 0807 Guaifenesin 600 MG Q12 01/07 0900 AC 01/10 PO 0808 Hydromorphone HCl 0.4 MG Q6P PRN 01/06 2145 AC 01/10 IV 0523 Ibuprofen 600 MG ONCE ONE 01/10 0100 DC 01/10 PO 01/10 0101 0136 Ipratropium [place] 2.5 ML EVERY 4 HRS/AWAKE 01/07 1200 AC 01/10 INH 0820 Levetiracetam 750 MG BID 01/06 2123 AC 01/10 PO 0808 Lidocaine/Diphenhydr/ 30 ML DAILY 01/10 0916 DC Alum/Mg/Simeth PO Lisinopril 5 MG DAILY 01/07 0900 AC 01/10 PO 0807 Methylprednisolone 40 MG Q12H 01/08 1800 DC 01/10 IV 0523 Nystatin 5 ML 4 TIMES/DAY 01/10 1005 PO Omeprazole 40 MG DAILY AC 01/07 07 AC 01/10 PO 0522 Oxycodone HCl 20 MG .STK-MED ONE 01/10 2040 DC PO 01/09 2041 Oxycodone HCl 5 MG ONCE ONE 01/09 1915 DC 01/09 PO 01/09 191 1908 Oxycodone HCl 15 MG TID 01/07 2100 AC 01/10 PO 0808 Oxycodone HCl 20 MG BID 01/06 2123 AC 01/10 PO 0809 Prednisone 40 MG DAILY 01/11 09 AC PO Prednisone 20 MG ONCE ONE 01/10 1800 AC PO 01/10 1801 Trimethobenzamide HCl 200 MG TID PRN 01/09 1515 AC 01/09 IM 1602 Vital Signs & I&O Last 24 Hrs of Vitals and I&O: Vital Signs Date Time Temp Pulse Resp B/P B/P Pulse O2 O2 Flow FiO2 Mean Ox Delivery Rate 01/10 0830 96 Nasal 1.0L Cannula 01/10 0807 83 152/102 01/10 0800 96 Nasal 1.0L Cannula 01/10 0538 97.9 83 20 152/102 99 Nasal 1.0L Cannula 01/10 0053 Nasal 1.0L Cannula 01/10 0000 96 Nasal 1.0L Cannula 01/09 2251 99.1 108 20 148/86 98 Nasal 1.0L Cannula 01/09 1625 98 Nasal 1.0L Cannula 01/09 1600 Nasal 1.0L Cannula 01/09 1336 98.3 96 20 100/60 96 Nasal 2.0L Cannula 01/09 1049 98 Nasal 2.0L Cannula Intake & Output 01/10 1600 01/10 0800 01/10 0000 Intake Total 260 240 Output Total 400 Balance -140 240 Intake, IV 20 Intake, Oral 240 240 Output, Urine 400 Patient 148 lb Weight Weight Bed scale Measurement Method Patient 1 L 96% exam for chest shows decreased breath sounds are no wheezes cardiac exam shows normal S1 and S2 abdomen is soft slightly distended Impression/Plan Impression/Plan Impression/Plan: 62-year-old with multiple medical problems appears to have improved respiratory status on steroid taper. Vomiting and constipation to be evaluated by primary care team Recommendations: Slow prednisone taper. Taper FiO2 his saturations allow. [place] flatplate pending
--- NOTE | 2018-01-10 11:48 | PN- Infect Dx ---
Subjective Subjective: This patient is a 62-year-old woman with multiple medical problems. She has remained afebrile with a normal white blood cell count since admission. She is off antibiotics but complains of a headache, nausea, hoarseness, shortness of breath, though she is only on 1 L of oxygen, and a cough, productive of white sputum. Complains of headache, back pain and abdominal distention. Review of Systems Comments: As noted in HPI Objective Last 24 Hrs of Vital Signs/I&O Vital Signs Date Time Temp Pulse Resp B/P B/P Pulse O2 O2 Flow FiO2 Mean Ox Delivery Rate 01/10 0830 96 Nasal 1.0L Cannula 01/10 0807 83 152/102 01/10 0800 96 Nasal 1.0L Cannula 01/10 0538 97.9 83 20 152/102 99 Nasal 1.0L Cannula 01/10 0053 Nasal 1.0L Cannula 01/10 0000 96 Nasal 1.0L Cannula 01/09 2251 99.1 108 20 148/86 98 Nasal 1.0L Cannula 01/09 1625 98 Nasal 1.0L Cannula 01/09 1600 Nasal 1.0L Cannula 01/09 1336 98.3 96 20 100/60 96 Nasal 2.0L Cannula Intake & Output 01/10 1600 01/10 0800 01/10 0000 Intake Total 260 240 Output Total 400 Balance -140 240 Intake, IV 20 Intake, Oral 240 240 Output, Urine 400 Patient 148 lb Weight Weight Bed scale Measurement Method Physical Exam Other Physical Findings: Awake alert oriented 3 Pupils equal and reactive to light and accommodation Cushingoid appearance Neck is supple no JVD no lymphadenopathy Lungs with diffuse wheezes Heart is regular rate and rhythm S1-S2 Abdomen is soft with distention Skin shows changes consistent with chronic steroid use Results Last 24 Hours of Lab Results: Reviewed Last 24 Hours of Randall Results: Reviewed Recent Imaging Studies: Reviewed Assessment/Plan ID Impression: This patient is a 62-year-old woman with a significant history of COPD, maintained on 2 L of oxygen and 10 mg of prednisone, found to be afebrile with a normal white blood cell count, a negative chest x-ray and a CT of the chest revealing several pulmonary masses but no consolidation and with her sputum culture positive for gram-negative rods. She remains afebrile, though she is on steroids, and her white blood cell count is normal, making an infection less likely, though it may be difficult to rule out a bronchitis. She is currently off antibiotics. Patient has significant anxiety and complains of abdominal pain is a new issue. Suggestion: 1. There is no indication that she has an underlying infection and would follow her off antibiotics 2. She has significant anxiety likely related to her underlying illness and steroid therapy. 3. Discussed extensively with patient 4. Discussed with attending
--- NOTE | 2018-01-10 11:52 | PN- Housestaff ---
See Addendum Subjective Follow-up For: Worsening back pain SOB with BLE edema Complaints: pain scale (0-10) (reporting pain level of 4) Subjective: Patient had no overnight events but reports one episode of nausea with non bloody emesis after eating breakfast this am. She continues to report SOB on 1L NC with sats of 99%. She reports home O2 is usually 2L NC. She denies fever, chills, diarrhea. Review of Systems Constitutional: Reports: no symptoms. EENTM: Reports: no symptoms. Cardiovascular: Reports: no symptoms. Respiratory: Reports: no symptoms. Gastrointestinal: Reports: nausea, vomiting. Genitourinary: Reports: no symptoms. Musculoskeletal: Reports: neck pain. Skin: Reports: no symptoms. Neurological/Psychological: Reports: no symptoms. Hematologic/Endocrine: Reports: no symptoms. Immunologic/Allergic: Reports: no symptoms. Objective Last 24 Hrs of Vital Signs/I&O Vital Signs Date Time Temp Pulse Resp B/P B/P Pulse O2 O2 Flow FiO2 Mean Ox Delivery Rate 01/10 0830 96 Nasal 1.0L Cannula 01/10 0807 83 152/102 01/10 0800 96 Nasal 1.0L Cannula 01/10 0538 97.9 83 20 152/102 99 Nasal 1.0L Cannula 01/10 0053 Nasal 1.0L Cannula 01/10 0000 96 Nasal 1.0L Cannula 01/09 2251 99.1 108 20 148/86 98 Nasal 1.0L Cannula 01/09 1625 98 Nasal 1.0L Cannula 01/09 1600 Nasal 1.0L Cannula 01/09 1336 98.3 96 20 100/60 96 Nasal 2.0L Cannula Intake & Output 01/10 1600 01/10 0800 07 0000 Intake Total 260 240 Output Total 400 Balance -140 240 Intake, IV 20 Intake, Oral 240 240 Output, Urine 400 Patient 148 lb Weight Weight Bed scale Measurement Method Physical Exam General Appearance: Alert, Oriented X3, Cooperative, No Acute Distress Skin: 0.5x0.5cm raised crusted lesion left lateral aspect of nose with area of blackened scaling skin. No active bleeding or tenderness., ecchymosis to bilateral upper and lower extremities as well as chest. Skin Temp/Moisture Exam: Warm/Dry Sepsis Skin Exam (color): Normal for Ethnicity HEENT: Atraumatic, PERRLA, nasal cannula in place. Nostrils intact without dryness or cracking Neck: Supple Cardiovascular: Regular Rate, Normal S1, Normal S2 Lungs: scattered wheezes bilateral bases Abdomen: Normal Bowel Sounds, Soft, No Tenderness Extremities: No Edema, 2+ pitting edema bilateral lower extremities to level of tibial tuberosity Vascular: Normal Pulses, Pulses Symmetrical Current Medications: Current Medications Sig/Halie Start time Last Medication Dose Route Stop Time Status Admin Acetaminophen 650 MG ONCE PRN 01/10 0115 AC PO Albuterol Sulfate 3 ML EVERY 4 HRS/AWAKE 01/07 1200 AC 01/10 INH 0820 Albuterol Sulfate 2 PUF Q4-6 PRN PRN 01/06 2130 AC 01/09 INH 0820 Alprazolam 0.5 MG TID 01/07 09 AC 01/10 PO 01/14 0859 0808 Apixaban 5 MG BID 01/07 09 AC 01/10 PO 0807 Budesonide/ 2 PUF BID 01/07 0900 AC 01/10 Formoterol Fumarate INH 0809 Ferrous Sulfate 325 MG DAILY 01/07 09 AC 01/10 PO 0807 Furosemide 20 MG DAILY 01/07 0900 AC 01/10 PO 0807 Guaifenesin 600 MG Q12 01/07 0900 AC 01/10 PO 0808 Hydromorphone HCl 0.4 MG Q6P PRN 01/06 2145 AC 01/10 IV 1032 Ibuprofen 600 MG ONCE ONE 01/10 0100 DC 01/10 PO 01/10 0101 0136 Ipratropium Letcher 2.5 ML EVERY 4 HRS/AWAKE 01/07 1200 AC 01/10 INH 0820 Levetiracetam 750 MG BID 01/06 2123 AC 01/10 PO 0808 Lidocaine/Diphenhydr/ 30 ML DAILY 01/10 0916 DC Alum/Mg/Simeth PO Lisinopril 5 MG DAILY 01/07 0900 AC 01/10 PO 0807 Methylprednisolone 40 MG Q12H 01/08 1800 DC 01/10 IV 0523 Nystatin 5 ML 4 TIMES/DAY 01/10 1005 AC 01/10 PO 1112 Omeprazole 40 MG DAILY AC 01/07 0700 AC 01/10 PO 0522 Oxycodone HCl 20 MG .STK-MED ONE 01/10 2040 DC PO 01/09 2041 Oxycodone HCl 5 MG ONCE ONE 01/09 1915 DC 01/09 PO 01/10 1916 190 Oxycodone HCl 15 MG TID 01/07 2100 AC 01/10 PO 0808 Oxycodone HCl 20 MG BID 01/06 2123 AC 01/10 PO 0809 Prednisone 40 MG DAILY 01/11 0900 AC PO Prednisone 20 MG ONCE ONE 01/10 1800 AC PO 01/10 1801 Trimethobenzamide HCl 200 MG TID PRN 01/09 1515 AC 01/10 IM 1032 Assessment/Plan Assessment: Assessment: 62 year old female with PMH of COPD, HTN, Sz on Keppra and pseudoseizures, lung CA, chronic neck pain s/p implanted nerve stimulator, anxiety, hx of PE on eliquis, and GERD admitted for worsening back pain and SOB with BLE edema likely 2/2 COPD exacerbation. Patient underwent diagnostic imaging including CT chest that was negative for PE. It did show an irregular 0.9cm mass abutting the mediastinal pleura in the medial left apex with hilar lymphadenopathy. Chest XR was unremarkable. Pulmonology was consulted and the patient was seen by Dr. Abraham who noted improved respiratory state and recommended a slow prednisone taper. Patient had positive sputum cultures with E.Coli and Yeast. Infectious Disease consult was placed and she was seen by Dr. Zamora who assessed the cx results as colonization vs infectious with the recommendation of no abx at this time. Patient was started on SoluMedrol for COPD exacerbation and placed on NC that was titrated down to 1L NC. Plan: -Will change to PO prednisone this afternoon 20mg and then proceed with Prednisone 40mg PO daily starting January 11, 2018. Will taper steroid dose over the next 12 days. -Follow up on psychiatric consult 2/2 multiple health issues and related anxiety -Will continue to monitor nasal lesion and assess for changes in vision -Will continue home medications for BP and monitor while in hospital. BP today 152/102 -Continue pain control as PRN for chronic neck/back pain Problem List: 1. Neck pain 2. SOB (shortness of breath) Pain Ratin Pain Location: neck Pain Goal: Pain 4 or less Pain Plan: see A/P Tomorrow's Labs & Rationales: none DVT/Prophylaxis: pharmacological, early ambulation low risk
[2018-01-10 14:59] VITALS: BP 114/74
[2018-01-10 23:02] VITALS: BP 138/82
--- NOTE | 2018-01-10 23:05 | CPS PROVIDER INIT ASMT PSYCH ---
Psychiatric Admission Elevator Serviceman's Note Reviewed: No Patient Seen and Examined: Yes Identifying Information: [facility] PSYCHIATRY CONSULTATION NOTE REASON FOR INITIAL PSYCHIATRIC CONSULT: anxiety CC: I have anxiety all my life. HPI: 62 years old female with complex PMH significant for hypertension, CHF, seizures , pseudoseizures, COPD on 2 L home oxygen, hx of pulmonary embolism, chronic neck/back pain, and vertebral compression fractures. Her PPH significant for depression, anxiety with panic attacks. She presented to [facility] with difficulty breathing and productive cough. CTA revealed irregular 0.9cm mass abutting the mediastinal pleura in the medial left apex with hilar lymphadenopathy. Psychiatry consulted for anxiety evaluation. Met with the patient at the bedside, she reported having childhood frequent panic attacks and longstanding anxiety. She reported that she has been on multiple antidepressant medications but none seems to be effective or had worsen her depression. She reported that only Xanax work for me she could not remember the name of the prior antidepressants, however she reported Klonopin has not worked in the past. She stated I know for sure that I was never on Remeron/Mirtazapine in the past. She admit feeling depressed and anxious when medically deteriorated but stated I am a fighter, I know I will get better hopeful and motivated. Patient denies sxs of PTSD, denies suicidal/homicidal ideations/thoughts/intent/plans, no prior attempts. She denies hx of substances abuse, no mood dysregulation, no evidence of psychosis, she denies hallucinations and no delusions verbalized or elicited. Collaterals unavailable at the time of evaluation. - Quality: anxiety, depression - Onset: acute on chronic - Course: worsening - Timing: increasing with medical deterioration - Severity: moderate - Interfering with daily functioning: yes, with panic attacks - Interfering with safety of self or others: not at the time of interview - Causing self-neglect: no - Context: worsening shortness of breath - Modifying factors: medical conditions, medical hospitalization, multiple losses - Associated signs and symptoms: panic attacks, difficulty breathing, PAST PSYCHIATRIC HISTORY: The patient reported prior diagnosis of depression and anxiety with panic attacks - Medication management: on Alprazolam 0.5 MG TID PO for anxiety - Compliance: good - Past outpatient: yes, compliant - ECT: denies - Past suicide attempts: denies - Past violence: denies PAST SUBSTANCE USE HISTORY denies ETOH/opiates/cocaine/cannabis/Tobacco/ denies other illicit substance use PAST MEDICAL HISTORY: - Diagnoses: hypertension, CHF, seizures, pseudoseizures, COPD on 2 L home oxygen, hx of pulmonary embolism, chronic back/neck pain, and vertebral compression fractures - Surgeries: breast biopsy, cholecystectomy, (x 3), hysterectomy ( removal of benign ovarian cyst) - Allergies: ceftriaxone (Severe, ANAPHYLAXIS 06/29/16) morphine (Severe, TONGUE SWELLING 10/26/16) PAST FAMILY, SOCIAL, HISTORY (PFS): - Family history of MOTHER (Stroke). Age 82. BROTHER (Testicular cancer). Aunt (Breast cancer). FATHER (Heart disease; smoker). , Age 60+; Cause: COPD (chronic obstructive pulmonary disease). MU (late onset). ; Cause: Colon cancer. Relation not specified for: colon cancer SOCIAL HISTORY: Live With? spouse, child (1 of her sons & a grandson) Services at Home: Nursing, Oxygen Primary Language: Barb[place] Living Will? no Power of Patent Legal Assistant/HCP? no Functional Ability ADLs Independent: dressing, eating, toileting. Ambulation: independent REVIEW OF SYSTEMS: Constitutional - reported generalized weakness Neurological - reported tingling, weakness, negative for headaches, abnormal movements Cardiovascular - reported edema, negative for chest pain, palpitations Respiratory - negative for SOB, chest tightness Gastrointestinal - negative for nausea, vomiting, diarrhea Genitourinary - negative for pain on urination, hematuria, blood in stool Musculoskeletal - reported chronic neck/back pain, negative for pain, deformities Endocrine - negative for hot and cold spells fever ENT - negative for a cough, throat pain Ophthalmologic - negative for vision loss Integumentary - negative for rash/wounds/lesions Hematology - reported bruising Vital Signs: reviewed Current Medications: reviewed Mental Status Exam: - awake and alert - AAO x 3: person, place, year - Appearance and Behavior: appears stated age, dressed in casual, lying in hospital bed, connected to nasal cannula, white female with short hair, cushioned face - Behavior calm and cooperative with interview, no psychomotor agitation or retardation noted, gait not assessed - Eye Contact: appropriate - Speech: articulate, open and engaged, fluent, clear and coherent, regular volume, rate and tone - Mood: "anxious" - Affect: mood-congruent, dysphoric, minimal reactivity - Thought process: organized, goal directed - Thought content: - Delusions: none elicited nor verbalized - Mood Symptoms: reported depressive symptoms, but hopeful and motivated - Obsessions and/or Preoccupations: preoccupied with her medical conditions - Anxiety: reported feeling anxious since childhood, almost everything, prior hx of panic attacks - Suicidal/Homicidal thoughts/intent/plan: denies - Perception: denies audiovisual hallucinations - Insight/Judgment: fair/fair - Attention & Concentration: attentive to interview - Memory: grossly intact - Language: average - Fund of knowledge: average LABS: reviewed as documented in chart IMAGING: reviewed as documented in chart DIAGNOSIS Generalized Anxiety Disorder with Panic Attacks Unspecified Depressive Disorder Rule out Depressive Disorder Due to Another Medical Condition hypertension, CHF, seizures, pseudoseizures, COPD on 2 L home oxygen, hx of pulmonary embolism, chronic pain, and vertebral compression fractures RECOMMENDATIONS Medications - continue Xanax 0.5 mg PO TID for breakthrough anxiety - start Remeron 7.5 mg PO bedtime for anxiety and depression The patient was educated about reasons for prescribing the above medications, expected benefits and the likelihood of clinical improvement, as well as potential side effects and relevant risks; treatment alternatives and side effects of the alternatives expected course without treatment and results of not receiving care. The patient was educated on how to take the medications. She verbalized understanding and in agreement. Disposition - cleared for discharge to psychiatric outpatient clinic The patient denies suicidal/homicidal thoughts/intent/plans. Patient is psychiatrically stable and does not meet criteria for admission. No imminent sign of harm to self and/ or harm to others. No imminent sign of self-neglect. The patient may be safely treated in an outpatient basis. No grounds of involuntary inpatient hospitalization or involuntary admission. Thank you for consulting us on this patient. We will sign-off at this time. Please do not hesitate to re-consult us if necessary. Natalia Gutiérrez MD Psychiatrist Chief Complaint: see above Reaction to Hospitalization: see above History of Present Illness Onset of Illness: see above Circumstances Leading to Admission: see above Problem(s) Justifying Need for Admission: see above Past Psychiatric History Past Diagnosis(es)- if any: see above Past Precipitating Factors- if any: see above - Include inpatient and outpatient treatment Treatment History: see above History of Suicide Attempts or Gestures see above Substance Abuse History: none Allergies: Coded Allergies: ceftriaxone (Severe, ANAPHYLAXIS 06/29/16) morphine (Severe, TONGUE SWELLING 10/26/16) patient had a significantly positive urine toxicology morphine level at time of presentation to the E.D. 09/30/2016 (was admitted to medical floor from E.D.) Home Med List: reviewed - Include any medical condition(s) that may - impact the patient's recovery/remission Past History Surgical History Surgical History: reviewed Psychiatric Family/Social Hx Family History Psychiatric Illness: see above Substance Use: see above Suicides: see above Social History Living Situation: see above Significant Relationships (family/friends): see above Education: see above Vocation/Occupation: see above Legal: see above Healthly Behaviors Screening Tobacco Screening Tobacco Use from ED Docu: Refused to answer Daily Tobacco Use Amount/Type: Smokeless tobacco daily - If tobacco counseling indicated - the following topics are required. - #1 Recognizing dangerous situations. - #2 Coping Skills. - #3 Basic information about quitting. Status of Tobacco Cessation Counseling: Not Applicable Cessation Med Status Not Applicable Alcohol Screening - ETOH screen POS if BAL >=80 or Audit-C>= M4/F3 Alcohol Use Screening Results: Neg per Audit C &/or BAL - If ETOH counseling indicated - the following topics are required. - #1 Express concern about the patient's - drinking at unhealthy levels, include informing - of national norms for moderate drinking: - men <= 14 drinks/week, max 4 drinks/occasion - women <= 7 drinks/week, max 3 drinks/occasion - #2 Providing feedback, including linking alcohol to - negative physical effects (liver injury, hypertension) - negative emotional effects (relationship problems and - depression) - negative occupational consequences (reduced work - performance) - #3 Advising the patient to abstain from alcohol or - to drink below national norms for moderate drinking - (as listed above). Status of ETOH Use Counseling: N/A B/C NO ETOH Use Metabolic Screening - Screen if on a Neuroleptic Medication - Metabolic screening should include: - Blood Pressure, BMI, Glucose or Hgb A1c, & a - Lipid profile from within the past 365 days. Metabolic Screening ([X]) Not Applicable, patient not on a neuroleptic. Exam and Plan Mental Status Examination Ambulation Status: see above Appearance: see above Attitude towards examiner: see above Psychomotor activity: see above Behavior: see above Quality of speech: see above Affect: see above Mood: see above Suicidal Ideation: see above Homicidal Ideation: see above Hallucinations: see above Paranoid/Delusional Material: see above Difficulties with thought organization: see above Insight: see above Judgment: see above Orientation: see above Cognition: see above Memory Function: see above Estimate of intellectual functioning: see above Assets/Strengths Patient Identified Assets/Strengths: see above Impression/Plan - Include all active medical diagnosis that require tx DSM 5 Diagnosis(es): see above - Initial Tx Plan for Active Psych & Medical Conditions Treatment Plan: see above - Factors that would help patient function - in a less restrictive setting. Factors: see above
[2018-01-11 06:26] VITALS: BP 158/90
--- NOTE | 2018-01-11 09:25 | PN- Housestaff ---
See Addendum Subjective Follow-up For: COPD EXACERBATION Complaints: BACK PAIN, NECK PAIN, AND HEADACHE, NAUSEA AND VOMITING OVERNIGHT Subjective: Patient states she continues to have nausea and vomiting overnight 3-4 episodes. She does not notice any association with food or liquids. She states her anxiety level was decreased with the additional xanax yesterday evening. She reports feeling like she is choking at times. She states she feels worse than she did when she arrived to the hospital. Denies fever, chills, diarrhea, abd pain, chest pain. Review of Systems Constitutional: Reports: see HPI. Objective Last 24 Hrs of Vital Signs/I&O Vital Signs Date Time Temp Pulse Resp B/P B/P Pulse O2 O2 Flow FiO2 Mean Ox Delivery Rate 01/11 0911 81 158/90 01/11 0857 97 Nasal 1.0L Cannula 01/11 0626 98.1 81 22 158/90 97 Nasal 1.0L Cannula 01/11 0147 Nasal 1.0L Cannula 01/11 0000 Nasal 1.0L Cannula 01/10 2302 98.4 89 20 138/82 96 Nasal 1.0L Cannula 01/10 1700 98 Nasal 1.0L Cannula 01/10 1600 Nasal 1.0L Cannula 01/10 1459 98.4 101 18 114/74 98 Intake & Output 01/11 1600 01/11 0800 01/11 0000 Intake Total Output Total Balance Patient 147 lb Weight Physical Exam General Appearance: Alert, Oriented X3, Cooperative, No Acute Distress, on 2L NC Skin: ecchymosis to bilateral upper and lower extremities and chest Skin Temp/Moisture Exam: Warm/Dry HEENT: Atraumatic, PERRLA Neck: Supple Cardiovascular: Regular Rate, Normal S1, Normal S2, No Murmurs Lungs: expiratory wheezes bilaterally L>R Abdomen: Normal Bowel Sounds, Soft, No Tenderness Extremities: No Edema, Normal Pulses Assessment/Plan Assessment: 62 year old female with PMH COPD, HTN, Sz on Keppra, Lung CA, Chronic neck pain with implanted nerve stimulator, anxiety, PE on eliquis, and GERD admitted for COPD exacerbation. She has been treated with PO steroids and albuterol and symbicort. She completed antibiotics as well. She has been improving, but has experienced repeated episodes of nausea and vomiting. She has been requesting her PRN Dilauded on a regular basis. This could be contributing to her n/v and will discuss decreased use/discontinuation of this medication. #COPD exacerbation -PO steroid taper -Albuterol -Symbicort -possible d/c tomorrow if able to dc all IV meds Chronic illness -continue home medications DVT prophylaxis: on eliquis Problem List: 1. Acute exacerbation of chronic obstructive pulmonary disease (COPD) Pain Ratin Pain Location: neck and back Pain Goal: Pain 4 or less Pain Plan: see a/p Tomorrow's Labs & Rationales: cbc, bep
--- NOTE | 2018-01-11 10:35 | PN- Pulmonary ---
Subjective HPI/Critical Care Issues: pt seen and examined had some abdominal discomfort yesterday that has subsided feels anxious and relief from xanax Objective Current Medications: Current Medications Sig/Halie Start time Last Medication Dose Route Stop Time Status Admin Acetaminophen 650 MG ONCE PRN 01/10 0115 AC 01/11 PO 0455 Albuterol Sulfate 3 ML EVERY 4 HRS/AWAKE 01/07 1200 AC 01/11 INH 0854 Albuterol Sulfate 2 PUF Q4-6 PRN PRN 01/06 2130 AC 01/10 INH 1815 Alprazolam 0.5 MG ONCE ONE 01/10 1845 DC 01/10 PO 01/10 1846 1840 Alprazolam 0.5 MG TID 01/07 0900 AC 01/11 PO 01/14 0859 0912 Apixaban 5 MG BID 01/07 0900 AC 01/11 PO 0911 Budesonide/ 2 PUF BID 01/07 0900 AC 01/11 Formoterol Fumarate INH 0913 Ferrous Sulfate 325 MG DAILY 01/07 0900 AC 01/11 PO 0911 Furosemide 20 MG DAILY 01/07 0900 AC 01/11 PO 0914 Guaifenesin 600 MG Q12 01/07 0900 AC 01/11 PO 0911 Hydromorphone HCl 0.4 MG Q6P PRN 01/06 2145 AC 01/11 IV 0604 Ipratropium [place] 2.5 ML EVERY 4 HRS/AWAKE 01/07 1200 AC 01/11 INH 0854 Levetiracetam 750 MG BID 01/06 2123 AC 01/11 PO 0911 Lisinopril 5 MG DAILY 01/07 0900 AC 01/11 PO 0911 Mirtazapine 7.5 MG AT BEDTIME 01/11 2100 AC PO Nystatin 5 ML 4 TIMES/DAY 01/10 1005 AC 01/11 PO 0912 Omeprazole 40 MG DAILY AC 01/07 0700 AC 01/11 PO 0520 Oxycodone HCl 15 MG TID 01/07 2100 AC 01/11 PO 0912 Oxycodone HCl 20 MG BID 01/06 2123 AC 01/11 PO 0912 Patient Medication 1 ED ONE ONE 01/11 1015 DC Teaching ED 01/11 1016 Polyethylene Glycol 17 GM DAILY 01/10 1230 AC 01/11 PO 0912 Prednisone 40 MG DAILY 01/11 09 DC PO Prednisone 60 MG DAILY 01/11 0900 AC 01/11 PO 0911 Prednisone 20 MG ONCE ONE 01/10 1800 DC 01/10 PO 01/10 1801 1719 Senna 187 MG AT BEDTIME 01/10 2100 AC 01/10 PO 2149 Trimethobenzamide HCl 200 MG .STK-MED ONE 01/10 2138 DC IM 01/10 2139 Trimethobenzamide HCl 200 MG TID PRN 01/09 1515 AC 01/11 IM 0620 Vital Signs & I&O Last 24 Hrs of Vitals and I&O: Vital Signs Date Time Temp Pulse Resp B/P B/P Pulse O2 O2 Flow FiO2 Mean Ox Delivery Rate 01/11 0911 81 158/90 01/11 0857 97 Nasal 1.0L Cannula 01/11 0626 98.1 81 22 158/90 97 Nasal 1.0L Cannula 01/11 0147 Nasal 1.0L Cannula 01/11 0000 Nasal 1.0L Cannula 01/10 2302 98.4 89 20 138/82 96 Nasal 1.0L Cannula 01/10 1700 98 Nasal 1.0L Cannula 01/10 1600 Nasal 1.0L Cannula 01/10 1459 98.4 101 18 114/74 98 Intake & Output 01/11 1600 01/11 0800 01/11 0000 Intake Total Output Total Balance Patient 147 lb Weight Exam Other Physical Findings: General - awake, no distress HEENT - nasal cannula Cardiovascular - S1, S2 Lungs - rhonchi bilaterally Abdomen - soft, bowel sounds positive, no tenderness Extremities - chronic changes from steroid use Impression/Plan Impression/Plan Impression/Plan: Impression * E.Coli in sputum - consistent with colonization * Severe oxygen and prednisone dependent COPD * COPD exacerbation/acute hypoxemic respiratory failure * chronic hypercarbic respiratory failure * pulmonary nodules concerning for malignancy * pulmonary embolism on Eliquis, (09/2015) * CHF * spinal stenosis and chronic pain, hx neurostimulator placement. * sacral fracture history * tobacco dependence history * psychiatric history Plan - steroid taper - TRC/Nebs - inhalers continue - Eliquis - will require outpatient PET scan DVT prophylaxis at all times (Eliquis)
--- NOTE | 2018-01-11 12:56 | PN- Infect Dx ---
Subjective Subjective: Afebrile on steroids. She complains of a headache, throat pain and back pain. She also had nausea and vomiting overnight and severe squeezing anterior neck pain yesterday. She reports increased lower extremity swelling. She does not report any shortness of breath. Objective Last 24 Hrs of Vital Signs/I&O Vital Signs Date Time Temp Pulse Resp B/P B/P Pulse O2 O2 Flow FiO2 Mean Ox Delivery Rate 01/11 0911 81 158/90 01/11 0857 97 Nasal 1.0L Cannula 01/11 0626 98.1 81 22 158/90 97 Nasal 1.0L Cannula 01/11 0147 Nasal 1.0L Cannula 01/11 0000 Nasal 1.0L Cannula 01/10 2302 98.4 89 20 138/82 96 Nasal 1.0L Cannula 01/10 1700 98 Nasal 1.0L Cannula 01/10 1600 Nasal 1.0L Cannula 01/10 1459 98.4 101 18 114/74 98 Intake & Output 01/11 1600 01/11 0800 01/11 0000 Intake Total Output Total Balance Patient 147 lb Weight Physical Exam Other Physical Findings: She is anxious appearing but in no acute distress Lungs bilateral expiratory wheezes Heart regular rhythm with no murmur Abdomen is mildly distended, not clearly tender, with positive bowel sounds Extremities no cyanosis, clubbing or edema Results Last 24 Hours of Lab Results: No recent labs Last 24 Hours of [place] Results: No recent cultures Assessment/Plan ID Impression: Stable, with temperatures remaining normal, off antibiotics, with E. coli and yeast isolated from her sputum, presumably representing colonization rather than infection, with her respiratory status stable, her temperatures and white blood cell count normal and her chest x-ray and CT of the chest negative for any consolidation. She has multiple complaints which complicate her management but, as she remains overall stable, feel that she can continue to be followed off antibiotics. Suggestion: 1. Further management of her COPD per Pulmonary 2. Continue to follow off antibiotics
[2018-01-11 15:20] VITALS: BP 148/80
[2018-01-11 22:30] VITALS: BP 146/82
[2018-01-12 07:05] VITALS: BP 140/76
--- NOTE | 2018-01-12 07:47 | PN- Pulmonary ---
Subjective HPI/Critical Care Issues: pt seen and examined now on telemetry still with nausea/intermittent dry heaving exertional dyspnea persistent chronic pain Objective Current Medications: Current Medications Sig/Halie Start time Last Medication Dose Route Stop Time Status Admin Acetaminophen 650 MG ONCE PRN 01/10 0115 AC 01/11 PO 0455 Albuterol Sulfate 3 ML EVERY 4 HRS/AWAKE 01/07 1200 AC 01/12 INH 0314 Albuterol Sulfate 2 PUF Q4-6 PRN PRN 01/06 2130 AC 01/10 INH 1815 Alprazolam 0.5 MG TID 01/07 09 AC 01/11 PO 01/14 0859 2107 Apixaban 5 MG BID 01/07 09 AC 01/11 PO 2107 Bisacodyl 5 MG DAILY NEEDED PRN 01/11 1130 AC 01/11 PO 1303 Budesonide/ 2 PUF BID 01/07 09 AC 01/11 Formoterol Fumarate INH 2107 Ferrous Sulfate 325 MG DAILY 01/07 09 AC 01/11 PO 0911 Furosemide 20 MG DAILY 01/07 09 AC 01/11 PO 0914 Guaifenesin 600 MG Q12 01/07 0900 AC 01/11 PO 2107 Hydromorphone HCl 0.4 MG ONCE ONE 01/12 0300 DC 01/12 IV 01/12 0301 0302 Hydromorphone HCl 0.4 MG Q6P PRN 01/06 2145 DC 01/11 IV 1145 Ipratropium [place] 2.5 ML EVERY 4 HRS/AWAKE 01/07 1200 AC 01/12 INH 0314 Levetiracetam 750 MG BID 01/06 212 AC 01/11 PO 210 Lisinopril 5 MG DAILY 01/07 09 AC 01/11 PO 0911 Mirtazapine 7.5 MG AT BEDTIME 01/11 2100 AC 01/11 PO 210 Nystatin 5 ML 4 TIMES/DAY 01/10 1005 AC 01/11 PO 210 Omeprazole 40 MG DAILY AC 01/07 07 AC 01/12 PO 0510 Oxycodone HCl 15 MG TID 01/07 2100 AC 01/11 PO 210 Oxycodone HCl 20 MG BID 01/06 212 AC 01/11 PO 210 Patient Medication 1 ED ONE ONE 01/11 1015 DC Teaching ED 01/11 1016 Polyethylene Glycol 17 GM DAILY 01/10 1230 AC 01/11 PO 0912 Prednisone 10 MG DAILY 01/26 09 AC PO 01/28 901 Prednisone 20 MG DAILY 01/23 09 AC PO 01/25 901 Prednisone 30 MG DAILY 01/20 900 AC PO 01/22 901 Prednisone 40 MG DAILY 01/17 900 AC PO 01/19 901 Prednisone 50 MG DAILY 01/14 900 AC PO 01/16 901 Prednisone 60 MG DAILY 01/12 09 CAN PO 01/29 08 Prednisone 60 MG DAILY 01/12 900 AC PO 01/13 901 Prednisone 60 MG DAILY 01/11 09 DC 01/11 PO 0911 Senna 187 MG AT BEDTIME 01/10 2100 AC 01/11 PO 2106 Trimethobenzamide HCl 200 MG TID PRN 01/09 1515 AC 01/11 IM 0620 Vital Signs & I&O Last 24 Hrs of Vitals and I&O: Vital Signs Date Time Temp Pulse Resp B/P B/P Pulse O2 O2 Flow FiO2 Mean Ox Delivery Rate 01/12 0705 98.4 76 18 140/76 98 Nasal Cannula 01/12 0331 98 Nasal 1.0L Cannula 01/12 0000 94 Nasal 1.0L Cannula 01/11 2230 97.9 79 18 146/82 98 01/11 1605 94 Nasal 1.0L Cannula 01/11 1520 98.9 79 20 148/80 95 / 0911 81 158/90 01/11 0857 97 Nasal 1.0L Cannula 01/11 0800 95 Nasal 1.0L Cannula Intake & Output 01/12 0800 / 0000 01/11 1600 Intake Total 120 120 800 Output Total 400 Balance 120 -280 800 Intake, Oral 120 120 800 Number 0 Bowel Movements Output, Urine 400 Patient 145 lb Weight Exam Other Physical Findings: General - awake, no distress HEENT - nasal cannula Cardiovascular - S1, S2 Lungs - rhonchi bilaterally Abdomen - soft, bowel sounds positive, no tenderness Extremities - chronic changes from steroid use Impression/Plan Impression/Plan Impression/Plan: Impression * E.Coli in sputum - consistent with colonization * Severe oxygen and prednisone dependent COPD * COPD exacerbation/acute hypoxemic respiratory failure * chronic hypercarbic respiratory failure * pulmonary nodules concerning for malignancy * pulmonary embolism on Eliquis, (09/2015) * CHF * spinal stenosis and chronic pain, hx neurostimulator placement. * sacral fracture history * tobacco dependence history * psychiatric history Plan - nausea and chronic pain per primary team - steroid taper as ordered - TRC/Nebs - inhalers continue - Eliquis - will require outpatient PET scan DVT prophylaxis at all times (Eliquis)
--- NOTE | 2018-01-12 12:57 | PN- Housestaff ---
See Addendum Subjective Follow-up For: COPD exacerbation chronic pain Complaints: pain scale (0-10) Subjective: Patient threatened to leave AMA around 3am because her IV dilaudid was discontinued. She states she is in a lot of pain with her back and this is new since her fall two weeks ago. She states she feels worse than admission as she is now unable to ambulate to the bathroom without assistance. She reports dizziness upon standing and walking; feeling as though she may 'pass out'. She states she feels like someone is strangling her and finds it difficult to breath despite requiring less oxygen inpatient (1L NC) than she does at home (2L NC). She states she is not ready to be discharged. Denies fever, chills, abd pain, Chest pain. Review of Systems Constitutional: Reports: see HPI. Objective Last 24 Hrs of Vital Signs/I&O Vital Signs Date Time Temp Pulse Resp B/P B/P Pulse O2 O2 Flow FiO2 Mean Ox Delivery Rate 01/12 0900 94 Nasal 1.0L Cannula 01/12 0819 98 Nasal 1.0L Cannula 01/12 0705 98.4 76 18 140/76 98 Nasal Cannula 01/12 0331 98 Nasal 1.0L Cannula 01/12 0000 94 Nasal 1.0L Cannula 01/11 2230 97.9 79 18 146/82 98 / 1605 94 Nasal 1.0L Cannula 01/11 1520 98.9 79 20 148/80 95 Intake & Output 01/12 1600 /03 0800 07 0000 Intake Total 120 120 Output Total 400 Balance 120 -280 Intake, Oral 120 120 Output, Urine 400 Patient 145 lb Weight Physical Exam General Appearance: Alert, Oriented X3, Cooperative, Mild Distress Skin: ecchymosis to back; BLE; BUE, chest Skin Temp/Moisture Exam: Warm/Dry HEENT: Atraumatic, PERRLA Neck: Supple Cardiovascular: Regular Rate, Normal S1, Normal S2, No Murmurs Lungs: rhonchi and crackles throughout lung farris Abdomen: Normal Bowel Sounds, Soft, No Tenderness Extremities: mild pedal edema bilaterally Assessment/Plan Assessment: 62 year old female with PMH of COPD, HTN, Sz on Keppra, chronic neck pain s/p implanted nerve stimulator, anxiety, PE on eliquis admitted for COPD exacerbation. Patient has been treated with steroid taper and inhaled ARA and LABA while inpatient. Her pain has been difficult to manage thoughout her stay and she require poly analgesics at increased doses. Pulmonology and ID have been following. She is being treated off abx as she does not show signs/imaging consistent with pneumonia. She has also experienced n/v while inpatient and this was thought to be 2/2 dilauded. This medication was discontinued and her symptoms of n/v seemed to improve however she requests the dilaudid be continued for severe back pain. #COPD exacerbation -steroid taper -Inhalers: albuterol; symbicort; atrovent -will need outpatient PET scan per Pulmonology to assess lung nodules malignancy #Chronic illnesses -continue home medications including eliquis DVT prophylaxis: DELLA small Problem List: 1. Acute exacerbation of chronic obstructive pulmonary disease (COPD) Pain Ratin Pain Location: back and neck Pain Goal: Pain 7 or less Pain Plan: see a/p Tomorrow's Labs & Rationales: none
[2018-01-12 15:05] VITALS: BP 140/80
[2018-01-12 19:39] VITALS: BP 134/76
[2018-01-12 23:09] VITALS: BP 128/70
[2018-01-13 06:56] VITALS: BP 128/80
--- NOTE | 2018-01-13 08:32 | PN- Housestaff ---
See Addendum Subjective Follow-up For: COPD exacerbation Chronic pain; difficult to control Complaints: pain scale (0-10) Subjective: Rima is in much better spirits today. She states her pain was well controlled with the increased oral medications overnight. She did report a headache that was treated with a one time dose of Fioricet. Her symptoms resolved after this dose. She states she is breathing slightly better, but still experiences SOB especially with ambulation. Denies fever, chills, vomiting, abd pain, chest pain. Review of Systems Constitutional: Reports: see HPI. Objective Last 24 Hrs of Vital Signs/I&O Vital Signs Date Time Temp Pulse Resp B/P B/P Pulse O2 O2 Flow FiO2 Mean Ox Delivery Rate 01/13 0827 98 Nasal 1.0L Cannula 01/13 0656 97.9 90 20 128/80 99 Nasal 1.0L Cannula 01/13 0000 Nasal 1.0L Cannula 01/12 2309 97.5 110 18 128/70 97 Nasal Cannula 01/12 1939 97.8 114 18 134/76 97 Nasal 1.0L Cannula 01/12 1600 Nasal 1.0L Cannula 01/12 1600 97 Nasal 1.0L Cannula 01/12 1505 98.1 102 18 140/80 96 / 0900 94 Nasal 1.0L Cannula Intake & Output 01/13 1600 01/13 0800 01/13 0000 Intake Total 660 450 Output Total Balance 660 450 Intake, Oral 660 450 Number 1 Bowel Movements Patient 148 lb Weight Physical Exam General Appearance: Alert, Oriented X3, Cooperative, No Acute Distress Skin: ecchymosis to back, chest, BUE/BLE Skin Temp/Moisture Exam: Warm/Dry HEENT: Atraumatic, PERRLA Neck: Supple Cardiovascular: Regular Rate, Normal S1, Normal S2 Lungs: Improved air movement as compared to previous exam. Scattered wheezes throughout. Abdomen: Normal Bowel Sounds, Soft, No Tenderness, distended. Extremities: Normal Pulses, No Tenderness/Swelling Assessment/Plan Assessment: 62 year old female with PMH COPD, HTN, Sz on Keppra, Lung CA, chronic neck and back pain s/p nerve stimulated implantation, PE on eliquis, GERD admitted for COPD exacerbation. She has been treated with systemic steroids and is currently on steroid taper. She is receiving her home inhaler medications. After speaking with her pain specialist, Ubaldo, yesterday, her oral long acting and short acting opioids were increased. All IV pain medication was discontinued and the patient tolerated this well. #COPD exacerbation -systemic steroids; currently being tapered -home inhaled medications continued -breathing treatments PRN #Chronic pain -Increased OxyContin to 30mg bid -Increased Oxycodone to 15mg qid -Appreciate pain management's recs #chronic illnesses -continue home medications DVT prophylaxis: on eliquis, ambulation, ALPS Problem List: 1. Acute exacerbation of chronic obstructive pulmonary disease (COPD) 2. Chronic pain disorder Pain Ratin Pain Location: back and neck Pain Goal: Pain 4 or less Pain Plan: see A/P Tomorrow's Labs & Rationales: none
[2018-01-13 11:00] VITALS: BP 120/68
--- NOTE | 2018-01-13 11:22 | PN- Pulmonary ---
Subjective HPI/Critical Care Issues: pt seen and examined feeling much better from pulmonary perspective pain controlled Objective Current Medications: Current Medications Sig/Halie Start time Last Medication Dose Route Stop Time Status Admin Acetaminophen 650 MG ONCE PRN 01/10 0115 AC 01/11 PO 0455 Acetaminophen/ 1 TAB ONCE ONE 01/13 0030 DC 01/13 Butalbital/Caffeine PO 01/13 0031 0040 Albuterol Sulfate 3 ML EVERY 4 HRS/AWAKE 01/07 1200 AC 01/13 INH 0815 Albuterol Sulfate 2 PUF Q4-6 PRN PRN 01/06 2130 AC 01/10 INH 1815 Alprazolam 0.5 MG ONCE ONE 01/12 1830 DC 01/12 PO 01/12 1831 1825 Alprazolam 0.5 MG TID 01/07 0900 AC 01/13 PO 01/14 0859 0918 Apixaban 5 MG BID 01/07 0900 AC 01/13 PO 0921 Bisacodyl 5 MG DAILY NEEDED PRN 01/11 1130 AC 01/11 PO 1303 Budesonide/ 2 PUF BID 01/07 0900 AC 01/13 Formoterol Fumarate INH 0921 Ferrous Sulfate 325 MG DAILY 01/07 0900 AC 01/13 PO 0921 Furosemide 20 MG DAILY 01/07 09 AC 01/13 PO 0921 Guaifenesin 600 MG Q12 01/07 0900 AC 01/13 PO 0921 Hydromorphone HCl 2 MG .STK-MED ONE 01/12 1711 DC IV 01/12 1712 Ipratropium [place] 2.5 ML EVERY 4 HRS/AWAKE 01/07 1200 AC 01/13 INH 0815 Levetiracetam 750 MG BID 01/06 2123 AC 01/13 PO 0921 Lisinopril 5 MG DAILY 01/07 0900 AC 01/13 PO 0921 Mirtazapine 7.5 MG AT BEDTIME 01/11 2100 AC 01/12 PO 2137 Nystatin 5 ML 4 TIMES/DAY 01/10 1005 AC 01/13 PO 0922 Omeprazole 40 MG DAILY AC 01/07 0700 AC 01/13 PO 0553 Oxycodone HCl 30 MG BID 01/12 2100 AC 01/13 PO 0918 Oxycodone HCl 15 MG 4 TIMES/DAY 01/12 1700 AC 01/13 PO 0919 Oxycodone HCl 15 MG TID 01/07 2100 DC 01/12 PO 1310 Oxycodone HCl 20 MG BID 01/06 2123 DC 01/12 PO 0849 Polyethylene Glycol 17 GM DAILY 01/13 1115 AC PO Polyethylene Glycol 17 GM DAILY 01/10 1230 AC 01/11 PO 0912 Prednisone 10 MG DAILY 01/26 09 AC PO 01/28 09 Prednisone 20 MG DAILY 01/23 09 AC PO 01/25 09 Prednisone 30 MG DAILY 01/20 900 AC PO 01/22 09 Prednisone 40 MG DAILY 01/17 900 AC PO 01/19 09 Prednisone 50 MG DAILY 01/14 900 AC PO 01/16 09 Prednisone 60 MG DAILY 01/12 09 DC 01/13 PO 01/13 09 0921 Senna 187 MG AT BEDTIME 01/10 2100 AC 01/12 PO 2137 Trimethobenzamide HCl 200 MG .STK-MED ONE 01/13 0032 DC IM 01/13 0033 Trimethobenzamide HCl 200 MG TID PRN 01/09 1515 AC 01/13 IM 1046 Vital Signs & I&O Last 24 Hrs of Vitals and I&O: Vital Signs Date Time Temp Pulse Resp B/P B/P Pulse O2 O2 Flow FiO2 Mean Ox Delivery Rate 01/13 1100 86 120/68 01/13 0921 128/80 01/13 0827 98 Nasal 1.0L Cannula 01/13 0656 97.9 90 20 128/80 99 Nasal 1.0L Cannula 01/13 0000 Nasal 1.0L Cannula 01/12 2309 97.5 110 18 128/70 97 Nasal Cannula 01/12 1939 97.8 114 18 134/76 97 Nasal 1.0L Cannula 01/12 1600 Nasal 1.0L Cannula 01/12 1600 97 Nasal 1.0L Cannula 01/12 1505 98.1 102 18 140/80 96 Intake & Output 01/13 1600 /04 0800 01/13 0000 Intake Total 660 450 Output Total Balance 660 450 Intake, Oral 660 450 Number 1 Bowel Movements Patient 148 lb Weight Exam Other Physical Findings: General - awake, no distress HEENT - nasal cannula Cardiovascular - S1, S2 Lungs - rhonchi bilaterally Abdomen - soft, bowel sounds positive, no tenderness Extremities - chronic changes from steroid use Impression/Plan Impression/Plan Impression/Plan: Impression * E.Coli in sputum - consistent with colonization * Severe oxygen and prednisone dependent COPD * COPD exacerbation/acute hypoxemic respiratory failure * chronic hypercarbic respiratory failure * pulmonary nodules concerning for malignancy * pulmonary embolism on Eliquis, (09/2015) * CHF * spinal stenosis and chronic pain, hx neurostimulator placement. * sacral fracture history * tobacco dependence history * psychiatric history Plan - steroid taper as ordered - TRC/Nebs - inhalers continue - Eliquis - will require outpatient PET scan, should follow with me after PET DVT prophylaxis at all times (Eliquis) DC planning
[2018-01-13] MEDS ORDERED: PREDNISONE10 M2 PO ×2 (15:26→16:25)
[2018-01-13] MEDS ORDERED: MIRTAZAPINE7.5 M1 PO ×2 (16:01→16:25)
== END 2018-01-13 16:41 | disposition home health service (06) | DRG 191 ==
LOC: ERH 12:58 → 1NO 19:19 → 2NB 19:19 → ERHI 19:19 → ENRESERV 19:53 → ENTRNSPT 20:59 → EDTRNSPT 21:09 → EDTRNSPTSTS 21:09 → EDTRNSPT 21:20 → 2NB 21:48 → CMPTRNSPT 21:50 → 2NB 01-10 17:45 → 1NO 01-11 13:39
PROVIDERS: Internal Medicine; Physician Assistant Medical
DX: J44.1 Chronic obstructive pulmonary disease with (acute) exacerbation (principal); S22.000A Wedge compression fracture of unspecified thoracic vertebra, initial encounter for closed fracture; I50.22 Chronic systolic (congestive) heart failure; J96.12 Chronic respiratory failure with hypercapnia; F11.20 Opioid dependence, uncomplicated; G40.909 Epilepsy, unspecified, not intractable, without status epilepticus; Z96.89 Presence of other specified functional implants; F41.9 Anxiety disorder, unspecified; Z86.711 Personal history of pulmonary embolism; Z79.01 Long term (current) use of anticoagulants; K21.9 Gastro-esophageal reflux disease without esophagitis; W18.31XA Fall on same level due to stepping on an object, initial encounter; Y92.009 Unspecified place in unspecified non-institutional (private) residence as the place of occurrence of the external cause; Z88.1 Allergy status to other antibiotic agents; Z88.5 Allergy status to narcotic agent; Z79.51 Long term (current) use of inhaled steroids; Z79.52 Long term (current) use of systemic steroids; I11.0 Hypertensive heart disease with heart failure; I44.7 Left bundle-branch block, unspecified; R52 Pain, unspecified; Z99.81 Dependence on supplemental oxygen; Z90.710 Acquired absence of both cervix and uterus; M48.02 Spinal stenosis, cervical region; G47.00 Insomnia, unspecified; R91.8 Other nonspecific abnormal finding of lung field
CPT/HCPCS: 1NP; 2NBP; 36415; 71046; 82436; 87040; 87070; 87071; 93005; 93010; 97116-GO; 97161-GP; 97530-GO; J0456; J1170; J1953; J2920; J2930; J3101; J3250; J3490; J7040; J7512

== ENCOUNTER 2018-01-14 10:22 | Inpatient (IN) | payer OTHER, MEDICARE ==
[~2018-01-14] VITALS: Ht 160 cm; Wt 72.8 kg
[~2018-01-14 10:22] MED LIST changes: +KEPPRA750 M1 PO; +LISINOPRIL5 M1 PO; +MIRTAZAPINE7.5 M1 PO; +OXYCONTIN20 M1 PO; +VITAMIN B-121000 MC3 PO; +XANAX0.5 M1 PO
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
[2018-01-14 11:32] LABS: ABSOLUTE BASOPHIL COUNT 0.1 /CUMM (0.0-0.2); ABSOLUTE EOSINOPHIL COUNT 0 /CUMM (0.0-0.7); ABSOLUTE GRANULOCYTE CT 7.1 /CUMM (1.4-6.5); ABSOLUTE LYMPH COUNT 0.6 /CUMM (1.2-3.4); ABSOLUTE MONOCYTE COUNT 0.6 /CUMM (0.10-0.60); BASOPHIL % 0.9 % (0.0-2.0); EOSINOPHIL % 0 % (0-5); GRANULOCYTE % 84.9 % (42.2-75.2); HEMATOCRIT 32.7 % (37-47); MEAN CORPUSCULAR HGB CONC 33.3 G/DL (33.0-37.0); PLATELET COUNT 167 /CUMM (130-400); RBC DISTRIBUTION WIDTH 14.6 % (11.5-14.5); RED BLOOD CELL CT 3.63 /CUMM (4.20-5.40); WHITE BLOOD CELL COUNT 8.4 /CUMM (4.8-10.8)
--- NOTE | 2018-01-14 12:25 | RADIOLOGY REPORT ---
EXAMINATION: XR PORTABLE CHEST CLINICAL INFORMATION: Dyspnea, cough, wheezing COMPARISON: CT 01/06/2018 TECHNIQUE: Portable frontal view of the chest was obtained. FINDINGS: There is new hazy right base opacity consistent with atelectasis, aspiration, or pneumonia. Faintly seen 2 cm nodular abnormality in the superior segment of the left lower lobe above the level of the left hilum. The right costophrenic angle remains visible arguing against a pleural effusion. Left lung is clear. A lead and electrodes are seen projecting at the midline, seen in the posterior soft tissues on the prior CT scan. Normal heart size. Remote prior rib fractures but no acute osseous abnormality. Aortic arch calcification. IMPRESSION: New right base airspace opacity which could represent atelectasis, aspiration, or pneumonia. Faintly seen 2 cm nodular abnormality in the superior segment of the left lower lobe, above the level of the left hilum. Additional smaller patchy areas of nodular consolidation seen on prior CT scan are not well appreciated by chest radiograph.
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
[2018-01-14 17:45] VITALS: BP 140/80
[2018-01-14 22:24] VITALS: BP 142/88
[2018-01-15 06:20] VITALS: BP 136/70
--- NOTE | 2018-01-15 08:00 | PN- Housestaff ---
See Addendum Subjective Follow-up For: copd exacerbation Complaints: continued neck and back and head pain SOB Subjective: Patient states she did not rest well 2/2 pain in head, neck, back and continued sensation of feeling strangled. She states she feels she cannot cough up the congestion in her chest. She would like some IV dilaudid to help with the pain. Reports mild nausea but no vomiting. Denies abdominal pain, fever, chills. Review of Systems Constitutional: Reports: see HPI. Objective Last 24 Hrs of Vital Signs/I&O Vital Signs Date Time Temp Pulse Resp B/P B/P Pulse O2 O2 Flow FiO2 Mean Ox Delivery Rate 01/15 0620 97.9 90 18 136/70 96 Nasal Cannula 01/15 0345 91 Nasal 2.0L Cannula 01/15 0000 99 Nasal 1.0L Cannula 01/14 2224 97.7 81 12 142/88 97 Nasal 3.0L Cannula 01/14 2217 Nasal 2.0L Cannula /05 2048 142/88 01/14 1945 Nasal 2.0L Cannula 07/05 1745 98.5 84 20 140/80 95 Nasal 2.0L Cannula 07/05 1638 99 Nasal 2.0L Cannula 07/05 1636 98.2 81 20 151/84 97 Nasal 2.0L Cannula 07/05 1332 96 20 136/76 97 Nasal 2.0L Cannula /05 1230 97 Nasal 2.0L Cannula 07/05 1218 98 Nasal 2.0L Cannula 07/05 1027 99.4 118 30 155/75 95 Nasal 1.0L Cannula Intake & Output 01/15 1600 07/06 0800 07 0000 Intake Total 240 480 Output Total 100 1 Balance 140 479 Intake, Oral 240 480 Number 2 Bowel Movements Output, Stool 1 Output, Urine 100 Patient 144 lb Weight Weight Reported by Patient Measurement Method Physical Exam General Appearance: Alert, Oriented X3, Cooperative, Mild Distress Skin: ecchymosis to BUE/BLE chest Skin Temp/Moisture Exam: Warm/Dry HEENT: Atraumatic, PERRLA Neck: Supple Cardiovascular: Regular Rate, Normal S1, Normal S2, No Murmurs Lungs: scattered crackles and expiratory wheezing throughout. Abdomen: Normal Bowel Sounds, Soft, No Tenderness Extremities: Normal Pulses, 1+ edema BLE to level of mid tibia Assessment/Plan Assessment: Ms. Gottlieb is a 62 year old female with past medical history of COPD, hypertension, seizure disorder on Keppra, lung cancer, anxiety, chronic neck pain status post nerve stimulator implantation who was recently discharged (01/13) from [facility] admission for COPD exacerbation. She was brought in for observation 01/14 for mild COPD exacerbation and uncontrolled pain and anxiety. #COPD exacerbation-seems to be exacerbated by anxiety. Patient changes her breathing pattern and sounds when I walk into the room. Her breathing becomes normal after I stay in the room for awhile to speak with her. -continued steroid taper and previously started from last admission -Pulm consulted: will see today -Does not meet criteria for Pulm rehab (must have 3 noc stay in ICU) -Contact ENT Dr. Frank to discuss results from recent laryngoscopy #Anxiety-likely contributing to COPD exacerbation -Started on Celexa 20mg PO -Continue xanax tid #Chronic pain -long and short acting doses approved with Dr. Ubaldo Cordova (pain management) from prior visit -Will provide IV pain medication only for severe pain DVT Prophylaxis: on eliquis/alps Problem List: 1. Acute exacerbation of chronic obstructive pulmonary disease (COPD) 2. Anxiety 3. Chronic pain disorder Pain Ratin Pain Location: neck back head Pain Goal: Pain 4 or less Pain Plan: see a/p Tomorrow's Labs & Rationales: none
[2018-01-15 08:54] LABS: ABSOLUTE BASOPHIL COUNT 0 /CUMM (0.0-0.2); ABSOLUTE EOSINOPHIL COUNT 0 /CUMM (0.0-0.7); ABSOLUTE GRANULOCYTE CT 8.4 /CUMM (1.4-6.5); ABSOLUTE LYMPH COUNT 0.6 /CUMM (1.2-3.4); ABSOLUTE MONOCYTE COUNT 0.4 /CUMM (0.10-0.60); BASOPHIL % 0 % (0.0-2.0); EOSINOPHIL % 0.1 % (0-5); GRANULOCYTE % 89.1 % (42.2-75.2); HEMATOCRIT 28.4 % (37-47); MEAN CORPUSCULAR HGB 29.7 PG (27.0-31.0); MEAN CORPUSCULAR VOLUME 90.1 FL (81.0-99.0); MEAN PLATELET VOLUME 6.9 FL (7.4-10.4); PLATELET COUNT 155 /CUMM (130-400); RBC DISTRIBUTION WIDTH 15.7 % (11.5-14.5); RED BLOOD CELL CT 3.16 /CUMM (4.20-5.40); WHITE BLOOD CELL COUNT 9.5 /CUMM (4.8-10.8)
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
[2018-01-15 11:09] VITALS: BP 120/60
[2018-01-15 13:54] VITALS: BP 120/80
[2018-01-15 21:44] VITALS: BP 144/90
[2018-01-16 06:16] VITALS: BP 140/90
--- NOTE | 2018-01-16 11:10 | PN- Housestaff ---
James Sanders 01/16/18 1101: Subjective Follow-up For: Shortness of breath Complaints: Shortness of breath Subjective: Patient seen and examined at bedside. Patient is c/o shortness of breath "feels like someone is strangling me", she is expereincing a non-productive cough, but feels like there is something in her lungs and she cant cough it up, she is experiencing a headache, and reqesting her morning meds. Review of Systems Constitutional: Denies: chills, diaphoresis, fever. Cardiovascular: Denies: chest pain, palpitations. Respiratory: Reports: short of breath. Denies: cough, hemoptysis. Gastrointestinal: Denies: abdominal pain, constipation, diarrhea, nausea, vomiting. Objective Last 24 Hrs of Vital Signs/I&O Vital Signs Date Time Temp Pulse Resp B/P B/P Pulse O2 O2 Flow FiO2 Mean Ox Delivery Rate 01/16 1020 72 140/90 01/16 1019 72 140/90 01/16 0838 98 Nasal 2.0L Cannula 01/16 0616 97.9 72 20 140/90 95 Nasal 2.0L Cannula 01/16 0522 96 Nasal 2.0L Cannula 01/16 0050 90 Nasal 2.0L Cannula 01/16 0000 Nasal 2.0L Cannula 01/15 2144 98.5 99 20 144/90 95 /06 2123 99 144/90 01/15 1640 97 Nasal 2.0L Cannula 01/15 1354 97.9 84 24 120/80 97 /06 1207 84 120/70 01/15 1109 97.9 83 24 120/60 94 Intake & Output 01/16 1600 01/16 0800 01/16 0000 Intake Total 120 100 Output Total 500 Balance -380 100 Intake, IV 20 Intake, Oral 100 100 Output, Urine 500 Patient 156 lb Weight Physical Exam General Appearance: Alert, Oriented X3, Cooperative Skin: No Rashes HEENT: Atraumatic, PERRLA, EOMI Neck: Supple, No LAD Cardiovascular: Regular Rate, Normal S1, Normal S2 Lungs: Bilateral wheezing present, no crackles appriciated Abdomen: Normal Bowel Sounds, Soft, No Tenderness Neurological: decreased strength in lower extremities 3/5 bilat. Assessment/Plan Assessment: Ms. Gottlieb is a 62 year old female with past medical history of COPD, hypertension, seizure disorder on Keppra, lung cancer, anxiety, chronic neck pain status post nerve stimulator implantation who was recently discharged (01/13) from [facility] admission for COPD exacerbation. She was brought in for observation 01/14 for mild COPD exacerbation and uncontrolled pain and anxiety. Around 1130 am a rapid response was called because patient was not responding to verbal commands, was visibly wheezing and gasping for air. Dr. Parada (ENT [facility]) was called, spoke with his PA Marina Bearden, so stated that Ms. Gottlieb is a patient of Dr. Zeenat Knutson, she has neuromuscular weakness, no cough reflex. Patient was scoped on 12/31/17 which showed narrowing of oropharynx. PA requestedfiberoptic nasolyarngo scope be ready in ICU room for when Dr. Parada arrived later on today. Patient was transferred to ICU room 103. #COPD exacerbation-seems to be exacerbated by anxiety. Patient changes her breathing pattern and sounds when I walk into the room. Her breathing becomes normal after I stay in the room for awhile to speak with her. - Pulmonology following patient -continued steroid taper and previously started from last admission -Does not meet criteria for Pulm rehab (must have 3 noc stay in ICU) -Contact ENT Dr. Frank to discuss results from recent laryngoscopy #Anxiety-likely contributing to COPD exacerbation -Started on Celexa 20mg PO -Continue xanax tid #Chronic pain -long and short acting doses approved with Dr. Ubaldo Cordova (pain management) from prior visit -Will provide IV pain medication only for severe pain DVT Prophylaxis: on eliquis/alps Problem List: 1. SOB (shortness of breath) Pain Ratin Pain Location: N/A Pain Goal: Remain pain free Pain Plan: n/a Tomorrow's Labs & Rationales: n/a Hu Mccartney MD 01/16/18 1820: Attending MD Review Statement Attending Statement Attending MD Statement: examined this patient, discuss w/resident/PA/RESOURCING ADVISOR, agreed w/resident/PA/RESOURCING ADVISOR, reviewed EMR data (avail) Attending Assessment/Plan: Patient had shortness of breath and sensation of throat closing today. Will transfer to ICU, continue Solumedrol and nebulizer treatments, continue Clotrimazole troches and Fluconazole, ENT and pulmonary consults, continue home medications.
--- NOTE | 2018-01-16 11:44 | Event Note ---
Event Note Event Note: Situation: Around 11.30 am, rapid response was called on patient as she was not responding to verbal commands and was visibly wheezing and gasping for air. Patient also reported that her throat is closing. Background: Ms. Gottlieb is a 62 year old female with past medical history of COPD, hypertension, seizure disorder on Keppra, lung cancer, anxiety, chronic neck pain status post nerve stimulator implantation who was recently discharged (01/13) from [facility] admission for COPD exacerbation. She was brought in for observation 01/14 for mild COPD exacerbation and uncontrolled pain and anxiety. Patient is also on Magic Mouthwash and Diflucan for possible mucocytis. Assessment: Vitals : BP 130/80, pulse ox 96, HR 96, temp. Physical exam, patient initially not responsive to verbal commands however was awake, pupils no reactive to light and dilated, Regular heart rate and rhythm, breath sounds coarse b/l with diffuse wheezing. Response: Patient will be transfered to ICU, will f/up with pulmonary recommendations, patient is awaiting ENT eval for mucositis, Stat consult is placed again. Gave one time 125 mg solumedrol, continued with 40 q8 starting 1 pm, Stat CXR, CBC, ABGs BEP,and EKG. CBC, BEP,and EKG.
[2018-01-16 12:14] LABS: ABSOLUTE BASOPHIL COUNT 0 /CUMM (0.0-0.2); ABSOLUTE EOSINOPHIL COUNT 0 /CUMM (0.0-0.7); ABSOLUTE GRANULOCYTE CT 11.1 /CUMM (1.4-6.5); ABSOLUTE LYMPH COUNT 0.4 /CUMM (1.2-3.4); ABSOLUTE MONOCYTE COUNT 0.3 /CUMM (0.10-0.60); BASOPHIL % 0 % (0.0-2.0); EOSINOPHIL % 0 % (0-5); HEMATOCRIT 29.2 % (37-47); MEAN CORPUSCULAR HGB 30.2 PG (27.0-31.0); MEAN CORPUSCULAR HGB CONC 33.3 G/DL (33.0-37.0); MEAN CORPUSCULAR VOLUME 90.6 FL (81.0-99.0); MEAN PLATELET VOLUME 6.7 FL (7.4-10.4); PLATELET COUNT 191 /CUMM (130-400); RBC DISTRIBUTION WIDTH 15.1 % (11.5-14.5); RED BLOOD CELL CT 3.23 /CUMM (4.20-5.40); WHITE BLOOD CELL COUNT 11.8 /CUMM (4.8-10.8)
[2018-01-16 12:34] LABS: GRANULOCYTE % 93.7 % (42.2-75.2)
--- NOTE | 2018-01-16 13:15 | RADIOLOGY REPORT ---
EXAMINATION: XR PORTABLE CHEST CLINICAL INFORMATION: Shortness of breath. COMPARISON: 01/14/2018 TECHNIQUE: Portable frontal view of the chest was obtained. FINDINGS: Chronic emphysematous lung disease. Bronchial farrell are thickened in both lungs. Patchy, hazy opacity of the right lower lobe has improved compared to 01/14/2018. However, there is new, patchy opacity in the left lower lobe. No pleural effusion. Cardiac silhouette is normal in size. The hilar contours are normal. Atherosclerotic calcification of the aorta. Neural stimulator wire extends superiorly toward the occipital region of the skull. Tension band wire encircles the spinous processes of the lower cervical spine. IMPRESSION: - Chronic obstructive pulmonary disease. - Although patchy opacity in the right lower lobe has improved, there is new patchy opacity in the left lower lobe. Bronchitis and pneumonia are suspected.
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
[2018-01-16 16:00] VITALS: BP 158/90
[2018-01-17] VITALS: BP 174/95
[2018-01-17 06:12] LABS: ABSOLUTE BASOPHIL COUNT 0 /CUMM (0.0-0.2); ABSOLUTE EOSINOPHIL COUNT 0 /CUMM (0.0-0.7); ABSOLUTE GRANULOCYTE CT 7.4 /CUMM (1.4-6.5); ABSOLUTE LYMPH COUNT 0.4 /CUMM (1.2-3.4); ABSOLUTE MONOCYTE COUNT 0.2 /CUMM (0.10-0.60); BASOPHIL % 0 % (0.0-2.0); EOSINOPHIL % 0.1 % (0-5); HEMATOCRIT 27.7 % (37-47); MEAN CORPUSCULAR HGB 29.7 PG (27.0-31.0); MEAN CORPUSCULAR HGB CONC 32.6 G/DL (33.0-37.0); MEAN PLATELET VOLUME 6.7 FL (7.4-10.4); PLATELET COUNT 174 /CUMM (130-400); RBC DISTRIBUTION WIDTH 15.3 % (11.5-14.5); RED BLOOD CELL CT 3.04 /CUMM (4.20-5.40); WHITE BLOOD CELL COUNT 8.1 /CUMM (4.8-10.8)
[2018-01-17 06:35] LABS: GRANULOCYTE % 92.1 % (42.2-75.2)
[2018-01-17 08:00] VITALS: BP 130/84
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
[2018-01-17 12:30] VITALS: BP 166/76
[2018-01-17 16:08] VITALS: BP 150/90
[2018-01-17 19:59] VITALS: BP 160/78
[2018-01-17 20:45] VITALS: BP 132/81
[2018-01-18 06:48] VITALS: BP 162/97
--- NOTE | 2018-01-18 07:18 | PN- Housestaff ---
See Addendum Subjective Follow-up For: acute COPD exacerbation chronic neck pain headache Complaints: neck pain headache sensation of being strangled Subjective: Patient reports she 'feels bad'. She states she has a lot of pain in her neck that radiates down her arms. She states feels she cannot go home 2/2 this pain. She continues to mention the gram negative rods in her throat and seems fixated on them as a source of her strangling sensation despite multiple attempts to explain colonization vs infectious process. She denies n/v/d, chest pain, fever , chills. Last BM yesterday-normal for patient. Review of Systems Constitutional: Reports: see HPI. Objective Last 24 Hrs of Vital Signs/I&O Vital Signs Date Time Temp Pulse Resp B/P B/P Pulse O2 O2 Flow FiO2 Mean Ox Delivery Rate 01/18 0809 69 162/97 01/18 0648 98.1 69 18 162/97 96 01/18 0020 92 Nasal 2.0L Cannula 01/18 0000 92 Nasal 2.0L Cannula 01/17 2045 77 132/81 01/17 2037 95 Nasal 2.0L Cannula 01/17 2005 113 160/78 07 1959 97.6 113 18 160/78 96 Nasal 2.0L Cannula 01/17 1854 98 Nasal 2.5L Cannula 01/17 1608 98.6 84 18 150/90 95 /08 1600 95 Nasal 2.0L Cannula 08 1230 98.3 71 18 166/76 97 Nasal 2.0L Cannula 01/17 0857 97 Nasal 2.0L Cannula Intake & Output 01/18 1600 01/18 0800 01/18 0000 Intake Total 240 322 Output Total 500 400 Balance -260 -78 Intake, IV 22 Intake, Oral 240 300 Number 2 1 Bowel Movements Output, Urine 500 400 Patient 157 lb Weight Physical Exam General Appearance: Alert, Oriented X3, Cooperative, No Acute Distress, anxious about health and does not feel ready to go home Skin: eccyhmosis to BUE/BLE, chest Skin Temp/Moisture Exam: Warm/Dry HEENT: Atraumatic, PERRLA Neck: Supple Cardiovascular: Regular Rate, Normal S1, Normal S2, No Murmurs Lungs: Clear to Auscultation, Normal Air Movement Abdomen: Normal Bowel Sounds, Soft, No Tenderness Neurological: Normal Tone, Sensation Intact Extremities: Normal Pulses, 1+ pitting edema BLE Assessment/Plan Assessment: Ms. Gottlieb is a 62 year old female with past medical history of COPD, hypertension, seizure disorder on Keppra, lung cancer, anxiety, chronic neck pain status post nerve stimulator implantation who was recently discharged (01/13) from [facility] admission for COPD exacerbation. She was brought in for observation 01/14 for mild COPD exacerbation and uncontrolled pain and anxiety. #COPD exacerbation-seems to be exacerbated by anxiety. Patient changes her breathing pattern and sounds when I walk into the room. Her breathing becomes normal after I stay in the room for awhile to speak with her. -Admitted to ICU 01/16 s/p rapid response for respiratory distress and non responsive to verbal commands. Emergency consult to ENT (Dr. Monae) who performed laryngoscopy; no acute findings. Patient transferred back to the general medicine service over the weekend and remained stable. -continued steroid taper and previously started from last admission -Pulm consulted: will continue to follow recs -Does not meet criteria for Pulm rehab (must have 3 noc stay in ICU) #Anxiety-likely contributing to COPD exacerbation -Started on Celexa 20mg PO this admission 01/14. Will need to follow up outpatient and increase as needed -Continue xanax 0.5mg PO tid for acute anxiety #Chronic pain -medication doses halfed over the weekend; will reach out to Dr. Cordova today to discuss dosages and adjust accordingly -Will provide IV pain medication only for severe pain DVT Prophylaxis: on eliquis/alps Problem List: 1. Acute exacerbation of chronic obstructive pulmonary disease (COPD) 2. Anxiety Pain Ratin Pain Location: neck pain and headache Pain Goal: Pain 4 or less Pain Plan: see a/p Tomorrow's Labs & Rationales: none
[2018-01-18 08:13] LABS: ABSOLUTE BASOPHIL COUNT 0 /CUMM (0.0-0.2); ABSOLUTE EOSINOPHIL COUNT 0 /CUMM (0.0-0.7); ABSOLUTE GRANULOCYTE CT 8.1 /CUMM (1.4-6.5); ABSOLUTE LYMPH COUNT 0.7 /CUMM (1.2-3.4); ABSOLUTE MONOCYTE COUNT 0.5 /CUMM (0.10-0.60); BASOPHIL % 0.1 % (0.0-2.0); EOSINOPHIL % 0 % (0-5); HEMATOCRIT 28.1 % (37-47); MEAN CORPUSCULAR HGB 29.9 PG (27.0-31.0); MEAN CORPUSCULAR HGB CONC 33.2 G/DL (33.0-37.0); MEAN CORPUSCULAR VOLUME 90.2 FL (81.0-99.0); MEAN PLATELET VOLUME 6.9 FL (7.4-10.4); PLATELET COUNT 191 /CUMM (130-400); RBC DISTRIBUTION WIDTH 15.3 % (11.5-14.5); RED BLOOD CELL CT 3.12 /CUMM (4.20-5.40); WHITE BLOOD CELL COUNT 9.3 /CUMM (4.8-10.8)
--- NOTE | 2018-01-18 08:50 | PN- Pulmonary ---
Subjective HPI/Critical Care Issues: Weekend events noted. The patient is awake and appears comfortable. She continues to have throat discomfort. She has pain that radiates down her arms as well. She has no significant productive cough. She also has ongoing wheezing and shortness of breath. She denies any chest pain, fever or chills. There is no report of abdominal pain, nausea or vomiting. Objective Current Medications: Current Medications Sig/Halie Start time Last Medication Dose Route Stop Time Status Admin Acetaminophen 1,000 MG Q6-PRN PRN 01/17 1745 AC IV Albuterol Sulfate 3 ML EVERY 4 HRS/AWAKE 01/15 0800 AC 01/18 INH 0830 Albuterol Sulfate 2 PUF Q4-6 PRN PRN 01/14 1545 AC INH Alprazolam 0.5 MG TID 01/14 1534 AC 01/18 PO 01/21 1533 0813 Apixaban 5 MG BID 01/14 2100 AC 01/18 PO 0810 Budesonide/ 2 PUF BID 01/14 2100 AC 01/18 Formoterol Fumarate INH 0819 Calcium Carbonate 500 MG DAILY PRN 01/14 1545 AC PO Carvedilol 3.125 MG BID 01/14 2100 AC 01/18 PO 0809 Cholecalciferol 1,000 IU DAILY 01/14 1535 AC 01/18 PO 0811 Citalopram 20 MG DAILY 01/14 1539 AC 01/18 Hydrobromide PO 0807 Clotrimazole 10 MG 5 TIMES A DAY 01/15 1700 AC 01/18 PO 01/22 0500 0814 Cyanocobalamin 1,000 MCG DAILY 01/14 1536 AC 01/18 PO 0811 Docusate Sodium 100 MG BID 01/17 1424 AC 01/18 PO 0807 Ferrous Sulfate 325 MG DAILY 01/14 1536 AC 01/18 PO 0810 Fluconazole 100 MG DAILY 01/15 1535 DC 01/17 PO 01/18 0000 0824 Guaifenesin 600 MG Q12 01/14 2100 AC 01/18 PO 0810 Levetiracetam 750 MG BID 01/14 2100 AC 01/18 PO 0814 Lidocaine 1 PAT DAILY 01/14 1930 AC 01/18 TOP 0820 Lidocaine/Diphenhydr/ 30 ML Q6-PRN PRN 01/15 1545 AC 01/18 Alum/Mg/Simeth PO 0446 Lisinopril 5 MG DAILY 01/15 900 DC 01/17 PO 0824 Methylprednisolone 60 MG DAILY 01/18 900 DC IV Methylprednisolone 40 MG DAILY 01/18 900 AC 01/18 IV 0815 Methylprednisolone 20 MG ONCE ONE 01/17 1000 DC 01/17 IV 01/17 1001 1144 Methylprednisolone 40 MG Q12 01/17 900 DC 01/17 IV 0825 Omeprazole 40 MG 1/2H B/BREAKF/DINNER 01/14 1630 AC 01/18 PO 0811 Ondansetron HCl 4 MG Q6P PRN 01/15 1345 AC 01/17 IV 1616 Oxycodone HCl 15 MG Q12 01/16 2100 AC 01/18 PO 0813 Oxycodone HCl 10 MG Q6 PRN 01/16 1745 AC 01/17 PO 0839 Oxycodone HCl 15 MG Q6-PRN PRN 01/16 1715 AC 01/18 PO 0236 Polyethylene Glycol 17 GM DAILY 01/17 1424 AC 01/18 PO 0818 Senna 187 MG AT BEDTIME 01/17 2100 AC 01/17 PO 2009 Tiotropium [place] 1 PUF DAILY 01/15 900 AC 01/18 INH 0819 Vital Signs & I&O Last 24 Hrs of Vitals and I&O: Vital Signs Date Time Temp Pulse Resp B/P B/P Pulse O2 O2 Flow FiO2 Mean Ox Delivery Rate 01/18 809 69 162/97 01/18 0648 98.1 69 18 162/97 96 01/18 0020 92 Nasal 2.0L Cannula 01/18 0000 92 Nasal 2.0L Cannula 01/17 2045 77 132/81 01/17 2037 95 Nasal 2.0L Cannula 01/17 2005 113 160/78 01/17 1959 97.6 113 18 160/78 96 Nasal 2.0L Cannula 01/17 1854 98 Nasal 2.5L Cannula 01/17 1608 98.6 84 18 150/90 95 01/17 1600 95 Nasal 2.0L Cannula 01/17 1230 98.3 71 18 166/76 97 Nasal 2.0L Cannula 01/17 0857 97 Nasal 2.0L Cannula Intake & Output 01/18 1600 01/18 0800 01/18 0000 Intake Total 240 322 Output Total 500 400 Balance -260 -78 Intake, IV 22 Intake, Oral 240 300 Number 2 1 Bowel Movements Output, Urine 500 400 Patient 157 lb Weight Physical Exam General Appearance: alert, awake, cushionoid, chronically ill Head: atraumatic, normal appearance Neck: supple Respiratory: bilateral wheezes and ronchi, lungs expand symmetrically Cardiovascular: regular rate/rhythm Gastrointestinal: normal bowel sounds, soft, non-tender Extremities: no edema Skin: intact, warm/dry Results Last 24 Hrs of Lab Results: Laboratory Tests 01/18/18 0610: Anion Gap 5, Estimated GFR > 60, BUN/Creatinine Ratio 30.0 H, CBC w Diff Pending, WBC Pending, RBC Pending, Hgb Pending, Hct Pending, MCV Pending, MCH Pending, MCHC Pending, RDW Pending, Plt Count Pending, MPV Pending Impression/Plan Impression/Plan Impression/Plan: 1. Multiple complaints including throat pain, and history of drug-resistant E. coli 2. Severe O2 and prednisone dependent COPD with evidence of wheezing still present 3. Chronic hypoxemic respiratory failure 4. Chronic hypercarbic respiratory failure 5. Pulmonary nodules concerning for possible MALIGNANCY, out patient PET planned 6. Pulmonary embolism on Eliquis, (09/2015) 7. History of CHF 8. Spinal stenosis and chronic pain, hx neurostimulator placement 9. Sacral fracture history 10. Tobacco dependence history 11. Psychiatric history, severe anxiety Recommendations: * Continue nebs/TRC/inhaler regimen. * IV solumedrol 40 mg daily. * Magic mouth wash to continue. * Follow-up sputum cytology results. * Continue diflucan. * Continue anxiolytics. * Low threshold for abx. * Continue with pain control howeer avoid oversedation. * DVT prophylaxis at all times. * Out of bed to chair if able.
[2018-01-18 09:18] LABS: GRANULOCYTE % 87.4 % (42.2-75.2)
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
[2018-01-18 13:20] VITALS: BP 136/77
[2018-01-18 14:18] VITALS: BP 148/68
[2018-01-18 21:21] VITALS: BP 170/88
[2018-01-19 06:54] VITALS: BP 146/98
--- NOTE | 2018-01-19 07:16 | PN- Pulmonary ---
Subjective HPI/Critical Care Issues: No overnight events. Sitting out of bed in a chair comfortably without respiratory distress. She continues to feel she has throat discomfort. She has ongoing chronic shortness of breath and wheezing. Objective Current Medications: Current Medications Sig/Halie Start time Last Medication Dose Route Stop Time Status Admin Acetaminophen 1,000 MG Q6-PRN PRN 01/17 1745 AC IV Albuterol Sulfate 3 ML EVERY 4 HRS/AWAKE 01/15 0800 AC 01/19 INH 0523 Albuterol Sulfate 2 PUF Q4-6 PRN PRN 01/14 1545 AC INH Alprazolam 0.5 MG TID 01/14 1534 AC 01/18 PO 01/21 1533 2028 Apixaban 5 MG BID 01/14 2100 AC 01/18 PO 202 Budesonide/ 2 PUF BID 01/14 2100 AC 01/18 Formoterol Fumarate INH 2030 Calcium Carbonate 500 MG DAILY PRN 01/14 1545 AC PO Carvedilol 3.125 MG BID 01/14 2100 AC 01/18 PO 2030 Cholecalciferol 1,000 IU DAILY 01/14 1535 AC 01/18 PO 0811 Citalopram 20 MG DAILY 01/14 1539 AC 01/18 Hydrobromide PO 0807 Clotrimazole 10 MG 5 TIMES A DAY 01/15 1700 AC 01/19 PO 01/22 0500 0600 Cyanocobalamin 1,000 MCG DAILY 01/14 1536 AC 01/18 PO 0811 Docusate Sodium 100 MG BID 01/17 1424 AC 01/18 PO 2030 Ferrous Sulfate 325 MG DAILY 01/14 1536 AC 01/18 PO 0810 Guaifenesin 600 MG Q12 01/14 2100 AC 01/18 PO 2028 Levetiracetam 750 MG BID 01/14 2100 AC 01/18 PO 2029 Lidocaine 1 PAT DAILY 01/14 1930 AC 01/18 TOP 0820 Lidocaine/Diphenhydr/ 30 ML Q6-PRN PRN 01/15 1545 AC 01/18 Alum/Mg/Simeth PO 0446 Methylprednisolone 40 MG DAILY 01/18 0900 AC 01/18 IV 0815 Omeprazole 40 MG 1/2H B/BREAKF/DINNER 01/14 1630 AC 01/19 PO 0529 Ondansetron HCl 4 MG Q6P PRN 01/15 1345 AC 01/17 IV 1616 Oxycodone HCl 30 MG Q12 01/18 2100 AC 01/18 PO 202 Oxycodone HCl 15 MG Q4 HRS NEEDED PRN 01/18 1345 AC 01/19 PO 0448 Oxycodone HCl 15 MG Q12 01/16 2100 DC 01/18 PO 0813 Oxycodone HCl 10 MG Q6 PRN 01/16 1745 DC 01/17 PO 0839 Oxycodone HCl 15 MG Q6-PRN PRN 01/16 1715 DC 01/18 PO 0938 Polyethylene Glycol 17 GM DAILY 01/17 1424 AC 01/18 PO 0818 Senna 187 MG AT BEDTIME 01/17 2100 AC 01/18 PO 2026 Tiotropium [place] 1 PUF DAILY 01/15 09 AC 01/18 INH 0819 Vital Signs & I&O Last 24 Hrs of Vitals and I&O: Vital Signs Date Time Temp Pulse Resp B/P B/P Pulse O2 O2 Flow FiO2 Mean Ox Delivery Rate 01/19 0654 98.1 70 20 146/98 96 Nasal 2.0L Cannula 01/19 0200 95 Nasal 2.0L Cannula 01/19 0000 94 Nasal 2.0L Cannula 01/18 2121 98.3 74 18 170/88 97 Room Air 01/18 2030 74 170/88 01/18 1634 95 Nasal 2.0L Cannula 01/18 1600 97 Nasal 2.0L Cannula 01/18 1418 97.6 76 20 148/68 97 Nasal 1.0L Cannula 01/18 1320 98.2 79 20 136/77 98 Nasal 2.0L Cannula 01/18 0907 96 Nasal 2.0L Cannula 01/18 0809 69 162/97 01/18 0800 Nasal 2.0L Cannula Intake & Output 01/19 0800 01/19 0000 01/18 1600 Intake Total 240 120 360 Output Total 900 250 Balance 240 -780 110 Intake, Oral 240 120 360 Number 4 1 Bowel Movements Output, Urine 900 250 Patient 157 lb 157 lb Weight Physical Exam General Appearance: Alert, Oriented X3, Cooperative, No Acute Distress, anxious about health and does not feel ready to go home Skin: eccyhmosis to BUE/BLE, chest Skin Temp/Moisture Exam: Warm/Dry HEENT: Atraumatic, PERRLA Neck: Supple Cardiovascular: Regular Rate, Normal S1, Normal S2, No Murmurs Lungs: Clear to Auscultation, Normal Air Movement Abdomen: Normal Bowel Sounds, Soft, No Tenderness Neurological: Normal Tone, Sensation Intact Extremities: Normal Pulses, 1+ pitting edema BLE Results Last 24 Hrs of Lab Results: No current labs. Impression/Plan Impression/Plan Impression/Plan: 1. AECOPD - steroid and oxygen dependent. 2. Throat pain. 3. Severe anxiety. Recommendations: * Continue nebs/TRC/inhaler regimen. * Oxygen for saturations around 92%. * IV solumedrol 40 mg daily. * Magic mouth wash to continue. * Follow-up sputum cytology results. * Agree with repeat CT of the chest and possible trial of empiric antibiotics per ID. * Low threshold for abx. * Continue with pain control however avoid oversedation as this will easily cause her respiratory complications. * DVT prophylaxis at all times. * Out of bed to chair if able.
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
[2018-01-19 13:57] VITALS: BP 143/83
[2018-01-19 21:52] VITALS: BP 154/84
--- NOTE | 2018-01-19 22:38 | CT SCAN REPORT ---
EXAMINATION: CT CHEST WITHOUT CONTRAST CLINICAL INFORMATION: Positive sputum culture. Somatic complaints. COMPARISON: Chest radiograph 01/16/2018. CT performed 01/06/2018. TECHNIQUE: Multidetector volumetric CT imaging of the chest was done. Axial MIP volume rendering provided. Sagittal and coronal reformatted images were obtained. DLP: 213 mGy-cm FINDINGS: LUNGS: The central airways are patent. There is redemonstration of multiple nodular opacities in the lungs. This includes an irregular nodule in the superior segment of the left lower lobe measuring approximately 2 cm. This is fairly similar to prior. There is a nodule along the medial pleura at the left upper lobe measuring 1 cm on series 3 image 14. This is similar to prior. There is an additional left lower lobe nodule more inferiorly measuring 0.8 cm, also fairly similar to prior, series 3 image 38. Increased from prior are multifocal areas of groundglass opacity, favoring a subpleural distribution, along the periphery of the lungs and along the fissures. There is no pneumothorax. Trace left pleural effusion. Mild centrilobular emphysema. MEDIASTINUM: The heart is normal in size. No pericardial effusion. Coronary artery calcifications are present. There is a prominent pretracheal lymph node again noted, measuring 1.8 cm on series 2 image 22. Enlarged AP window node on the same image measures 1.2 cm. These are fairly similar to prior. Heterogeneous appearance of the thyroid gland with small nodules present. AXILLA: No lymphadenopathy. UPPER ABDOMEN: Cholecystectomy. OSSEOUS STRUCTURES: No acute or suspicious osseous abnormality. Multilevel degenerative changes throughout the spine. Conclusions multilevel compression deformities, unchanged from prior. IMPRESSION: Redemonstration of irregular pulmonary nodules within the left lung, similar to the prior study from 01/06/2018, but more defined than on the study performed 08/16/2017. At that time there was more associated consolidation. The appearance is nonspecific, but the addition of groundglass opacities in the lungs does raise the possibility for cryptogenic organizing pneumonia (JUNIOR GRAPHIC DESIGNER). Other infectious or inflammatory processes are possible. Continued follow-up should be performed to exclude underlying neoplasm. Persistent mediastinal lymphadenopathy. This is similar to the recent prior CT but increased compared to 08/16/2017. This may be reactive.
[2018-01-20 07:02] VITALS: BP 176/94
--- NOTE | 2018-01-20 07:38 | PN- Housestaff ---
See Addendum Subjective Follow-up For: acute on chronic hypoxic respiratory failure COPD exacerbation anxiety Complaints: strangling sensation Subjective: Patient continues to endorse a 'strangling sensation' around her neck and requests more xanax. She states she gets some relief with xanax. She continues to report SOB however admits that she feels at her baseline. She continues to have neck pain and headache. She denies fever, chills, n/v/d, chest pain. Review of Systems Constitutional: Reports: see HPI. Objective Last 24 Hrs of Vital Signs/I&O Vital Signs Date Time Temp Pulse Resp B/P B/P Pulse O2 O2 Flow FiO2 Mean Ox Delivery Rate 01/20 1029 97 Nasal 2.0L Cannula 01/20 0810 74 176/94 01/20 0800 97 Nasal 1.0L Cannula 01/20 0702 98.2 74 18 176/94 97 01/20 0318 98 Nasal 1.0L Cannula 01/20 0000 94 Nasal 2.0L Cannula 01/19 2152 98.3 87 20 154/84 97 Nasal 2.0L Cannula 01/19 2032 98.3 87 18 154/84 01/19 1700 97 Nasal 1.0L Cannula 01/19 1600 Nasal 2.0L Cannula 01/19 1357 98.3 81 20 143/83 95 Nasal 2.0L Cannula Intake & Output 01/20 1600 01/20 0800 01/20 0000 Intake Total 120 480 Output Total 700 Balance 120 -220 Intake, Oral 120 480 Number 2 Bowel Movements Output, Urine 700 Patient 152 lb Weight Weight Bed scale Measurement Method Physical Exam General Appearance: Alert, Oriented X3, Cooperative, Mild Distress Skin: ecchymosis to BUE/BLE and chest Skin Temp/Moisture Exam: Warm/Dry HEENT: Atraumatic, PERRLA, nasal cannula in place Neck: Supple Cardiovascular: Regular Rate, Normal S1, Normal S2 Lungs: expiratory wheezes throughout; rhonchi less prominent today Abdomen: Normal Bowel Sounds, Soft, No Tenderness Extremities: Normal Pulses, 1+ edema BLE to mid amado Assessment/Plan Assessment: Ms. Gottlieb is a 62 year old female with past medical history of COPD, hypertension, seizure disorder on Keppra, lung cancer, anxiety, chronic neck pain status post nerve stimulator implantation who was recently discharged (01/13) from [facility] admission for COPD exacerbation. She was brought in for observation 01/14 for mild COPD exacerbation and uncontrolled pain and anxiety. #COPD exacerbation-seems to be exacerbated by anxiety. Her breathing becomes normal after I stay in the room for awhile to speak with her. -Admitted to ICU 01/16 s/p rapid response for respiratory distress and non responsive to verbal commands. Emergency consult to ENT (Dr. Monae) who performed laryngoscopy; no acute findings. Patient transferred back to the general medicine service over the weekend and remained stable. -continued steroid taper and previously started from last admission -Pulm consulted: will continue to follow recs: magic mouth wash -Does not meet criteria for Pulm rehab (must have 3 noc stay in ICU) -ID consulted for possible abx: CXR 01/16 possible LLL pneumonia and resp sputum growing enterococcus/GNR/yeast. Recommended CT chest and that was done shows continued presence of suspicious lesions and possible cryptogenic organizing pneumonia (MYSTERY SHOPPER); will treat with Meropenem and see how she responds. She remains on Prednisone PO 40mg daily -Pulm: strict aspiration precautions; continue steroids; continue pain control; maintain O2 sats around 92% -Will obtain CT neck to further assess 'strangling sensation' #Anxiety-likely contributing to COPD exacerbation -Started on Celexa 20mg PO this admission 01/14. Will need to follow up outpatient and increase as needed -Increase xanax 0.5mg PO to qid from tid for acute anxiety #Chronic pain -Dr. Cordova did not see yesterday and will not be here today. Will call his office again. -Will provide IV pain medication only for severe pain -PT working with patient. OOB DVT Prophylaxis: on eliquis/alps Problem List: 1. Acute exacerbation of chronic obstructive pulmonary disease (COPD) 2. Anxiety 3. Headache 4. Neck pain 5. SOB (shortness of breath) Pain Ratin Pain Location: neck and head Pain Goal: Pain 4 or less Pain Plan: see a/p Tomorrow's Labs & Rationales: none
--- NOTE | 2018-01-20 07:48 | PN- Pulmonary ---
Subjective HPI/Critical Care Issues: The patient is awake and alert. She continues to complain of throat discomfort. She is also complaining of sciatic pain. Her respiratory status has improved, noting she is less short of breath. She continues to have ongoing wheezing however this is chronic. Objective Current Medications: Current Medications Sig/Halie Start time Last Medication Dose Route Stop Time Status Admin Acetaminophen 1,000 MG Q6-PRN PRN 01/17 1745 AC IV Albuterol Sulfate 3 ML EVERY 4 HRS/AWAKE 01/15 0800 AC 01/20 INH 0550 Albuterol Sulfate 2 PUF Q4-6 PRN PRN 01/14 1545 AC INH Alprazolam 0.5 MG TID 01/14 1534 AC 01/19 PO 01/21 1533 2031 Apixaban 5 MG BID 01/14 2100 AC 01/19 PO 203 Budesonide/ 2 PUF BID 01/14 2100 AC 01/19 Formoterol Fumarate INH 2032 Calcium Carbonate 500 MG DAILY PRN 01/14 1545 AC PO Carvedilol 3.125 MG BID 01/14 2100 AC 01/19 PO 203 Cholecalciferol 1,000 IU DAILY 01/14 1535 AC 01/19 PO 0927 Citalopram 20 MG DAILY 01/14 1539 AC 01/19 Hydrobromide PO 27 Clotrimazole 10 MG 5 TIMES A DAY 01/15 1700 AC 01/20 PO 01/22 0500 0535 Cyanocobalamin 1,000 MCG DAILY 01/14 1536 AC 01/19 PO 0927 Docusate Sodium 100 MG BID 01/17 1424 AC 01/19 PO 203 Ferrous Sulfate 325 MG DAILY 01/14 1536 AC 01/19 PO 0927 Guaifenesin 600 MG Q12 01/14 2100 AC 01/19 PO 203 Levetiracetam 750 MG BID 01/14 2100 AC 01/19 PO 2031 Lidocaine 1 PAT DAILY 01/14 1930 AC 01/19 TOP 0927 Lidocaine/Diphenhydr/ 30 ML Q6-PRN PRN 01/15 1545 AC 01/19 Alum/Mg/Simeth PO 0928 Meropenem 1 GM IQ8 01/19 1600 AC 01/20 IV 0003 Omeprazole 40 MG 1/2H B/BREAKF/DINNER 01/14 1630 AC 01/20 PO 0535 Ondansetron HCl 4 MG Q6P PRN 01/15 1345 AC 01/19 IV 2002 Oxycodone HCl 30 MG Q12 01/18 2100 AC 01/19 PO 203 Oxycodone HCl 15 MG Q4 HRS NEEDED PRN 01/18 1345 AC 01/20 PO 0009 Polyethylene Glycol 17 GM DAILY 01/17 1424 AC 01/18 PO 0818 Prednisone 10 MG DAILY 01/28 900 AC PO 01/30 901 Prednisone 20 MG DAILY 01/25 900 AC PO 01/27 901 Prednisone 30 MG DAILY 01/22 900 AC PO 01/24 901 Prednisone 40 MG DAILY 01/19 09 CAN PO 01/31 859 Prednisone 40 MG DAILY 01/19 900 AC 01/19 PO 01/21 09 09 Senna 187 MG AT BEDTIME 01/17 2100 AC 01/19 PO 2031 Tiotropium [place] 1 PUF DAILY 01/15 09 AC 01/19 INH 1215 Vital Signs & I&O Last 24 Hrs of Vitals and I&O: Vital Signs Date Time Temp Pulse Resp B/P B/P Pulse O2 O2 Flow FiO2 Mean Ox Delivery Rate 01/20 702 98.2 74 18 176/94 97 01/20 0318 98 Nasal 1.0L Cannula 01/20 0000 94 Nasal 2.0L Cannula 01/19 2152 98.3 87 20 154/84 97 Nasal 2.0L Cannula 01/19 203 98.3 87 18 154/84 01/19 1700 97 Nasal 1.0L Cannula 01/19 1600 Nasal 2.0L Cannula 01/19 1357 98.3 81 20 143/83 95 Nasal 2.0L Cannula 01/19 0927 70 146/98 01/19 0836 98 Nasal 1.0L Cannula 01/19 0800 96 Nasal 2.0L Cannula Intake & Output 01/20 0800 01/20 0000 01/19 1600 Intake Total 120 480 600 Output Total 700 500 Balance 120 -220 100 Intake, IV 0 Intake, Oral 120 480 600 Number 2 1 Bowel Movements Output, Urine 700 500 Patient 152 lb Weight Weight Bed scale Measurement Method Physical Exam General Appearance: Alert, Oriented X3, Cooperative, No Acute Distress, anxious about health and does not feel ready to go home Skin: eccyhmosis to BUE/BLE, chest Skin Temp/Moisture Exam: Warm/Dry HEENT: Atraumatic, PERRLA Neck: Supple Cardiovascular: Regular Rate, Normal S1, Normal S2, No Murmurs Lungs: Clear to Auscultation, Normal Air Movement Abdomen: Normal Bowel Sounds, Soft, No Tenderness Neurological: Normal Tone, Sensation Intact Extremities: Normal Pulses, 1+ pitting edema BLE Diagnostic Data CT Scan Findings: Redemonstration of irregular pulmonary nodules within the left lung, similar to the prior study from 01/06/2018, but more defined than on the study performed 08/16/2017. At that time there was more associated consolidation. The appearance is nonspecific, but the addition of groundglass opacities in the lungs does raise the possibility for cryptogenic organizing pneumonia (SNACK BAR COOK). Other infectious or inflammatory processes are possible. Continued follow-up should be performed to exclude underlying neoplasm. Persistent mediastinal lymphadenopathy. This is similar to the recent prior CT but increased compared to 08/16/2017. This may be reactive. Impression/Plan Impression/Plan Impression/Plan: 1. AECOPD - steroid and oxygen dependent. 2. Throat pain. 3. Severe anxiety. 4. Chronic pain. 5. Chronic hypoxemic respiratory failure. CT scan suggests underlying interstitial lung disease, with the possibility of cryptogenic organizing pneumonia versus other infectious versus inflammatory issues. The patient also has significant adenopathy. Recommendations: * Continue nebs/TRC/inhaler regimen. * Oxygen for saturations around 92%. * Continue prednisone 40 mg daily. * Agree with trial of antibiotics as per ID -now on meropenem. * Continue with pain control however avoid oversedation as this will easily cause her respiratory complications. * Continue with strict aspiration precautions. * Check serologies for complete work up of ILD including NATALIIA, ANCA, ESR, AARON level, Aspergillus precipitating ab, sjogren antibody panel, marks ab, tire duster ab, scl-70, dsDNA ab,and rheumatoid factor. This testing is nonurgent and may be done as an outpatient however I will defer to the primary team. * DVT prophylaxis at all times. * Physical therapy for ambulation. * Discussed plan of care with house staff.
--- NOTE | 2018-01-20 12:29 | CT SCAN REPORT ---
EXAMINATION: CT SOFT TISSUE NECK WITH CONTRAST CLINICAL INFORMATION: Throat pain. Assess for acute DYSFUNCTION. COMPARISON: CT scan of the cervical spine 01/03/2018. CTA of the chest 01/06/2018. TECHNIQUE: Following the intravenous administration of 95 mL of Optiray 320, helical imaging was performed in the axial plane with generation of coronal and sagittal reformatted images. DLP: 399.85 mGy-cm. FINDINGS: There is no cervical lymphadenopathy. The right common carotid artery is tortuous and extends almost to the midline at the level of C3. This distorts the dorsolateral oropharynx, with effacement of the right vallecula. The epiglottis has normal thickness. The parotid glands bilaterally are relatively fatty. There appear symmetric in size and density. The mandibular glands appear normal. There is no abnormal enhancement in the oral cavity or pharyngeal mucosal space. The laryngeal structures are normal. The parapharyngeal fat is preserved. There is good opacification of the vascular structures. There are atheromatous calcifications of the carotid bifurcations bilaterally. No extra mucosal soft tissue mass or fluid collection is seen. No retropharyngeal fluid collection is seen. The thyroid gland has moderately heterogenous density with multiple areas of low attenuation, demonstrated on prior imaging. The study redemonstrates lymphadenopathy in the AP window and pretracheal regions. One of the AP window nodes is larger compared to prior imaging. The other lymphadenopathy appears relatively stable. There is ground glass opacification in the upper lobes bilaterally. The previously noted mass at the superior segment of the left lower lobe is not included on the current study. There has been no interval change in the irregular mass abutting the mediastinal pleura in the medial left upper lobe. The mastoid air cells and visualized portions of the paranasal sinuses are well-aerated. The nasal septum is deviated to the right anteriorly. There is a left-sided spur more posteriorly in the mid nasal cavity. The temporomandibular joints are normal. The patient is edentulous in the mandible and the maxilla. The study redemonstrates multilevel degenerative anterolistheses. There is fusion of the bodies of C6-C7 and C7-T1, unchanged. There is assimulation of the bilateral atlantooccipital joints. The cerclage wires posteriorly at the cervicothoracic region are unchanged. There are stable scalp electrodes in the deep bilateral parieto-occipital regions. The imaged portions of the brain parenchyma are unremarkable. IMPRESSION: 1. There is tortuosity of the right common carotid artery which extends almost to the midline, and distorts the dorsal oropharynx and effaces the right vallecula. The epiglottis appears normal. 2. There is no cervical lymphadenopathy. The parotid glands are fatty bilaterally. 3. There are moderately prominent mediastinal lymph nodes, demonstrated on prior imaging. There is a left upper lobe nodule medially, which appears similar compared to the prior studies. 4. Postoperative changes with cerclage wires and electrodes are noted posteriorly. 5. The multinodular goiter is unchanged.
--- NOTE | 2018-01-20 13:31 | Discharge Summary ---
Visit Information Visit Dates Admission Date: 01/15/18 Discharge Date: 02/06/18 Hospital Course Course Attending Physician: Jhonatan Mcdonald MD Primary Care Physician: Narinder MCKEON,Cristian Antoine Hospital Course: Ms. Gottlieb is a 62 year old female with past medical history of severe COPD, hypertension, seizure disorder, pulmonary nodules concerning for malignancy, significant anxiety, chronic neck pain status post nerve stimulator implantation who was admitted the day after being discharged from [facility] treated for COPD exacerbation and chronic medical issues with a course complicated by severe anxiety and multiple somatic complaints. Problem List: 1. Acute on chronic hypoxemic hypercarbic respiratory failure secondary to severe oxygen and prednisone dependent COPD 2. Chronic pain secondary to spinal stenosis and sacral fracture 3. Anxiety 4. HTN urgency 5. Left hip pain 6. Pulmonary nodules concerning for malignancy 7. Chronic anemia #Respiratory issues: -Patient was initially admitted to general medicine and treated with steroids and oxygen therapy for COPD exacerbation. -Admitted to ICU 01/16 s/p rapid response because patient was gasping for air and non responsive to verbal commands. Emergency consult to ENT (Dr. Monae) who performed laryngoscopy; no acute findings. She was treated with IV steroids. -Patient subsequently transferred back to the general medicine service -Patient was treated with varying doses of prednisone throughout her stay but is prednisone dependent -Pulm consulted: mouth wash; continue steroid treatment; will need further workup if she can tolerate for suspicious lesions of Chest CT -ID consulted: CXR 01/16 possible LLL pneumonia and resp sputum growing enterococcus/E. coli/yeast. This is likely colonization and patient remained afebrile without increasing leukocytosis or other signs of infection. CT chest showed continued presence of suspicious lesions and possible cryptogenic organizing pneumonia ([employer]); treated with Meropenem for a 7 day course because patient was anxious about E. coli colonization in her sputum culture -Patient complained of strangling sensation: CT neck negative for any pathologic /obstructive process. ENT evaluation was negative. -On 01/29/2018, patient was transferred to ICU again because she was gasping for air, hypoxic, and tachycardic -She was subsequently transferred back to general medicine after stabilization and being treated with IV steroids again. -Patient has pulmonary nodules with lymphadenopathy that will need further workup with PET scan, likely malignancy #Anxiety -Patient complains daily of strangling sensation relieved by alprazolam -Started on Celexa 20mg PO this admission 01/14. -Increased xanax 0.5mg PO to qid from tid for acute anxiety. Please do not decrease this dose. -Goals of care discussion: Palliative care was consulted because patient has variable wishes that change daily in terms of her care, at sometimes requesting hospice, and other times requesting full treatment for her medical conditions -Psychiatry was consulted, recognizes that the patient does have capacity -Family meeting was held and patient agrees to short-term rehab if her opioids and benzodiazepines are maintained at the current dose levels -There is likely an element of addiction but patient's multiple comorbidities prevent effective treatment. #HTN urgency -Patient variably hypertensive throughout her stay without evidence of endorgan damage -Cardiology was consulted -Patient is now on the following anti-hypertensive regimen: -Carvedilol to 6.25mg -Losartan 100mg -Amlodipine 5mg #Chronic pain: -Patient complains frequently of head/neck/arm/back/feet pain -Patient frequently requests increasing doses of pain medications -Dr. Cordova/pain management was consulted but never left a note despite being contacted multiple times -She is now maintained on OxyContin 30 mg every 12H and oxycodone 15 mg every 4H as needed pain -Patient requests that her pain medication regimen not be changed at this time #Chronic anemia: -Patient did not require any transfusions #Left hip pain -One of the multiple somatic complaints the patient expressed throughout her hospitalization -X-ray imaging was negative -Spontaneously resolved Allergies: Coded Allergies: ceftriaxone (Severe, ANAPHYLAXIS 06/29/16) morphine (Severe, TONGUE SWELLING 10/26/16) patient had a significantly positive urine toxicology morphine level at time of presentation to the E.D. 09/30/2016 (was admitted to medical floor from E.D.) Disposition Summary Disposition Principal Diagnosis: 1. Acute on chronic hypoxemic hypercarbic respiratory failure secondary to severe oxygen and prednisone dependent COPD Additional Diagnosis: 2. Chronic pain secondary to spinal stenosis and sacral fracture 3. Anxiety 4. HTN urgency 5. Left hip pain 6. Pulmonary nodules concerning for malignancy 7. Chronic anemia Discharge Disposition: SNF Discharge Instructions General Discharge Information Code Status: Full Code Patient's Diet: Regular Patient's Activity: As tolerated Follow-Up Instructions/Appts: - Please follow up with your primary care physician within 1-2 weeks of discharge. Inform your primary care physician of this admission to [facility]. - Continue your current medications per discharge instructions. - Please watch for these problems: Fever, Chills, Nausea, Vomiting, Shortness of Breath, Productive Cough, Chest Pain/Discomfort, Abdominal Pain, Active Bleeding or Bloody urine/stool. Medications at Discharge Discharge Medications: Stop taking the following medications: Carvedilol (Carvedilol) 3.125 MG TABLET ORAL TWICE DAILY Qty = 60 Lisinopril (Lisinopril) 5 MG TABLET ORAL DAILY Qty = 30 Prednisone (Prednisone) 10 MG TABLET ORAL See Instructions Qty = 10 Continue taking these medications: Tiotropium [place] (Spiriva) 18 MCG CAP.W.DEV 1 Capsule ORAL DAILY Comments: Last Taken: 02/06/18 Time: 10:00 AM Apixaban (Eliquis) 5 MG TABLET 1 Tablet ORAL TWICE DAILY Comments: Last Taken: 02/06/18 Time: 10:00 AM Ipratropium/Albuterol Sulfate (Iprat-Albut 0.5-3(2.5) MG/3 Ml) 0.5 MG-3 MG (2.5 MG BASE)/3 ML AMPUL.NEB 1 PUFF Inhale through mouth EVERY SIX HOURS as needed for breathing Comments: Last Taken: 02/06/18 Time: 11:50 AM Albuterol Sulfate (Ventolin Hfa) 90 MCG HFA.AER.AD 2 Puff Inhale through mouth EVERY 4-6 HOURS NEEDED as needed for breathing Comments: Last Taken: 02/06/18 Time: 11:51 AM Cholecalciferol (Vitamin D3) (Vitamin D) 1,000 UNIT TABLET 1 Tablet ORAL DAILY Comments: Last Taken: 02/06/18 Time: 10:00 AM Ferrous Sulfate (Ferrous Sulfate) 325 MG (65 MG IRON) TABLET.DR 1 Tablet ORAL DAILY Qty = 30 Comments: Last Taken: 02/06/18 Time: 10:00 AM Budesonide/Formoterol Fumarate (Symbicort 160-4.5 Mcg Inhaler) 160 MCG-4.5 MCG/ ACTUATION HFA.AER.AD 2 PUFF Inhale through mouth TWICE DAILY Comments: Last Taken: 02/06/18 Time: 10:00 AM Guaifenesin (Guaifenesin ER) 600 MG TAB.ER.12H 600 Milligram ORAL EVERY 12 HOURS Qty = 30 Comments: Last Taken: 02/06/18 Time: 10:00 Pantoprazole Sodium (Pantoprazole Sodium) 40 MG TABLET.DR 1 Tablet ORAL TWICE DAILY Comments: NOT GIVEN IN THE HOSPITAL Calcium Carbonate (Tums Ultra Strength) (Unknown Strength) TAB.CHEW Unknown Dose ORAL As Directed as needed for GI Comments: NOT GIVEN IN THE HOSPITAL Furosemide (Furosemide) 20 MG TABLET 1 Tablet ORAL DAILY Qty = 30 Comments: Last Taken: 02/06/18 Time: 10:00 AM Oxycodone HCl (Oxycontin) 20 MG TAB.ER.12H 1.5 Tablet ORAL TWICE DAILY Qty = 60 Comments: Last Taken: 02/06/18 Time: 10:10 AM Oxycodone HCl (Oxycodone HCl) 15 MG TABLET 1 Tablet ORAL 4 TIMES A DAY as needed for PAIN Qty = 90 Comments: Last Taken: 02/05/18 Time: 6:14 PM Alprazolam (Xanax) 0.5 MG TABLET 1 Tablet ORAL THREE TIMES DAILY Comments: Last Taken: 02/06/18 Time: 13:00 Levetiracetam (Keppra) 750 MG TABLET 1 Tablet ORAL TWICE DAILY Qty = 180 Comments: Last Taken: 02/06/18 Time: 10:00 AM Cyanocobalamin (Vitamin B-12) 1,000 MCG TABLET 1 Tablet ORAL DAILY Comments: Last Taken: 02/06/18 Time: 10:00 AM Mirtazapine (Mirtazapine) 7.5 MG TABLET 7.5 Milligram ORAL AT BEDTIME Qty = 30 Instructions: . Comments: Last Taken: 02/05/18 Time: 8:38 PM Start taking the following new medications: Carvedilol (Carvedilol) 6.25 MG TABLET 6.25 Milligram ORAL TWICE DAILY Qty = 60 No Refills Comments: Last Taken: 02/06/18 Time: 10:00 AM Amlodipine Besylate (Amlodipine Besylate) 5 MG TABLET 5 Milligram ORAL DAILY Qty = 30 No Refills Comments: Last Taken: 02/06/18 Time: 10:00 AM Losartan (Cozaar) 100 MG TABLET 100 Milligram ORAL DAILY Qty = 30 No Refills Comments: Last Taken: 02/06/18 Time: 10:00 AM Copies To: Digna Parada MD; Narinder MCKEON,Cristian Antoine; Cecelia MCKEON,Sebas Hartman; Darryn MCKEON,Ray; Priscila MCKEON,Joao Greco; Cesar MCKEON,Mando Attending MD Review Statement Documenting Attending: Jhonatan Mcdonald MD Other Findings: The patient was followed during this admission and agree with the above summary and plan of care. We held a family meeting the day prior to discharge regarding goals of care, etc. The patient does wish to remain a "full code" and have aggressive care. It was felt that in STR interventions may be made to prevent readmission. The patient has significant anxiety when she feels her throat is obstructed by mucous and availability of respiratory care may assist her. 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
--- NOTE | 2018-01-20 14:04 | PN- Infect Dx ---
Subjective Subjective: Afebrile on steroids. She continues to have multiple complaints, including back pain, radiating across her abdomen, left leg pain and throat pain. She also continues to report a productive cough, of yellow sputum. Objective Last 24 Hrs of Vital Signs/I&O Vital Signs Date Time Temp Pulse Resp B/P B/P Pulse O2 O2 Flow FiO2 Mean Ox Delivery Rate 01/20 1029 97 Nasal 2.0L Cannula 01/20 0810 74 176/94 01/20 0800 97 Nasal 1.0L Cannula 01/20 0702 98.2 74 18 176/94 97 01/20 0318 98 Nasal 1.0L Cannula 01/20 0000 94 Nasal 2.0L Cannula 01/19 2152 98.3 87 20 154/84 97 Nasal 2.0L Cannula 01/19 2032 98.3 87 18 154/84 01/19 1700 97 Nasal 1.0L Cannula 01/19 1600 Nasal 2.0L Cannula 01/19 1357 98.3 81 20 143/83 95 Nasal 2.0L Cannula Intake & Output 01/20 1600 01/20 0800 01/20 0000 Intake Total 120 480 Output Total 700 Balance 120 -220 Intake, Oral 120 480 Number 2 Bowel Movements Output, Urine 700 Patient 152 lb Weight Weight Bed scale Measurement Method Physical Exam Other Physical Findings: She appears calmer and more comfortable, in no acute distress Lungs expiratory wheezes improved, with decreased rhonchi Heart regular rhythm with no murmur Abdomen is mildly distended, nontender with positive bowel sounds Extremities trace edema both lower extremities Results Last 24 Hours of Lab Results: No labs from today Last 24 Hours of [place] Results: No new cultures Recent Imaging Studies: CT of the neck January 20 negative for any acute process CT of the chest January 19 reveals irregular pulmonary nodules within the left lung and multifocal areas of ground glass opacity along the periphery of the lungs, raising the possibility of cryptogenic organizing pneumonia Assessment/Plan ID Impression: Stable, with her temperatures and white blood cell count remaining normal (on steroids) now on Meropenem, begun yesterday for possible bronchitis/pneumonia secondary to E. coli and Enterococcus, isolated from her sputum culture. The fluctuating opacities on her CT scans raise the possibility of a noninfectious process, such as cryptogenic organizing pneumonia, but a biopsy is apparently not felt to be feasible and might be difficult to interpret as she is already on steroids. The CT scan does show several nodules, raising concern for malignancy , and she would require a biopsy for confirmation. Suggestion: 1. Further evaluation to rule out an underlying malignancy per Pulmonary 2. Continue Meropenem
[2018-01-20 14:48] VITALS: BP 140/90
[2018-01-20 20:51] VITALS: BP 164/82
[2018-01-21 06:19] VITALS: BP 188/96
--- NOTE | 2018-01-21 08:28 | PN- Housestaff ---
See Addendum Subjective Follow-up For: copd exacerbation chronic neck pain headache chronic Complaints: pain scale (0-10), 5/10 Subjective: Patient states she feels a little better. She continues to endorse a sensation of strangling, but says the extra xanax helps. She continues to mention her epiglottis and the fact that it doesn't close properly. She states she does not feel ready to go home as she feels unsteady with ambulation. She did ambulate in the [facility] with PT yesterday. Denies fever, chills, n/v/d, chest pain, abodominal pain. Review of Systems Constitutional: Reports: see HPI. Objective Last 24 Hrs of Vital Signs/I&O Vital Signs Date Time Temp Pulse Resp B/P B/P Pulse O2 O2 Flow FiO2 Mean Ox Delivery Rate 01/21 0834 84 172/98 01/21 0803 98 Nasal 1.0L Cannula 01/21 0619 97.8 80 20 188/96 96 01/21 0228 99 Nasal 1.0L Cannula 01/21 0000 Nasal 1.0L Cannula 01/20 2051 98.0 73 18 164/82 98 Nasal 1.0L Cannula 01/20 2041 164/82 01/20 2011 98 Nasal 1.0L Cannula 01/20 1600 99 Nasal 1.0L Cannula 01/20 1448 98.5 98 20 140/90 99 Nasal Cannula 01/20 1029 97 Nasal 2.0L Cannula Intake & Output 01/21 1600 01/21 0800 01/21 0000 Intake Total 240 240 Output Total Balance 240 240 Intake, Oral 240 240 Patient 157 lb Weight Physical Exam General Appearance: Alert, Oriented X3, Cooperative, No Acute Distress Skin: ecchymosis to BUE/BLE and chest (on eliquis) Skin Temp/Moisture Exam: Warm/Dry HEENT: Atraumatic, PERRLA Neck: Supple Cardiovascular: Regular Rate, Normal S1, Normal S2 Lungs: expiratory wheezes throughout Abdomen: Normal Bowel Sounds, Soft, No Tenderness Neurological: Sensation Intact Extremities: Normal Pulses, 1+ pitting edema BLE to level of amado Assessment/Plan Assessment: Ms. Gottlieb is a 62 year old female with past medical history of COPD, hypertension, seizure disorder on Keppra, lung cancer, anxiety, chronic neck pain status post nerve stimulator implantation who was recently discharged (7/4) from [facility] admission for COPD exacerbation. She was brought in for observation 01/14 for mild COPD exacerbation and uncontrolled pain and anxiety. #COPD exacerbation-seems to be exacerbated by anxiety. Her breathing becomes normal after I stay in the room for awhile to speak with her. -Admitted to ICU 01/16 s/p rapid response for respiratory distress and non responsive to verbal commands. Emergency consult to ENT (Dr. Monae) who performed laryngoscopy; no acute findings. Patient transferred back to the general medicine service over the weekend and remained stable. -continued steroid taper and previously started from last admission -Pulm consulted: will continue to follow recs: magic mouth wash -Does not meet criteria for Pulm rehab (must have 3 noc stay in ICU) -ID consulted for possible abx: CXR 01/16 possible LLL pneumonia and resp sputum growing enterococcus/GNR/yeast. Recommended CT chest and that was done shows continued presence of suspicious lesions and possible cryptogenic organizing pneumonia ([facility]); treating with Meropenem-will follow ID recs for duration. -She remains on Prednisone PO 40mg daily -Pulm: strict aspiration precautions; continue steroids; continue pain control; maintain O2 sats around 92% -CT neck negative for pathologic/obstructive process -Will look into home humidifier for oxygen as patient mentions this daily as one of the reasons she is not comfortable at home. #Anxiety-likely contributing to COPD exacerbation -Started on Celexa 20mg PO this admission 01/14. Will need to follow up outpatient and increase as needed -Increased xanax 0.5mg PO to qid from tid for acute anxiety; patient responding well to this increase. #Chronic pain -Dr. Cordova consulted; has not seen yet -Will provide IV pain medication only for severe pain -PT working with patient. OOB DVT Prophylaxis: on eliquis/alps/ambulation Problem List: 1. Acute exacerbation of chronic obstructive pulmonary disease (COPD) 2. PNEUMONIA 3. Anxiety 4. Headache Pain Ratin Pain Location: head and neck Pain Goal: Pain 4 or less Pain Plan: see a/p Tomorrow's Labs & Rationales: none
--- NOTE | 2018-01-21 09:25 | PN- Pulmonary ---
Subjective HPI/Critical Care Issues: The patient is awake and alert. She appears comfortable, sitting upright in bed. She has no dyspnea with speaking. She continues to complain of throat pain. She has had difficulty with ambulation but is working with physical therapy. She offers no new complaints today. Objective Current Medications: Current Medications Sig/Halie Start time Last Medication Dose Route Stop Time Status Admin Acetaminophen 1,000 MG .STK-MED ONE 01/20 2356 DC IV 01/20 2357 Acetaminophen 1,000 MG Q6-PRN PRN 01/17 1745 AC 01/20 IV 2358 Albuterol Sulfate 3 ML EVERY 4 HRS/AWAKE 01/15 0800 AC 01/21 INH 0802 Albuterol Sulfate 2 PUF Q4-6 PRN PRN 01/14 1545 AC 01/20 INH 1821 Alprazolam 0.5 MG 4 TIMES/DAY 01/20 1300 AC 01/21 PO 01/27 1259 0835 Alprazolam 0.5 MG TID 01/14 1534 DC 01/20 PO 01/21 1533 0812 Apixaban 5 MG BID 01/14 2100 AC 01/21 PO 0834 Budesonide/ 2 PUF BID 01/14 2100 AC 01/21 Formoterol Fumarate INH 0831 Calcium Carbonate 500 MG DAILY PRN 01/14 1545 AC PO Carvedilol 3.125 MG BID 01/14 2100 AC 01/21 PO 0834 Cholecalciferol 1,000 IU DAILY 01/14 1535 AC 01/21 PO 0834 Citalopram 20 MG DAILY 01/14 1539 AC 01/21 Hydrobromide PO 0834 Clotrimazole 10 MG 5 TIMES A DAY 01/15 1700 AC 01/21 PO 01/22 0500 0834 Cyanocobalamin 1,000 MCG DAILY 01/14 1536 AC 01/21 PO 0834 Docusate Sodium 100 MG BID 01/17 1424 AC 01/21 PO 0834 Ferrous Sulfate 325 MG DAILY 01/14 1536 AC 01/21 PO 0834 Guaifenesin 600 MG Q12 01/14 2100 AC 01/21 PO 0834 Levetiracetam 750 MG BID / 2100 AC 01/21 PO 0835 Lidocaine 1 PAT DAILY 01/14 1930 AC 01/21 TOP 0834 Lidocaine/Diphenhydr/ 30 ML Q6-PRN PRN 01/15 1545 AC 01/19 Alum/Mg/Simeth PO 0928 Meropenem 1 GM IQ8 01/19 1600 AC 01/21 IV 0834 Omeprazole 40 MG 1/2H B/BREAKF/DINNER 01/14 1630 AC 01/21 PO 0543 Ondansetron HCl 4 MG Q6P PRN 01/15 1345 AC 01/19 IV 2002 Oxycodone HCl 30 MG Q12 01/18 2100 AC 01/21 PO 0835 Oxycodone HCl 15 MG Q4 HRS NEEDED PRN 01/18 1345 AC 01/21 PO 0543 Phenol 2 SPRAY Q2P PRN 01/20 1715 AC 01/20 EXT 1822 Polyethylene Glycol 17 GM DAILY 01/17 1424 AC 01/21 PO 0834 Prednisone 40 MG DAILY 01/19 0900 AC 01/21 PO 0834 Senna 187 MG AT BEDTIME 01/17 2100 AC 01/20 PO 2044 Tiotropium [place] 1 PUF DAILY 01/15 09 AC 01/21 INH 0831 Vital Signs & I&O Last 24 Hrs of Vitals and I&O: Vital Signs Date Time Temp Pulse Resp B/P B/P Pulse O2 O2 Flow FiO2 Mean Ox Delivery Rate 01/21 0834 84 172/98 01/21 0803 98 Nasal 1.0L Cannula 01/21 06 97.8 80 20 188/96 96 01/21 0228 99 Nasal 1.0L Cannula 01/21 0000 Nasal 1.0L Cannula 01/20 2051 98.0 73 18 164/82 98 Nasal 1.0L Cannula 01/20 204 164/82 01/20 2011 98 Nasal 1.0L Cannula 01/21 1600 99 Nasal 1.0L Cannula 01/20 1448 98.5 98 20 140/90 99 Nasal Cannula 01/20 1029 97 Nasal 2.0L Cannula Intake & Output 01/21 1600 01/21 0800 01/21 0000 Intake Total 240 240 Output Total Balance 240 240 Intake, Oral 240 240 Patient 157 lb Weight General Appearance: Alert, Oriented X3, Cooperative, No Acute Distress, anxious about health and does not feel ready to go home Skin: eccyhmosis to BUE/BLE, chest Skin Temp/Moisture Exam: Warm/Dry HEENT: Atraumatic, PERRLA Neck: Supple Cardiovascular: Regular Rate, Normal S1, Normal S2, No Murmurs Lungs: Clear to Auscultation, Normal Air Movement Abdomen: Normal Bowel Sounds, Soft, No Tenderness Neurological: Normal Tone, Sensation Intact Extremities: Normal Pulses, 1+ pitting edema BLE Diagnostic Data CT Scan Findings: CT NECK IMPRESSION: 1. There is tortuosity of the right common carotid artery which extends almost to the midline, and distorts the dorsal oropharynx and effaces the right vallecula. The epiglottis appears normal. 2. There is no cervical lymphadenopathy. The parotid glands are fatty bilaterally. 3. There are moderately prominent mediastinal lymph nodes, demonstrated on prior imaging. There is a left upper lobe nodule medially, which appears similar compared to the prior studies. 4. Postoperative changes with cerclage wires and electrodes are noted posteriorly. Impression/Plan Impression/Plan Impression/Plan: 1. AECOPD - steroid and oxygen dependent. 2. Throat pain. 3. Severe anxiety. 4. Chronic pain. 5. Chronic hypoxemic respiratory failure. CT scan suggests underlying interstitial lung disease, with the possibility of cryptogenic organizing pneumonia versus other infectious versus inflammatory issues. The patient also has significant adenopathy. Recommendations: * Discuss CT scan of neck with ENT. * Continue nebs/TRC/inhaler regimen. * Oxygen for saturations around 92%. * Continue prednisone 40 mg daily. * Antibiotics as per ID. * Continue with pain control however avoid oversedation as this will easily cause her respiratory complications. * Continue with strict aspiration precautions. * Check serologies for complete work up of ILD including NATALIIA, ANCA, ESR, AARON level, Aspergillus precipitating ab, sjogren antibody panel, marks ab, lasting room machine operator ab, scl-70, dsDNA ab,and rheumatoid factor. This testing is nonurgent and may be done as an outpatient however I will defer to the primary team. * DVT prophylaxis at all times. * Physical therapy for ambulation to continue.
[2018-01-21 10:30] VITALS: BP 176/98
--- NOTE | 2018-01-21 11:16 | PN- Infect Dx ---
Subjective Subjective: Afebrile on steroids. She continues to complain of throat discomfort and a productive cough of mostly white sputum. Objective Last 24 Hrs of Vital Signs/I&O Vital Signs Date Time Temp Pulse Resp B/P B/P Pulse O2 O2 Flow FiO2 Mean Ox Delivery Rate 01/21 1030 82 176/98 01/21 0834 84 172/98 01/21 0803 98 Nasal 1.0L Cannula 01/21 0800 96 Nasal 1.0L Cannula 01/21 0619 97.8 80 20 188/96 96 01/21 0228 99 Nasal 1.0L Cannula 01/21 0000 Nasal 1.0L Cannula 01/20 2051 98.0 73 18 164/82 98 Nasal 1.0L Cannula 01/20 2041 164/82 01/20 2011 98 Nasal 1.0L Cannula 01/20 1600 99 Nasal 1.0L Cannula 01/20 1448 98.5 98 20 140/90 99 Nasal Cannula Intake & Output 01/21 1600 01/21 0800 01/21 0000 Intake Total 240 240 Output Total Balance 240 240 Intake, Oral 240 240 Patient 157 lb Weight Physical Exam Other Physical Findings: She appears comfortable in no acute distress Lungs bilateral expiratory rhonchi Heart regular rhythm with no murmur Extremities 1+ edema both lower extremities Results Last 24 Hours of Lab Results: No labs from today Last 24 Hours of Randall Results: No recent cultures Assessment/Plan ID Impression: Stable, with her temperatures and white blood cell count remaining normal (on steroids), on Meropenem, Day 2 of treatment for possible bronchitis/pneumonia secondary to E. coli and Enterococcus, both of which were isolated from her sputum culture. The fluctuating opacities on her CT scans raise the possibility of a noninfectious process, such as cryptogenic organizing pneumonia, but a biopsy is apparently not felt to be feasible and might be difficult to interpret as she is already on steroids. The CT scan does show several nodules, raising concern for malignancy, and she would require a biopsy for confirmation. Suggestion: 1. Further evaluation to rule out an underlying malignancy per Pulmonary 2. Continue Meropenem
[2018-01-21 13:56] VITALS: BP 158/91
[2018-01-21 21:37] VITALS: BP 152/98
[2018-01-22 06:54] VITALS: BP 127/79
--- NOTE | 2018-01-22 07:50 | PN- Housestaff ---
See Addendum Subjective Follow-up For: COPD EXACERBATION PNEUMONIA CHRONIC PAIN: NECK AND HEAD Complaints: pain scale (0-10), 0/10 this morning Subjective: Patient states she was actually able to rest last night. She does feel better after a few days of antibiotics. She reports that IV tylenol relieved her headache. She feels as though her symptoms are improving. She had a lengthy discussion with her last night and they agree she would benefit from a STR before transitioning home. She denies fever, chills, n/v/d, chest pain, abdominal pain. She also mentioned she ambulated well with PT yesterday and will try the stairs today. She mentioned she has gained 10lbs since admission and believes that is making it a littel more difficult to ambulate. Review of Systems Constitutional: Reports: see HPI. Objective Last 24 Hrs of Vital Signs/I&O Vital Signs Date Time Temp Pulse Resp B/P B/P Pulse O2 O2 Flow FiO2 Mean Ox Delivery Rate 01/22 0654 98.0 69 18 127/79 93 01/22 0330 98 Nasal 1.0L Cannula 01/22 0038 Nasal 1.0L Cannula 01/21 2137 98.9 72 20 152/98 98 Nasal 1.0L Cannula 01/21 2134 72 152/98 01/21 1650 98 Nasal 1.0L Cannula 01/21 1600 Nasal 1.0L Cannula 01/21 1356 97.9 70 20 158/91 96 Nasal 1.0L Cannula 01/21 1251 84 172/98 01/21 1030 82 176/98 01/21 0834 84 172/98 01/21 0803 98 Nasal 1.0L Cannula 01/21 0800 96 Nasal 1.0L Cannula Intake & Output 01/22 0800 01/22 0000 01/21 1600 Intake Total 720 720 Output Total 400 500 Balance 320 220 Intake, Oral 720 720 Number 3 1 Bowel Movements Output, Urine 400 500 Patient 163 lb Weight Physical Exam General Appearance: Alert, Oriented X3, Cooperative, No Acute Distress, smiling and laughing this morning Skin: ecchymosis to BUE/BLE and chest Skin Temp/Moisture Exam: Warm/Dry HEENT: Atraumatic, PERRLA Neck: Supple Cardiovascular: Regular Rate, Normal S1, Normal S2 Lungs: diffuse expiratory wheezes Abdomen: Normal Bowel Sounds, Soft, No Tenderness Neurological: Normal Tone, Sensation Intact Extremities: 2+ pitting edema BLE to level of amado Assessment/Plan Assessment: Ms. Gottlieb is a 62 year old female with past medical history of COPD, hypertension, seizure disorder on Keppra, lung cancer, anxiety, chronic neck pain status post nerve stimulator implantation who was recently discharged (01/13) from [facility] admission for COPD exacerbation. She was brought in for observation 01/14 for mild COPD exacerbation and uncontrolled pain and anxiety. #COPD exacerbation-seems to be exacerbated by anxiety. Her breathing becomes normal after I stay in the room for awhile to speak with her. -Admitted to ICU 01/16 s/p rapid response for respiratory distress and non responsive to verbal commands. Emergency consult to ENT (Dr. Monae) who performed laryngoscopy; no acute findings. Patient transferred back to the general medicine service over the weekend and remained stable. -continued steroid taper and previously started from last admission -Pulm consulted: will continue to follow recs: magic mouth wash -Does not meet criteria for Pulm rehab (must have 3 noc stay in ICU) -ID consulted for possible abx: CXR 01/16 possible LLL pneumonia and resp sputum growing enterococcus/GNR/yeast. 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 Will speak to ID about changing to PO abx if patient going to STR. -She remains on Prednisone PO 40mg daily -Pulm: strict aspiration precautions; continue steroids; continue pain control; maintain O2 sats around 92% -Will look into home humidifier for oxygen as patient mentions this daily as one of the reasons she is not comfortable at home. #Neck Pain -CT neck negative for pathologic/obstructive process -Xanax seems to help decrease sensation of 'strangling' #Anxiety-likely contributing to COPD exacerbation -Started on Celexa 20mg PO this admission 01/14. Will need to follow up outpatient and increase as needed -Xanax 0.5mg PO to qid acute anxiety; patient responding well to this regimen #Chronic pain -Headache-relieved with IV tylenol. Changed to oral 1000mg q8 PRN -Dr. Cordova consulted; has not seen yet -PT working with patient: goal to ambulate stairs today DVT Prophylaxis: on eliquis/alps/ambulation Dispo: Patient and in agreement she would benefit from STR. Will see how she does with PT today and possible dc to STR this weekend. Problem List: 1. PNEUMONIA 2. Acute exacerbation of chronic obstructive pulmonary disease (COPD) 3. Chronic pain disorder 4. SOB (shortness of breath) 5. Neck pain 6. Headache Pain Ratin Pain Location: none this morning Pain Goal: Remain pain free Pain Plan: see a/p Tomorrow's Labs & Rationales: none
--- NOTE | 2018-01-22 08:33 | PN- Pulmonary ---
Subjective HPI/Critical Care Issues: The patient is awake and alert. She is ambulating in the hallway on room air and is comfortable. She has no increased shortness of breath, wheezing or coughing. There were no overnight events. Objective Current Medications: Current Medications Sig/Halie Start time Last Medication Dose Route Stop Time Status Admin Acetaminophen 1,000 MG Q8P PRN 01/21 1630 AC 01/22 PO 0234 Acetaminophen 1,000 MG .STK-MED ONE 01/21 1008 DC IV 01/21 1009 Acetaminophen 1,000 MG Q6-PRN PRN 01/17 1745 DC 01/21 IV 1011 Albuterol Sulfate 3 ML EVERY 4 HRS/AWAKE 01/15 0800 AC 01/22 INH 0317 Albuterol Sulfate 2 PUF Q4-6 PRN PRN 01/14 1545 AC 01/20 INH 1821 Alprazolam 0.5 MG 4 TIMES/DAY 01/20 1300 AC 01/22 PO 01/27 1259 0816 Apixaban 5 MG BID 01/14 2100 AC 01/22 PO 0819 Budesonide/ 2 PUF BID 01/14 2100 AC 01/22 Formoterol Fumarate INH 0818 Calcium Carbonate 500 MG DAILY PRN 01/14 1545 AC PO Carvedilol 6.25 MG BID 01/21 2100 AC 01/22 PO 0819 Carvedilol 3.125 MG ONCE ONE 01/21 1115 DC 01/21 PO 01/21 1116 1251 Carvedilol 3.125 MG BID 01/14 2100 DC 01/21 PO 0834 Cholecalciferol 1,000 IU DAILY 01/14 1535 AC 01/22 PO 0818 Citalopram 20 MG DAILY 01/14 1539 AC 01/22 Hydrobromide PO 0819 Clotrimazole 10 MG 5 TIMES A DAY 01/15 1700 DC 01/21 PO 01/22 0500 2124 Cyanocobalamin 1,000 MCG DAILY 01/14 1536 AC 01/22 PO 0818 Docusate Sodium 100 MG BID 01/17 1424 AC 01/22 PO 0819 Ferrous Sulfate 325 MG DAILY 01/14 1536 AC 01/22 PO 0819 Guaifenesin 600 MG Q12 01/14 2100 AC 01/22 PO 0819 Levetiracetam 750 MG BID 01/14 2100 AC 01/22 PO 0819 Lidocaine 1 PAT DAILY 01/14 1930 01/22 TOP 0814 Lidocaine/Diphenhydr/ 30 ML Q6-PRN PRN 01/15 1545 AC 01/19 Alum/Mg/Simeth PO 0928 Meropenem 1 GM IQ8 01/19 1600 AC 01/22 IV 0816 Omeprazole 40 MG 1/2H B/BREAKF/DINNER 01/14 1630 AC 01/22 PO 0626 Ondansetron HCl 4 MG Q6P PRN 01/15 1345 AC 01/19 IV 2002 Oxycodone HCl 30 MG Q12 01/18 2100 AC 01/22 PO 0816 Oxycodone HCl 15 MG Q4 HRS NEEDED PRN 01/18 1345 AC 01/22 PO 0816 Phenol 2 SPRAY Q2P PRN 01/20 1715 AC 01/20 EXT 1822 Polyethylene Glycol 17 GM DAILY 01/17 1424 AC 01/21 PO 0834 Prednisone 40 MG DAILY 01/19 0900 01/22 PO 0818 Senna 187 MG AT BEDTIME 01/17 2100 AC 01/20 PO 2044 Tiotropium [place] 1 PUF DAILY 01/15 0900 01/22 INH 0817 Vital Signs & I&O Last 24 Hrs of Vitals and I&O: Vital Signs Date Time Temp Pulse Resp B/P B/P Pulse O2 O2 Flow FiO2 Mean Ox Delivery Rate 01/22 08 69 127/79 01/22 0654 98.0 69 18 127/79 93 01/22 0330 98 Nasal 1.0L Cannula 01/22 0038 Nasal 1.0L Cannula 01/21 2137 98.9 72 20 152/98 98 Nasal 1.0L Cannula 01/21 2134 72 152/98 01/21 1650 98 Nasal 1.0L Cannula 01/21 1600 Nasal 1.0L Cannula 01/21 1356 97.9 70 20 158/91 96 Nasal 1.0L Cannula 01/21 1251 84 172/98 01/21 1030 82 176/98 01/21 0834 84 172/98 Intake & Output 01/22 1600 01/22 0800 01/22 0000 Intake Total 180 720 Output Total 400 Balance 180 320 Intake, Oral 180 720 Number 3 Bowel Movements Output, Urine 400 Patient 163 lb Weight General Appearance: Alert, Oriented X3, Cooperative, No Acute Distress, anxious about health and does not feel ready to go home Skin: eccyhmosis to BUE/BLE, chest Skin Temp/Moisture Exam: Warm/Dry HEENT: Atraumatic, PERRLA Neck: Supple Cardiovascular: Regular Rate, Normal S1, Normal S2, No Murmurs Lungs: Clear to Auscultation, Normal Air Movement Abdomen: Normal Bowel Sounds, Soft, No Tenderness Neurological: Normal Tone, Sensation Intact Extremities: Normal Pulses, 1+ pitting edema BLE Impression/Plan Impression/Plan Impression/Plan: 1. AECOPD - steroid and oxygen dependent. 2. Throat pain, CT neck showed tortuosity of the right common carotid artery which extends almost to the midline, and distorts the dorsal oropharynx and effaces the right vallecula. 3. Severe anxiety. 4. Chronic pain. 5. Chronic hypoxemic respiratory failure. CT scan suggests underlying interstitial lung disease, with the possibility of cryptogenic organizing pneumonia versus other infectious versus inflammatory issues. 6. Prominent mediastinal adenopathy. Etiology unclear, r/o malignancy. Recommendations: * Discuss CT scan of neck results with ENT, if not done already. * Continue nebs/TRC/inhaler regimen. * Oxygen for saturations around 92%. * Continue prednisone 40 mg daily. Will taper slowly. * Antibiotics as per ID. * Continue with pain control, avoid oversedation. * Continue with strict aspiration precautions. * Check serologies for complete work up of ILD including NATALIIA, ANCA, ESR, AARON level, Aspergillus precipitating ab, sjogren antibody panel, marks ab, piece marker small arms ab, scl-70, dsDNA ab,and rheumatoid factor. This testing is nonurgent and may be done as an outpatient however I will defer to the primary team. * DVT prophylaxis at all times. * Physical therapy for ambulation to continue. * Given the patient's chronic respiratory failure and comorbidities, she has not a candidate for mediastinal lymph node biopsy/navigational bronchoscopy at this time. Her respiratory status needs to be stable prior to intervention.
--- NOTE | 2018-01-22 10:23 | PN- Infect Dx ---
Subjective Subjective: Afebrile on steroids. She feels improved with no further complaints of throat or chest pain. She also notes improvement in her hoarseness. She continues to complain of a cough, productive of yellow sputum, and back pain. Objective Last 24 Hrs of Vital Signs/I&O Vital Signs Date Time Temp Pulse Resp B/P B/P Pulse O2 O2 Flow FiO2 Mean Ox Delivery Rate 01/22 0834 99 Nasal 1.0L Cannula 01/22 0819 69 127/79 01/22 0654 98.0 69 18 127/79 93 01/22 0330 98 Nasal 1.0L Cannula 01/22 0038 Nasal 1.0L Cannula 01/21 2137 98.9 72 20 152/98 98 Nasal 1.0L Cannula 01/21 2134 72 152/98 01/21 1650 98 Nasal 1.0L Cannula 01/21 1600 Nasal 1.0L Cannula 01/21 1356 97.9 70 20 158/91 96 Nasal 1.0L Cannula 01/21 1251 84 172/98 01/21 1030 82 176/98 Intake & Output 01/22 1600 01/22 0800 01/22 0000 Intake Total 180 720 Output Total 400 Balance 180 320 Intake, Oral 180 720 Number 3 Bowel Movements Output, Urine 400 Patient 163 lb Weight Physical Exam Other Physical Findings: She appears more comfortable in no acute distress Lungs prolonged expiratory phase with scattered rhonchi but with no further wheezes Heart regular rhythm with no murmur Extremities trace edema both lower extremities Results Last 24 Hours of Lab Results: No labs from today Last 24 Hours of Randall Results: No recent cultures Assessment/Plan ID Impression: Overall improved, with her temperatures and white blood cell count remaining normal (on steroids), on Meropenem, Day 3 of treatment for possible bronchitis/ pneumonia secondary to E. coli and Enterococcus, both of which were isolated from her sputum culture. The CT scan does show several nodules, raising concern for malignancy, and she will eventually require a biopsy for diagnosis. Suggestion: 1. Further evaluation to rule out an underlying malignancy per Pulmonary 2. Continue Meropenem
[2018-01-22 14:00] VITALS: BP 163/100
[2018-01-22 17:15] VITALS: BP 170/96
[2018-01-22 18:21] VITALS: BP 164/88
[2018-01-22 20:51] VITALS: BP 188/98
[2018-01-22 23:07] VITALS: BP 154/86
[2018-01-23 04:28] VITALS: BP 182/90
[2018-01-23 06:21] VITALS: BP 182/100
--- NOTE | 2018-01-23 07:30 | PN- Housestaff ---
See Addendum Subjective Follow-up For: acute copd exacerbation Complaints: strangling sensation dizziness Subjective: Patient has been on RA overnight and maintaining saturations 98 and 94%. She reports feeling dizzy when ambulating and return on strangling sensation. She also reports return of her headache and frustrated with her neck pain. She is concerned about her blood pressure elevation despite addition medication: amlodipine 5mg x2 overnight. Denies chest pain, n/v/d, abdominal pain Review of Systems Constitutional: Reports: see HPI. Objective Last 24 Hrs of Vital Signs/I&O Vital Signs Date Time Temp Pulse Resp B/P B/P Pulse O2 O2 Flow FiO2 Mean Ox Delivery Rate 01/23 0621 182/100 01/23 0428 98.3 69 20 182/90 94 01/23 0305 98 Room Air 01/23 0000 96 Room Air 01/22 2307 154/86 96 01/22 2204 188/98 01/22 2051 98.8 73 18 188/98 96 Room Air 01/22 2043 73 188/98 01/22 1821 164/88 01/22 1742 98 Nasal 1.0L Cannula 01/22 1715 170/96 01/22 1600 94 Nasal 0.5L Cannula 01/22 1400 97.5 78 18 163/100 94 Nasal 0.5L Cannula 01/22 1116 Nasal 1.0L Cannula 01/22 0834 99 Nasal 1.0L Cannula 01/22 0819 69 127/79 01/22 0800 93 Nasal 1.0L Cannula Intake & Output 01/23 0800 01/23 0000 01/22 1600 Intake Total 500 860 Output Total 500 500 Balance 0 360 Intake, IV 20 Intake, Oral 500 840 Number 1 Bowel Movements Output, Urine 500 500 Physical Exam General Appearance: Alert, Oriented X3, Cooperative, Mild Distress, anxious Skin: ecchymosis BLE/BUE and chest wall Skin Temp/Moisture Exam: Warm/Dry HEENT: Atraumatic, PERRLA Neck: Supple Cardiovascular: Regular Rate, Normal S1, Normal S2 Lungs: expiratory wheezes throughout Abdomen: Normal Bowel Sounds, Soft, No Tenderness Extremities: No Edema, Normal Pulses Assessment/Plan Assessment: Ms. Gottlieb is a 62 year old female with past medical history of COPD, hypertension, seizure disorder on Keppra, lung cancer, anxiety, chronic neck pain status post nerve stimulator implantation who was recently discharged (01/13) from [facility] admission for COPD exacerbation. She was brought in for observation 01/14 for mild COPD exacerbation and uncontrolled pain and anxiety. #COPD exacerbation-seems to be exacerbated by anxiety. Her breathing becomes normal after I stay in the room for awhile to speak with her. -Admitted to ICU 01/16 s/p rapid response for respiratory distress and non responsive to verbal commands. Emergency consult to ENT (Dr. Monae) who performed laryngoscopy; no acute findings. Patient transferred back to the general medicine service over the weekend and remained stable. -continued steroid taper and previously started from last admission -Pulm consulted: will continue to follow recs: magic mouth wash -Does not meet criteria for Pulm rehab (must have 3 noc stay in ICU) -ID consulted for possible abx: CXR 01/16 possible LLL pneumonia and resp sputum growing enterococcus/GNR/yeast. 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 -She remains on Prednisone PO 40mg daily -Pulm: strict aspiration precautions; continue steroids; continue pain control; maintain O2 sats around 92% -Will look into home humidifier for oxygen as patient mentions this daily as one of the reasons she is not comfortable at home. #Neck Pain -CT neck negative for pathologic/obstructive process -Xanax seems to help decrease sensation of 'strangling' #Anxiety-likely contributing to COPD exacerbation -Started on Celexa 20mg PO this admission 01/14. Will need to follow up outpatient and increase as needed -Xanax 0.5mg PO to qid acute anxiety; patient responding well to this regimen #HTN -Increased dose of Carvedilol -Administered Amlodipine 5mg x2 overnight. BP 188/100. -Will discuss with Attending additional meds/management #Chronic pain -Headache-oral 1000mg q8 PRN -Dr. Cordova consulted; has not seen yet -PT working with patient: ambulating stairs DVT Prophylaxis: on eliquis/alps/ambulation Dispo: Patient and in agreement she would benefit from STR. Insurance declined. Problem List: 1. Acute exacerbation of chronic obstructive pulmonary disease (COPD) 2. PNEUMONIA 3. Headache 4. Neck pain 5. HTN (hypertension) Pain Ratin Pain Location: head neck Pain Goal: Pain 4 or less Pain Plan: see a/p Tomorrow's Labs & Rationales: bep
[2018-01-23 08:23] VITALS: BP 178/100
--- NOTE | 2018-01-23 10:06 | Patient Discharge Instructions ---
Discharge Instructions General Discharge Information Special Instructions: - Please follow up with your primary care physician within 1-2 weeks of discharge. Inform your primary care physician of this admission to [facility]. - Continue your current medications per discharge instructions. - Please watch for these problems: Fever, Chills, Nausea, Vomiting, Shortness of Breath, Productive Cough, Chest Pain/Discomfort, Abdominal Pain, Active Bleeding or Bloody urine/stool. Diet Continue normal diet: Yes Activity Full Activity/No Limits: Yes Acute Coronary Syndrome Inclusion Criteria At DC or during hospital stay patient has or had the following: ACS DIAGNOSIS No Discharge Core Measures Meds if any: Prescribed or Continued at Discharge Meds if any: NOT Prescribed or Continued at Discharge Congestive Heart Failure Inclusion Criteria At DC or during hospital stay patient has or had the following: CHF DIAGNOSIS No Discharge Core Measures Meds if any: Prescribed or Continued at Discharge Meds if any: NOT Prescribed or Continued at Discharge Cerebrovascular accident Inclusion Criteria At DC or during hospital stay patient has or had the following: CVA/TIA Diagnosis No Discharge Core Measures Meds if any: Prescribed or Continued at Discharge Meds if any: NOT Prescribed or Continued at Discharge Venous thromboembolism Inclusion Criteria VTE Diagnosis No VTE Type NONE VTE Confirmed by (Test) NONE Discharge Core Measures - Per Current guidelines, there needs to be overlap - treatment for the first 5 days of Warfarin therapy. - If discharged on Warfarin prior to 5 days of - overlap therapy, the patient will need to be - assessed for post discharge needs including - *Post discharge parental anticoagulation - *Warfarin and/or parental anticoagulation education - *Follow up date to check INR post discharge At least 5 days overlap therapy as Inpatient No Meds if any: Prescribed or Continued at Discharge Note: Overlap Therapy is Warfarin and Anticoagulant Meds if any: NOT Prescribed or Continued at Discharge
[2018-01-23 14:30] VITALS: BP 146/62
--- NOTE | 2018-01-23 14:31 | PN- Pulmonary ---
Subjective HPI/Critical Care Issues: The patient is alert and oriented. She appears comfortable at rest. She is ambulating better. She continues to have throat discomfort. She offers no new complaints otherwise. Objective Current Medications: Current Medications Sig/Halie Start time Last Medication Dose Route Stop Time Status Admin Acetaminophen 1,000 MG ONCE ONE 01/23 1430 UNVr N/A 1 UNIT IV 01/23 1444 Acetaminophen 650 MG Q8P PRN 01/23 1430 UNVr PO Acetaminophen 1,000 MG .STK-MED ONE 01/23 0215 DC PO 01/23 0216 Acetaminophen 1,000 MG .STK-MED ONE 01/22 1814 DC PO 01/22 1815 Acetaminophen 1,000 MG Q8P PRN 01/21 1630 DC 01/23 PO 0219 Albuterol Sulfate 3 ML EVERY 4 HRS/AWAKE 01/15 0800 AC 01/23 INH 1202 Albuterol Sulfate 2 PUF Q4-6 PRN PRN 01/14 1545 AC 01/22 INH 1713 Alprazolam 0.5 MG 4 TIMES/DAY 01/20 1300 AC 01/23 PO 01/27 1259 1252 Amlodipine Besylate 5 MG ONCE ONE 01/23 0445 DC 01/23 PO 01/23 0446 0515 Amlodipine Besylate 5 MG ONCE ONE 01/22 2130 DC 01/22 PO 01/22 2131 2204 Apixaban 5 MG BID 01/14 2100 AC 01/23 PO 0758 Budesonide/ 2 PUF BID 01/14 2100 AC 01/23 Formoterol Fumarate INH 0806 Calcium Carbonate 500 MG DAILY PRN 01/14 1545 AC PO Carvedilol 6.25 MG BID 01/21 2100 AC 01/23 PO 0759 Cholecalciferol 1,000 IU DAILY 01/14 1535 AC 01/23 PO 0754 Citalopram 20 MG DAILY 01/14 1539 AC 01/23 Hydrobromide PO 0759 Cyanocobalamin 1,000 MCG DAILY 01/14 1536 AC 01/23 PO 0756 Docusate Sodium 100 MG BID 01/17 1424 AC 01/23 PO 0757 Ferrous Sulfate 325 MG DAILY 01/14 1536 AC 01/23 PO 0757 Guaifenesin 600 MG Q12 01/14 2100 AC 01/23 PO 0756 Levetiracetam 750 MG BID 01/14 2100 AC 01/23 PO 0801 Lidocaine 1 PAT DAILY 01/14 1930 AC 01/23 TOP 0803 Lidocaine/Diphenhydr/ 30 ML Q6-PRN PRN 01/15 1545 AC 01/19 Alum/Mg/Simeth PO 0928 Meropenem 1 GM IQ8 01/19 1600 AC 01/23 IV 0808 Omeprazole 40 MG 1/2H B/BREAKF/DINNER 01/14 1630 AC 01/23 PO 0515 Ondansetron HCl 4 MG Q6P PRN 01/15 1345 AC 01/19 IV 2002 Oxycodone HCl 30 MG Q12 01/18 2100 AC 01/23 PO 0752 Oxycodone HCl 15 MG Q4 HRS NEEDED PRN 01/18 1345 AC 01/23 PO 1155 Phenol 2 SPRAY Q2P PRN 01/20 1715 AC 01/22 EXT 2044 Polyethylene Glycol 17 GM DAILY 01/17 1424 AC 01/21 PO 0834 Prednisone 40 MG DAILY 01/19 0900 AC 01/23 PO 0757 Senna 187 MG AT BEDTIME 01/17 2100 AC 01/22 PO 2043 Tiotropium [place] 1 PUF DAILY 01/15 0900 AC 01/23 INH 0805 Vital Signs & I&O Last 24 Hrs of Vitals and I&O: Vital Signs Date Time Temp Pulse Resp B/P B/P Pulse O2 O2 Flow FiO2 Mean Ox Delivery Rate 01/23 1202 95 Room Air 01/23 1152 20 95 Room Air 01/23 0823 178/100 01/23 0800 95 Room Air 01/23 0759 178/100 01/23 0621 182/100 01/23 0428 98.3 69 20 182/90 94 01/23 0305 98 Room Air 01/23 0000 96 Room Air 01/22 2307 154/86 96 01/22 2204 188/98 01/22 2051 98.8 73 18 188/98 96 Room Air 01/22 2043 73 188/98 01/22 1821 164/88 01/22 1742 98 Nasal 1.0L Cannula 01/22 1715 170/96 01/22 1600 94 Nasal 0.5L Cannula Intake & Output 01/23 1600 01/23 0800 01/23 0000 Intake Total 700 500 Output Total 500 Balance 700 0 Intake, Oral 700 500 Output, Urine 500 Patient 151 lb Weight Weight Bed scale Measurement Method General Appearance: Alert, Oriented X3, Cooperative, No Acute Distress, anxious about health Skin: eccyhmosis to BUE/BLE, chest Skin Temp/Moisture Exam: Warm/Dry HEENT: Atraumatic, PERRLA Neck: Supple Cardiovascular: Regular Rate, Normal S1, Normal S2, No Murmurs Lungs: Clear to Auscultation, Normal Air Movement Abdomen: Normal Bowel Sounds, Soft, No Tenderness Neurological: Normal Tone, Sensation Intact Extremities: Normal Pulses, 1+ pitting edema BLE Impression/Plan Impression/Plan Impression/Plan: 1. AECOPD - steroid and oxygen dependent. 2. Throat pain, CT neck showed tortuosity of the right common carotid artery which extends almost to the midline, and distorts the dorsal oropharynx and effaces the right vallecula. 3. Severe anxiety. 4. Chronic pain. 5. Chronic hypoxemic respiratory failure. CT scan suggests underlying interstitial lung disease, with the possibility of cryptogenic organizing pneumonia versus other infectious versus inflammatory issues, on steroids. 6. Prominent mediastinal adenopathy. Etiology unclear, r/o malignancy. Recommendations: * Continue nebs/TRC/inhaler regimen. * Oxygen for saturations around 92%. * Continue prednisone 40 mg daily. Will taper slowly. * Antibiotics as per ID. * Continue with pain control, avoid oversedation. * Continue with strict aspiration precautions. * Check serologies for complete work up of ILD including NATALIIA, ANCA, ESR, AARON level, Aspergillus precipitating ab, sjogren antibody panel, marks ab, electrical electronics engineers ab, scl-70, dsDNA ab,and rheumatoid factor. This testing is nonurgent and may be done as an outpatient however I will defer to the primary team. * DVT prophylaxis at all times. * Physical therapy for ambulation to continue. * Once again, considering the patient's chronic respiratory failure and comorbidities, she has not a candidate for mediastinal lymph node biopsy/ navigational bronchoscopy at this time. Her respiratory status needs to be stable prior to intervention.
[2018-01-23 21:00] VITALS: BP 150/90
[2018-01-24] VITALS (7 sets, daily range): BP systolic 160–202; BP diastolic 92–108
--- NOTE | 2018-01-24 10:17 | PN- Pulmonary ---
Subjective HPI/Critical Care Issues: Patient noted to be hypertensive overnight and this morning. This is being addressed by her primary care team. Objective Current Medications: Current Medications Sig/Halie Start time Last Medication Dose Route Stop Time Status Admin Acetaminophen 650 MG Q8P PRN 01/23 2230 AC 01/24 PO 0505 Acetaminophen 1,000 MG ONCE ONE 01/23 1430 DC 01/23 N/A 1 UNIT IV 01/23 1444 1500 Acetaminophen 1,000 MG Q8P PRN 01/21 1630 DC 01/23 PO 0219 Acetaminophen/ 1 TAB ONCE ONE 01/23 2100 DC 01/23 Butalbital/Caffeine PO 01/23 2101 2137 Albuterol Sulfate 3 ML EVERY 4 HRS/AWAKE 01/15 0800 AC 01/24 INH 0824 Albuterol Sulfate 2 PUF Q4-6 PRN PRN 01/14 1545 AC 01/22 INH 1713 Alprazolam 0.5 MG 4 TIMES/DAY 01/20 1300 AC 01/24 PO 01/27 1259 0750 Apixaban 5 MG BID 01/14 2100 AC 01/24 PO 0758 Budesonide/ 2 PUF BID 01/14 2100 AC 01/24 Formoterol Fumarate INH 0756 Calcium Carbonate 500 MG DAILY PRN 01/14 1545 AC PO Carvedilol 6.25 MG BID 01/21 2100 AC 01/24 PO 0505 Cholecalciferol 1,000 IU DAILY 01/14 1535 AC 01/24 PO 0800 Citalopram 20 MG DAILY 01/14 1539 AC 01/24 Hydrobromide PO 0757 Cyanocobalamin 1,000 MCG DAILY 01/14 1536 AC 01/24 PO 0800 Docusate Sodium 100 MG BID 01/17 1424 AC 01/24 PO 0758 Ferrous Sulfate 325 MG DAILY 01/14 1536 AC 01/24 PO 0758 Guaifenesin 600 MG Q12 01/14 2100 AC 01/24 PO 0759 Levetiracetam 750 MG BID 01/14 2100 AC 01/24 PO 0758 Lidocaine 1 PAT DAILY 01/14 1930 AC 01/24 TOP 0802 Lidocaine/Diphenhydr/ 30 ML Q6-PRN PRN 01/15 1545 AC 01/19 Alum/Mg/Simeth PO 0928 Meropenem 1 GM IQ8 01/19 1600 AC 07/15 IV 0803 Omeprazole 40 MG 1/2H B/BREAKF/DINNER 01/14 1630 AC 01/24 PO 0434 Ondansetron HCl 4 MG Q6P PRN 01/15 1345 AC 01/24 IV 0434 Oxycodone HCl 30 MG Q12 01/18 2100 AC 01/24 PO 0750 Oxycodone HCl 15 MG Q4 HRS NEEDED PRN 01/18 1345 AC 01/24 PO 0628 Phenol 2 SPRAY Q2P PRN 01/20 1715 AC 01/22 EXT 2044 Polyethylene Glycol 17 GM DAILY 01/17 1424 AC 01/21 PO 0834 Prednisone 40 MG DAILY 01/19 0900 AC 01/24 PO 0759 Senna 187 MG AT BEDTIME 01/17 2100 AC 01/23 PO 203 Tiotropium [place] 1 PUF DAILY 01/15 0900 AC 01/24 INH 0754 Vital Signs & I&O Last 24 Hrs of Vitals and I&O: Vital Signs Date Time Temp Pulse Resp B/P B/P Pulse O2 O2 Flow FiO2 Mean Ox Delivery Rate 01/24 0829 95 Room Air 01/24 0824 81 180/102 01/24 0800 Room Air 01/24 0600 198/102 01/24 0505 202/108 01/24 0439 98.1 74 20 202/108 95 01/24 0000 Room Air 01/23 2100 97.8 82 18 150/90 94 Room Air 01/23 1640 95 Room Air 01/23 1600 Room Air 01/23 1430 98.4 79 20 146/62 95 Room Air 01/23 1202 95 Room Air 01/23 1152 20 95 Room Air Intake & Output 01/24 1600 15 0800 01/24 0000 Intake Total Output Total 1300 Balance -1300 Number 0 Bowel Movements Output, Urine 1300 Patient 156 lb Weight Weight Bed scale Measurement Method General Appearance: Alert, Oriented X3, Cooperative, No Acute Distress, anxious about health Skin: eccyhmosis to BUE/BLE, chest Skin Temp/Moisture Exam: Warm/Dry HEENT: Atraumatic, PERRLA Neck: Supple Cardiovascular: Regular Rate, Normal S1, Normal S2, No Murmurs Lungs: Clear to Auscultation, Normal Air Movement Abdomen: Normal Bowel Sounds, Soft, No Tenderness Neurological: Normal Tone, Sensation Intact Extremities: Normal Pulses, 1+ pitting edema BLE Impression/Plan Impression/Plan Impression/Plan: 1. AECOPD - steroid and oxygen dependent. 2. Throat pain, CT neck showed tortuosity of the right common carotid artery which extends almost to the midline, and distorts the dorsal oropharynx and effaces the right vallecula. 3. Severe anxiety. 4. Chronic pain. 5. Chronic hypoxemic respiratory failure -patient on meropenem for possible bronchitis/pneumonia secondary to E. coli and enterococcus. 6. Prominent mediastinal adenopathy, lung nodules. Etiology unclear, r/o malignancy. Recommendations: * Continue nebs/TRC/inhaler regimen. * Oxygen for saturations around 92%. * Continue prednisone 40 mg daily. Will taper slowly. * Antibiotics as per ID. * Continue with pain control, avoid oversedation. * Continue with strict aspiration precautions. * Physical therapy for ambulation to continue. * Once again, considering the patient's chronic respiratory failure and comorbidities, she has not a candidate for mediastinal lymph node biopsy/ navigational bronchoscopy at this time. Her respiratory status needs to be stable prior to intervention. navigational bronchoscopy at this time. Her respiratory status needs to be stable prior to intervention.
--- NOTE | 2018-01-24 11:03 | PN- Housestaff ---
See Addendum Subjective Follow-up For: Shortness of breath Subjective: Patient seen and examined at bedside in room, no acute events overnight, afebrile. Patient is not currently on O2, states she is breathing better and does not need it right now. Is stating she is having a minor headache. Patient is aware her BP's are elevated and contributes that to her anxiety and pain. Her pain has improved is currently 10/20. Review of Systems Constitutional: Denies: chills, diaphoresis, fever. Objective Last 24 Hrs of Vital Signs/I&O Vital Signs Date Time Temp Pulse Resp B/P B/P Pulse O2 O2 Flow FiO2 Mean Ox Delivery Rate 01/24 0829 95 Room Air 01/24 0824 81 180/102 01/24 0800 Room Air 01/24 0600 198/102 01/24 0505 202/108 01/24 0439 98.1 74 20 202/108 95 / 0000 Room Air 01/23 2100 97.8 82 18 150/90 94 Room Air 01/23 1640 95 Room Air 01/23 1600 Room Air 01/23 1430 98.4 79 20 146/62 95 Room Air 01/23 1202 95 Room Air 01/23 1152 20 95 Room Air Intake & Output 01/24 1600 /15 0800 01/24 0000 Intake Total Output Total 1300 Balance -1300 Number 0 Bowel Movements Output, Urine 1300 Patient 156 lb Weight Weight Bed scale Measurement Method Physical Exam General Appearance: Alert, Oriented X3, Cooperative Skin: No Rashes HEENT: Atraumatic, EOMI Neck: Supple, +2 Carotid Pulse wo Bruit Cardiovascular: Regular Rate, Normal S1, Normal S2 Lungs: Normal Air Movement, minimal wheezing appreciated bilat. Abdomen: Normal Bowel Sounds, Soft, No Tenderness Extremities: No Clubbing, No Cyanosis, No Edema Assessment/Plan Assessment: Ms. Gottlieb is a 62 year old female with past medical history of COPD, hypertension, seizure disorder on Keppra, lung cancer, anxiety, chronic neck pain status post nerve stimulator implantation who was recently discharged (01/13) from [facility] admission for COPD exacerbation. She was brought in for observation 01/14 for mild COPD exacerbation and uncontrolled pain and anxiety. #COPD exacerbation-seems to be exacerbated by anxiety. Her breathing becomes normal after I stay in the room for awhile to speak with her. -Admitted to ICU 01/16 s/p rapid response for respiratory distress and non responsive to verbal commands. Emergency consult to ENT (Dr. Monae) who performed laryngoscopy; no acute findings. Patient transferred back to the general medicine service over the weekend and remained stable. -continued steroid taper and previously started from last admission -Pulm consulted: will continue to follow recs: magic mouth wash -Does not meet criteria for Pulm rehab (must have 3 noc stay in ICU) -ID consulted for possible abx: CXR 01/16 possible LLL pneumonia and resp sputum growing enterococcus/GNR/yeast. 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 -She remains on Prednisone PO 40mg daily -Pulm: strict aspiration precautions; continue steroids; continue pain control; maintain O2 sats around 92% -Will look into home humidifier for oxygen as patient mentions this daily as one of the reasons she is not comfortable at home. #Neck Pain -CT neck negative for pathologic/obstructive process -Xanax seems to help decrease sensation of 'strangling' #Anxiety-likely contributing to COPD exacerbation -Started on Celexa 20mg PO this admission 01/14. Will need to follow up outpatient and increase as needed -Xanax 0.5mg PO to qid acute anxiety; patient responding well to this regimen #HTN -Increased dose of Carvedilol 6.25mg - Restarted Losartan 25mg -Administered Amlodipine 5mg x2 overnight. BP 188/100. -Will discuss with Attending additional meds/management #Chronic pain -Headache-oral 1000mg q8 PRN -Dr. Cordova consulted; has not seen yet -PT working with patient: ambulating stairs DVT Prophylaxis: on eliquis/alps/ambulation Dispo: Patient and in agreement she would benefit from STR. Insurance declined. Patient's BP remained elevated on Carvedilol 6.25mg, Losartan 25mg was restarted , and patient was given 1 dose of Hydralazine 10mg, waiting to reassess patient BP. Problem List: 1. PNEUMONIA Pain Ratin Pain Location: throughout upper body Pain Goal: Pain 4 or less Pain Plan: Roxicodone, IV Tyelnol Tomorrow's Labs & Rationales: none
[2018-01-25 04:00] VITALS: BP 200/100
[2018-01-25 05:47] VITALS: BP 170/86
--- NOTE | 2018-01-25 08:32 | PN- Housestaff ---
See Addendum Subjective Follow-up For: copd exacerbation chronic pain anxiety Complaints: neck pain headache Subjective: Patient continues to report pain in her neck and head as well as strangling sensation. This has not changed for several days. She is concerned about her blood pressure and states she doesn't feel she can go home. She denies fever, chills, n/v/d, chest pain, Abdominal pain. Review of Systems Constitutional: Reports: see HPI. Objective Last 24 Hrs of Vital Signs/I&O Vital Signs Date Time Temp Pulse Resp B/P B/P Pulse O2 O2 Flow FiO2 Mean Ox Delivery Rate 01/25 0901 74 168/88 01/25 0901 74 168/88 01/25 0800 95 Room Air 01/25 0547 170/86 01/25 0440 200/100 01/25 0400 97.0 74 20 200/100 95 01/25 0000 Room Air 01/24 2135 98.6 84 18 167/96 92 Room Air 01/24 2116 89 162/96 01/24 1851 4.0 01/24 1749 80 160/92 93 Room Air 01/24 1635 95 Room Air 01/24 1553 180/86 01/24 1432 98.5 81 20 170/96 94 Room Air 01/24 1227 81 178/98 01/24 1130 81 178/98 Intake & Output 01/25 1600 01/25 0800 01/25 0000 Intake Total 100 Output Total Balance 100 Intake, IV 100 Number 3 Bowel Movements Patient 156 lb Weight Weight Bed scale Measurement Method Physical Exam General Appearance: Alert, Oriented X3, Cooperative, No Acute Distress Skin: ecchymosis to BUE/BLE on eliquis Skin Temp/Moisture Exam: Warm/Dry HEENT: Atraumatic, PERRLA Neck: Supple Cardiovascular: Regular Rate, Normal S1, Normal S2 Lungs: scattered expiratory wheezing Abdomen: Normal Bowel Sounds, Soft, No Tenderness Extremities: Normal Pulses, 1+ pitting edema bilateral lower extremities to level of proximal tibia Assessment/Plan Assessment: Ms. Gottlieb is a 62 year old female with past medical history of COPD, hypertension, seizure disorder on Keppra, lung cancer, anxiety, chronic neck pain status post nerve stimulator implantation who was recently discharged (01/13) from [facility] admission for COPD exacerbation. She was brought in for observation 01/14 for mild COPD exacerbation and uncontrolled pain and anxiety. #COPD exacerbation-Chronic hypercarbic respiratory distress; seems to be exacerbated by anxiety. Her breathing becomes normal after I stay in the room for awhile to speak with her. -Admitted to ICU 01/16 s/p rapid response for respiratory distress and non responsive to verbal commands. Emergency consult to ENT (Dr. Monae) who performed laryngoscopy; no acute findings. Patient transferred back to the general medicine service over the weekend and remained stable. -continued steroid taper and previously started from last admission -Pulm consulted: Continue steroid taper; outpatient PET scan for possible lung malignancy -ID consulted for possible abx: CXR 01/16 possible LLL pneumonia and resp sputum growing enterococcus/GNR/yeast. 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 #Neck Pain/strangling sensation -CT neck negative for pathologic/obstructive process -Xanax seems to help decrease sensation of 'strangling' #Anxiety-likely contributing to COPD exacerbation -Started on Celexa 20mg PO this admission 01/14. Will need to follow up outpatient and increase as needed -Xanax 0.5mg PO to qid acute anxiety; patient responding well to this regimen #HTN -Increased dose of Carvedilol 6.25mg -Losartan 25mg restarted on 01/24 after being stopped during ICU placement. -Administered Amlodipine 5mg x2 01/22-01/23. BP 188/100. -Patient given Hydralazine over the weekend to help manage BP 200/100. -Losartan increased to 50mg today; will continue to monitor. #Chronic pain -Headache-oral 1000mg q8 PRN -Dr. Cordova consulted; has not seen yet -PT working with patient: ambulating stairs -Will continue to ambulate bid DVT Prophylaxis: on eliquis/alps/ambulation Dispo: Patient and in agreement she would benefit from STR. Insurance declined. Problem List: 1. Chronic pain disorder 2. Acute exacerbation of chronic obstructive pulmonary disease (COPD) 3. PNEUMONIA 4. Headache 5. SOB (shortness of breath) 6. HTN (hypertension) Pain Ratin Pain Location: neck and head Pain Goal: Pain 4 or less Pain Plan: see a/p Tomorrow's Labs & Rationales: none
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
[2018-01-25 08:39] LABS: ABSOLUTE BASOPHIL COUNT 0 /CUMM (0.0-0.2); ABSOLUTE EOSINOPHIL COUNT 0 /CUMM (0.0-0.7); ABSOLUTE GRANULOCYTE CT 7.4 /CUMM (1.4-6.5); ABSOLUTE LYMPH COUNT 1.4 /CUMM (1.2-3.4); ABSOLUTE MONOCYTE COUNT 0.5 /CUMM (0.10-0.60); BASOPHIL % 0.4 % (0.0-2.0); EOSINOPHIL % 0.4 % (0-5); GRANULOCYTE % 79.5 % (42.2-75.2); HEMATOCRIT 29.5 % (37-47); MEAN CORPUSCULAR HGB CONC 32.8 G/DL (33.0-37.0); MEAN CORPUSCULAR VOLUME 91.4 FL (81.0-99.0); MEAN PLATELET VOLUME 6.3 FL (7.4-10.4); PLATELET COUNT 238 /CUMM (130-400); RBC DISTRIBUTION WIDTH 15.4 % (11.5-14.5); RED BLOOD CELL CT 3.23 /CUMM (4.20-5.40); WHITE BLOOD CELL COUNT 9.3 /CUMM (4.8-10.8)
[2018-01-25 14:59] VITALS: BP 139/86
--- NOTE | 2018-01-25 15:38 | PN- Infect Dx ---
Subjective Subjective: Afebrile on steroids. She complains of a headache and throat pain. She does note improvement in her cough. Objective Last 24 Hrs of Vital Signs/I&O Vital Signs Date Time Temp Pulse Resp B/P B/P Pulse O2 O2 Flow FiO2 Mean Ox Delivery Rate 01/25 1459 98.0 79 20 139/86 94 Room Air 01/25 1339 93 Room Air Room Air 01/25 0901 74 168/88 01/25 0901 74 168/88 01/25 0800 95 Room Air 01/25 0547 170/86 01/25 0440 200/100 01/25 0400 97.0 74 20 200/100 95 / 0000 Room Air 01/24 2135 98.6 84 18 167/96 92 Room Air 01/24 2116 89 162/96 01/24 1851 4.0 01/24 1749 80 160/92 93 Room Air 01/24 1635 95 Room Air 01/24 1553 180/86 Intake & Output 01/25 1600 01/25 0800 01/25 0000 Intake Total 960 100 Output Total 600 Balance 360 100 Intake, IV 120 100 Intake, Oral 840 Number 1 3 Bowel Movements Output, Urine 600 Patient 156 lb Weight Weight Bed scale Measurement Method Physical Exam Other Physical Findings: She appears comfortable in no acute distress Lungs scattered rhonchi, overall improved, with no wheezes Heart regular rhythm with no murmur Extremities trace edema both lower extremities Results Last 24 Hours of Lab Results: Laboratory Tests 01/25 0749 Chemistry Sodium (137 - 145 mmol/L) 137 Potassium (3.5 - 5.1 mmol/L) 3.8 Chloride (98 - 107 mmol/L) 95 L Carbon Dioxide (22 - 30 mmol/L) 38 H Anion Gap (5 - 16) 4 L BUN (7 - 17 mg/dL) 12 Creatinine (0.5 - 1.0 mg/dL) 0.6 Estimated GFR (>60 ml/min) > 60 BUN/Creatinine Ratio (7 - 25 %) 20.0 Hematology CBC w Diff NO MAN DIFF REQ WBC (4.8 - 10.8 /CUMM) 9.3 RBC (4.20 - 5.40 /CUMM) 3.23 L Hgb (12.0 - 16.0 G/DL) 9.7 L Hct (37 - 47 %) 29.5 L MCV (81.0 - 99.0 FL) 91.4 MCH (27.0 - 31.0 PG) 30.0 MCHC (33.0 - 37.0 G/DL) 32.8 L RDW (11.5 - 14.5 %) 15.4 H Plt Count (130 - 400 /CUMM) 238 MPV (7.4 - 10.4 FL) 6.3 L Gran % (42.2 - 75.2 %) 79.5 H Lymphocytes % (20.5 - 51.1 %) 14.6 L Monocytes % (1.7 - 9.3 %) 5.1 Eosinophils % (0 - 5 %) 0.4 Basophils % (0.0 - 2.0 %) 0.4 Absolute Granulocytes (1.4 - 6.5 /CUMM) 7.4 H Absolute Lymphocytes (1.2 - 3.4 /CUMM) 1.4 Absolute Monocytes (0.10 - 0.60 /CUMM) 0.5 Absolute Eosinophils (0.0 - 0.7 /CUMM) 0 Absolute Basophils (0.0 - 0.2 /CUMM) 0 Last 24 Hours of Randall Results: No recent cultures Assessment/Plan ID Impression: Overall improved, with her temperatures and white blood cell count remaining normal (on steroids), on Meropenem, Day 6 of treatment for possible bronchitis/ pneumonia secondary to E. coli and Enterococcus, both of which were isolated from her sputum culture. The CT scan does show several nodules, raising concern for malignancy, but, per Pulmonary, she is not felt to be a candidate at this time for mediastinal lymph node biopsy or navigational bronchoscopy. Suggestion: 1. Further evaluation to rule out an underlying malignancy per Pulmonary 2. Continue Meropenem until the a.m. on January 26, after which would discontinue and follow off antibiotics
[2018-01-25 22:03] VITALS: BP 168/88
[2018-01-26 06:40] VITALS: BP 180/100
--- NOTE | 2018-01-26 07:56 | PN- Housestaff ---
See Addendum Subjective Follow-up For: copd exacerbation neck pain, headache-chronic Complaints: headache neck pain Subjective: Patient greeted me today and quickly mentioned that she doesn't feel ready to be discharge 2/2 neck pain and headache. I explained that she is not hospitalized for chronic pain and we will need to discuss goals of care and discharge. Denies fever, chills, n/v/d, chest pain, SOB (unless ambulating-then becomes SOB ), abdominal pain. Review of Systems Constitutional: Reports: see HPI. Objective Last 24 Hrs of Vital Signs/I&O Vital Signs Date Time Temp Pulse Resp B/P B/P Pulse O2 O2 Flow FiO2 Mean Ox Delivery Rate 01/26 0815 93 Room Air Room Air 01/26 0720 72 180/100 01/26 0720 74 180/100 01/26 0640 98.7 72 20 180/100 96 Room Air 01/26 0232 96 Room Air 01/26 0000 96 Room Air 01/25 2203 98.1 76 18 168/88 96 Room Air 01/25 1700 95 Room Air 01/25 1600 94 Room Air 01/25 1459 98.0 79 20 139/86 94 Room Air 01/25 1339 93 Room Air Room Air Intake & Output 01/26 1600 01/26 0800 01/26 0000 Intake Total 510 490 Output Total Balance 510 490 Intake, IV 30 10 Intake, Oral 480 480 Number 0 0 Bowel Movements Patient 151 lb Weight Weight Bed scale Measurement Method Physical Exam General Appearance: Alert, Oriented X3, Cooperative, No Acute Distress, anxious Skin: ecchymosis to BLE/BUE on eliquis Skin Temp/Moisture Exam: Warm/Dry HEENT: Atraumatic, PERRLA, currently on RA for several days Neck: Supple Cardiovascular: Regular Rate, Normal S1, Normal S2 Lungs: expiratory wheezes throughout Abdomen: Normal Bowel Sounds, Soft, No Tenderness Extremities: Normal Pulses, 1+ pitting edema BLE Assessment/Plan Assessment: Ms. Gottlieb is a 62 year old female with past medical history of COPD, hypertension, seizure disorder on Keppra, lung cancer, anxiety, chronic neck pain status post nerve stimulator implantation who was recently discharged (01/13) from [facility] admission for COPD exacerbation. She was brought in for observation 01/14 for mild COPD exacerbation and uncontrolled pain and anxiety. #COPD exacerbation-Chronic hypercarbic respiratory distress; seems to be exacerbated by anxiety. Her breathing becomes normal after I stay in the room for awhile to speak with her. -Admitted to ICU 01/16 s/p rapid response for respiratory distress and non responsive to verbal commands. Emergency consult to ENT (Dr. Monae) who performed laryngoscopy; no acute findings. Patient transferred back to the general medicine service over the weekend and remained stable. -continued steroid taper and previously started from last admission -Pulm consulted: Continue steroid taper; outpatient PET scan for possible lung malignancy -ID consulted for possible abx: CXR 01/16 possible LLL pneumonia and resp sputum growing enterococcus/GNR/yeast. 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 Will need to follow up outpatient and increase as needed -Xanax 0.5mg PO to qid acute anxiety; patient responding well to this regimen #HTN -Carvedilol 6.25mg -Losartan 25mg restarted on 01/24 after being stopped during ICU placement. -Administered Amlodipine 5mg x2 01/22-01/23. BP 188/100. -Patient given Hydralazine over the weekend 01/22-01/24 to help manage BP 200/100. -BP still elevated 180/100; increasing Losartan to 100mg daily and will continue to monitor. #Chronic pain -Headache-oral 1000mg q8 PRN -Dr. Cordova consulted; has not seen yet -PT working with patient: ambulating stairs -Will continue to ambulate bid DVT Prophylaxis: on eliquis/alps/ambulation Dispo: Patient and in agreement she would benefit from STR. Insurance declined. New plan is to dc home when able. Had lengthy discussion about goals of care during this hospitalization. Problem List: 1. Acute exacerbation of chronic obstructive pulmonary disease (COPD) 2. PNEUMONIA 3. Chronic pain disorder 4. Anxiety Pain Ratin Pain Location: neck and head Pain Goal: Pain 7 or less Pain Plan: see a/p Tomorrow's Labs & Rationales: none
[2018-01-26 11:16] VITALS: BP 138/74
[2018-01-26 15:38] VITALS: BP 140/74
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
[2018-01-26 21:25] VITALS: BP 190/98
--- NOTE | 2018-01-26 21:58 | PN- Pulmonary ---
Subjective HPI/Critical Care Issues: Note erroneously entered elsewhere: Copy of note: PATIENT: ABIODUN HENNING PRESENT AGE: 64 PATIENT ACCOUNT NO: [id number] DATE OF : [birth year] ADMIT/SERVICE DATE: 01/21/18 ATTENDING PHYSICIAN: Varsha Petersen MD PATIENT CARE UNIT CONFIDENTIAL COPY Subjective HPI/Critical Care Issues: pt seen and examined throat discomfort is improved wheezing is persistent chronically Objective Current Medications: Current Medications Sig/Halie Start time Last Medication Dose Route Stop Time Status Admin Acetaminophen 500 MG Q6P PRN 01/22 1745 AC 01/26 PO 0542 Albuterol Sulfate 3 ML EVERY 4 HRS/AWAKE 01/22 0800 AC 01/26 INH 0914 Atorvastatin Calcium 10 MG 1700 01/22 1700 AC 01/25 PO 1711 Azithromycin 500 MG DAILY 01/22 1051 DC 01/25 PO 0849 Cholecalciferol 1,000 IU DAILY 01/22 0900 AC 01/26 PO 0848 Enoxaparin Sodium 40 MG DAILY 01/22 0900 AC 01/26 SC 0843 Lorazepam 0.5 MG AT BEDTIME 01/24 2100 AC 01/25 PO 01/31 2059 2044 Methylprednisolone 40 MG DAILY 01/26 0900 CAN IV Methylprednisolone 40 MG Q8H 01/25 0400 DC 01/25 IV 01/25 2001 204 Montelukast Sodium 10 MG AT BEDTIME 01/24 2100 AC 01/25 PO 2044 Omeprazole 20 MG DAILY AC 01/22 1003 AC 01/26 PO 0540 Prednisone 60 MG DAILY 01/26 0900 AC 01/26 PO 0952 Tiotropium [place] 1 PUF DAILY 01/24 1452 AC 01/26 INH 0848 Vital Signs & I&O Last 24 Hrs of Vitals and I&O: Vital Signs Date Time Temp Pulse Resp B/P B/P Pulse O2 O2 Flow FiO2 Mean Ox Delivery Rate 01/26 0920 93 Nasal 3.0L Cannula 01/26 0701 98.1 87 20 138/80 93 Nasal 4.0L Cannula 01/26 0000 92 Nasal 4.0L Cannula 01/25 2201 98.4 87 20 150/88 92 Nasal 4.0L Cannula 01/25 1610 83 Room Air 01/25 1600 93 Nasal 4.0L Cannula 01/25 1441 98.3 88 20 140/80 93 Nasal Cannula Intake & Output 01/26 1600 01/26 0800 01/26 0000 Intake Total 480 400 Output Total Balance 480 400 Intake, Oral 480 400 Patient 169 lb Weight Exam Other Physical Findings: gen-aaox3 head/neck-nasal cannula cvs-s1,s2 lungs-bilateral rhonchi abd-soft,bs+ ext-some edema Impression/Plan Impression/Plan Impression/Plan: Impression * E.Coli/Enteroccocus in sputum - bronchitis vs. pna * Severe oxygen and prednisone dependent COPD with exacerbation/acute on chronic hypoxemic respiratory failure * chronic hypercarbic respiratory failure * pulmonary nodules concerning for malignancy - pending outpt PET * pulmonary embolism on Eliquis, (09/2015) * CHF * spinal stenosis and chronic pain, hx neurostimulator placement. * sacral fracture history * tobacco dependence history * psychiatric history Plan - complete Meropenem per ID - steroid taper as ordered - stop at 20mg and leave on 20mg until re-evaluated - TRC/Nebs - inhalers continue - Eliquis - bp control per primary team - will require outpatient PET scan, should follow with me regarding PET timing - will hold for now as the patient is still inpatient DVT prophylaxis at all times (Eliquis) NOTE ENTERED BY: Ray Cates MD DATE/TIME ENTERED:01/26/18 / 9 REPORT NUMBER:[id number] CONFIDENTIAL, DO NOT COPY WITHOUT APPROPRIATE AUTHORIZATION. <Electronically signed by Ray Cates MD> 01/26/18 1221 Objective Current Medications: Current Medications Sig/Halie Start time Last Medication Dose Route Stop Time Status Admin Acetaminophen 1,000 MG Q8P PRN 01/26 1045 AC 01/26 N/A 1 UNIT IV 1358 Acetaminophen 1,000 MG Q8P PRN 01/25 1130 DC 01/25 PO 2041 Albuterol Sulfate 3 ML EVERY 4 HRS/AWAKE 01/15 0800 AC 01/26 INH 2034 Albuterol Sulfate 2 PUF Q4-6 PRN PRN 01/14 1545 AC 01/22 INH 1713 Alprazolam 0.5 MG 4 TIMES/DAY 01/20 1300 AC 01/26 PO 02/03 1258 2123 Apixaban 5 MG BID 01/14 2100 AC 01/26 PO 212 Budesonide/ 2 PUF BID 01/14 2100 AC 01/26 Formoterol Fumarate INH 2127 Calcium Carbonate 500 MG DAILY PRN 01/14 1545 AC PO Carvedilol 6.25 MG BID 01/21 2100 AC 01/26 PO 2124 Cholecalciferol 1,000 IU DAILY 01/14 1535 AC 01/26 PO 0814 Citalopram 20 MG DAILY 01/14 1539 AC 01/26 Hydrobromide PO 0813 Cyanocobalamin 1,000 MCG DAILY 01/14 1536 AC 01/26 PO 0814 Docusate Sodium 100 MG BID 01/17 1424 AC 01/26 PO 2123 Ferrous Sulfate 325 MG DAILY 01/14 1536 AC 01/26 PO 0814 Guaifenesin 600 MG Q12 01/14 2100 AC 01/26 PO 2124 Levetiracetam 750 MG BID 01/14 2100 AC 01/26 PO 2125 Lidocaine 1 PAT DAILY 01/14 1930 AC 01/26 TOP 0814 Lidocaine/Diphenhydr/ 30 ML Q6-PRN PRN 01/15 1545 AC 01/19 Alum/Mg/Simeth PO 0928 Losartan Potassium 50 MG ONCE ONE 01/26 0930 DC 01/26 PO 01/26 0931 1041 Losartan Potassium 100 MG DAILY 01/26 0900 AC PO Losartan Potassium 50 MG DAILY 01/25 0900 DC 01/26 PO 0720 Meropenem 1 GM IQ8 01/19 1600 DC 01/26 IV 01/26 1000 0815 Omeprazole 40 MG 1/2H B/BREAKF/DINNER 01/14 1630 AC 01/26 PO 1740 Ondansetron HCl 4 MG Q6P PRN 01/15 1345 AC 01/24 IV 0434 Oxycodone HCl 30 MG Q12 01/18 2100 AC 01/26 PO 2123 Oxycodone HCl 15 MG Q4 HRS NEEDED PRN 01/18 1345 AC 01/26 PO 2122 Phenol 2 SPRAY Q2P PRN 01/20 1715 AC 01/24 EXT 2119 Polyethylene Glycol 17 GM DAILY 01/17 1424 AC 01/21 PO 0834 Prednisone 40 MG DAILY 01/19 0900 AC 01/26 PO 0813 Senna 187 MG AT BEDTIME 01/17 2100 AC 01/26 PO 2126 Tiotropium [place] 1 PUF DAILY 01/15 0900 AC 01/26 INH 0813 Vital Signs & I&O Last 24 Hrs of Vitals and I&O: Vital Signs Date Time Temp Pulse Resp B/P B/P Pulse O2 O2 Flow FiO2 Mean Ox Delivery Rate 01/26 2125 98.2 81 18 190/98 97 Room Air 01/26 2124 68 190/98 01/26 2104 93 Room Air 01/26 1600 94 01/26 1538 97.9 80 18 140/74 95 Room Air 01/26 1250 92 Room Air 01/26 1116 84 138/74 01/26 1041 72 180/100 01/26 0815 93 Room Air Room Air 01/26 0800 Room Air 01/26 0720 72 180/100 01/26 0720 74 180/100 01/26 0640 98.7 72 20 180/100 96 Room Air 01/26 0232 96 Room Air 01/26 0000 96 Room Air 01/25 2203 98.1 76 18 168/88 96 Room Air Intake & Output 01/26 1600 01/26 0800 01/26 0000 Intake Total 480 510 490 Output Total 0 Balance 480 510 490 Intake, IV 0 30 10 Intake, Oral 480 480 480 Number 0 0 0 Bowel Movements Output, Urine 0 Patient 151 lb Weight Weight Bed scale Measurement Method Impression/Plan Impression/Plan Impression/Plan: see above
[2018-01-27 06:40] VITALS: BP 160/94
--- NOTE | 2018-01-27 08:58 | PN- Housestaff ---
Laurent,Christal 01/27/18 0857: Subjective Follow-up For: copd exacerbation pneumonia chronic pain Complaints: neck pain; left hip pain; headache Subjective: Patient reports new symptom of left hip pain this morning. She continues to experience chronic neck pain and headache. She states she would like to stay one more day and work with physical therapy before going home. Denies fever, chills, n/v/d, chest pain, SOB, abdominal pain. Review of Systems Constitutional: Reports: see HPI. Objective Last 24 Hrs of Vital Signs/I&O Vital Signs Date Time Temp Pulse Resp B/P B/P Pulse O2 O2 Flow FiO2 Mean Ox Delivery Rate 01/27 0959 81 180/102 01/27 0846 92 Room Air Room Air 01/27 0841 81 180/102 01/27 0800 Room Air 01/27 0640 98.1 75 19 160/94 92 Room Air 01/27 0337 94 Room Air 01/27 0000 Room Air 01/26 2125 98.2 81 18 190/98 97 Room Air 01/26 2124 68 190/98 01/26 2104 93 Room Air 01/26 1600 94 01/26 1538 97.9 80 18 140/74 95 Room Air 01/26 1250 92 Room Air 01/26 1116 84 138/74 01/26 1041 72 180/100 Intake & Output 01/27 1600 01/27 0800 01/27 0000 Intake Total 480 800 Output Total 100 Balance 480 700 Intake, Oral 480 800 Number 1 0 Bowel Movements Output, Urine 100 Patient 154 lb Weight Physical Exam General Appearance: Alert, Oriented X3, Cooperative, No Acute Distress Skin: ecchymosis to BLE/BUE on eliquis Skin Temp/Moisture Exam: Warm/Dry HEENT: Atraumatic, PERRLA, Mucous Membr. moist/pink, not requiring supplemental oxygen Neck: Supple Cardiovascular: Regular Rate, Normal S1, Normal S2, No Murmurs Lungs: scattered crackles and expiratory wheezes throughout Abdomen: Normal Bowel Sounds, Soft, No Tenderness Extremities: Normal Pulses Assessment/Plan Assessment: Ms. Gottlieb is a 62 year old female with past medical history of COPD, hypertension, seizure disorder on Keppra, lung cancer, anxiety, chronic neck pain status post nerve stimulator implantation who was recently discharged (01/13) from [facility] admission for COPD exacerbation. She was brought in for observation 01/14 for mild COPD exacerbation and uncontrolled pain and anxiety. Problem List: 1. COPD exacerbation; chronic hypoxemic respiratory failure 2. HTN 3. Anxiety 4. Chronic pain 5. Left hip pain #COPD exacerbation-Chronic hypercarbic respiratory distress; seems to be exacerbated by anxiety. Her breathing becomes normal after I stay in the room for awhile to speak with her. -Admitted to ICU 01/16 s/p rapid response for respiratory distress and non responsive to verbal commands. Emergency consult to ENT (Dr. Monae) who performed laryngoscopy; no acute findings. Patient transferred back to the general medicine service over the weekend and remained stable. -continued steroid taper and previously started from last admission -Pulm consulted: Continue steroid taper; outpatient PET scan for possible lung malignancy -ID consulted for possible abx: CXR 01/16 possible LLL pneumonia and resp sputum growing enterococcus/GNR/yeast. 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 Cates recs #Neck Pain/strangling sensation -CT neck negative for pathologic/obstructive process -Xanax seems to help decrease sensation of 'strangling' #Anxiety-likely contributing to COPD exacerbation -Started on Celexa 20mg PO this admission 01/14. Will need to follow up outpatient and increase as needed -Xanax 0.5mg PO to qid acute anxiety; patient responding well to this regimen #HTN -Increased dose of Carvedilol 6.25mg -Losartan 25mg restarted on 01/24 after being stopped during ICU placement. -Administered Amlodipine 5mg x2 01/22-01/23. BP 188/100. -Patient given Hydralazine over the weekend to help manage BP 200/100. -[id number] daily -Restarting home medication dose of Furosemide 20mg daily per cardiology recs #Chronic pain -Headache-oral 1000mg q8 PRN -Dr. Cordova consulted; has not seen yet -PT working with patient: ambulating stairs -Will continue to ambulate bid and as tolerated #Left hip pain-likely 2/2 sitting in bed too long; lack of ambulation -will obtain XR at patients request to rule out fracture or bony changes though this is unlikely DVT Prophylaxis: on eliquis/alps/ambulation Dispo: Patient and in agreement she would benefit from STR. Insurance declined. Plan to d/c home Problem List: 1. PNEUMONIA 2. Acute exacerbation of chronic obstructive pulmonary disease (COPD) 3. Chronic pain disorder 4. Neck pain 5. Headache 6. HTN (hypertension) Pain Ratin Pain Location: neck head left hip Pain Goal: Pain 4 or less Pain Plan: see a/p Tomorrow's Labs & Rationales: Jhonatan Cisneros MD 01/27/18 1804: Attending MD Review Statement Attending Statement Attending MD Statement: examined this patient, discuss w/resident/PA/EXERCISE INSTRUCTOR, agreed w/resident/PA/EXERCISE INSTRUCTOR, reviewed EMR data (avail), discussed with nursing, discussed with case mgmt Attending Assessment/Plan: The patient was seen and discussed with house staff, nursing, and case management. Also spoke with Dr. Cates who was seeing her at the same time. He agreed her pulmonary status has improved and is stable. The patient notes onset of left hip pain that is now affecting her activity. No specific trauma that she can recall. X-ray of the hip is negative for fracture or other significant pathology. She does have mild tenderness in the greater trochanteric bursa region suggesting bursitis. Agree with trial of Celebrex for anti-inflammatory. If not effective consider steroid injection/orthopedic evaluation. BP improving as meds adjusted- added Amlodipine to regimen. Cardiology input appreciated.
[2018-01-27 12:48] VITALS: BP 182/102
[2018-01-27] MEDS ORDERED: CARVEDILOL6.25 M1 PO (14:15)
[2018-01-27] MEDS ORDERED: COZAAR100 M1 PO (14:15)
[2018-01-27] MEDS ORDERED: AMLODIPINE BESYL5 M1 PO (14:15)
[2018-01-27 14:46] VITALS: BP 162/94
--- NOTE | 2018-01-27 16:58 | RADIOLOGY REPORT ---
EXAMINATION: XR HIP, LEFT CLINICAL INFORMATION: Left hip pain. COMPARISON: CT abdomen pelvis 01/03/2018 TECHNIQUE: AP single view of the left hip. FINDINGS: Hip joint is normal. There is no significant arthrosis. No soft tissue calcification or chondrocalcinosis. There is no fracture. No dislocation. No focal bone lesion. IMPRESSION: Normal left hip.
--- NOTE | 2018-01-27 17:25 | PN- Pulmonary ---
Subjective HPI/Critical Care Issues: pt seen and examined c/o left hip discomfort dyspnea persists with wheezing Objective Current Medications: Current Medications Sig/Halie Start time Last Medication Dose Route Stop Time Status Admin Acetaminophen 1,000 MG Q8P PRN 01/26 1045 AC 01/27 N/A 1 UNIT IV 1243 Albuterol Sulfate 3 ML EVERY 4 HRS/AWAKE 01/15 0800 AC 01/27 INH 1256 Albuterol Sulfate 2 PUF Q4-6 PRN PRN 01/14 1545 AC 01/22 INH 1713 Alprazolam 0.5 MG 4 TIMES/DAY 01/20 1300 AC 01/27 PO 02/03 1258 1711 Amlodipine Besylate 5 MG DAILY 01/27 1300 AC 01/27 PO 1338 Apixaban 5 MG BID 01/14 2100 AC 01/27 PO 0853 Budesonide/ 2 PUF BID 01/14 2100 AC 01/27 Formoterol Fumarate INH 0855 Calcium Carbonate 500 MG DAILY PRN 01/14 1545 AC PO Carvedilol 6.25 MG BID 01/21 2100 AC 01/27 PO 0959 Celecoxib 100 MG BID 01/27 2100 AC PO Cholecalciferol 1,000 IU DAILY 01/14 1535 AC 01/27 PO 0853 Citalopram 20 MG DAILY 01/14 1539 AC 01/27 Hydrobromide PO 0853 Cyanocobalamin 1,000 MCG DAILY 01/14 1536 AC 01/27 PO 0853 Docusate Sodium 100 MG BID 01/17 1424 AC 01/27 PO 0853 Ferrous Sulfate 325 MG DAILY 01/14 1536 AC 01/27 PO 0853 Furosemide 20 MG DAILY 01/27 0900 AC 01/27 PO 0853 Guaifenesin 600 MG Q12 01/14 2100 AC 01/27 PO 0853 Levetiracetam 750 MG BID 01/14 2100 AC 01/27 PO 0855 Lidocaine 1 PAT DAILY 01/14 1930 AC 01/27 TOP 0854 Lidocaine/Diphenhydr/ 30 ML Q6-PRN PRN 01/15 1545 AC 01/19 Alum/Mg/Simeth PO 0928 Losartan Potassium 100 MG DAILY 01/26 0900 AC 01/27 PO 0841 Omeprazole 40 MG 1/2H B/BREAKF/DINNER 01/14 1630 AC 01/27 PO 1711 Ondansetron HCl 4 MG Q6P PRN 01/15 1345 AC 01/24 IV 0434 Oxycodone HCl 30 MG Q12 01/18 2100 AC 01/27 PO 0839 Oxycodone HCl 15 MG Q4 HRS NEEDED PRN 01/18 1345 AC 01/27 PO 1711 Phenol 2 SPRAY Q2P PRN 01/20 1715 AC 01/24 EXT 2119 Polyethylene Glycol 17 GM DAILY 01/17 1424 AC 01/21 PO 0834 Prednisone 20 MG DAILY 01/28 0900 AC PO 02/28 0859 Prednisone 30 MG DAILY 01/27 0900 DC PO 02/28 0859 Prednisone 30 MG DAILY 01/27 09 DC PO 01/28 0859 Prednisone 30 MG DAILY 01/27 09 DC 01/27 PO 01/27 0901 0959 Prednisone 40 MG DAILY 01/19 0900 DC 01/26 PO 0813 Senna 187 MG AT BEDTIME 01/17 2100 AC 01/26 PO 2126 Tiotropium [place] 1 PUF DAILY 01/15 09 AC 01/27 INH 0855 Vital Signs & I&O Last 24 Hrs of Vitals and I&O: Vital Signs Date Time Temp Pulse Resp B/P B/P Pulse O2 O2 Flow FiO2 Mean Ox Delivery Rate 01/27 1649 92 Room Air 01/27 1446 97.7 82 20 162/94 91 Room Air 01/27 1338 83 182/100 01/27 1302 92 Room Air Room Air 01/27 1248 82 182/102 01/27 0959 81 180/102 01/27 0846 92 Room Air Room Air 01/27 0841 81 180/102 01/27 0800 Room Air 01/27 0640 98.1 75 19 160/94 92 Room Air 01/27 0337 94 Room Air 01/27 0000 Room Air 01/26 2125 98.2 81 18 190/98 97 Room Air 01/26 2124 68 190/98 01/26 2104 93 Room Air Intake & Output 01/27 1600 01/27 0800 01/27 0000 Intake Total 460 480 800 Output Total 100 Balance 460 480 700 Intake, IV 0 Intake, Oral 460 480 800 Number 1 0 Bowel Movements Output, Urine 100 Patient 154 lb Weight Exam Other Physical Findings: gen-aaox3 head/neck-nasal cannula cvs-s1,s2 lungs-bilateral rhonchi abd-soft,bs+ ext-some edema left hip discomfort Impression/Plan Impression/Plan Impression/Plan: Impression * E.Coli/Enteroccocus in sputum - bronchitis vs. pna * Severe oxygen and prednisone dependent COPD with exacerbation/acute on chronic hypoxemic respiratory failure * chronic hypercarbic respiratory failure * pulmonary nodules concerning for malignancy - pending outpt PET * pulmonary embolism on Eliquis, (09/2015) * CHF * spinal stenosis and chronic pain, hx neurostimulator placement. * sacral fracture history * tobacco dependence history * psychiatric history Plan - completed Meropenem per ID - steroid taper as ordered - stop at 20mg and leave on 20mg until re-evaluated - TRC/Nebs - inhalers continue - Eliquis - bp control per primary team - will require outpatient PET scan, should follow with me regarding PET timing - will hold for now as the patient is still inpatient - appeal is being made by for STR, which is reasonable DVT prophylaxis at all times (Eliquis) Will see in office unless any acute inpatient issues arise.
[2018-01-27 21:45] VITALS: BP 152/86
[2018-01-28 06:00] VITALS: BP 179/95
--- NOTE | 2018-01-28 07:59 | PN- Housestaff ---
See Addendum Subjective Follow-up For: copd exacerbation chronic pain anxiety Complaints: headache SOB Subjective: Patient greeted me this morning saying, 'I'm a mess. I can't go home today.' She states she has a headache and feels SOB. Denies fever, chills, n/v/d, chest pain, abdominal pain. Review of Systems Constitutional: Reports: see HPI. Objective Last 24 Hrs of Vital Signs/I&O Vital Signs Date Time Temp Pulse Resp B/P B/P Pulse O2 O2 Flow FiO2 Mean Ox Delivery Rate 01/28 0845 96 Room Air Room Air 01/28 0822 80 179/95 01/28 0822 80 179/95 01/28 0822 80 179/95 01/28 0800 97 Nasal 1.0L Cannula 01/28 0600 98.8 80 20 179/95 92 Room Air 01/28 0000 97 Room Air 01/27 2145 98.4 76 18 152/86 97 Room Air 01/27 2111 76 152/86 01/27 1649 92 Room Air 01/27 1600 Room Air 01/27 1446 97.7 82 20 162/94 91 Room Air 01/27 1338 83 182/100 01/27 1302 92 Room Air Room Air 01/27 1248 82 182/102 Intake & Output 01/28 1600 01/28 0800 01/28 0000 Intake Total 430 520 Output Total Balance 430 520 Intake, IV 130 120 Intake, Oral 300 400 Physical Exam General Appearance: Alert, Oriented X3, Cooperative, Mild Distress Skin: ecchymosis BLE/BUE on eliquis Skin Temp/Moisture Exam: Warm/Dry HEENT: Atraumatic, PERRLA Neck: Supple Cardiovascular: Regular Rate, Normal S1, Normal S2, No Murmurs Lungs: expiratory wheezes throughout. Occasional crackles Abdomen: Normal Bowel Sounds, Soft, No Tenderness Extremities: 2+ pitting edema to level of knee while sitting in chair Assessment/Plan Assessment: Ms. Gottlieb is a 62 year old female with past medical history of COPD, hypertension, seizure disorder on Keppra, lung cancer, anxiety, chronic neck pain status post nerve stimulator implantation who was recently discharged (01/13) from [facility] admission for COPD exacerbation. She was brought in for observation 01/14 for mild COPD exacerbation and uncontrolled pain and anxiety. Problem List: 1. COPD exacerbation; chronic hypoxemic respiratory failure 2. HTN 3. Anxiety 4. Chronic pain 5. Left hip pain #COPD exacerbation-Chronic hypercarbic respiratory distress; seems to be exacerbated by anxiety. Her breathing becomes normal after I stay in the room for awhile to speak with her. -Admitted to ICU 01/16 s/p rapid response for respiratory distress and non responsive to verbal commands. Emergency consult to ENT (Dr. Monae) who performed laryngoscopy; no acute findings. Patient transferred back to the general medicine service over the weekend and remained stable. -continued steroid taper and previously started from last admission -Pulm consulted: Continue steroid taper; outpatient PET scan for possible lung malignancy -ID consulted for possible abx: CXR 01/16 possible LLL pneumonia and resp sputum growing enterococcus/GNR/yeast. 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 Cates recs #Neck Pain/strangling sensation -CT neck negative for pathologic/obstructive process -Xanax seems to help decrease sensation of 'strangling' #Anxiety-likely contributing to COPD exacerbation -Started on Celexa 20mg PO this admission 01/14. Will need to follow up outpatient and increase as needed -Xanax 0.5mg PO to qid acute anxiety; patient responding well to this regimen #HTN -Increased dose of Carvedilol 6.25mg -Losartan 25mg restarted on 01/24 after being stopped during ICU placement. -Administered Amlodipine 5mg x2 01/22-01/23. BP 188/100. -Patient given Hydralazine over the weekend to help manage BP 200/100. -[id number] daily -Furosemide 20mg daily per cardiology recs restarted 01/27 -Amlodipine 10mg daily started today 01/28 -Cardiology contacted (Dr. Loaiza to see) regarding persistent hypertension despite increasing current HTN meds and addition of Amlodipine/Losartan. #Chronic pain -Headache-oral 1000mg q8 PRN -Dr. Cordova consulted; has not seen yet -PT worked with PT: ambulating well -Will continue to ambulate bid and as tolerated #Left hip pain-likely 2/2 sitting in bed too long; lack of ambulation -will obtain XR at patients request to rule out fracture or bony changes though this is unlikely -Left hip XR was negative. DVT Prophylaxis: on eliquis/alps/ambulation Dispo: Patient and in agreement she would benefit from STR. Insurance declined. Plan to d/c home. Problem List: 1. Chronic pain disorder 2. Anxiety 3. Acute exacerbation of chronic obstructive pulmonary disease (COPD) 4. PNEUMONIA Pain Ratin Pain Location: head Pain Goal: Pain 4 or less Pain Plan: see a/p Tomorrow's Labs & Rationales: none
[2018-01-28 14:07] VITALS: BP 132/70
--- NOTE | 2018-01-28 16:27 | PN- Cardiology ---
Subjective Subjective: No new changes. Blood pressure elevated earlier today. Improved on increased amlodipine dose Objective Vital Signs and I&Os Vital Signs Date Time Temp Pulse Resp B/P B/P Pulse O2 O2 Flow FiO2 Mean Ox Delivery Rate 01/28 1407 98.7 74 20 132/70 94 Nasal 1.0L Cannula 01/28 1232 93 Room Air Room Air 01/28 0845 96 Room Air Room Air 01/28 0822 80 179/95 01/28 0822 80 179/95 01/28 0822 80 179/95 01/28 0800 97 Nasal 1.0L Cannula 01/28 0600 98.8 80 20 179/95 92 Room Air 01/28 0000 97 Room Air 01/27 2145 98.4 76 18 152/86 97 Room Air 01/27 2111 76 152/86 01/27 1649 92 Room Air Intake & Output 01/28 1600 01/28 0800 01/28 0000 01/27 1600 01/27 0800 01/27 0000 Intake Total 480 430 520 460 480 800 Output Total 0 100 Balance 480 430 520 460 480 700 Intake, IV 0 130 120 0 Intake, Oral 480 300 400 460 480 800 Number 1 0 Bowel Movements Output, Urine 0 100 Patient 156 lb 154 lb Weight Weight Bed scale Measurement Method Physical Exam: Gen: The patient is in no acute distress HEENT: Normal nose, ears, and oropharynx. Pupils equal bilaterally. Conjunctiva normal. Neck: Supple with no JVD, no masses, and no thyromegaly Lungs: Clear to auscultation with normal respiratory effort Heart: RRR, S1, S2, no murmurs. No peripheral edema, 2+ pulses in the lower extremities bilaterally Abdomen: Soft, nontender, no masses. No hepatomegaly. No splenomegaly Extremities: No clubbing or cyanosis. Normal muscle strength in the upper and lower extremities Skin: Normal skin turgor with no skin ulcers or lesions noted. Neuro: Cranial nerves intact. Sensation intact Psych: Alert and oriented x 3 with appropriate affect Current Medications: Current Medications Sig/Halie Start time Last Medication Dose Route Stop Time Status Admin Acetaminophen 1,000 MG .STK-MED ONE 01/28 0544 DC IV 01/28 05 Acetaminophen 1,000 MG .STK-MED ONE 01/27 2018 DC IV 01/27 2019 Acetaminophen 1,000 MG Q8P PRN 01/26 1045 AC 01/28 N/A 1 UNIT IV 1409 Albuterol Sulfate 3 ML EVERY 4 HRS/AWAKE 01/15 0800 AC 01/28 INH 1229 Albuterol Sulfate 2 PUF Q4-6 PRN PRN 01/14 1545 AC 01/27 INH 2320 Alprazolam 0.5 MG 4 TIMES/DAY 01/20 1300 AC 01/28 PO 02/03 1258 1311 Amlodipine Besylate 10 MG DAILY 01/29 0900 AC PO Amlodipine Besylate 5 MG DAILY 01/27 1300 DC 01/28 PO 0822 Apixaban 5 MG BID 01/14 2100 AC 01/28 PO 0814 Bisacodyl 10 MG DAILY PRN 01/28 1415 AC 01/28 NH 1435 Budesonide/ 2 PUF BID 01/14 2100 AC 01/28 Formoterol Fumarate INH 0816 Calcium Carbonate 500 MG DAILY PRN 01/14 1545 AC 01/28 PO 0628 Carvedilol 6.25 MG BID 01/21 2100 AC 01/28 PO 0822 Celecoxib 100 MG BID 01/27 2100 AC 01/28 PO 0815 Cholecalciferol 1,000 IU DAILY 01/14 1535 AC 01/28 PO 0814 Citalopram 20 MG DAILY 01/14 1539 AC 01/28 Hydrobromide PO 0815 Cyanocobalamin 1,000 MCG DAILY 01/14 1536 AC 01/28 PO 0814 Docusate Sodium 100 MG BID 01/17 1424 AC 01/28 PO 0815 Ferrous Sulfate 325 MG DAILY 01/14 1536 AC 01/28 PO 0814 Furosemide 20 MG DAILY 01/27 0900 AC 01/28 PO 0822 Guaifenesin 600 MG Q12 01/14 2100 AC 01/28 PO 0814 Levetiracetam 750 MG BID 01/14 2100 AC 01/28 PO 0815 Lidocaine 1 PAT DAILY 01/14 1930 AC 01/28 TOP 0816 Lidocaine/Diphenhydr/ 30 ML Q6-PRN PRN 01/15 1545 AC 01/19 Alum/Mg/Simeth PO 0928 Losartan Potassium 100 MG DAILY 01/26 0900 AC 01/28 PO 0822 Omeprazole 40 MG 1/2H B/BREAKF/DINNER 01/14 1630 AC 01/28 PO 0547 Ondansetron HCl 4 MG Q6P PRN 07/06 1345 AC 01/24 IV 0434 Oxycodone HCl 30 MG Q12 01/18 2100 AC 01/28 PO 0812 Oxycodone HCl 15 MG Q4 HRS NEEDED PRN 01/18 1345 AC 01/28 PO 1207 Phenol 2 SPRAY Q2P PRN 01/20 1715 AC 01/27 EXT 1731 Polyethylene Glycol 17 GM DAILY 01/17 1424 AC 01/28 PO 0817 Prednisone 20 MG DAILY 01/28 0900 AC 01/28 PO 02/28 0859 0814 Senna 187 MG AT BEDTIME 01/17 2100 AC 01/27 PO 2110 Tiotropium [place] 1 PUF DAILY 01/15 09 AC 01/28 INH 0816 Results Last 48 Hrs of Labs/Mics: Laboratory Tests 01/28/18604: Anion Gap 9, Estimated GFR > 60, BUN/Creatinine Ratio 27.1 H, Magnesium 2.5 H Assessment/Plan Assessment/Plan Assessment: 1. Uncontrolled hypertension 2. Severe COPD with recent exacerbation of COPD 3. Peripheral arterial disease 4. History of pulmonary embolism 5. Chronic systolic heart failure Recommendations: -Continue current losartan, amlodipine and carvedilol doses. Amlodipine dose was increased to 10 mg today. Blood pressure seems somewhat better now. -If the patient's blood pressure remains elevated tomorrow, we can consider increasing the carvedilol dose at that time. -Otherwise, the patient appears stable from a cardiovascular standpoint per -As noted previously, the patient will need follow-up with her regular header up Dr. Myers as an outpatient. Continue telemetry? No
[2018-01-28 22:43] VITALS: BP 158/78
[2018-01-29 06:54] VITALS: BP 160/100
--- NOTE | 2018-01-29 07:48 | PN- Housestaff ---
See Addendum Subjective Follow-up For: COPD EXACERBATION CHRONIC PAIN Complaints: SOB NECK PAIN BACK PAIN HEADACHE Subjective: Patient sitting up in chair feeling SOB. She states she cannot go home today because she continues to have a headache and difficulty breathing. She reports vomiting and 3 episodes of diarrhea last night. Per staff certified nurse midwife overnight patient was assisted with each trip to the bathroom and they did not appreciate any episodes of diarrhea or vomiting. Patient reports feeling weak and continues to have coughing with yellow sputum. Denies fever, chills, abdominal pain, chest pain. Review of Systems Constitutional: Reports: see HPI. Objective Last 24 Hrs of Vital Signs/I&O Vital Signs Date Time Temp Pulse Resp B/P B/P Pulse O2 O2 Flow FiO2 Mean Ox Delivery Rate 01/29 0958 93 Nasal Cannula 01/29 0848 140 32 198/118 01/29 0848 140 32 198/118 01/29 0847 140 32 198/118 01/29 0844 94 Nasal 4.0L Cannula 01/29 0654 99.4 89 20 160/100 87 01/29 0140 92 Nasal 1.0L Cannula 01/29 0000 96 Nasal 1.0L Cannula 01/28 2243 98.6 75 20 158/78 96 Nasal 1.0L Cannula 01/28 2023 158/78 01/28 1710 97 Nasal 1.0L Cannula 01/28 1709 97 Nasal 1.0L Cannula 01/28 1407 98.7 74 20 132/70 94 Nasal 1.0L Cannula 01/28 1232 93 Room Air Room Air Intake & Output 01/29 1600 01/29 0800 01/29 0000 Intake Total 370 210 Output Total Balance 370 210 Intake, IV 10 10 Intake, Oral 360 200 Patient 157 lb Weight Physical Exam General Appearance: Alert, Oriented X3, Cooperative, Mild Distress Skin: ecchymosis BLE/BUE on eliquis Skin Temp/Moisture Exam: Warm/Dry HEENT: Atraumatic, PERRLA, on supplemental oxygen 1L NC Neck: Supple Cardiovascular: Regular Rate, Normal S1, Normal S2 Lungs: expiratory wheezes throughout Abdomen: Normal Bowel Sounds, Soft, No Tenderness Extremities: 1+edema bilateral lower extremities Assessment/Plan Assessment: Ms. Gottlieb is a 62 year old female with past medical history of COPD, hypertension, seizure disorder on Keppra, lung cancer, anxiety, chronic neck pain status post nerve stimulator implantation who was recently discharged (01/13) from [facility] admission for COPD exacerbation. She was brought in for observation 01/14 for mild COPD exacerbation and uncontrolled pain and anxiety. Problem List: 1. COPD exacerbation; chronic hypoxemic respiratory failure 2. HTN 3. Anxiety 4. Chronic pain 5. Left hip pain #COPD exacerbation-Chronic hypercarbic respiratory distress; seems to be exacerbated by anxiety. Her breathing becomes normal after I stay in the room for awhile to speak with her. -Admitted to ICU 01/16 s/p rapid response for respiratory distress and non responsive to verbal commands. Emergency consult to ENT (Dr. Monae) who performed laryngoscopy; no acute findings. Patient transferred back to the general medicine service over the weekend and remained stable. -continued steroid taper and previously started from last admission -Pulm consulted: Continue steroid taper; outpatient PET scan for possible lung malignancy -ID consulted for possible abx: CXR 01/16 possible LLL pneumonia and resp sputum growing enterococcus/GNR/yeast. Recommended CT chest and that was done shows continued presence of suspicious lesions and possible cryptogenic organizing pneumonia ([employer]); treating with Meropenem-7 day treatment course; completed abx course 01/26 -Pulm: strict aspiration precautions; continue steroids; continue pain control; maintain O2 sats around 92%; Will taper PO steroids from 40mg to 20mg standing per Dr. Darryn denny #Neck Pain/strangling sensation -CT neck negative for pathologic/obstructive process -Xanax seems to help decrease sensation of 'strangling' #Anxiety-likely contributing to COPD exacerbation -Started on Celexa 20mg PO this admission 01/14. Will need to follow up outpatient and increase as needed -Xanax 0.5mg PO to qid acute anxiety; patient responding well to this regimen #HTN -Increased dose of Carvedilol 6.25mg -Losartan 25mg restarted on 01/24 after being stopped during ICU placement. -Administered Amlodipine 5mg x2 01/22-01/23. BP 188/100. -Patient given Hydralazine over the weekend to help manage BP 200/100. -[id number] daily -Furosemide 20mg daily per cardiology recs restarted 01/27 -Amlodipine 10mg daily started today 01/28 -Cardiology contacted (Dr. Loaiza) has seen: recommends continued use of antihypertensives and increasing dose of Carvedilol if BP persistently elevated. #Chronic pain -Headache-oral 1000mg q8 PRN -Dr. Cordova consulted; has not seen yet -PT worked with PT: ambulating well -Will continue to ambulate bid and as tolerated #Left hip pain-likely 2/2 sitting in bed too long; lack of ambulation -will obtain XR at patients request to rule out fracture or bony changes though this is unlikely -Left hip XR was negative. DVT Prophylaxis: on eliquis/alps/ambulation Dispo: Patient and in agreement she would benefit from STR. Insurance declined. Plan to d/c home. Problem List: 1. Acute exacerbation of chronic obstructive pulmonary disease (COPD) 2. PNEUMONIA 3. Weakness 4. Chronic pain disorder 5. Hypertension 6. Anxiety 7. Headache Pain Ratin Pain Location: head neck back Pain Goal: Pain 4 or less Pain Plan: see a/p Tomorrow's Labs & Rationales: none
[2018-01-29 09:40] VITALS: BP 138/70
--- NOTE | 2018-01-29 10:16 | RADIOLOGY REPORT ---
EXAMINATION: XR PORTABLE CHEST CLINICAL INFORMATION: COPD exacerbation. Shortness of breath. COMPARISON: Chest done on 01/16/2018. CT of the chest done on 01/19/2018. TECHNIQUE: Portable frontal view of the chest was obtained. FINDINGS: Asymmetric low lung volume involving the left hemithorax and superimposed predominately interstitial somewhat reticular, nodular opacities are noted throughout the entire left hemithorax. These are nonspecific in appearance, may represent interstitial pneumonia and less likely to be asymmetric edema. The right lung field appears clear. The cardiomediastinal silhouette is within normal limit. There is no pleural effusion present. Compared to prior chest radiograph dated 01/16/2018, and prior CT of the chest done on 01/19/2018, there is significant interval disease progression present within the left hemithorax. IMPRESSION: Asymmetric low lung volume within the left hemithorax with superimposed diffuse airspace disease, shows significant progression since 01/16/2018. Followup CT scan of the chest may be considered for further full detail evaluation, if clinically appropriate.
--- NOTE | 2018-01-29 10:29 | Event Note ---
See Addendum Event Note Event Note: S: RN came to find me during rounds to notify me of an abrupt change in Rima's status. She was tachypneic, tachycardic to the 140s, saturating 85% on 1L NC, and hypertensive 198/118. I went to see the patient who was in acute hypoxic respiratory distress placed on 5L NC. Exam: VS: P 140 RR 32 BP 198/118 Sats 93% 5L NC Gen: moderate distress; tearful; use of accessory muscles to breath; one word answers Card: Tachycardic 120s Resp: expiratory wheezes but lung sounds heard throughout skin: pink; warm and dry During my time with Rima; the ICU team was notified of her transfer to their unit. They came to see her on the [facility] med floor. Dr. Cates was present and gave recommendations which were followed. B: Ms. Gottlieb is a 62 year old female with past medical history of COPD, hypertension, seizure disorder on Keppra, lung cancer, anxiety, chronic neck pain status post nerve stimulator implantation who was recently discharged (01/13) from [facility] admission for COPD exacerbation. She was brought in for observation 01/14 for mild COPD exacerbation and uncontrolled pain and anxiety. A: Rima became acutely hypoxic, tachypneic, and tachycardic. She is producing sputum and may have had a transient mucous plug. She is improving with increased oxygen administration and tachycardia although present is now around 110bpm. P: -Transfer to ICU for further care and workup -Mucolytics to decrease secretions -IV SoluMedrol 40mg Q8hrs per Dr. Cates -EKG-stat -pCXR-stat -ABG-stat -I called the and he is aware of her status and transfer to the ICU.
--- NOTE | 2018-01-29 10:33 | Transfer of Care Summary ---
Hospital Course Course Hospital Course: Ms. Gottlieb is a 62 year old female with past medical history of COPD, hypertension, seizure disorder on Keppra, lung cancer, anxiety, chronic neck pain status post nerve stimulator implantation who was recently discharged (01/13) from [facility] admission for COPD exacerbation. She was brought in for observation 01/14 for mild COPD exacerbation and uncontrolled pain and anxiety. Problem List: 1. COPD exacerbation; chronic hypoxemic respiratory failure 2. HTN 3. Anxiety 4. Chronic pain 5. Left hip pain #COPD exacerbation-Chronic hypercarbic respiratory distress; seems to be exacerbated by anxiety. Her breathing becomes normal after I stay in the room for awhile to speak with her. -Admitted to ICU 01/16 s/p rapid response for respiratory distress and non responsive to verbal commands. Emergency consult to ENT (Dr. Monae) who performed laryngoscopy; no acute findings. Patient transferred back to the general medicine service over the weekend and remained stable. -continued steroid taper and previously started from last admission -Pulm consulted: Continue steroid taper; outpatient PET scan for possible lung malignancy -ID consulted for possible abx: CXR 01/16 possible LLL pneumonia and resp sputum growing enterococcus/GNR/yeast. Recommended CT chest and that was done shows continued presence of suspicious lesions and possible cryptogenic organizing pneumonia ([employer]); treating with Meropenem-7 day treatment course; completed abx course 01/26 -Pulm: strict aspiration precautions; continue steroids; continue pain control; maintain O2 sats around 92%; Will taper PO steroids from 40mg to 20mg standing per Dr. Cates recs #Neck Pain/strangling sensation -CT neck negative for pathologic/obstructive process -Xanax seems to help decrease sensation of 'strangling' #Anxiety-likely contributing to COPD exacerbation -Started on Celexa 20mg PO this admission 01/14. Will need to follow up outpatient and increase as needed -Xanax 0.5mg PO to qid acute anxiety; patient responding well to this regimen #HTN -Increased dose of Carvedilol 6.25mg -Losartan 25mg restarted on 01/24 after being stopped during ICU placement. -Administered Amlodipine 5mg x2 01/22-01/23. BP 188/100. -Patient given Hydralazine over the weekend to help manage BP 200/100. -[id number] daily -Furosemide 20mg daily per cardiology recs restarted 01/27 -Amlodipine 10mg daily started today 01/28 -Cardiology contacted (Dr. Loaiza) has seen: recommends continued use of antihypertensives and increasing dose of Carvedilol if BP persistently elevated. #Chronic pain -Headache-oral 1000mg q8 PRN -Dr. Cordova consulted; has not seen yet -PT worked with PT: ambulating well -Will continue to ambulate bid and as tolerated #Left hip pain-likely 2/2 sitting in bed too long; lack of ambulation -will obtain XR at patients request to rule out fracture or bony changes though this is unlikely -Left hip XR was negative. DVT Prophylaxis: on eliquis/alps/ambulation On the morning of January 29, 2018: S: RN came to find me during rounds to notify me of an abrupt change in Rima's status. She was tachypneic, tachycardic to the 140s, saturating 85% on 1L NC, and hypertensive 198/118. I went to see the patient who was in acute hypoxic respiratory distress placed on 5L NC. Exam: VS: P 140 RR 32 BP 198/118 Sats 93% 5L NC Gen: moderate distress; tearful; use of accessory muscles to breath; one word answers Card: Tachycardic 120s Resp: expiratory wheezes but lung sounds heard throughout skin: pink; warm and dry During my time with Rima; the ICU team was notified of her transfer to their unit. They came to see her on the gen med floor. Dr. Cates was present and gave recommendations which were followed. B: Ms. Gottlieb is a 62 year old female with past medical history of COPD, hypertension, seizure disorder on Keppra, lung cancer, anxiety, chronic neck pain status post nerve stimulator implantation who was recently discharged (01/13) from [facility] admission for COPD exacerbation. She was brought in for observation 01/14 for mild COPD exacerbation and uncontrolled pain and anxiety. A: Rima became acutely hypoxic, tachypneic, and tachycardic. She is producing sputum and may have had a transient mucous plug. She is improving with increased oxygen administration and tachycardia although present is now around 110bpm. P: -Transfer to ICU for further care and workup -Mucolytics to decrease secretions -IV SoluMedrol 40mg Q8hrs per Dr. Cates -EKG-stat -pCXR-stat -ABG-stat -I called the and he is aware of her status and transfer to the ICU. Complications: acute hypoxic respiratory distress Assessment/Plan: A: Rima became acutely hypoxic, tachypneic, and tachycardic on 01/29/18 around 08:45. She is producing yellow sputum and may have had a transient mucous plug. She is improving with increased oxygen administration and tachycardia although present is now around 110bpm. P: -Transfer to ICU for further care and workup -Mucolytics to decrease secretions -IV SoluMedrol 40mg Q8hrs per Dr. Cates -EKG-stat -pCXR-stat -ABG-stat -I called the and he is aware of her status and transfer to the ICU.
--- NOTE | 2018-01-29 14:51 | PN- Cardiology ---
Subjective Subjective: Recent events noted. The patient was transferred to the ICU for deterioration of her respiratory status, possible mucous plugging, and elevated heart rate. Review of the available rhythm strips, etc. shows only sinus tachycardia with no new arrhythmias. No other cardiovascular's symptoms noted. Objective Vital Signs and I&Os Vital Signs Date Time Temp Pulse Resp B/P B/P Pulse O2 O2 Flow FiO2 Mean Ox Delivery Rate 01/29 1200 96 Nasal Cannula 01/29 0958 93 Nasal Cannula 01/29 0940 99.3 110 24 138/70 93 Nasal 35% Cannula 01/29 0848 140 32 198/118 01/29 0848 140 32 198/118 01/29 0847 140 32 198/118 01/29 0844 94 Nasal 4.0L Cannula 01/29 0800 93 Nasal 1.0L Cannula 01/29 0654 99.4 89 20 160/100 87 01/29 0140 92 Nasal 1.0L Cannula 01/29 0000 96 Nasal 1.0L Cannula 01/28 2243 98.6 75 20 158/78 96 Nasal 1.0L Cannula 01/28 2023 158/78 01/28 1710 97 Nasal 1.0L Cannula 01/28 1709 97 Nasal 1.0L Cannula Intake & Output 01/29 1600 01/29 0800 01/29 0000 01/28 1600 01/28 0800 01/28 0000 Intake Total 370 210 480 430 520 Output Total 0 Balance 370 210 480 430 520 Intake, IV 10 10 0 130 120 Intake, Oral 360 200 480 300 400 Output, Urine 0 Patient 157 lb 156 lb 156 lb Weight Weight Bed scale Bed scale Measurement Method Current Medications: Current Medications Sig/Halie Start time Last Medication Dose Route Stop Time Status Admin Acetaminophen 1,000 MG .STK-MED ONE 01/28 2137 DC IV 01/28 2138 Acetaminophen 1,000 MG Q8P PRN 01/26 1045 AC 01/28 N/A 1 UNIT IV 2326 Acetylcysteine 2 ML BID 01/29 1025 AC INH Albuterol Sulfate 3 ML EVERY 4 HRS/AWAKE 01/15 0800 AC 01/29 INH 1224 Albuterol Sulfate 2 PUF Q4-6 PRN PRN 01/14 1545 AC 01/29 INH 0126 Alprazolam 0.5 MG 4 TIMES/DAY 01/20 1300 AC 01/29 PO 02/03 1258 1235 Amlodipine Besylate 10 MG DAILY 01/29 0900 AC 01/29 PO 0847 Apixaban 5 MG BID 01/14 2100 AC 01/29 PO 0839 Bisacodyl 10 MG DAILY PRN 01/28 1415 AC 01/28 TN 1435 Budesonide/ 2 PUF BID 01/14 2100 AC 01/29 Formoterol Fumarate INH 0839 Calcium Carbonate 500 MG DAILY PRN 01/14 1545 AC 01/28 PO 0628 Carvedilol 6.25 MG BID 01/21 2100 AC 01/29 PO 0848 Celecoxib 100 MG BID 01/27 2100 AC 01/29 PO 0840 Cholecalciferol 1,000 IU DAILY 01/14 1535 AC 01/29 PO 0839 Citalopram 20 MG DAILY 01/14 1539 AC 01/29 Hydrobromide PO 0839 Cyanocobalamin 1,000 MCG DAILY 01/14 1536 AC 01/29 PO 0839 Docusate Sodium 100 MG BID 01/17 1424 AC 01/29 PO 0839 Ferrous Sulfate 325 MG DAILY 01/14 1536 AC 01/29 PO 0839 Furosemide 20 MG DAILY 01/27 0900 AC 01/29 PO 0838 Guaifenesin 600 MG Q12 01/14 2100 AC 01/29 PO 0855 Levetiracetam 750 MG BID 01/14 2100 AC 01/29 PO 0839 Lidocaine 1 PAT DAILY 01/14 1930 AC 01/29 TOP 0840 Lidocaine/Diphenhydr/ 30 ML Q6-PRN PRN 01/15 1545 AC 01/29 Alum/Mg/Simeth PO 1304 Losartan Potassium 100 MG DAILY 01/26 0900 AC 01/29 PO 0848 Methylprednisolone 40 MG Q8H 01/29 1000 AC 01/29 IV 1040 Omeprazole 40 MG 1/2H B/BREAKF/DINNER 01/14 1630 AC 01/29 PO 0543 Ondansetron HCl 4 MG Q6P PRN 01/15 1345 AC 01/24 IV 0434 Oxycodone HCl 30 MG Q12 01/18 2100 AC 01/29 PO 0838 Oxycodone HCl 15 MG Q4 HRS NEEDED PRN 01/18 1345 AC 01/29 PO 1420 Phenol 2 SPRAY Q2P PRN 01/20 1715 AC 01/27 EXT 1731 Polyethylene Glycol 17 GM DAILY 01/17 1424 AC 01/29 PO 0839 Prednisone 20 MG DAILY 01/28 0900 DC 01/29 PO 02/28 0859 0839 Senna 187 MG AT BEDTIME 01/17 2100 AC 01/28 PO 2018 Tiotropium [place] 1 PUF DAILY 01/15 09 AC 01/29 INH 0855 Results Last 48 Hrs of Labs/Mics: Laboratory Tests 01/29/18 0925: Troponin I 0.05 01/29/18 0900: pH 7.44, pCO2 45, pO2 66 L, HCO3 30 H, ABG O2 Sat (Measured) 92.0 L, Carboxyhemoglobin 1.1 L, O2 Concentration % 4L, O2 Delivery Method NC, Phlebotomy Draw Site LEFT RADIAL 01/28/18604: Anion Gap 9, Estimated GFR > 60, BUN/Creatinine Ratio 27.1 H, Magnesium 2.5 H Assessment/Plan Assessment/Plan Assessment: 1. Uncontrolled hypertension 2. Severe COPD with recent exacerbation of COPD 3. Peripheral arterial disease 4. History of pulmonary embolism 5. Chronic systolic heart failure Recommendations: -Continue current losartan, amlodipine and carvedilol doses. Amlodipine dose was increased to 10 mg yesterday. Blood pressure control still not optimal -If the patient's blood pressure remains elevated tomorrow, we can consider increasing the carvedilol dose at that time. -Otherwise, the patient appears stable from a cardiovascular standpoint -Continue as per the ICU team otherwise. -As noted previously, the patient will need follow-up with her regular test deck supervisor Dr. Myers as an outpatient. Continue telemetry? Yes
[2018-01-29 16:00] VITALS: BP 104/68
--- NOTE | 2018-01-29 21:05 | PN- CRCU ---
Subjective HPI/Critical Care Issues: pt seen and examined called by medical team in am for tachypnea, tachycardia upon examination patient improving, HR slowed down. She feels that she has had excess mucous production and appears to be describing mucous plugging she will be transferred to the ICU for closer monitioring Objective Current Medications: Current Medications Sig/Halie Start time Last Medication Dose Route Stop Time Status Admin Acetaminophen 1,000 MG .STK-MED ONE 01/28 2137 DC IV 01/28 2138 Acetaminophen 1,000 MG Q8P PRN 01/26 1045 AC 01/29 N/A 1 UNIT IV 1858 Acetylcysteine 2 ML BID 01/29 1025 AC 01/29 INH 2027 Albuterol Sulfate 3 ML EVERY 4 HRS/AWAKE 01/15 08 AC 01/29 INH 202 Albuterol Sulfate 2 PUF Q4-6 PRN PRN 01/14 1545 AC 01/29 INH 0126 Alprazolam 0.5 MG 4 TIMES/DAY 01/20 1300 AC 01/29 PO 02/03 1258 1725 Amlodipine Besylate 10 MG DAILY 01/29 0900 AC 01/29 PO 0847 Apixaban 5 MG BID 01/14 2100 AC 01/29 PO 0839 Bisacodyl 10 MG DAILY PRN 01/28 1415 AC 01/28 [place] 1435 Budesonide/ 2 PUF BID 01/14 2100 AC 01/29 Formoterol Fumarate INH 0839 Calcium Carbonate 500 MG DAILY PRN 01/14 1545 AC 01/28 PO 0628 Carvedilol 6.25 MG BID 01/21 2100 AC 01/29 PO 0848 Celecoxib 100 MG BID 01/27 2100 AC 01/29 PO 0840 Cholecalciferol 1,000 IU DAILY 01/14 1535 AC 01/29 PO 0839 Citalopram 20 MG DAILY 01/14 1539 AC 01/29 Hydrobromide PO 0839 Cyanocobalamin 1,000 MCG DAILY 01/14 1536 AC 01/29 PO 0839 Docusate Sodium 100 MG BID 01/17 1424 AC 01/29 PO 0839 Ferrous Sulfate 325 MG DAILY 01/14 1536 AC 01/29 PO 0839 Furosemide 20 MG DAILY 01/27 0900 AC 01/29 PO 0838 Guaifenesin 600 MG Q12 01/14 2100 AC 01/29 PO 0855 Levetiracetam 750 MG BID 01/14 2100 AC 01/29 PO 0839 Lidocaine 1 PAT DAILY 01/14 1930 AC 01/29 TOP 0840 Lidocaine/Diphenhydr/ 30 ML Q6-PRN PRN 01/15 1545 AC 01/29 Alum/Mg/Simeth PO 1304 Losartan Potassium 100 MG DAILY 01/26 09 AC 01/29 PO 0848 Methylprednisolone 40 MG Q8H 01/29 1000 AC 01/29 IV 1725 Omeprazole 40 MG 1/2H B/BREAKF/DINNER 01/14 1630 AC 01/29 PO 1725 Ondansetron HCl 4 MG Q6P PRN 01/15 1345 AC 01/24 IV 0434 Oxycodone HCl 30 MG Q12 01/18 2100 AC 01/29 PO 0838 Oxycodone HCl 15 MG Q4 HRS NEEDED PRN 01/18 1345 AC 01/29 PO 1420 Phenol 2 SPRAY Q2P PRN 01/20 1715 AC 01/27 EXT 1731 Polyethylene Glycol 17 GM DAILY 01/17 1424 AC 01/29 PO 0839 Prednisone 20 MG DAILY 01/28 09 DC 01/29 PO 02/28 0859 0839 Senna 187 MG AT BEDTIME 01/17 2100 AC 01/28 PO 2018 Tiotropium [place] 1 PUF DAILY 01/15 09 AC 01/29 INH 0855 Vital Signs & I&O Last 24 Hrs of Vitals and I&O: Vital Signs Date Time Temp Pulse Resp B/P B/P Pulse O2 O2 Flow FiO2 Mean Ox Delivery Rate 01/29 1600 98.0 78 22 104/68 95 Nasal 35% Cannula 01/29 1600 95 Nasal 35% Cannula 01/29 1600 95 Nasal 35% Cannula 01/29 1200 96 Nasal Cannula 01/29 0958 93 Nasal Cannula 01/29 0940 99.3 110 24 138/70 93 Nasal 35% Cannula 01/29 0848 140 32 198/118 01/29 0848 140 32 198/118 01/29 0847 140 32 198/118 01/29 0844 94 Nasal 4.0L Cannula 01/29 0800 93 Nasal 1.0L Cannula 01/29 0654 99.4 89 20 160/100 87 01/29 0140 92 Nasal 1.0L Cannula 01/29 0000 96 Nasal 1.0L Cannula 01/28 2243 98.6 75 20 158/78 96 Nasal 1.0L Cannula Intake & Output 01/29 1600 01/29 0800 01/29 0000 Intake Total 260 370 210 Output Total 600 Balance -340 370 210 Intake, IV 20 10 10 Intake, Oral 240 360 200 Output, Urine 600 Patient 157 lb Weight Exam Other Physical Findings: gen-awake, mild distress heent-nasal cannula cvs-s1,s2 lungs-b/l rhonchi abd-soft, bs+ ext-without edema Results Last 24 Hrs of Lab Results: Laboratory Tests 01/29/18 0925: Troponin I 0.05 01/29/18 0900: pH 7.44, pCO2 45, pO2 66 L, HCO3 30 H, ABG O2 Sat (Measured) 92.0 L, Carboxyhemoglobin 1.1 L, O2 Concentration % 4L, O2 Delivery Method NC, Phlebotomy Draw Site LEFT RADIAL Impression/Plan Impression/Plan Impression/Plan: Impression * transferred to ICU for transient tachyardia and hypertension, with quick improvement * also hypoxemic respiratory failure likely secondary to mucus plugging * E.Coli/Enteroccocus in sputum - bronchitis vs. pna * Severe oxygen and prednisone dependent COPD with exacerbation/acute on chronic hypoxemic respiratory failure * chronic hypercarbic respiratory failure * pulmonary nodules concerning for malignancy - pending outpt PET * pulmonary embolism on Eliquis, (09/2015) * CHF history * spinal stenosis and chronic pain, hx neurostimulator placement. * sacral fracture history * tobacco dependence history * psychiatric history Plan - add mucomyst - cardiology evaluation - completed Meropenem per ID - baseline prednisone is 20mg - for now will use solumedrol 40mg iv q8h - TRC/Nebs - inhalers continue - Eliquis - will require outpatient PET scan, should follow with me regarding PET timing - will hold for now as the patient is still inpatient DVT prophylaxis at all times (Eliquis) TTS 35 min
[2018-01-30] VITALS: BP 116/70
[2018-01-30 05:30] LABS: ABSOLUTE BASOPHIL COUNT 0 /CUMM (0.0-0.2); ABSOLUTE EOSINOPHIL COUNT 0 /CUMM (0.0-0.7); ABSOLUTE GRANULOCYTE CT 5.3 /CUMM (1.4-6.5); ABSOLUTE LYMPH COUNT 0.5 /CUMM (1.2-3.4); ABSOLUTE MONOCYTE COUNT 0.2 /CUMM (0.10-0.60); BASOPHIL % 0.2 % (0.0-2.0); EOSINOPHIL % 0 % (0-5); GRANULOCYTE % 87.9 % (42.2-75.2); HEMATOCRIT 25.8 % (37-47); MEAN CORPUSCULAR HGB 30.3 PG (27.0-31.0); MEAN CORPUSCULAR HGB CONC 32.7 G/DL (33.0-37.0); MEAN CORPUSCULAR VOLUME 92.6 FL (81.0-99.0); MEAN PLATELET VOLUME 6.8 FL (7.4-10.4); PLATELET COUNT 190 /CUMM (130-400); RBC DISTRIBUTION WIDTH 17.7 % (11.5-14.5); RED BLOOD CELL CT 2.79 /CUMM (4.20-5.40)
[2018-01-30 08:00] VITALS: BP 130/80
--- NOTE | 2018-01-30 08:27 | PN- Resident CRCU ---
Subjective HPI/CRCU Issues: #COPD exacerbation/chronic hypoxemic respiratory failure #PNA with (+) E. coli/Enterococcus, completed course of meropenem, off abx #h/o PE on elliquis #Pulm nodules, suspicious for malignancy - pending outpatient PET #Anxiety 24 Hour Events: Pt seen and examined at bedside this am. She is visibly dyspneic, with difficulty maintaining a normal pace for conversation. She does complain of diffuse muscle soreness on the L side. She has no other complains Objective Vital Signs & I&O Last 8 Hrs of Vitals and I&O: Intake & Output 01/30 1600 01/30 0800 01/30 0000 Intake Total 200 600 Output Total 225 325 Balance -25 275 Intake, IV 140 Intake, Oral 200 460 Number 1 Bowel Movements Output, Urine 225 325 Patient 163 lb Weight Laboratory Tests 01/30 0415 Chemistry Sodium (137 - 145 mmol/L) 138 Potassium (3.5 - 5.1 mmol/L) 4.3 Chloride (98 - 107 mmol/L) 96 L Carbon Dioxide (22 - 30 mmol/L) 36 H Anion Gap (5 - 16) 6 BUN (7 - 17 mg/dL) 19 H Creatinine (0.5 - 1.0 mg/dL) 0.7 Estimated GFR (>60 ml/min) > 60 Glucose (65 - 99 mg/dL) 131 H Calcium (8.4 - 10.2 mg/dL) 8.7 Phosphorus (2.5 - 4.5 mg/dL) 3.6 Magnesium (1.6 - 2.3 mg/dL) 2.2 Total Bilirubin (0.2 - 1.3 mg/dL) 0.2 AST (14 - 36 U/L) 14 ALT (9 - 52 U/L) 26 Albumin (3.5 - 5.0 g/dL) 2.6 L Hematology CBC w Diff MAN DIFF ORDERED WBC (4.8 - 10.8 /CUMM) 6.0 RBC (4.20 - 5.40 /CUMM) 2.79 L Hgb (12.0 - 16.0 G/DL) 8.4 L Hct (37 - 47 %) 25.8 L MCV (81.0 - 99.0 FL) 92.6 MCH (27.0 - 31.0 PG) 30.3 MCHC (33.0 - 37.0 G/DL) 32.7 L RDW (11.5 - 14.5 %) 17.7 H Plt Count (130 - 400 /CUMM) 190 MPV (7.4 - 10.4 FL) 6.8 L Gran % (42.2 - 75.2 %) 87.9 H Lymphocytes % (20.5 - 51.1 %) 7.9 L Monocytes % (1.7 - 9.3 %) 4.0 Eosinophils % (0 - 5 %) 0 Basophils % (0.0 - 2.0 %) 0.2 Absolute Granulocytes (1.4 - 6.5 /CUMM) 5.3 Absolute Lymphocytes (1.2 - 3.4 /CUMM) 0.5 L Absolute Monocytes (0.10 - 0.60 /CUMM) 0.2 Absolute Eosinophils (0.0 - 0.7 /CUMM) 0 Absolute Basophils (0.0 - 0.2 /CUMM) 0 Platelet Estimate (ADEQUATE) ADEQUATE Basophilic Stippling 1+ Vital Signs Date Time Temp Pulse Resp B/P B/P Pulse O2 O2 Flow FiO2 Mean Ox Delivery Rate 01/30 1015 86 120/70 01/30 1012 80 120/70 01/30 1008 82 120/72 01/30 0845 97 Nasal 3.0L Cannula 01/30 0800 97.6 64 18 130/80 96 Nasal 30% Cannula 01/30 0630 98 Nasal 30% Cannula 01/30 0400 95 Nasal 30% Cannula 01/30 0046 95 Nasal 30% Cannula 01/30 0000 97.0 71 20 116/70 94 Ventilator 30% 01/30 0000 94 Nasal 30% Cannula 01/29 2115 74 20 114/74 01/29 2000 98 Nasal 35% Cannula 01/29 1600 98.0 78 22 104/68 95 Nasal 35% Cannula 01/29 1600 95 Nasal 35% Cannula 01/29 1600 95 Nasal 35% Cannula Intake & Output 01/30 1600 01/30 0800 01/30 0000 Intake Total 200 600 Output Total 225 325 Balance -25 275 Intake, IV 140 Intake, Oral 200 460 Number 1 Bowel Movements Output, Urine 225 325 Patient 163 lb Weight Exam General Appearance: alert, awake, moderate distress Head: atraumatic, normal appearance Neck: normal inspection, supple Respiratory: wheezing (throughout both pulmonary fiel), respiratory distress Cardiovascular: regular rate/rhythm Gastrointestinal: normal bowel sounds, soft, non-tender, no organomegaly Extremities: normal inspection, normal capillary refill, no edema Cranial Nerves: normal hearing, normal speech Current Medications: Current Medications Sig/Halie Start time Last Medication Dose Route Stop Time Status Admin Acetaminophen 1,000 MG .STK-MED ONE 01/29 1853 DC IV 01/29 1854 Acetaminophen 1,000 MG Q8P PRN 01/26 1045 AC 01/29 N/A 1 UNIT IV 1858 Acetylcysteine 2 ML BID 01/29 1025 AC 01/30 INH 0839 Albuterol Sulfate 3 ML EVERY 4 HRS/AWAKE 01/15 08 AC 01/30 INH 1242 Albuterol Sulfate 2 PUF Q4-6 PRN PRN 01/14 1545 AC 01/29 INH 0126 Alprazolam 0.5 MG 4 TIMES/DAY 01/20 1300 AC 01/30 PO 02/03 1258 1005 Amlodipine Besylate 10 MG DAILY 01/29 0900 AC 01/30 PO 1012 Apixaban 5 MG BID 01/14 2100 AC 01/30 PO 1008 Bisacodyl 10 MG DAILY PRN 01/28 1415 AC 01/28 IA 1435 Budesonide/ 2 PUF BID 01/14 2100 AC 01/29 Formoterol Fumarate INH 2130 Calcium Carbonate 500 MG DAILY PRN 01/14 1545 AC 01/28 PO 0628 Carvedilol 6.25 MG BID 01/21 2100 AC 01/30 PO 1015 Celecoxib 100 MG BID 01/27 2100 AC 01/30 PO 1008 Cholecalciferol 1,000 IU DAILY 01/14 1535 AC 01/30 PO 1009 Citalopram 20 MG DAILY 01/14 1539 AC 01/30 Hydrobromide PO 1011 Cyanocobalamin 1,000 MCG DAILY 01/14 1536 AC 01/30 PO 1008 Docusate Sodium 100 MG BID 01/17 1424 AC 01/30 PO 1007 Ferrous Sulfate 325 MG DAILY 01/14 1536 AC 01/30 PO 1010 Furosemide 20 MG DAILY 01/27 0900 AC 01/30 PO 1015 Guaifenesin 600 MG Q12 01/14 2100 AC 01/30 PO 1007 Levetiracetam 750 MG BID 01/14 2100 AC 01/30 PO 1007 Lidocaine 1 PAT DAILY 01/14 1930 AC 01/30 TOP 1005 Lidocaine/Diphenhydr/ 30 ML Q6-PRN PRN 01/15 1545 AC 01/29 Alum/Mg/Simeth PO 1304 Losartan Potassium 100 MG DAILY 01/26 0900 AC 01/30 PO 1008 Methylprednisolone 40 MG Q8H 01/29 1000 AC 01/30 IV 1015 Omeprazole 40 MG 1/2H B/BREAKF/DINNER 01/14 1630 AC 01/30 PO 0731 Ondansetron HCl 4 MG Q6P PRN 01/15 1345 AC 01/24 IV 0434 Oxycodone HCl 30 MG Q12 01/18 2100 AC 01/30 PO 1004 Oxycodone HCl 15 MG Q4 HRS NEEDED PRN 01/18 1345 AC 01/30 PO 1004 Phenol 2 SPRAY Q2P PRN 01/20 1715 AC 01/27 EXT 1731 Polyethylene Glycol 17 GM DAILY 01/17 1424 AC 01/30 PO 1007 Senna 187 MG AT BEDTIME 01/17 2100 AC 01/29 PO 2129 Tiotropium [place] 1 PUF DAILY 01/15 0900 AC 01/29 INH 0855 CXR Findings: SERVICE DATE: 01/29 EXAM TYPE: RAD - XRY-PORTABLE CHEST XRAY EXAMINATION: XR PORTABLE CHEST CLINICAL INFORMATION: COPD exacerbation. Shortness of breath. COMPARISON: Chest done on 01/16/2018. CT of the chest done on 01/19/2018. TECHNIQUE: Portable frontal view of the chest was obtained. FINDINGS: Asymmetric low lung volume involving the left hemithorax and superimposed predominately interstitial somewhat reticular, nodular opacities are noted throughout the entire left hemithorax. These are nonspecific in appearance, may represent interstitial pneumonia and less likely to be asymmetric edema. The right lung field appears clear. The cardiomediastinal silhouette is within normal limit. There is no pleural effusion present. Compared to prior chest radiograph dated 01/16/2018, and prior CT of the chest done on 01/19/2018, there is significant interval disease progression present within the left hemithorax. IMPRESSION: Asymmetric low lung volume within the left hemithorax with superimposed diffuse airspace disease, shows significant progression since 01/16/2018. Followup CT scan of the chest may be considered for further full detail evaluation, if clinically appropriate. Impression/Plan Impression/Problem List Impression: 62 y/o F with a PMH COPD on 1-2L O2 at home intermittently, HTN, anxiety, spiculated nodules on CT concerning for malignancy, chronic neck pain status post nerve stimulator implantation who had a prior admit to [facility] (01/06) for COPD exacerbation, discharged on 01/13 that came to the ED c /o SOB. She was on the [facility] floor with working diagnoses as described below. On 01/29, patient was tachypneic and tachycardic, so she was transferred to the ICU for close monitoring of her respiratory status. #COPD exacerbation/chronic hypoxemic respiratory failure #PNA with (+) E. coli/Enterococcus, completed course of meropenem, off abx #h/o HTN/h/o PE on elliquis #Anxiety #Pulm nodules, suspicious for malignancy - pending outpatient PET #COPD exacerbation/chronic hypoxemic respiratory failure Pt with history of multiple admissions for COPD exacerbation, and acute on chronic respiratory failure. She was admitted to the inpatient service for management of COPD exacerbation. Patient's anxiety does seem to play a role in her intermittently worsening respiratory status. She was tachypneic and tachycardic, could have been due to a transient mucus plug - pt did state she had significant mucous production prior to the episode. She is currently with O2 sat at 97% on 3L NC. She is visibly dyspneic on conversation. Her latest CXR does show progression from comparison on 01/16. She completed a full course of meropenem, so she is off abx at the moment. She was switched from prednisone 20 mg for solumedrol 40mg q8. Pt on mucomyst due to complains of nonproductive cough, though will be dc'd after today as it could trigger bronchospasms. Switch to hypertonic saline nebs if thick secretions continue. -Solumedrol 40 mg q8 -TRC/Nebs -Steroid taper #PNA with (+) E. coli/Enterococcus, completed course of meropenem, off abx Pt with a positive culture with E. coli resistant to unasyn. She got a 7 day course of meropenem, off abx since 01/26. #H/o HTN/ h/o PE on elliquis Pt has a documented history of hypertension. BPs have maintained below 140/90 in the ICU. Pt on apixaban after a PE in 2015. Cardiology was following while on the floor; her carvedilol dose was increased - rest has been continued. H -Continue amlodipine/Losartan/apixaban #Anxiety Her anxiety could be playing a role in intermittent worsening of respiratory status. She is currently on xanax 0.5mg 4 times/day and on celexa 20mg. Anxiety has been reaasonably controlled with this regimen. -Continue xanax/celexa. #Pulm nodules, suspicious for malignancy - pending outpatient PET Needs PET scan to further evaluate. Plan is to have it done as outpatient . -PET scan as outpatient FULL CODE DVT PPX: Mech, Pharm Heart Healthy Diet Problem List: 1. Acute exacerbation of chronic obstructive pulmonary disease (COPD) Pain Ratin Pain Location: aching L side of the body Tomorrow's Labs & Rationales: cbc icu lab bundle Plan DVT/Prophylaxis: pharmacological
--- NOTE | 2018-01-30 10:02 | PN- CRCU ---
Subjective HPI/Critical Care Issues: Seen and examined today Doing better NICU On 29% oxygen No significant cough or wheezing No other significant complaint Does complain of weakness Significant data reviewed in the computer Chest x-ray done showed left hemithorax had low lung volumes with diffuse airspace disease with progression from [address] scan of the chest done 10 days ago showed pulmonary nodules with the left lung with groundglass opacity? Organizing pneumonia with persistent mediastinal lymphadenopathy Previous CT of the neck are reviewed Sputum cytology sent on the showed no significant malignancy Laboratory Tests 01/30 01/29 01/29 0415 0925 0900 Blood Gas pH (7.35 - 7.45 PH) 7.44 pCO2 (35 - 45 TORR) 45 pO2 (80 - 100 TORR) 66 L HCO3 (21 - 28 MEQ/L) 30 H ABG O2 Sat (Measured) (>96.0 %) 92.0 L Carboxyhemoglobin (1.5 - 5.0 %) 1.1 L O2 Concentration % 4L O2 Delivery Method NC Chemistry Sodium (137 - 145 mmol/L) 138 Potassium (3.5 - 5.1 mmol/L) 4.3 Chloride (98 - 107 mmol/L) 96 L Carbon Dioxide (22 - 30 mmol/L) 36 H Anion Gap (5 - 16) 6 BUN (7 - 17 mg/dL) 19 H Creatinine (0.5 - 1.0 mg/dL) 0.7 Estimated GFR (>60 ml/min) > 60 Glucose (65 - 99 mg/dL) 131 H Calcium (8.4 - 10.2 mg/dL) 8.7 Phosphorus (2.5 - 4.5 mg/dL) 3.6 Magnesium (1.6 - 2.3 mg/dL) 2.2 Total Bilirubin (0.2 - 1.3 mg/dL) 0.2 AST (14 - 36 U/L) 14 ALT (9 - 52 U/L) 26 Troponin I (< 0.11 ng/ml) 0.05 Albumin (3.5 - 5.0 g/dL) 2.6 L Hematology CBC w Diff MAN DIFF ORDERED WBC (4.8 - 10.8 /CUMM) 6.0 RBC (4.20 - 5.40 /CUMM) 2.79 L Hgb (12.0 - 16.0 G/DL) 8.4 L Hct (37 - 47 %) 25.8 L MCV (81.0 - 99.0 FL) 92.6 MCH (27.0 - 31.0 PG) 30.3 MCHC (33.0 - 37.0 G/DL) 32.7 L RDW (11.5 - 14.5 %) 17.7 H Plt Count (130 - 400 /CUMM) 190 MPV (7.4 - 10.4 FL) 6.8 L Gran % (42.2 - 75.2 %) 87.9 H Lymphocytes % (20.5 - 51.1 %) 7.9 L Monocytes % (1.7 - 9.3 %) 4.0 Eosinophils % (0 - 5 %) 0 Basophils % (0.0 - 2.0 %) 0.2 Absolute Granulocytes (1.4 - 6.5 /CUMM) 5.3 Absolute Lymphocytes (1.2 - 3.4 /CUMM) 0.5 L Absolute Monocytes (0.10 - 0.60 /CUMM) 0.2 Absolute Eosinophils (0.0 - 0.7 /CUMM) 0 Absolute Basophils (0.0 - 0.2 /CUMM) 0 Platelet Estimate (ADEQUATE) ADEQUATE Basophilic Stippling 1+ Miscellaneous Phlebotomy Draw Site LEFT RADIAL Microbiology Date/Time Procedure - Status Source Growth 01/29 945 Surveillance Culture - RECD UPPER RESP 01/29 945 Surveillance Culture - COMP GI VANC RESIST ENTEROCOCCUS Objective Current Medications: Current Medications Sig/Halie Start time Last Medication Dose Route Stop Time Status Admin Acetaminophen 1,000 MG .STK-MED ONE 01/29 1853 DC IV 01/29 1854 Acetaminophen 1,000 MG Q8P PRN 01/26 1045 AC 01/29 N/A 1 UNIT IV 1858 Acetylcysteine 2 ML BID 01/29 1025 AC 01/30 INH 0839 Albuterol Sulfate 3 ML EVERY 4 HRS/AWAKE 01/15 0800 AC 01/30 INH 0839 Albuterol Sulfate 2 PUF Q4-6 PRN PRN 01/14 1545 AC 01/29 INH 0126 Alprazolam 0.5 MG 4 TIMES/DAY 01/20 1300 AC 01/29 PO 02/03 1258 2129 Amlodipine Besylate 10 MG DAILY 01/29 0900 AC 01/29 PO 0847 Apixaban 5 MG BID 01/14 2100 AC 01/29 PO 211 Bisacodyl 10 MG DAILY PRN 01/28 1415 AC 01/28 [place] 1435 Budesonide/ 2 PUF BID 01/14 2100 AC 01/29 Formoterol Fumarate INH 2130 Calcium Carbonate 500 MG DAILY PRN 01/14 1545 AC 01/28 PO 0628 Carvedilol 6.25 MG BID 01/21 2100 AC 01/29 PO 2115 Celecoxib 100 MG BID 01/27 2100 AC 01/29 PO 2114 Cholecalciferol 1,000 IU DAILY 01/14 1535 AC 01/29 PO 0839 Citalopram 20 MG DAILY 01/14 1539 AC 01/29 Hydrobromide PO 0839 Cyanocobalamin 1,000 MCG DAILY 01/14 1536 AC 01/29 PO 0839 Docusate Sodium 100 MG BID 01/17 1424 AC 01/29 PO 2114 Ferrous Sulfate 325 MG DAILY 01/14 1536 AC 01/29 PO 0839 Furosemide 20 MG DAILY 01/27 09 AC 01/29 PO 0838 Guaifenesin 600 MG Q12 01/14 2100 AC 01/29 PO 2128 Levetiracetam 750 MG BID 01/14 2100 AC 01/29 PO 2127 Lidocaine 1 PAT DAILY 01/14 1930 AC 01/29 TOP 0840 Lidocaine/Diphenhydr/ 30 ML Q6-PRN PRN 01/15 1545 AC 01/29 Alum/Mg/Simeth PO 1304 Losartan Potassium 100 MG DAILY 01/26 0900 AC 01/29 PO 0848 Methylprednisolone 40 MG Q8H 01/29 1000 AC 01/30 IV 0115 Omeprazole 40 MG 1/2H B/BREAKF/DINNER 01/14 1630 AC 01/30 PO 0731 Ondansetron HCl 4 MG Q6P PRN 01/15 1345 AC 01/24 IV 0434 Oxycodone HCl 30 MG Q12 01/18 2100 AC 01/29 PO 2129 Oxycodone HCl 15 MG Q4 HRS NEEDED PRN 01/18 1345 AC 01/30 PO 0127 Phenol 2 SPRAY Q2P PRN 01/20 1715 AC 01/27 EXT 1731 Polyethylene Glycol 17 GM DAILY 01/17 1424 AC 01/29 PO 0839 Prednisone 20 MG DAILY 01/28 0900 DC 01/29 PO 02/28 0859 0839 Senna 187 MG AT BEDTIME 01/17 2100 AC 01/29 PO 2129 Tiotropium [place] 1 PUF DAILY 01/15 0900 AC 01/29 INH 0855 Vital Signs & I&O Last 24 Hrs of Vitals and I&O: Vital Signs Date Time Temp Pulse Resp B/P B/P Pulse O2 O2 Flow FiO2 Mean Ox Delivery Rate 01/30 0630 98 Nasal 30% Cannula 01/30 0400 95 Nasal 30% Cannula 01/30 0046 95 Nasal 30% Cannula 01/30 0000 97.0 71 20 116/70 94 Ventilator 30% 01/30 0000 94 Nasal 30% Cannula 01/29 2115 74 20 114/74 01/29 2000 98 Nasal 35% Cannula 01/29 1600 98.0 78 22 104/68 95 Nasal 35% Cannula 01/29 1600 95 Nasal 35% Cannula 01/29 1600 95 Nasal 35% Cannula 01/29 1200 96 Nasal Cannula Intake & Output 01/30 1600 01/30 0800 01/30 0000 Intake Total 200 600 Output Total 225 325 Balance -25 275 Intake, IV 140 Intake, Oral 200 460 Number 1 Bowel Movements Output, Urine 225 325 Patient 163 lb Weight Impression/Plan Impression/Plan Impression/Plan: gen-awake, mild distress heent-nasal cannula cvs-s1,s2 lungs-b/l rhonchi abd-soft, bs+ ext-without edema Pt with acute obn choronic resp failure with copt with 1. Multiple complaints including throat pain, and history of drug-resistant E. coli, now with stirdor like symptoms and dyspnea with resp insuff, with tachy with improvement 2. Severe oxygen and prednisone dependent COPD with evidence of mild wheezing, improved from baseline 3. Chronic hypoxemic respiratory failure 4. Chronic hypercarbic respiratory failure 5. Pulmonary nodules concerning for malignancy, out patient PET planned, has sig mediastinal LN enlargement and left sided nodules (cytology before nil acute ) 6. Pulmonary embolism on Eliquis, (09/2015) 7. History of CHF 8. Spinal stenosis and chronic pain, hx neurostimulator placement 9. Sacral fracture history 10. Tobacco dependence history 11. Psychiatric history, severe anxiety 12. Seizure like activity now better Prob psuedoseizures REC S/p abx now Steroid taper Change to nasal cannula Out pt pet Cont eloquis Nebs and dc mucomyst after today (as it could also cause bronchospasm) and if she continues to have thick secretions, use hypertonic saline nebs instead fo mucomyst
[2018-01-30 16:00] VITALS: BP 130/80
--- NOTE | 2018-01-30 20:42 | PN- Cardiology ---
Subjective Subjective: Breathing a little better today after she was able to mobilize some secretions. media monitor reveals sinus rhythm. Objective Vital Signs and I&Os Vital Signs Date Time Temp Pulse Resp B/P B/P Pulse O2 O2 Flow FiO2 Mean Ox Delivery Rate 01/31 2000 96 Nasal 2.0L Cannula 01/30 1600 95 Nasal 2.0L Cannula 01/30 1600 98.8 74 28 130/80 93 Nasal 2.0L Cannula 01/30 1558 96 Nasal 2.0L Cannula 01/30 1200 95 Nasal 30% Cannula 01/30 1015 86 120/70 01/30 1012 80 120/70 01/30 1008 82 120/72 01/30 0845 97 Nasal 3.0L Cannula 01/30 0800 97.6 64 18 130/80 96 Nasal 30% Cannula 01/30 0800 94 Nasal 30% Cannula 01/30 0630 98 Nasal 30% Cannula 01/30 0400 95 Nasal 30% Cannula 01/30 0046 95 Nasal 30% Cannula 01/30 0000 97.0 71 20 116/70 94 Ventilator 30% 01/30 0000 94 Nasal 30% Cannula 01/29 2115 74 20 114/74 Intake & Output 01/30 1600 01/30 0800 01/30 0000 01/29 1600 01/29 0800 01/29 0000 Intake Total 480 200 600 260 370 210 Output Total 500 225 325 600 Balance -20 -25 275 -340 370 210 Intake, IV 140 20 10 10 Intake, Oral 480 200 460 240 360 200 Number 1 Bowel Movements Output, Urine 500 225 325 600 Patient 163 lb 157 lb Weight Physical Exam: Well-developed, overweight middle-aged female in no acute distress with nasal oxygen in place. Vital signs: Stable. Neck: No JVD, no bruits. Lungs: Decreased breath sounds with occasional wheeze. Heart: S1, S2 with no murmur, gallop, or rub. Abdomen: Soft, nontender, positive bowel sounds. Extremities: No edema. Current Medications: Current Medications Sig/Halie Start time Last Medication Dose Route Stop Time Status Admin Acetaminophen 1,000 MG Q8P PRN 01/26 1045 AC 01/30 N/A 1 UNIT IV 1828 Acetylcysteine 2 ML BID 01/29 1025 AC 01/30 INH 01/31 Albuterol Sulfate 3 ML EVERY 4 HRS/AWAKE 01/15 0800 AC 01/30 INH 2035 Albuterol Sulfate 2 PUF Q4-6 PRN PRN 01/14 1545 AC 01/29 INH 0126 Alprazolam 0.5 MG 4 TIMES/DAY 01/20 1300 AC 01/30 PO 02/03 1258 1823 Amlodipine Besylate 10 MG DAILY 01/29 0900 AC 01/30 PO 1012 Apixaban 5 MG BID 01/14 2100 AC 01/30 PO 1008 Bisacodyl 10 MG DAILY PRN 01/28 1415 AC 01/28 [place] 1435 Budesonide/ 2 PUF BID 01/14 2100 AC 01/30 Formoterol Fumarate INH 1200 Calcium Carbonate 500 MG DAILY PRN 01/14 1545 AC 01/28 PO 0628 Carvedilol 6.25 MG BID 01/21 2100 AC 01/30 PO 1015 Celecoxib 100 MG BID 01/27 2100 AC 01/30 PO 1008 Cholecalciferol 1,000 IU DAILY 01/14 1535 AC 01/30 PO 1009 Citalopram 20 MG DAILY 01/14 1539 AC 01/30 Hydrobromide PO 1011 Cyanocobalamin 1,000 MCG DAILY 01/14 1536 AC 01/30 PO 1008 Docusate Sodium 100 MG BID 01/17 1424 AC 01/30 PO 1007 Ferrous Sulfate 325 MG DAILY 01/14 1536 AC 01/30 PO 1010 Furosemide 20 MG DAILY 01/27 09 AC 01/30 PO 1015 Guaifenesin 600 MG Q12 01/14 2100 AC 01/30 PO 1007 Levetiracetam 750 MG BID 01/14 2100 AC 01/30 PO 1007 Lidocaine 1 PAT DAILY 01/14 1930 AC 01/30 TOP 1005 Lidocaine/Diphenhydr/ 30 ML Q6-PRN PRN 01/15 1545 AC 01/29 Alum/Mg/Simeth PO 1304 Losartan Potassium 100 MG DAILY 01/26 0900 AC 01/30 PO 1008 Methylprednisolone 40 MG BID 01/31 09 AC IV Methylprednisolone 40 MG Q8H 01/29 1000 DC 01/30 IV 1015 Omeprazole 40 MG 1/2H B/BREAKF/DINNER 01/14 1630 AC 01/30 PO 1823 Ondansetron HCl 4 MG Q6P PRN 01/15 1345 AC 01/24 IV 0434 Oxycodone HCl 30 MG Q12 01/18 2100 AC 01/30 PO 1004 Oxycodone HCl 15 MG Q4 HRS NEEDED PRN 01/18 1345 AC 01/30 PO 1823 Phenol 2 SPRAY Q2P PRN 01/20 1715 AC 01/27 EXT 1731 Polyethylene Glycol 17 GM DAILY 01/17 1424 AC 01/30 PO 1007 Senna 187 MG AT BEDTIME 01/17 2100 AC 01/29 PO 2129 Tiotropium [place] 1 PUF DAILY 01/15 0900 AC 01/30 INH 1200 Results Last 48 Hrs of Labs/Mics: Laboratory Tests 01/30/18 0415: Anion Gap 6, Estimated GFR > 60, Glucose 131 H, Calcium 8.7, Phosphorus 3.6, Magnesium 2.2, Total Bilirubin 0.2, AST 14, ALT 26, Albumin 2.6 L, CBC w Diff MAN DIFF ORDERED, RBC 2.79 L, MCV 92.6, MCH 30.3, MCHC 32.7 L, RDW 17.7 H, MPV 6.8 L, Gran % 87.9 H, Lymphocytes % 7.9 L, Monocytes % 4.0, Eosinophils % 0, Basophils % 0.2, Absolute Granulocytes 5.3, Absolute Lymphocytes 0.5 L, Absolute Monocytes 0.2, Absolute Eosinophils 0, Absolute Basophils 0, Platelet Estimate ADEQUATE, Basophilic Stippling 1+ 01/29/18 0925: Troponin I 0.05 01/29/18 0900: pH 7.44, pCO2 45, pO2 66 L, HCO3 30 H, ABG O2 Sat (Measured) 92.0 L, Carboxyhemoglobin 1.1 L, O2 Concentration % 4L, O2 Delivery Method NC, Phlebotomy Draw Site LEFT RADIAL Microbiology 01/29 945 UPPER RESP: Surveillance Culture - COMP 01/29 945 GI: Surveillance Culture - COMP VANC RESIST ENTEROCOCCUS Recent Imaging Studies: CXR 01/29/2018: 1. Asymmetric low lung volume within the left hemithorax with superimposed diffuse airspace disease, shows significant progression since 01/16/2018. 2. Followup CT scan of the chest may be considered for further full detail evaluation, if clinically appropriate. Assessment/Plan Assessment/Plan [id number] w/ hx of heavy tobacco use, severe oxygen and steroid dependent COPD, pulmonary nodules, chronic hypoxemic and hypercarbic respiratory failure, HTN, PAD, PE on AC, & chronic HFrEF adm 01/14/18 w/ AECOPD/PNA transferred to the ICU after deterioration of her respiratory status, secondary to possible mucous plugging, and sinus tachycardia. Recommendations: * Off antimicrobial therapy and follow-up on pulmonary medicine recommendations for steroid taper. * Consider repeat chest CT. * Outpatient PET scan for pulmonary nodules. * Continue DOAC for pulmonary embolism. * DVT prophylaxis being addressed. Continue telemetry? Not applicable (In ICU.)
[2018-01-30 23:25] VITALS: BP 114/78
[2018-01-31 04:35] LABS: ABSOLUTE BASOPHIL COUNT 0 /CUMM (0.0-0.2); ABSOLUTE EOSINOPHIL COUNT 0 /CUMM (0.0-0.7); ABSOLUTE GRANULOCYTE CT 4.6 /CUMM (1.4-6.5); ABSOLUTE LYMPH COUNT 0.9 /CUMM (1.2-3.4); ABSOLUTE MONOCYTE COUNT 0.3 /CUMM (0.10-0.60); BASOPHIL % 0.2 % (0.0-2.0); EOSINOPHIL % 0.1 % (0-5); GRANULOCYTE % 79.3 % (42.2-75.2); HEMATOCRIT 23.3 % (37-47); MEAN CORPUSCULAR HGB 30.7 PG (27.0-31.0); MEAN CORPUSCULAR HGB CONC 33.4 G/DL (33.0-37.0); MEAN PLATELET VOLUME 6.9 FL (7.4-10.4); PLATELET COUNT 180 /CUMM (130-400); RBC DISTRIBUTION WIDTH 18.1 % (11.5-14.5); RED BLOOD CELL CT 2.53 /CUMM (4.20-5.40); WHITE BLOOD CELL COUNT 5.8 /CUMM (4.8-10.8)
[2018-01-31 08:00] VITALS: BP 135/78
--- NOTE | 2018-01-31 08:26 | PN- Resident CRCU ---
See Addendum Subjective HPI/CRCU Issues: COPD exacerbation Acute on chronic hypoxemic respiratory failure (+) E. coli/Enterococcus on sputum culture tx'd with meropenem History of PE, on elliquis Pulmonry nodules, suspicious for malignancy, awaiting outpatient PET Anxiety 24 Hour Events: patient is complaining of a headache this morning off of high flow oxygen, now comfortable on nasal cannula minimally productive cough Afebrile, no leukocytosis Objective Vital Signs & I&O Last 8 Hrs of Vitals and I&O: Temp 98.6, HR 80, BP 135/80, RR 20, SpO2 94% on 2L NC Exam General Appearance: well developed/nourished, no apparent distress, alert, awake , comfortable Respiratory: decreased breath sounds, wheezing Cardiovascular: regular rate/rhythm, normal peripheral pulses Gastrointestinal: normal bowel sounds, soft, non-tender Extremities: normal inspection, normal capillary refill, normal range of motion, no edema Current Medications: Current Medications Sig/Halie Start time Last Medication Dose Route Stop Time Status Admin Acetaminophen 1,000 MG .STK-MED ONE 01/31 0337 DC IV 01/31 0338 Acetaminophen 1,000 MG Q8P PRN 01/26 1045 AC 01/31 N/A 1 UNIT IV 1130 Acetylcysteine 2 ML BID 01/29 1025 DC 01/30 INH 01/31 0700 2035 Albuterol Sulfate 3 ML EVERY 4 HRS/AWAKE 01/15 0800 AC 01/31 INH 1145 Albuterol Sulfate 2 PUF Q4-6 PRN PRN 01/14 1545 AC 01/29 INH 0126 Alprazolam 0.5 MG 4 TIMES/DAY 01/20 1300 AC 01/31 PO 02/03 1258 0845 Amlodipine Besylate 10 MG DAILY 01/29 0900 AC 01/31 PO 0848 Apixaban 5 MG BID 01/14 2100 AC 01/31 PO 0847 Bisacodyl 10 MG DAILY PRN 01/28 1415 AC 01/28 [place] 1435 Budesonide/ 2 PUF BID 01/14 2100 AC 01/31 Formoterol Fumarate INH 0850 Calcium Carbonate 500 MG DAILY PRN 01/14 1545 AC 01/28 PO 0628 Carvedilol 6.25 MG BID 01/21 2100 AC 01/31 PO 0847 Celecoxib 100 MG BID 07/18 2100 AC 01/31 PO 0850 Cholecalciferol 1,000 IU DAILY 01/14 1535 AC 01/31 PO 0847 Citalopram 20 MG DAILY 01/14 1539 AC 01/31 Hydrobromide PO 0848 Cyanocobalamin 1,000 MCG DAILY 01/14 1536 AC 01/31 PO 0848 Docusate Sodium 100 MG BID 01/17 1424 AC 01/31 PO 0847 Ferrous Sulfate 325 MG DAILY 01/14 1536 AC 01/31 PO 0849 Furosemide 20 MG DAILY 01/27 0900 AC 01/31 PO 0847 Guaifenesin 600 MG Q12 01/14 2100 AC 01/31 PO 0849 Levetiracetam 750 MG BID 01/14 2100 AC 01/31 PO 0848 Lidocaine 1 PAT DAILY 01/14 1930 AC 01/31 TOP 0847 Lidocaine/Diphenhydr/ 30 ML Q6-PRN PRN 01/15 1545 AC 01/29 Alum/Mg/Simeth PO 1304 Losartan Potassium 100 MG DAILY 01/26 09 AC 01/31 PO 0847 Methylprednisolone 40 MG BID 01/31 09 AC 01/31 IV 01/31 2300 0848 Methylprednisolone 40 MG Q8H 01/29 1000 DC 01/30 IV 1015 Omeprazole 40 MG 1/2H B/BREAKF/DINNER 01/14 1630 AC 01/31 PO 0800 Ondansetron HCl 4 MG Q6P PRN 01/15 1345 AC 01/24 IV 0434 Oxycodone HCl 30 MG Q12 01/18 2100 AC 01/31 PO 0845 Oxycodone HCl 15 MG Q4 HRS NEEDED PRN 01/18 1345 AC 01/31 PO 0846 Phenol 2 SPRAY Q2P PRN 01/20 1715 AC 01/27 EXT 1731 Polyethylene Glycol 17 GM DAILY 01/17 1424 AC 01/30 PO 1007 Prednisone 50 MG DAILY 02/01 09 AC PO Senna 187 MG AT BEDTIME 01/17 2100 AC 01/30 PO 2110 Tiotropium [place] 1 PUF DAILY 01/15 0900 AC 01/31 INH 0846 CXR Findings: FINDINGS: Asymmetric low lung volume involving the left hemithorax and superimposed predominately interstitial somewhat reticular, nodular opacities are noted throughout the entire left hemithorax. These are nonspecific in appearance, may represent interstitial pneumonia and less likely to be asymmetric edema. The right lung field appears clear. The cardiomediastinal silhouette is within normal limit. There is no pleural effusion present. Compared to prior chest radiograph dated 01/16/2018, and prior CT of the chest done on 01/19/2018, there is significant interval disease progression present within the left hemithorax. IMPRESSION: Asymmetric low lung volume within the left hemithorax with superimposed diffuse airspace disease, shows significant progression since 01/16/2018. Followup CT scan of the chest may be considered for further full detail evaluation, if clinically appropriate. Impression/Plan Impression/Problem List Impression: 62 y/o F with a PMH COPD on 1-2L O2 at home intermittently, HTN, anxiety, spiculated nodules on CT concerning for malignancy, chronic neck pain status post nerve stimulator implantation who had a prior admit to [facility] (01/06) for COPD exacerbation, discharged on 01/13 that came to the ED c /o SOB. She was on general medicine for COPD exacerbation, acute on chronic hypoxemic respiratory failure secondary to pneumonia. On 01/29, patient was hypertensive, tachycardic, tachypneic with an increased oxygen requirement and transferred to critical care for closer monitoring of her respiratory status. She is now clinically stabilized, with improved dyspnea and supplemental oxygen requirment. COPD exacerbation and acute on chronic hypoxemic respiratory failure Multiple admissions for COPD exacerbation FiO2 requirement decreasing, and clinically improving Completed 7 day course of meropenem for pneumonia Positive sputum culture and worsening chest x-ray, afebrile and without leukocytosis Discontinue IV steroids today, start prednisone tomorrow Continue nebulized albuterol and ipatropium treatments History on pulmonary embolism: Continue eliquis HTN: Continue amlodipine, carvedilol, lasix, and losartan Anxiety Continue xanax 0.5mg 4 times/day and celexa 20mg Pulmonary nodules: suspicious for malignancy Plan for outpatient PET Anemia: D/C NSAIDs Stool guiaic Trend CBC Continue PO PPI Heart healthy diet DVT ppx-on eliquis Full code Transfer to general medicine Problem List: 1. COPD (chronic obstructive pulmonary disease) 2. Acute hypoxemic respiratory failure 3. COPD exacerbation Pain Ratin Pain Location: headache Tomorrow's Labs & Rationales: cbc Plan DVT/Prophylaxis: pharmacological
--- NOTE | 2018-01-31 10:52 | PN- Pulmonary ---
Subjective HPI/Critical Care Issues: On 2 litres stable no new issues noted in the chart Objective Current Medications: Current Medications Sig/Halie Start time Last Medication Dose Route Stop Time Status Admin Acetaminophen 1,000 MG Q8P PRN 01/26 1045 AC 01/31 N/A 1 UNIT IV 0339 Acetylcysteine 2 ML BID 01/29 1025 DC 01/30 INH 01/31 0700 2035 Albuterol Sulfate 3 ML EVERY 4 HRS/AWAKE 01/15 0800 AC 01/31 INH 0914 Albuterol Sulfate 2 PUF Q4-6 PRN PRN 01/14 1545 AC 01/29 INH 0126 Alprazolam 0.5 MG 4 TIMES/DAY 01/20 1300 AC 01/31 PO 02/03 1258 0845 Amlodipine Besylate 10 MG DAILY 01/29 0900 AC 01/31 PO 0848 Apixaban 5 MG BID 01/14 2100 AC 01/31 PO 0847 Bisacodyl 10 MG DAILY PRN 01/28 1415 AC 01/28 [place] 1435 Budesonide/ 2 PUF BID 01/14 2100 AC 01/31 Formoterol Fumarate INH 0850 Calcium Carbonate 500 MG DAILY PRN 01/14 1545 AC 01/28 PO 0628 Carvedilol 6.25 MG BID 01/21 2100 AC 01/31 PO 0847 Celecoxib 100 MG BID 01/27 2100 AC 01/31 PO 0850 Cholecalciferol 1,000 IU DAILY 01/14 1535 AC 01/31 PO 0847 Citalopram 20 MG DAILY 01/14 1539 AC 01/31 Hydrobromide PO 0848 Cyanocobalamin 1,000 MCG DAILY 01/14 1536 AC 01/31 PO 0848 Docusate Sodium 100 MG BID 01/17 1424 AC 01/31 PO 0847 Ferrous Sulfate 325 MG DAILY 01/14 1536 AC 01/31 PO 0849 Furosemide 20 MG DAILY 01/27 0900 AC 01/31 PO 0847 Guaifenesin 600 MG Q12 01/14 2100 AC 01/31 PO 0849 Levetiracetam 750 MG BID 01/14 2100 AC 01/31 PO 0848 Lidocaine 1 PAT DAILY 01/14 1930 AC 01/31 TOP 0847 Lidocaine/Diphenhydr/ 30 ML Q6-PRN PRN 01/15 1545 AC 01/29 Alum/Mg/Simeth PO 1304 Losartan Potassium 100 MG DAILY 01/26 0900 AC 01/31 PO 0847 Methylprednisolone 40 MG BID 01/31 0900 r 01/31 IV 01/31 2300 0848 Methylprednisolone 40 MG Q8H 01/29 1000 DC 01/30 IV 1015 Omeprazole 40 MG 1/2H B/BREAKF/DINNER 01/14 1630 AC 01/31 PO 0800 Ondansetron HCl 4 MG Q6P PRN 01/15 1345 AC 01/24 IV 0434 Oxycodone HCl 30 MG Q12 01/18 2100 AC 01/31 PO 0845 Oxycodone HCl 15 MG Q4 HRS NEEDED PRN 01/18 1345 AC 01/31 PO 0846 Phenol 2 SPRAY Q2P PRN 01/20 1715 AC 01/27 EXT 1731 Polyethylene Glycol 17 GM DAILY 01/17 1424 AC 01/30 PO 1007 Prednisone 50 MG DAILY 02/01 0900 UNVr PO Senna 187 MG AT BEDTIME 01/17 2100 AC 01/30 PO 2110 Tiotropium [place] 1 PUF DAILY 01/15 0900 AC 01/31 INH 0846 Vital Signs & I&O Last 24 Hrs of Vitals and I&O: Vital Signs Date Time Temp Pulse Resp B/P B/P Pulse O2 O2 Flow FiO2 Mean Ox Delivery Rate 01/31 0954 94 Nasal 2.0L Cannula 01/31 0848 80 135/80 01/31 0847 80 135/70 01/31 0847 80 135/70 01/31 0400 96 Nasal 2.0L Cannula 01/31 0350 97 Nasal 2.0L Cannula 01/31 0000 96 Nasal 2.0L Cannula 01/30 2325 98.6 77 23 114/78 97 Nasal 2.0L Cannula 01/30 2111 82 26 131/78 01/30 2000 96 Nasal 2.0L Cannula 01/30 1600 95 Nasal 2.0L Cannula 01/30 1600 98.8 74 28 130/80 93 Nasal 2.0L Cannula 01/30 1558 96 Nasal 2.0L Cannula 01/30 1200 95 Nasal 30% Cannula Intake & Output 01/31 1600 01/31 0800 01/31 0000 Intake Total 580 640 Output Total 300 250 Balance 280 390 Intake, IV 340 Intake, Oral 240 640 Number 0 0 Bowel Movements Output, Urine 300 250 Patient 155 lb Weight Weight Bed scale Measurement Method Impression/Plan Impression/Plan Impression/Plan: Significant data reviewed in the computer Chest x-ray done showed left hemithorax had low lung volumes with diffuse airspace disease with progression from [address] scan of the chest done 10 days ago showed pulmonary nodules with the left lung with groundglass opacity? Organizing pneumonia with persistent mediastinal lymphadenopathy Previous CT of the neck are reviewed Sputum cytology sent on the showed no significant malignancy gen-awake, mild distress heent-nasal cannula cvs-s1,s2 lungs-b/l rhonchi abd-soft, bs+ ext-without edema Pt with acute obn choronic resp failure with copt with 1. Multiple complaints including throat pain, and history of drug-resistant E. coli, now with stirdor like symptoms and dyspnea with resp insuff, with tachy with improvement, with pneumonia completed abx 2. Severe oxygen and prednisone dependent COPD with evidence of mild wheezing, improved from baseline 3. Chronic hypoxemic respiratory failure 4. Chronic hypercarbic respiratory failure 5. Pulmonary nodules concerning for malignancy, out patient PET planned, has sig mediastinal LN enlargement and left sided nodules (cytology before nil acute ) 6. Pulmonary embolism on Eliquis, (09/2015) 7. History of CHF 8. Spinal stenosis and chronic pain, hx neurostimulator placement 9. Sacral fracture history 10. Tobacco dependence history 11. Psychiatric history, severe anxiety 12. Seizure like activity now better Prob psuedoseizures 13. Anemia now on xeralto and celebrex REC S/p abx now dc celebrex Check stool for heme and cont ppi Steroid taper to 40 mg in am Change to nasal cannula Out pt pet Cont eloquis Nebs and if she continues to have thick secretions, use hypertonic saline nebs instead of mucomyst Ok to the floor
[2018-01-31 16:00] VITALS: BP 122/68
[2018-01-31 21:00] VITALS: BP 133/76
[2018-01-31 23:24] VITALS: BP 133/80
--- NOTE | 2018-02-01 08:03 | PN- Housestaff ---
See Addendum Subjective Follow-up For: copd exacerbation chronic pain Complaints: headache SOB neck pain Subjective: Patient states last night she had a coughing fit and she felt like she was going to pass out. She continues to have neck pain and headache and SOB. She states she has discussed with her and mother about Hospice and would like consult placed. Denies fever, chills, n/v/d, chest pain, abdominal pain, urinary symptoms. Review of Systems Constitutional: Reports: see HPI. Objective Last 24 Hrs of Vital Signs/I&O Vital Signs Date Time Temp Pulse Resp B/P B/P Pulse O2 O2 Flow FiO2 Mean Ox Delivery Rate 02/01 0838 97 Nasal 2.0L Cannula 02/01 0822 170/70 02/01 0822 170/70 02/01 0822 88 170/70 02/01 0056 94 Nasal 2.0L Cannula 02/01 0000 Nasal 2.0L Cannula 01/31 2324 98.3 88 18 133/80 95 01/31 2100 98.1 80 22 133/76 95 Nasal 2.0L Cannula 01/31 2058 85 20 133/76 01/31 2000 95 Nasal 2.0L Cannula 01/31 1600 99 Nasal 2.0L Cannula 01/31 1600 97.4 70 26 122/68 99 Nasal 3.0L Cannula 01/31 1600 95 Nasal 2.0L Cannula Intake & Output 02/01 1600 02/01 0800 02/01 0000 Intake Total 340 240 Output Total 300 750 Balance 40 -510 Intake, IV 100 Intake, Oral 240 240 Number 1 Bowel Movements Output, Urine 300 750 Physical Exam General Appearance: Alert, Oriented X3, Cooperative, Mild Distress Skin: ecchymosis to BLE/BUE Skin Temp/Moisture Exam: Warm/Dry HEENT: Atraumatic, PERRLA, on 2L NC Neck: Supple Cardiovascular: Regular Rate, Normal S1, Normal S2, No Murmurs Lungs: scattered wheezing bilaterally Abdomen: Normal Bowel Sounds, Soft, No Tenderness Extremities: Normal Pulses Assessment/Plan Assessment: Ms. Gottlieb is a 62 year old female with past medical history of COPD, hypertension, seizure disorder on Keppra, lung cancer, anxiety, chronic neck pain status post nerve stimulator implantation who was recently discharged (01/13) from [facility] admission for COPD exacerbation. She was brought in for observation 01/14 for mild COPD exacerbation and uncontrolled pain and anxiety. Problem List: 1. COPD exacerbation; chronic hypoxemic respiratory failure 2. HTN 3. Anxiety 4. Chronic pain 5. Left hip pain #COPD exacerbation-Chronic hypercarbic respiratory distress; seems to be exacerbated by anxiety. Her breathing becomes normal after I stay in the room for awhile to speak with her. -Admitted to ICU 01/16 s/p rapid response for respiratory distress and non responsive to verbal commands. Emergency consult to ENT (Dr. Monae) who performed laryngoscopy; no acute findings. Patient transferred back to the general medicine service over the weekend and remained stable. -continued steroid taper and previously started from last admission -Pulm consulted: Continue steroid taper; outpatient PET scan for possible lung malignancy -ID consulted for possible abx: CXR 01/16 possible LLL pneumonia and resp sputum growing enterococcus/GNR/yeast. Recommended CT chest and that was done shows continued presence of suspicious lesions and possible cryptogenic organizing pneumonia (SPINDLE CARVER); treating with Meropenem-7 day treatment course; completed abx course 01/26 -Pulm: strict aspiration precautions; continue steroids; continue pain control; maintain O2 sats around 92%; steroid taper #Neck Pain/strangling sensation -CT neck negative for pathologic/obstructive process -Xanax seems to help decrease sensation of 'strangling' #Anxiety-likely contributing to COPD exacerbation -Started on Celexa 20mg PO this admission 01/14. Will need to follow up outpatient and increase as needed -Xanax 0.5mg PO to qid acute anxiety; patient responding well to this regimen #HTN -Increased dose of Carvedilol 6.25mg -Losartan 25mg restarted on 01/24 after being stopped during ICU placement. -Administered Amlodipine 5mg x2 01/22-01/23. BP 188/100. -Patient given Hydralazine over the weekend to help manage BP 200/100. -[id number] daily -Furosemide 20mg daily per cardiology recs restarted 01/27 -Amlodipine 10mg daily started today 01/28 -Cardiology contacted (Dr. Loaiza) has seen: recommends continued use of antihypertensives and increasing dose of Carvedilol if BP persistently elevated. #Chronic pain -Headache-oral 1000mg q8 PRN -Dr. Cordova consulted; did not come -PT worked with PT: ambulating well -Will continue to ambulate bid and as tolerated #Left hip pain-likely 2/2 sitting in bed too long; lack of ambulation -will obtain XR at patients request to rule out fracture or bony changes though this is unlikely -Left hip XR was negative. DVT Prophylaxis: on eliquis/alps/ambulation Dispo: Will have palliative care consult Problem List: 1. Acute exacerbation of chronic obstructive pulmonary disease (COPD) 2. PNEUMONIA 3. Chronic pain disorder Pain Ratin Pain Location: neck and head Pain Goal: Pain 4 or less Pain Plan: see a/p Tomorrow's Labs & Rationales: cbc
[2018-02-01 08:33] LABS: ABSOLUTE BASOPHIL COUNT 0 /CUMM (0.0-0.2); ABSOLUTE EOSINOPHIL COUNT 0 /CUMM (0.0-0.7); ABSOLUTE GRANULOCYTE CT 3.2 /CUMM (1.4-6.5); ABSOLUTE LYMPH COUNT 0.4 /CUMM (1.2-3.4); ABSOLUTE MONOCYTE COUNT 0.2 /CUMM (0.10-0.60); BASOPHIL % 0.2 % (0.0-2.0); EOSINOPHIL % 0 % (0-5); GRANULOCYTE % 83.2 % (42.2-75.2); HEMATOCRIT 23.8 % (37-47); MEAN CORPUSCULAR HGB 30.5 PG (27.0-31.0); MEAN CORPUSCULAR HGB CONC 32.9 G/DL (33.0-37.0); MEAN CORPUSCULAR VOLUME 92.7 FL (81.0-99.0); MEAN PLATELET VOLUME 7.1 FL (7.4-10.4); PLATELET COUNT 171 /CUMM (130-400); RBC DISTRIBUTION WIDTH 16.9 % (11.5-14.5); RED BLOOD CELL CT 2.57 /CUMM (4.20-5.40); WHITE BLOOD CELL COUNT 3.8 /CUMM (4.8-10.8)
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
[2018-02-01 14:48] VITALS: BP 130/75
--- NOTE | 2018-02-01 19:07 | PN- Cardiology ---
Subjective Subjective: The patient continues to have significant shortness of breath. No chest pain. No palpitations. No diaphoresis. No nausea or vomiting. Objective Vital Signs and I&Os Vital Signs Date Time Temp Pulse Resp B/P B/P Pulse O2 O2 Flow FiO2 Mean Ox Delivery Rate 02/01 1642 96 Nasal 2.0L Cannula 02/01 1448 98.0 85 20 130/75 94 Nasal Cannula 02/01 1400 93 Nasal 2.0L Cannula 02/01 0838 97 Nasal 2.0L Cannula 02/01 0822 170/70 02/01 0822 170/70 02/01 0822 88 170/70 02/01 0056 94 Nasal 2.0L Cannula 02/01 0000 Nasal 2.0L Cannula 01/31 2324 98.3 88 18 133/80 95 01/31 2100 98.1 80 22 133/76 95 Nasal 2.0L Cannula 01/31 2058 85 20 133/76 01/31 2000 95 Nasal 2.0L Cannula Intake & Output 02/01 1600 02/01 0800 02/01 0000 01/31 1600 01/31 0800 01/31 0000 Intake Total 500 340 240 640 580 640 Output Total 250 300 750 250 300 250 Balance 250 40 -510 390 280 390 Intake, IV 100 340 Intake, Oral 500 240 240 640 240 640 Number 1 0 0 Bowel Movements Output, Urine 250 300 750 250 300 250 Patient 155 lb Weight Weight Bed scale Measurement Method Physical Exam: Gen: NAD HEENT: normal Lungs: Bilateral wheezes and rhonchi, normal resp. effort Heart: RRR, S1, S2, no murmurs Abdomen: Soft, nontender, no masses Extremities: No clubbing, cyanosis, or edema. Neuro: Alert and oriented x 3, cranial nerves intact Current Medications: Current Medications Sig/Halie Start time Last Medication Dose Route Stop Time Status Admin Acetaminophen 1,000 MG .STK-MED ONE 02/01 0540 DC IV 02/01 0541 Acetaminophen 1,000 MG .STK-MED ONE 02/01 2116 DC IV 01/31 2117 Acetaminophen 1,000 MG Q8P PRN 01/26 1045 AC 02/01 N/A 1 UNIT IV 1757 Albuterol Sulfate 3 ML EVERY 4 HRS/AWAKE 01/15 0800 AC 02/01 INH 1640 Albuterol Sulfate 2 PUF Q4-6 PRN PRN 01/14 1545 AC 01/29 INH 0126 Alprazolam 0.5 MG 4 TIMES/DAY 01/20 1300 AC 02/01 PO 02/03 1258 1716 Amlodipine Besylate 10 MG DAILY 01/29 0900 AC 02/01 PO 0822 Apixaban 5 MG BID 01/14 2100 AC 02/01 PO 0822 Bisacodyl 10 MG DAILY PRN 01/28 1415 AC 01/28 AL 1435 Budesonide/ 2 PUF BID 01/14 2100 AC 02/01 Formoterol Fumarate INH 0820 Calcium Carbonate 500 MG DAILY PRN 01/14 1545 AC 01/28 PO 0628 Carvedilol 6.25 MG BID 01/21 2100 AC 02/01 PO 0822 Cholecalciferol 1,000 IU DAILY 01/14 1535 AC 02/01 PO 0822 Citalopram 20 MG DAILY 01/14 1539 AC 02/01 Hydrobromide PO 0823 Cyanocobalamin 1,000 MCG DAILY 01/14 1536 AC 02/01 PO 0822 Docusate Sodium 100 MG BID 01/17 1424 AC 02/01 PO 0821 Ferrous Sulfate 325 MG DAILY 01/14 1536 AC 02/01 PO 0822 Furosemide 20 MG DAILY 01/27 09 AC 02/01 PO 0822 Guaifenesin 600 MG Q12 01/14 2100 AC 02/01 PO 0822 Levetiracetam 750 MG BID 01/14 2100 AC 02/01 PO 0822 Lidocaine 1 PAT DAILY 01/14 1930 AC 02/01 TOP 0823 Lidocaine/Diphenhydr/ 30 ML Q6-PRN PRN 01/15 1545 AC 01/29 Alum/Mg/Simeth PO 1304 Losartan Potassium 100 MG DAILY 01/26 0900 AC 02/01 PO 0822 Methylprednisolone 40 MG BID 01/31 09 DC 01/31 IV 01/31 2300 2110 Omeprazole 40 MG 1/2H B/BREAKF/DINNER 01/14 1630 AC 02/01 PO 1716 Ondansetron HCl 4 MG Q6P PRN 01/15 1345 AC 02/01 IV 1045 Oxycodone HCl 30 MG Q12 01/18 2100 AC 02/01 PO 0821 Oxycodone HCl 15 MG Q4 HRS NEEDED PRN 01/18 1345 AC 02/01 PO 1716 Phenol 2 SPRAY Q2P PRN 01/20 1715 01/27 EXT 1731 Polyethylene Glycol 17 GM DAILY 01/17 1424 AC 02/01 PO 0823 Prednisone 40 MG DAILY 02/01 0900 AC 02/01 PO 0822 Senna 187 MG AT BEDTIME 01/17 2100 AC 01/31 PO 2105 Tiotropium [place] 1 PUF DAILY 01/15 0900 AC 02/01 INH 0820 Results Last 48 Hrs of Labs/Mics: Laboratory Tests 02/01/18 0640: CBC w Diff MAN DIFF ORDERED, RBC 2.57 L, MCV 92.7, MCH 30.5, MCHC 32.9 L, RDW 16.9 H, MPV 7.1 L, Gran % 83.2 H, Lymphocytes % 11.6 L, Monocytes % 5.0, Eosinophils % 0, Basophils % 0.2, Absolute Granulocytes 3.2, Absolute Lymphocytes 0.4 L, Absolute Monocytes 0.2, Absolute Eosinophils 0, Absolute Basophils 0, Platelet Estimate VERIFIED BY SMEAR, Polychromasia 1+, Basophilic Stippling 1+, Anisocytosis 1+ 01/31/18 0323: Anion Gap 7, Estimated GFR > 60, Glucose 95, Calcium 8.6, Phosphorus 2.9, Magnesium 2.2, Total Bilirubin 0.2, AST 11 L, ALT 28, Albumin 2.5 L, CBC w Diff NO MAN DIFF REQ, RBC 2.53 L, MCV 92.0, MCH 30.7, MCHC 33.4, RDW 18.1 H, MPV 6.9 L, Gran % 79.3 H, Lymphocytes % 15.0 L, Monocytes % 5.4, Eosinophils % 0.1, Basophils % 0.2, Absolute Granulocytes 4.6, Absolute Lymphocytes 0.9 L, Absolute Monocytes 0.3, Absolute Eosinophils 0, Absolute Basophils 0 Assessment/Plan Assessment/Plan Assessment: 1. Uncontrolled hypertension 2. Severe COPD with recent exacerbation of COPD 3. Peripheral arterial disease 4. History of pulmonary embolism 5. Chronic systolic heart failure Plan: Treatment of COPD as per pulmonary Continue oral Lasix Continue current cardiac medications Continue telemetry? Not applicable
[2018-02-01 22:40] VITALS: BP 140/80
[2018-02-02 06:56] VITALS: BP 142/82
--- NOTE | 2018-02-02 07:56 | PN- Housestaff ---
See Addendum Subjective Follow-up For: copd exacerbation neck pain headache Complaints: neck pain and headache Subjective: Patient reports that her breathing feels okay/stable this morning. She mostly just has the continued neck pain and headache. Denies fever, chills, n/v/d, chest pain, SOB Review of Systems Constitutional: Reports: see HPI. Objective Last 24 Hrs of Vital Signs/I&O Vital Signs Date Time Temp Pulse Resp B/P B/P Pulse O2 O2 Flow FiO2 Mean Ox Delivery Rate 02/02 0950 88 154/80 02/02 0656 98.5 65 16 142/82 99 Nasal 2.0L Cannula 02/02 0000 Nasal 2.0L Cannula 02/01 2240 98.7 86 20 140/80 97 Nasal Cannula 02/01 2102 135/70 02/01 1642 96 Nasal 2.0L Cannula 02/01 1600 94 Nasal 2.0L Cannula 02/01 1448 98.0 85 20 130/75 94 Nasal Cannula 02/01 1400 93 Nasal 2.0L Cannula Intake & Output 02/02 1600 02/02 0800 02/02 0000 Intake Total 100 240 Output Total 450 Balance -350 240 Intake, IV 100 Intake, Oral 240 Output, Urine 450 Patient 161 lb Weight Physical Exam General Appearance: Alert, Oriented X3, Cooperative, No Acute Distress Skin: No Rashes Skin Temp/Moisture Exam: Warm/Dry HEENT: Atraumatic, PERRLA Neck: Supple Cardiovascular: Regular Rate, Normal S1, Normal S2, No Murmurs Lungs: scattered expiratory wheezes bilaterally Abdomen: Normal Bowel Sounds, Soft, No Tenderness Extremities: No Edema, Normal Pulses Assessment/Plan Assessment: Ms. Gottlieb is a 62 year old female with past medical history of COPD, hypertension, seizure disorder on Keppra, lung cancer, anxiety, chronic neck pain status post nerve stimulator implantation who was recently discharged (01/13) from [facility] admission for COPD exacerbation. She was brought in for observation 01/14 for mild COPD exacerbation and uncontrolled pain and anxiety. Problem List: 1. COPD exacerbation; chronic hypoxemic respiratory failure 2. HTN 3. Anxiety 4. Chronic pain 5. Left hip pain #COPD exacerbation-Chronic hypercarbic respiratory distress; seems to be exacerbated by anxiety. Her breathing becomes normal after I stay in the room for awhile to speak with her. -Admitted to ICU 01/16 s/p rapid response for respiratory distress and non responsive to verbal commands. Emergency consult to ENT (Dr. Monae) who performed laryngoscopy; no acute findings. Patient transferred back to the general medicine service over the weekend and remained stable. -continued steroid taper and previously started from last admission -Pulm consulted: Continue steroid taper; outpatient PET scan for possible lung malignancy -ID consulted for possible abx: CXR 01/16 possible LLL pneumonia and resp sputum growing enterococcus/GNR/yeast. Recommended CT chest and that was done shows continued presence of suspicious lesions and possible cryptogenic organizing pneumonia (MEDICAID SPECIALIST); treating with Meropenem-7 day treatment course; completed abx course 01/26 -Pulm: strict aspiration precautions; continue steroids; continue pain control; maintain O2 sats around 92%; steroid taper: currently on PO prednisone 40mg -Palliative consult: start mirtazipine 7.5mg at night; mucinex 1200mg bid; changed code status to DNR/DNI; need hospice care evaluation #Neck Pain/strangling sensation -CT neck negative for pathologic/obstructive process -Xanax seems to help decrease sensation of 'strangling' #Anxiety-likely contributing to COPD exacerbation -Started on Celexa 20mg PO this admission 01/14. Will need to follow up outpatient and increase as needed -Xanax 0.5mg PO to qid acute anxiety; patient responding well to this regimen #HTN -Increased dose of Carvedilol 6.25mg -Losartan 25mg restarted on 01/24 after being stopped during ICU placement. -Administered Amlodipine 5mg x2 01/22-01/23. BP 188/100. -Patient given Hydralazine over the weekend to help manage BP 200/100. -[id number] daily -Furosemide 20mg daily per cardiology recs restarted 01/27 -Amlodipine 10mg daily started today 01/28 -Cardiology contacted (Dr. Loaiza) has seen: recommends continued use of antihypertensives and increasing dose of Carvedilol if BP persistently elevated. #Chronic pain -Headache-oral 1000mg q8 PRN -Dr. Cordova consulted; did not come -PT worked with PT: ambulating well -Will continue to ambulate bid and as tolerated #Left hip pain-likely 2/2 sitting in bed too long; lack of ambulation -will obtain XR at patients request to rule out fracture or bony changes though this is unlikely -Left hip XR was negative. DVT Prophylaxis: on eliquis/alps/ambulation Dispo: hospice eval Problem List: 1. PNEUMONIA 2. Acute exacerbation of chronic obstructive pulmonary disease (COPD) 3. Chronic pain disorder 4. Anxiety 5. History of hypertension 6. Headache 7. Neck pain Pain Ratin Pain Location: neck and head Pain Goal: Pain 4 or less Pain Plan: see a/p Tomorrow's Labs & Rationales: none
[2018-02-02 08:19] LABS: ABSOLUTE BASOPHIL COUNT 0 /CUMM (0.0-0.2); ABSOLUTE EOSINOPHIL COUNT 0 /CUMM (0.0-0.7); ABSOLUTE GRANULOCYTE CT 4.2 /CUMM (1.4-6.5); ABSOLUTE LYMPH COUNT 0.9 /CUMM (1.2-3.4); ABSOLUTE MONOCYTE COUNT 0.4 /CUMM (0.10-0.60); BASOPHIL % 0.1 % (0.0-2.0); EOSINOPHIL % 0.2 % (0-5); GRANULOCYTE % 75.4 % (42.2-75.2); MEAN CORPUSCULAR HGB 30.4 PG (27.0-31.0); MEAN CORPUSCULAR HGB CONC 33.1 G/DL (33.0-37.0); MEAN CORPUSCULAR VOLUME 92.1 FL (81.0-99.0); PLATELET COUNT 177 /CUMM (130-400); RBC DISTRIBUTION WIDTH 16.9 % (11.5-14.5); WHITE BLOOD CELL COUNT 5.6 /CUMM (4.8-10.8)
[2018-02-02 09:50] VITALS: BP 154/80
[2018-02-02 14:57] VITALS: BP 120/70
--- NOTE | 2018-02-02 19:48 | PN- Cardiology ---
Subjective Subjective: The patient continues to be significantly short of breath. No chest pain. No palpitations. No nausea or vomiting. No diaphoresis. Objective Vital Signs and I&Os Vital Signs Date Time Temp Pulse Resp B/P B/P Pulse O2 O2 Flow FiO2 Mean Ox Delivery Rate 02/02 1615 96 Nasal 2.0L Cannula 02/02 1600 Nasal 2.0L Cannula 02/02 1457 98.5 86 20 120/70 94 02/02 1205 97 Nasal 2.0L Cannula 02/02 0950 88 154/80 02/02 0656 98.5 65 16 142/82 99 Nasal 2.0L Cannula 02/02 0000 Nasal 2.0L Cannula 02/01 2240 98.7 86 20 140/80 97 Nasal Cannula 02/01 2102 135/70 Intake & Output 02/02 1600 02/02 0800 02/02 0000 02/01 1600 02/01 0802/01 0000 Intake Total 500 100 240 500 340 240 Output Total 550 450 250 300 750 Balance -50 -350 240 250 40 -510 Intake, IV 20 100 100 Intake, Oral 480 240 500 240 240 Number 5 1 Bowel Movements Output, Urine 550 450 250 300 750 Patient 161 lb Weight Physical Exam: Gen: NAD HEENT: normal Lungs: Bilateral wheezes and rhonchi, normal resp. effort Heart: RRR, S1, S2, no murmurs Abdomen: Soft, nontender, no masses Extremities: No clubbing, cyanosis, or edema. Neuro: Alert and oriented x 3, cranial nerves intact Current Medications: Current Medications Sig/Halie Start time Last Medication Dose Route Stop Time Status Admin Acetaminophen 1,000 MG .STK-MED ONE 02/02 1113 DC IV 02/02 1114 Acetaminophen 1,000 MG .STK-MED ONE 02/02 0238 DC IV 02/02 0239 Acetaminophen 1,000 MG Q8P PRN 01/26 1045 AC 02/02 N/A 1 UNIT IV 1936 Albuterol Sulfate 3 ML EVERY 4 HRS/AWAKE 01/15 08 AC 02/02 INH 1615 Albuterol Sulfate 2 PUF Q4-6 PRN PRN 01/14 1545 AC 01/29 INH 0126 Alprazolam 0.5 MG 4 TIMES/DAY 01/20 1300 AC 02/02 PO 02/03 1258 1818 Amlodipine Besylate 10 MG DAILY 01/29 0900 AC 02/02 PO 0947 Apixaban 5 MG BID 01/14 2100 AC 02/02 PO 0947 Bisacodyl 10 MG DAILY PRN 01/28 1415 AC 01/28 MT 1435 Budesonide/ 2 PUF BID 01/14 2100 AC 02/02 Formoterol Fumarate INH 0950 Calcium Carbonate 500 MG DAILY PRN 01/14 1545 AC 01/28 PO 0628 Carvedilol 6.25 MG BID 01/21 2100 AC 02/02 PO 0947 Cholecalciferol 1,000 IU DAILY 01/14 1535 AC 02/02 PO 0947 Citalopram 20 MG DAILY 01/14 1539 AC 02/02 Hydrobromide PO 0947 Cyanocobalamin 1,000 MCG DAILY 01/14 1536 AC 02/02 PO 0947 Docusate Sodium 100 MG BID 01/17 1424 AC 02/02 PO 0947 Ferrous Sulfate 325 MG DAILY 01/14 1536 AC 02/02 PO 0947 Furosemide 20 MG DAILY 01/27 09 AC 02/02 PO 0947 Guaifenesin 1,200 MG Q12 02/02 0900 AC 02/02 PO 0948 Guaifenesin 600 MG Q12 01/14 2100 DC 02/01 PO 2100 Levetiracetam 750 MG BID 01/14 2100 AC 02/02 PO 0947 Lidocaine 1 PAT DAILY 01/14 1930 AC 02/02 TOP 0949 Lidocaine/Diphenhydr/ 30 ML Q6-PRN PRN 01/15 1545 AC 01/29 Alum/Mg/Simeth PO 1304 Losartan Potassium 100 MG DAILY 01/26 0900 AC 02/02 PO 0947 Mirtazapine 7.5 MG AT BEDTIME 02/02 2100 AC PO Omeprazole 40 MG 1/2H B/BREAKF/DINNER 01/14 1630 AC 02/02 PO 1605 Ondansetron HCl 4 MG Q6P PRN 01/15 1345 AC 02/01 IV 1045 Oxycodone HCl 30 MG Q12 01/18 2100 AC 02/02 PO 0948 Oxycodone HCl 15 MG Q4 HRS NEEDED PRN 01/18 1345 AC 02/02 PO 1928 Phenol 2 SPRAY Q2P PRN 01/20 1715 AC 01/27 EXT 1731 Polyethylene Glycol 17 GM DAILY 01/17 1424 AC 02/02 PO 1502 Prednisone 40 MG DAILY 02/01 09 AC 02/02 PO 0947 Senna 187 MG AT BEDTIME 01/17 2100 AC 02/01 PO 2122 Tiotropium [place] 1 PUF DAILY 01/15 09 AC 02/02 INH 0947 Results Last 48 Hrs of Labs/Mics: Laboratory Tests 02/02/18 0644: CBC w Diff NO MAN DIFF REQ, RBC 2.60 L, MCV 92.1, MCH 30.4, MCHC 33.1, RDW 16.9 H, MPV 7.0 L, Gran % 75.4 H, Lymphocytes % 17.1 L, Monocytes % 7.2, Eosinophils % 0.2, Basophils % 0.1, Absolute Granulocytes 4.2, Absolute Lymphocytes 0.9 L, Absolute Monocytes 0.4, Absolute Eosinophils 0, Absolute Basophils 0 02/01/18 0640: CBC w Diff MAN DIFF ORDERED, RBC 2.57 L, MCV 92.7, MCH 30.5, MCHC 32.9 L, RDW 16.9 H, MPV 7.1 L, Gran % 83.2 H, Lymphocytes % 11.6 L, Monocytes % 5.0, Eosinophils % 0, Basophils % 0.2, Absolute Granulocytes 3.2, Absolute Lymphocytes 0.4 L, Absolute Monocytes 0.2, Absolute Eosinophils 0, Absolute Basophils 0, Platelet Estimate VERIFIED BY SMEAR, Polychromasia 1+, Basophilic Stippling 1+, Anisocytosis 1+ Assessment/Plan Assessment/Plan Assessment: 1. Uncontrolled hypertension 2. Severe COPD with recent exacerbation of COPD 3. Peripheral arterial disease 4. History of pulmonary embolism 5. Chronic systolic heart failure Plan: Treatment of COPD as per pulmonary Continue oral Lasix Continue current cardiac medications Continue telemetry? Yes
[2018-02-02 21:24] VITALS: BP 148/90
[2018-02-03 02:30] VITALS: BP 112/94; BP 142/94
[2018-02-03 05:30] VITALS: BP 168/90
--- NOTE | 2018-02-03 07:56 | PN- Housestaff ---
LaurentChristal 02/03/18 0756: Subjective Follow-up For: copd exacerbation chronic pain Complaints: pain scale (0-10), headache neck pain feet pain Subjective: Patient reports bilateral foot pain this morning. Her legs are elevated on one pillow. She continues to endorse neck pain and headache. She states her breathing feels okay. Denies fever, chills, n/v/d, chest pain, SOB, abdominal pain. Review of Systems Constitutional: Reports: see HPI. Objective Last 24 Hrs of Vital Signs/I&O Vital Signs Date Time Temp Pulse Resp B/P B/P Pulse O2 O2 Flow FiO2 Mean Ox Delivery Rate 02/03 0832 94 Nasal 1.0L Cannula 02/03 0825 71 260/90 02/03 0825 71 160/90 02/03 0824 71 160/90 02/03 0604 94 Nasal 1.0L Cannula 02/03 0600 94 Nasal 1.0L Cannula 02/03 0530 98.1 75 18 168/90 98 Nasal 2.0L Cannula 02/03 0230 142/94 02/03 0000 97 Nasal 2.0L Cannula 02/02 2124 98.7 74 18 148/90 97 02/02 2102 74 148/90 02/02 1615 96 Nasal 2.0L Cannula 02/02 1600 Nasal 2.0L Cannula 02/02 1457 98.5 86 20 120/70 94 02/02 1205 97 Nasal 2.0L Cannula 02/02 0950 88 154/80 Intake & Output 02/03 1600 02/03 0800 02/03 0000 Intake Total 260 800 Output Total 300 300 Balance -40 500 Intake, IV 140 Intake, Oral 120 800 Output, Urine 300 300 Physical Exam General Appearance: Alert, Oriented X3, Cooperative, No Acute Distress Skin: ecchymosis BLE/BUE Skin Temp/Moisture Exam: Warm/Dry HEENT: Atraumatic, PERRLA Neck: Supple Cardiovascular: Regular Rate, Normal S1, Normal S2, No Murmurs Lungs: scattered expiratory wheezes; coarse breath sounds Abdomen: Normal Bowel Sounds, Soft, No Tenderness Extremities: No Edema, Normal Pulses Assessment/Plan Assessment: Ms. Gottlieb is a 62 year old female with past medical history of COPD, hypertension, seizure disorder on Keppra, lung cancer, anxiety, chronic neck pain status post nerve stimulator implantation who was recently discharged (01/13) from [facility] admission for COPD exacerbation. She was brought in for observation 01/14 for mild COPD exacerbation and uncontrolled pain and anxiety. Problem List: 1. COPD exacerbation; chronic hypoxemic respiratory failure 2. HTN 3. Anxiety 4. Chronic pain 5. Left hip pain #COPD exacerbation-Chronic hypercarbic respiratory distress; seems to be exacerbated by anxiety. Her breathing becomes normal after I stay in the room for awhile to speak with her. -Admitted to ICU 01/16 s/p rapid response for respiratory distress and non responsive to verbal commands. Emergency consult to ENT (Dr. Monae) who performed laryngoscopy; no acute findings. Patient transferred back to the general medicine service over the weekend and remained stable. -continued steroid taper and previously started from last admission -Pulm consulted: Continue steroid taper; outpatient PET scan for possible lung malignancy -ID consulted for possible abx: CXR 01/16 possible LLL pneumonia and resp sputum growing enterococcus/GNR/yeast. Recommended CT chest and that was done shows continued presence of suspicious lesions and possible cryptogenic organizing pneumonia ([employer] ASSOCIATE); treating with Meropenem-7 day treatment course; completed abx course 01/26 -Pulm: strict aspiration precautions; continue steroids; continue pain control; maintain O2 sats around 92%; steroid taper: currently on PO prednisone 40mg -Palliative consult: started on 02/02: mirtazipine 7.5mg at night; mucinex 1200mg bid; changed code status to DNR/DNI; hospice care evaluation #Neck Pain/strangling sensation -CT neck negative for pathologic/obstructive process -Xanax seems to help decrease sensation of 'strangling' #Anxiety-likely contributing to COPD exacerbation -Started on Celexa 20mg PO this admission 01/14. Will need to follow up outpatient and increase as needed -Xanax 0.5mg PO to qid acute anxiety; patient responding well to this regimen #HTN -Increased dose of Carvedilol 6.25mg -Losartan 25mg restarted on 01/24 after being stopped during ICU placement. -Administered Amlodipine 5mg x2 01/22-01/23. BP 188/100. -Patient given Hydralazine over the weekend to help manage BP 200/100. -[id number] daily -Furosemide 20mg daily per cardiology recs restarted 01/27 -Amlodipine 10mg daily started today 01/28 -Cardiology contacted (Dr. Loaiza) has seen: recommends continued use of antihypertensives and increasing dose of Carvedilol if BP persistently elevated. #Chronic pain -Headache-oral 1000mg q8 PRN -Dr. Cordova consulted; did not come -PT worked with PT: ambulating well -Will continue to ambulate bid and as tolerated #Left hip pain-likely 2/2 sitting in bed too long; lack of ambulation -will obtain XR at patients request to rule out fracture or bony changes though this is unlikely -Left hip XR was negative. DVT Prophylaxis: on eliquis/alps/ambulation Dispo: hospice evaluated patient and spoke with . Will need to regroup and have another discussion about goals of care; expectations of hospice services; and salvage determiner plan Problem List: 1. Acute exacerbation of chronic obstructive pulmonary disease (COPD) 2. PNEUMONIA 3. Chronic pain disorder 4. Anxiety Pain Ratin Pain Location: head neck feet Pain Goal: Pain 7 or less Pain Plan: see a/p Tomorrow's Labs & Rationales: none Jhonatan Mcdonald MD 02/03/18 1838: Attending MD Review Statement Attending Statement Attending MD Statement: examined this patient, discuss w/resident/PA/NUT PROCESS HELPER, agreed w/resident/PA/NUT PROCESS HELPER, reviewed EMR data (avail), discussed with nursing, discussed with case mgmt, amended to note Attending Assessment/Plan: The patient was seen and discussed with house staff, nursing, and case management. As noted, she has now requested to revert to "full code" status and wishes to continue IV meds, etc. Palliative Care follow-up appreciated. At this point, she is further deconditioned due to transfer to ICU and telemetry floors and would benefit from Pulmonary rehab and STR. Will discuss further with PT and Case Management.
--- NOTE | 2018-02-03 14:15 | PN- Palliative Care ---
Subjective Subjective: Patient was seen for palliative care consultation on 02/01/18 and had discussion about hospice care. Patient reported her wishes to have DNR/I with no escalation in her care and home hospice evaluation. Patient this morning during nursing report expressed her wishes to the nurse to be full code in state of DNR/DNI. I spoke with the patient and her niece at length and explained the definition of hospice care, CODE STATUS and quality of life. Patient was very clear about her wishes at this point of having full resuscitation, intubation, ICU transfer, rehospitalization as much as it needs. Patient is not concentrating on her comfort care anymore. She told me "I just want to live and I might feel better ". Patient understands that her illnesses are irreversible and for her being intubated will be very difficult to extubate however she expressed her wishes to be intubated as long as it takes to keep her alive. Patient has totally different mind/wishes from our last discussion on 02/01. Review of Systems Constitutional: Reports: see HPI. Objective Last 24 Hrs of Vital Signs/I&O Vital Signs Date Time Temp Pulse Resp B/P B/P Pulse O2 O2 Flow FiO2 Mean Ox Delivery Rate 02/03 1423 98.7 78 24 140/90 93 02/03 0832 94 Nasal 1.0L Cannula 02/03 0825 71 260/90 02/03 0825 71 160/90 02/03 0824 71 160/90 02/03 0800 97 Nasal 0.5L Cannula 02/03 0604 94 Nasal 1.0L Cannula 02/03 0600 94 Nasal 1.0L Cannula 02/03 0530 98.1 75 18 168/90 98 Nasal 2.0L Cannula 02/03 0230 142/94 02/03 0000 97 Nasal 2.0L Cannula 02/02 2124 98.7 74 18 148/90 97 02/02 2102 74 148/90 02/02 1615 96 Nasal 2.0L Cannula 02/02 1600 Nasal 2.0L Cannula Intake & Output 02/03 1600 02/03 0800 02/03 0000 Intake Total 480 260 800 Output Total 300 300 Balance 480 -40 500 Intake, IV 140 Intake, Oral 480 120 800 Number 1 Bowel Movements Output, Urine 300 300 Physical Exam: General mild respiratory distress, has nasal cannula CVS S1, S2 regular Lungs bilateral decreased air entry, diffuse wheeze and rhonchi Abdomen Soft, BS+ LE No edema Current Medications Current Medications: Current Medications Sig/Halie Start time Last Medication Dose Route Stop Time Status Admin Acetaminophen 1,000 MG .STK-MED ONE 02/03 525 DC IV 02/03 05 Acetaminophen 1,000 MG .STK-MED ONE 02/02 1931 DC IV 02/02 193 Acetaminophen 1,000 MG Q8P PRN 01/26 1045 AC 02/03 N/A 1 UNIT IV 1246 Albuterol Sulfate 3 ML EVERY 4 HRS/AWAKE 01/15 08 AC 02/03 INH 1131 Albuterol Sulfate 2 PUF Q4-6 PRN PRN 01/14 1545 AC 01/29 INH 0126 Alprazolam 0.5 MG 4 TIMES/DAY 01/20 1300 AC 02/03 PO 02/10 1257 1246 Amlodipine Besylate 10 MG DAILY 01/29 0900 AC 02/03 PO 0824 Apixaban 5 MG BID 01/14 2100 AC 02/03 PO 0824 Bisacodyl 10 MG DAILY PRN 01/28 1415 AC 01/28 WA 1435 Budesonide/ 2 PUF BID 01/14 2100 AC 02/03 Formoterol Fumarate INH 0823 Calcium Carbonate 500 MG DAILY PRN 01/14 1545 AC 01/28 PO 0628 Carvedilol 6.25 MG BID 01/21 2100 AC 02/03 PO 0825 Cholecalciferol 1,000 IU DAILY 01/14 1535 AC 02/03 PO 1245 Citalopram 20 MG DAILY 01/14 1539 AC 02/03 Hydrobromide PO 0824 Cyanocobalamin 1,000 MCG DAILY 01/14 1536 AC 02/03 PO 0824 Docusate Sodium 100 MG BID 01/17 1424 AC 02/03 PO 0825 Ferrous Sulfate 325 MG DAILY 01/14 1536 AC 02/03 PO 0824 Furosemide 20 MG DAILY 01/27 09 AC 02/03 PO 0825 Guaifenesin 1,200 MG Q12 02/02 0900 AC 02/03 PO 0825 Levetiracetam 750 MG BID 01/14 2100 AC 02/03 PO 0825 Lidocaine 1 PAT DAILY 01/14 1930 AC 02/03 TOP 0825 Lidocaine/Diphenhydr/ 30 ML Q6-PRN PRN 01/15 1545 AC 02/03 Alum/Mg/Simeth PO 1245 Losartan Potassium 100 MG DAILY 01/26 09 AC 02/03 PO 0825 Mirtazapine 7.5 MG AT BEDTIME 02/02 2100 AC 02/02 PO 2103 Nystatin 5 ML 4 TIMES/DAY 02/03 1300 AC PO Omeprazole 40 MG 1/2H B/BREAKF/DINNER 01/14 1630 AC 02/03 PO 0534 Ondansetron HCl 4 MG Q6P PRN 01/15 1345 AC 02/01 IV 1045 Oxycodone HCl 30 MG Q12 01/18 2100 AC 02/03 PO 0826 Oxycodone HCl 15 MG Q4 HRS NEEDED PRN 01/18 1345 AC 02/03 PO 1351 Phenol 2 SPRAY Q2P PRN 01/20 1715 AC 01/27 EXT 1731 Polyethylene Glycol 17 GM DAILY 01/17 1424 AC 02/03 PO 0826 Prednisone 40 MG DAILY 02/01 09 AC 02/03 PO 0824 Senna 187 MG AT BEDTIME 01/17 2100 AC 02/01 PO 2122 Tiotropium [place] 1 PUF DAILY 01/15 09 AC 02/03 INH 0823 Assessment/Plan Assessment Rima a 62 year old female with multiple comorbidities including severe COPD, oxygen and prednisone dependent, pulmonary nodule concerning for malignancy, multiple hospitalization with current prolonged hospital stay complicated with acute respiratory distress that required 2 times transferred to ICU unit. Hospice care was discussed with the patient and her family on 02/01 with recommendation for DNR/DNI, not escalating care and hospice evaluation however today patient has different wishes and she is willing to have full code and to proceed with aggressive medical management. Despite the fact that patient appears to understand quality of life she will have she insists to have full resuscitation and aggressive management plan. At this point patient is declining hospice and palliative care. Recommendation: Recommendation for long-term care Patient's Condition: Deteriorting Prognosis: Poor Is Patient Decisional? yes Case Discussed With: patient, family, house staff, nurse(s), case management
[2018-02-03 14:23] VITALS: BP 140/90
[2018-02-03 21:53] VITALS: BP 130/80
[2018-02-04 06:44] VITALS: BP 156/94
--- NOTE | 2018-02-04 08:12 | PN- Housestaff ---
See Addendum Subjective Follow-up For: copd exacerbation chronic pain Complaints: pain scale (0-10), cough and bilateral leg pain Subjective: Patient states she feels a little bit better today. She does have bilateral leg pain and her chronic neck pain and headache are present. Denies fever, chills, n /v/d, chest pain, abdominal pain. Review of Systems Constitutional: Reports: see HPI. Objective Last 24 Hrs of Vital Signs/I&O Vital Signs Date Time Temp Pulse Resp B/P B/P Pulse O2 O2 Flow FiO2 Mean Ox Delivery Rate 02/04 1344 Nasal 1.0L Cannula 02/04 0854 75 156/94 02/04 0853 75 156/94 02/04 0852 75 156/94 02/04 0800 94 Nasal 1.0L Cannula 02/04 0644 98.5 75 20 156/94 94 Nasal 1.0L Cannula 02/04 0407 99 Nasal 1.0L Cannula 02/04 0000 95 Nasal 1.0L Cannula 02/03 2153 97.9 68 24 130/80 95 Nasal Cannula 02/03 1959 78 140/90 02/03 1640 95 Nasal 1.0L Cannula Intake & Output 02/04 1600 02/04 0800 02/04 0000 Intake Total 510 510 Output Total 100 200 Balance -100 310 510 Intake, IV 150 150 Intake, Oral 360 360 Number 2 Bowel Movements Output, Urine 100 200 Physical Exam General Appearance: Alert, Oriented X3, Cooperative, No Acute Distress, sitting up eating breakfast this morning Skin: No Rashes Skin Temp/Moisture Exam: Warm/Dry HEENT: Atraumatic, PERRLA Neck: Supple Cardiovascular: Regular Rate, Normal S1, Normal S2, No Murmurs Lungs: occasional rhonchi bilaterally Abdomen: Normal Bowel Sounds, Soft, No Tenderness Extremities: Normal Pulses Assessment/Plan Assessment: Ms. Gottlieb is a 62 year old female with past medical history of COPD, hypertension, seizure disorder on Keppra, lung cancer, anxiety, chronic neck pain status post nerve stimulator implantation who was recently discharged (01/13) from [facility] admission for COPD exacerbation. She was brought in for observation 01/14 for mild COPD exacerbation and uncontrolled pain and anxiety. Problem List: 1. COPD exacerbation; chronic hypoxemic respiratory failure 2. HTN 3. Anxiety 4. Chronic pain 5. Left hip pain #COPD exacerbation-Chronic hypercarbic respiratory distress; seems to be exacerbated by anxiety. Her breathing becomes normal after I stay in the room for awhile to speak with her. -Admitted to ICU 01/16 s/p rapid response for respiratory distress and non responsive to verbal commands. Emergency consult to ENT (Dr. Monae) who performed laryngoscopy; no acute findings. Patient transferred back to the general medicine service over the weekend and remained stable. -continued steroid taper and previously started from last admission -Pulm consulted: Continue steroid taper; outpatient PET scan for possible lung malignancy -ID consulted for possible abx: CXR 01/16 possible LLL pneumonia and resp sputum growing enterococcus/GNR/yeast. Recommended CT chest and that was done shows continued presence of suspicious lesions and possible cryptogenic organizing pneumonia (GLUE [employer]ER BONE); treating with Meropenem-7 day treatment course; completed abx course 01/26 -Pulm: strict aspiration precautions; continue steroids; continue pain control; maintain O2 sats around 92%; steroid taper: currently on PO prednisone 40mg -Palliative consult: started on 02/02: mirtazipine 7.5mg at night; mucinex 1200mg bid; changed code status to DNR/DNI; hospice care evaluation -Patient wanted her code status changed yesterday back to Full Code. Palliative reconsulted to discuss care goals. Patient does not want hospice or palliative anymore. Code status changed 02/03 back to full code. #Neck Pain/strangling sensation -CT neck negative for pathologic/obstructive process -Xanax seems to help decrease sensation of 'strangling' #Anxiety-likely contributing to COPD exacerbation -Started on Celexa 20mg PO this admission 01/14. Will need to follow up outpatient and increase as needed -Xanax 0.5mg PO to qid acute anxiety; patient responding well to this regimen #HTN -Increased dose of Carvedilol 6.25mg -Losartan 25mg restarted on 01/24 after being stopped during ICU placement. -Administered Amlodipine 5mg x2 01/22-01/23. BP 188/100. -Patient given Hydralazine over the weekend to help manage BP 200/100. -[id number] daily -Furosemide 20mg daily per cardiology recs restarted 01/27 -Amlodipine 10mg daily started today 01/28 -Cardiology contacted (Dr. Loaiza) has seen: recommends continued use of antihypertensives and increasing dose of Carvedilol if BP persistently elevated. #Chronic pain -Headache-oral 1000mg q8 PRN -Dr. Cordova consulted; did not come -PT worked with PT: ambulating well -Will continue to ambulate bid and as tolerated #Left hip pain-likely 2/2 sitting in bed too long; lack of ambulation -will obtain XR at patients request to rule out fracture or bony changes though this is unlikely -Left hip XR was negative. DVT Prophylaxis: on eliquis/alps/ambulation Dispo: hospice evaluated patient and spoke with . Will need to regroup and have another discussion about goals of care; expectations of hospice services; and residential plan Problem List: 1. Acute exacerbation of chronic obstructive pulmonary disease (COPD) 2. Foot pain, bilateral 3. Headache 4. Neck pain Pain Ratin Pain Location: head and neck Pain Goal: Pain 7 or less Pain Plan: see a/p Tomorrow's Labs & Rationales: none
[2018-02-04 14:53] VITALS: BP 148/85
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
[2018-02-04 22:10] VITALS: BP 158/82
[2018-02-05 06:50] VITALS: BP 150/85
--- NOTE | 2018-02-05 08:39 | PN- Housestaff ---
See Addendum Subjective Follow-up For: copd exacerbation chronic pain Complaints: headache choking sensation SOB Subjective: Patient reports that she did not have a good night last night. She feels the strangling sensation around her neck and feels that her voice is weak. She continues to have a headache that is not resolved with pain medication. Denies fever, chills, n/v/d, chest pain. Review of Systems Constitutional: Reports: see HPI. Objective Last 24 Hrs of Vital Signs/I&O Vital Signs Date Time Temp Pulse Resp B/P B/P Pulse O2 O2 Flow FiO2 Mean Ox Delivery Rate 02/05 0841 97 Nasal 2.0L Cannula 02/05 0835 98.5 75 21 150/85 02/05 0834 98.5 75 21 150/85 02/05 0832 98.5 75 21 150/85 02/05 0650 98.5 75 21 150/85 96 Nasal Cannula 02/05 0105 98 Nasal 2.0L Cannula 02/05 0000 98 Nasal 2.0L Cannula 02/04 2210 98.1 79 18 158/82 98 02/04 2134 78 150/92 02/04 1715 94 Nasal 2.0L Cannula 02/04 1600 94 Nasal 2.0L Cannula 02/04 1453 98.7 80 22 148/85 95 Nasal Cannula 02/04 1344 Nasal 1.0L Cannula Intake & Output 02/05 1600 02/05 0800 02/05 0000 Intake Total 240 Output Total 201 Balance 240 -201 Intake, Oral 240 Output, Stool 1 Output, Urine 200 Physical Exam General Appearance: Alert, Oriented X3, Cooperative, No Acute Distress, drinking a juice this morning when I walked in Skin: ecchymosis to BUE/BLE Skin Temp/Moisture Exam: Warm/Dry HEENT: Atraumatic, PERRLA Neck: Supple Cardiovascular: Regular Rate, Normal S1, Normal S2 Lungs: expiratory wheezes bilaterally with rhonchi Abdomen: Normal Bowel Sounds, Soft, No Tenderness Extremities: No Edema, Normal Pulses Assessment/Plan Assessment: Ms. Gottlieb is a 62 year old female with past medical history of COPD, hypertension, seizure disorder on Keppra, lung cancer, anxiety, chronic neck pain status post nerve stimulator implantation who was recently discharged (01/13) from [facility] admission for COPD exacerbation. She was brought in for observation 01/14 for mild COPD exacerbation and uncontrolled pain and anxiety. Problem List: 1. COPD exacerbation; chronic hypoxemic respiratory failure 2. HTN 3. Anxiety 4. Chronic pain 5. Left hip pain #COPD exacerbation-Chronic hypercarbic respiratory distress; seems to be exacerbated by anxiety. Her breathing becomes normal after I stay in the room for awhile to speak with her. -Admitted to ICU 01/16 s/p rapid response for respiratory distress and non responsive to verbal commands. Emergency consult to ENT (Dr. Monae) who performed laryngoscopy; no acute findings. Patient transferred back to the general medicine service over the weekend and remained stable. -continued steroid taper and previously started from last admission -Pulm consulted: Continue steroid taper; outpatient PET scan for possible lung malignancy -ID consulted for possible abx: CXR 01/16 possible LLL pneumonia and resp sputum growing enterococcus/GNR/yeast. Recommended CT chest and that was done shows continued presence of suspicious lesions and possible cryptogenic organizing pneumonia (LEASING [employer]); treating with Meropenem-7 day treatment course; completed abx course 01/26 -Pulm: strict aspiration precautions; continue steroids; continue pain control; maintain O2 sats around 92%; steroid taper: currently on PO prednisone 40mg -Palliative consult: started on 02/02: mirtazipine 7.5mg at night; mucinex 1200mg bid; changed code status to DNR/DNI; hospice care evaluation -Patient wanted her code status changed yesterday back to Full Code. Palliative reconsulted to discuss care goals. Patient does not want hospice or palliative anymore. Code status changed 02/03 back to full code. -Psychiatry eval for capacity and competence 02/04: There are no acute psychiatric issues at this time. The patient has capacity to make a decision about her care and at present is electing to go to short-term rehab. She is also adamant that she wants to be resuscitated if necessary. #Neck Pain/strangling sensation -CT neck negative for pathologic/obstructive process -Xanax seems to help decrease sensation of 'strangling' #Anxiety-likely contributing to COPD exacerbation -Started on Celexa 20mg PO this admission 01/14. Will need to follow up outpatient and increase as needed -Xanax 0.5mg PO to qid acute anxiety; patient responding well to this regimen #HTN -Increased dose of Carvedilol 6.25mg -Losartan 25mg restarted on 01/24 after being stopped during ICU placement. -Administered Amlodipine 5mg x2 01/22-01/23. BP 188/100. -Patient given Hydralazine over the weekend to help manage BP 200/100. -[id number] daily -Furosemide 20mg daily per cardiology recs restarted 01/27 -Amlodipine 10mg daily started today 01/28 -Cardiology contacted (Dr. Loaiza) has seen: recommends continued use of antihypertensives and increasing dose of Carvedilol if BP persistently elevated. #Chronic pain -Headache-oral 1000mg q8 PRN -Dr. Cordova consulted; did not come -PT worked with PT: ambulating well -Will continue to ambulate bid and as tolerated #Left hip pain-likely 2/2 sitting in bed too long; lack of ambulation -will obtain XR at patients request to rule out fracture or bony changes though this is unlikely -Left hip XR was negative. DVT Prophylaxis: on eliquis/alps/ambulation Dispo: hospice evaluated patient and spoke with . Will need to regroup and have another discussion about goals of care; expectations of hospice services; and ocean transportation intermediary plan. Family/staff meeting today at 13:30 Problem List: 1. Acute exacerbation of chronic obstructive pulmonary disease (COPD) 2. Headache 3. Neck pain 4. SOB (shortness of breath) 5. HTN (hypertension) Pain Ratin Pain Location: neck Pain Goal: Pain 4 or less Pain Plan: see a/p Tomorrow's Labs & Rationales: none
[2018-02-05 12:47] LABS: ABSOLUTE BASOPHIL COUNT 0 /CUMM (0.0-0.2); ABSOLUTE EOSINOPHIL COUNT 0 /CUMM (0.0-0.7); ABSOLUTE GRANULOCYTE CT 4.6 /CUMM (1.4-6.5); ABSOLUTE LYMPH COUNT 0.8 /CUMM (1.2-3.4); ABSOLUTE MONOCYTE COUNT 0.4 /CUMM (0.10-0.60); BASOPHIL % 0.2 % (0.0-2.0); EOSINOPHIL % 0.4 % (0-5); GRANULOCYTE % 79.7 % (42.2-75.2); HEMATOCRIT 26.6 % (37-47); MEAN CORPUSCULAR HGB CONC 32.9 G/DL (33.0-37.0); MEAN CORPUSCULAR VOLUME 91.3 FL (81.0-99.0); MEAN PLATELET VOLUME 6.3 FL (7.4-10.4); PLATELET COUNT 261 /CUMM (130-400); RBC DISTRIBUTION WIDTH 16.8 % (11.5-14.5); RED BLOOD CELL CT 2.91 /CUMM (4.20-5.40); WHITE BLOOD CELL COUNT 5.8 /CUMM (4.8-10.8)
[2018-02-05 14:29] VITALS: BP 125/69
[2018-02-05 22:19] VITALS: BP 132/70
[2018-02-06 06:41] VITALS: BP 136/78
[2018-02-06 13:49] VITALS: BP 140/90
--- NOTE | 2018-02-06 13:54 | PN- Housestaff ---
Cordell Lopez 02/06/18 1354: Subjective Follow-up For: copd exacerbation, chronic pain Complaints: headache, choking sensation, SOB Subjective: Patient was seen and examined at the bedside. Patient states that she had an okay night, and is okay going to rehab today. Did say that walking due to pain, for which we discussed ibuprofen. She also states that she continues to have choking sensation when swallowing foods. Patient to be discharge to [facility] this afternoon. Review of Systems Constitutional: Reports: see HPI. Objective Last 24 Hrs of Vital Signs/I&O Vital Signs Date Time Temp Pulse Resp B/P B/P Pulse O2 O2 Flow FiO2 Mean Ox Delivery Rate 02/06 1349 98.1 93 20 140/90 02/06 1000 93 140/90 02/06 1000 93 140/90 02/06 0959 93 140/90 02/06 0826 99 Nasal 2.0L Cannula 02/06 0800 95 Nasal Cannula 02/06 0641 98.1 80 20 136/78 99 02/06 0147 99 Nasal 2.0L Cannula 02/06 0000 Nasal 2.0L Cannula 02/05 2219 98.3 87 20 132/70 97 Nasal Cannula 02/05 2039 87 132/70 Intake & Output 02/06 1600 02/06 0800 02/06 0000 Intake Total 360 200 120 Output Total 300 451 Balance 360 -100 -331 Intake, Oral 360 200 120 Number 1 Bowel Movements Output, Stool 1 Output, Urine 300 450 Physical Exam General Appearance: Alert, Oriented X3, Cooperative, Mild Distress (likely due to discharge plan) Skin: ecchymosis to BUE/BLE Skin Temp/Moisture Exam: Warm/Dry HEENT: Atraumatic, PERRLA Neck: Supple Cardiovascular: Regular Rate, Normal S1, Normal S2 Lungs: expiratory wheezes diffusely and bilaterally Abdomen: Soft, No Tenderness Neurological: Normal Speech Extremities: No Edema, Normal Pulses Vascular: Normal Pulses, Pulses Symmetrical Current Medications: Current Medications Sig/Halie Start time Last Medication Dose Route Stop Time Status Admin Acetaminophen 1,000 MG Q8P PRN 01/26 1045 DCD 02/05 N/A 1 UNIT IV 1440 Albuterol Sulfate 3 ML EVERY 4 HRS/AWAKE 01/15 0800 DCD 02/06 INH 1151 Albuterol Sulfate 2 PUF Q4-6 PRN PRN 01/14 1545 DCD 01/29 INH 0126 Alprazolam 0.5 MG 4 TIMES/DAY 01/20 1300 DCD 02/06 PO 02/10 1257 1238 Amlodipine Besylate 10 MG DAILY 01/29 0900 DCD 02/06 PO 0959 Apixaban 5 MG BID 01/14 2100 DCD 02/06 PO 1000 Bisacodyl 10 MG DAILY PRN 01/28 1415 DCD 01/28 IN 1435 Budesonide/ 2 PUF BID 01/14 2100 DCD 02/06 Formoterol Fumarate INH 1001 Calcium Carbonate 500 MG DAILY PRN 01/14 1545 DCD 02/06 PO 1335 Carvedilol 6.25 MG BID 01/21 2100 DCD 02/06 PO 1000 Cholecalciferol 1,000 IU DAILY 01/14 1535 DCD 02/06 PO 0959 Citalopram 20 MG DAILY 01/14 1539 DCD 02/06 Hydrobromide PO 1000 Cyanocobalamin 1,000 MCG DAILY 01/14 1536 DCD 02/06 PO 0959 Docusate Sodium 100 MG BID 01/17 1424 DCD 02/06 PO 1000 Ferrous Sulfate 325 MG DAILY 01/14 1536 DCD 02/06 PO 1000 Furosemide 20 MG DAILY 01/27 0900 DCD 02/06 PO 1000 Guaifenesin 1,200 MG Q12 02/02 09 DCD 02/06 PO 1000 Ibuprofen 800 MG ONCE ONE 02/06 1130 DC 02/06 PO 02/06 1131 1238 Levetiracetam 750 MG BID 01/14 2100 DCD 02/06 PO 1000 Lidocaine 1 PAT DAILY 01/14 1930 DCD 02/06 TOP 1001 Lidocaine/Diphenhydr/ 30 ML Q6-PRN PRN 01/15 1545 DCD 02/06 Alum/Mg/Simeth PO 1007 Losartan Potassium 100 MG DAILY 01/26 0900 DCD 02/06 PO 1000 Mirtazapine 7.5 MG AT BEDTIME 02/02 2100 DCD 02/05 PO 2038 Nystatin 5 ML 4 TIMES/DAY 02/03 1300 DCD 02/06 PO 1238 Omeprazole 40 MG 1/2H B/BREAKF/DINNER 01/14 1630 DCD 02/06 PO 0649 Ondansetron HCl 4 MG Q6P PRN 01/15 1345 DCD 02/03 IV 2149 Oxycodone HCl 30 MG Q12 01/18 2100 DCD 02/06 PO 1013 Oxycodone HCl 15 MG Q4 HRS NEEDED PRN 01/18 1345 DCD 02/05 PO 1814 Phenol 2 SPRAY Q2P PRN 01/20 1715 DCD 01/27 EXT 1731 Polyethylene Glycol 17 GM DAILY 01/17 1424 DCD 02/06 PO 1000 Prednisone 60 MG DAILY 02/05 0900 DCD 02/06 PO 0959 Senna 187 MG AT BEDTIME 01/17 2100 DCD 02/05 PO 2038 Tiotropium [place] 1 PUF DAILY 01/15 09 DCD 02/06 INH 1000 Assessment/Plan Assessment: Ms. Gottlieb is a 62 year old female with past medical history of COPD, hypertension, seizure disorder on Keppra, lung cancer, anxiety, chronic neck pain status post nerve stimulator implantation who was recently discharged (01/13) from [facility] admission for COPD exacerbation. She was brought in for observation 01/14 for mild COPD exacerbation and uncontrolled pain and anxiety. Problem List: 1. COPD exacerbation; chronic hypoxemic respiratory failure 2. HTN 3. Anxiety 4. Chronic pain 5. Left hip pain #COPD exacerbation-Chronic hypercarbic respiratory distress; seems to be exacerbated by anxiety. Her breathing becomes normal after I stay in the room for awhile to speak with her. -Admitted to ICU 01/16 s/p rapid response for respiratory distress and non responsive to verbal commands. Emergency consult to ENT (Dr. Monae) who performed laryngoscopy; no acute findings. Patient transferred back to the general medicine service over the weekend and remained stable. -continued steroid taper and previously started from last admission -Pulm consulted: Continue steroid taper; outpatient PET scan for possible lung malignancy -ID consulted for possible abx: CXR 01/16 possible LLL pneumonia and resp sputum growing enterococcus/GNR/yeast. Recommended CT chest and that was done shows continued presence of suspicious lesions and possible cryptogenic organizing pneumonia ([employer]SIOTHER[employer] AIDE); treating with Meropenem-7 day treatment course; completed abx course 01/26 -Pulm: strict aspiration precautions; continue steroids; continue pain control; maintain O2 sats around 92%; steroid taper: currently on PO prednisone 40mg -Palliative consult: started on 02/02: mirtazipine 7.5mg at night; mucinex 1200mg bid; changed code status to DNR/DNI; hospice care evaluation -Patient wanted her code status changed yesterday back to Full Code. Palliative reconsulted to discuss care goals. Patient does not want hospice or palliative anymore. Code status changed 02/03 back to full code. -Psychiatry eval for capacity and competence 02/04: There are no acute psychiatric issues at this time. The patient has capacity to make a decision about her care and at present is electing to go to short-term rehab. She is also adamant that she wants to be resuscitated if necessary. #Neck Pain/strangling sensation -CT neck negative for pathologic/obstructive process -Xanax seems to help decrease sensation of 'strangling' #Anxiety-likely contributing to COPD exacerbation -Started on Celexa 20mg PO this admission 01/14. Will need to follow up outpatient and increase as needed -Xanax 0.5mg PO to qid acute anxiety; patient responding well to this regimen #HTN -Increased dose of Carvedilol 6.25mg -Losartan 25mg restarted on 01/24 after being stopped during ICU placement. -Administered Amlodipine 5mg x2 01/22-01/23. BP 188/100. -Patient given Hydralazine over the weekend to help manage BP 200/100. -[id number] daily -Furosemide 20mg daily per cardiology recs restarted 01/27 -Amlodipine 10mg daily started today 01/28 -Cardiology contacted (Dr. Loaiza) has seen: recommends continued use of antihypertensives and increasing dose of Carvedilol if BP persistently elevated. #Chronic pain -Headache-oral 1000mg q8 PRN -Dr. Cordova consulted; did not come -PT worked with PT: ambulating well -Will continue to ambulate bid and as tolerated #Left hip pain-likely 2/2 sitting in bed too long; lack of ambulation -will obtain XR at patients request to rule out fracture or bony changes though this is unlikely -Left hip XR was negative. DVT Prophylaxis: on eliquis/alps/ambulation Problem List: 1. Acute exacerbation of chronic obstructive pulmonary disease (COPD) 2. Headache 3. HTN (hypertension) 4. SOB (shortness of breath) 5. Neck pain Pain Ratin Pain Location: neck Pain Goal: Pain 4 or less Pain Plan: per protocol Tomorrow's Labs & Rationales: none; discharged Varsha Petersen 02/06/18 1526: Attending MD Review Statement Attending Statement Attending MD Statement: examined this patient, discuss w/resident/PA/NETWORK INFRASTRUCTURE ARCHITECT, agreed w/resident/PA/NETWORK INFRASTRUCTURE ARCHITECT, discussed with family, reviewed EMR data (avail), discussed with nursing, discussed with case mgmt, reviewed images, amended to note Attending Assessment/Plan: Patient medically stable for discharge to [facility]. Addressed patients questions. Follow up o/p PCP at discharge.
== END 2018-02-06 14:40 | DRG 189 ==
LOC: ERH 10:22 → 2NA 13:47 → ERHI 13:47 → ENRESERV 16:24 → ENTRNSPT 17:19 → EDTRNSPTSTS 17:30 → 2NA 17:46 → CMPTRNSPT 17:57 → 2NA 01-15 13:55 → 2NB 01-15 13:55 → 2NA 01-15 17:05 → CRI 01-16 12:14 → ENTRNSPT 01-17 11:39 → EDTRNSPTSTS 01-17 11:56 → CMPTRNSPT 01-17 12:12 → 2NB 01-17 12:24 → CRI 01-29 09:38 → 2NA 01-31 22:23 → ENPENDDIS 02-06 10:26 → 2NA 02-06 14:40
PROVIDERS: Emergency Medicine; Internal Medicine; Preventive Medicine Public Health & General Preventive Medicine; Student in an Organized Health Care Education/Training Program
DX: J96.21 Acute and chronic respiratory failure with hypoxia (principal); I50.22 Chronic systolic (congestive) heart failure; J44.1 Chronic obstructive pulmonary disease with (acute) exacerbation; M48.58XA Collapsed vertebra, not elsewhere classified, sacral and sacrococcygeal region, initial encounter for fracture; J84.116 Cryptogenic organizing pneumonia; J44.0 Chronic obstructive pulmonary disease with (acute) lower respiratory infection; Z51.5 Encounter for palliative care; J96.22 Acute and chronic respiratory failure with hypercapnia; I16.0 Hypertensive urgency; R91.8 Other nonspecific abnormal finding of lung field; F41.9 Anxiety disorder, unspecified; G40.909 Epilepsy, unspecified, not intractable, without status epilepticus; Z88.1 Allergy status to other antibiotic agents; Z88.5 Allergy status to narcotic agent; Z79.01 Long term (current) use of anticoagulants; Z79.891 Long term (current) use of opiate analgesic; Z79.51 Long term (current) use of inhaled steroids; I11.0 Hypertensive heart disease with heart failure; Z99.81 Dependence on supplemental oxygen; M48.02 Spinal stenosis, cervical region; G47.00 Insomnia, unspecified; D64.9 Anemia, unspecified; Z90.49 Acquired absence of other specified parts of digestive tract; Z90.710 Acquired absence of both cervix and uterus; G89.29 Other chronic pain; I44.7 Left bundle-branch block, unspecified; K21.9 Gastro-esophageal reflux disease without esophagitis; I73.9 Peripheral vascular disease, unspecified; Z86.711 Personal history of pulmonary embolism; Z79.52 Long term (current) use of systemic steroids; R00.0 Tachycardia, unspecified; Z66 Do not resuscitate; M25.552 Pain in left hip; M54.2 Cervicalgia; R51 Headache; M79.672 Pain in left foot; M79.671 Pain in right foot; B95.2 Enterococcus as the cause of diseases classified elsewhere; B96.20 Unspecified Escherichia coli [E. coli] as the cause of diseases classified elsewhere; B37.9 Candidiasis, unspecified
CPT/HCPCS: 2NAP; CCU; 36415; 36592; 71045; 73501; 81003; 82436; 87070; 87071; 87086; 87147; 87449; 87450; 93005; 93010; 94799; 96374; 97110-GO; 97116-GO; 97162-GP; 97164-GP; 97530-GO; J0131; J1953; J2185; J2405; J2920; J2930; J3490; J7512; J7608